=== PATIENT | female | born 1980 | race African-American/Black ===

== ENCOUNTER → 2020-09-09 20:36 | Outpatient (REF) | payer OTHER, SELFPAY | LOC: HO.SL 20:36 | PROVIDERS: PCP Family Medicine; Visit Provider Nurse Practitioner Family | DX: G47.33 Obstructive sleep apnea (adult) (pediatric) (principal) | CPT/HCPCS: 95811 ==

== ENCOUNTER → 2020-09-22 10:55 | Outpatient (BNVA) | payer OTHER, SELFPAY | PROVIDERS: PCP Family Medicine; Referring Provider Family Medicine; Visit Provider Internal Medicine | DX: G47.33 Obstructive sleep apnea (adult) (pediatric) (principal); J44.9 Chronic obstructive pulmonary disease, unspecified; E66.01 Morbid (severe) obesity due to excess calories; Z68.42 Body mass index [BMI] 45.0-49.9, adult; F17.210 Nicotine dependence, cigarettes, uncomplicated; Z79.899 Other long term (current) drug therapy | CPT/HCPCS: 99202; 99203 ==

== ENCOUNTER 2020-10-28 10:38 | Outpatient (REF) | payer OTHER, SELFPAY ==
--- NOTE | 2020-10-28 17:33 | PFT_ITS ---
INDICATION: Asthma. SPIROMETRY: The FEV1 to FVC of 85% with an FEV1 of 2.53 L, which is 87% predicted and FVC of 2.98 L, which is 85% predicted. There was a significant response to bronchodilators noted. There is also evidence of small airway disease. Maximum voluntary ventilation 114% predicted. Total lung capacity 95% predicted with an expiratory reserve volume of 25% predicted likely from an elevated BMI. Diffusion capacity 60% predicted. COMPARISONS: None. INTERPRETATION: No obstructive nor restrictive ventilatory defects identified. There was a significant response to bronchodilators noted and also evidence of small airway disease, which could be due to asthma. Lung volumes are within normal limits except for decrease in the expiratory reserve volume and the patient does have a [id number] diffusion impairment, which could be due to underlying pulmonary vascular disease. Should also consider correcting for hemoglobin and for alveolar volume. Thony Glez MD MR/MODL / [id number]
== END 2020-10-28 10:39 | disposition home or self-care (01) ==
LOC: HO.RESP 10:38
PROVIDERS: PCP Family Medicine; Visit Provider Internal Medicine
DX: J44.9 Chronic obstructive pulmonary disease, unspecified (principal)
CPT/HCPCS: 94060; 94727; 94729

== ENCOUNTER → 2021-05-05 14:54 | Outpatient (BNVA) | payer OTHER, SELFPAY | PROVIDERS: PCP Family Medicine; Visit Provider Internal Medicine | DX: E66.01 Morbid (severe) obesity due to excess calories (principal); G47.33 Obstructive sleep apnea (adult) (pediatric); J45.909 Unspecified asthma, uncomplicated; J44.9 Chronic obstructive pulmonary disease, unspecified; F17.200 Nicotine dependence, unspecified, uncomplicated | CPT/HCPCS: 99212 ==

== ENCOUNTER 2021-07-02 14:46 | Outpatient (REF) | payer OTHER, SELFPAY ==
[2021-07-02 15:32] LABS: MANUAL DIFF FLAG NO
[2021-07-02 15:43] LABS: Basophils Percent Auto 0.4 % (0-2); Eosinophils Absolute Auto 0.3 X10*3/uL (0.0-0.4); Eosinophils Percent Auto 3.3 % (0-4); Hematocrit 37.1 % (37-47); Hemoglobin 11.1 g/dl (12.0-16.0); Imm Gran Abs Auto 0.02 X10*3/uL (0.00-0.03); Imm Gran Pct Auto 0.2 % (0.0-0.4); Lymphocytes Absolute Auto 2.7 X10*3/uL (1.2-4.9); Lymphocytes Percent Auto 27.9 % (20-40); Mean Corpuscular HGB Conc 29.9 g/dl (31.0-35.0); Mean Corpuscular Hemoglobin 21.8 pg (27.0-33.0); Mean Corpuscular Volume 72.7 fL (80-98); Mean Platelet Volume 11.9 fL (9.4-12.3); Monocytes Absolute Auto 0.6 X10*3/uL (0.1-1.2); Monocytes Percent Auto 6.2 % (2-11); Platelet Count 379 X10*3/uL (160-400); Red Cell Distribution Width 14.3 % (11.0-16.0); White Blood Count 9.7 X10*3/uL (4.8-10.8)
[2021-07-02 16:02] LABS: Creatinine Urine 184.09 mg/dL; Microalbum/Creatinine Ratio Ur 15.2 ug/mg cr
[2021-07-02 16:05] LABS: B Type Natriuretic Peptide 21 pg/mL (<100)
[2021-07-02 16:08] LABS: Alanine Aminotransferase 29 U/L (0-31); Albumin Level 4.4 g/dL (3.5-5.0); Alkaline Phosphatase 79 U/L (39-117); Anion Gap 14 (12-20); Aspartate Amino Transferase 20 U/L (5-31); Bilirubin Total 0.3 mg/dL (0.0-1.0); Blood Urea Nitrogen 8 mg/dL (9-16); Calcium 9.3 mg/dL (8.4-10.2); Carbon Dioxide 22 mmol/L (22-29); Chloride 107 mmol/L (96-108); Cholesterol 157 mg/dL; Estimated Glomerular Filt Rate > 60; Glucose Random 115 mg/dL (60-115); HDL Cholesterol 27 mg/dL; Iron 39 mcg/dL (30-160); LDL Cholesterol Calculated 103 mg/dl; Sodium 139 mmol/L (135-145); Total Protein 7.7 g/dL (6.5-8.0); Triglycerides 138 mg/dL
[2021-07-02 16:20] LABS: Percent Iron Saturation 11 % (15-50); Total Iron Binding Capacity 358 mcg/dL (228-428); Unsaturated Iron Binding 319 ug/dL
[2021-07-02 16:26] LABS: Ferritin 28 ng/mL (10-250); Free T4 (Free Thyroxine) 1.04 ng/dL (0.71-1.85); Thyroid Stimulating Hormone 1.06 uIU/mL (0.32-4.0)
== END 2021-07-02 14:47 | disposition home or self-care (01) ==
LOC: HO.LAB 14:46
PROVIDERS: PCP Family Medicine; Visit Provider Family Medicine
DX: D64.9 Anemia, unspecified (principal); R60.0 Localized edema; R79.89 Other specified abnormal findings of blood chemistry
CPT/HCPCS: 36415; 80053; 80061; 82043; 82728; 83540; 83880; 84439; 84443; 85025

== ENCOUNTER 2021-07-10 09:56 | Day surgery (SDC) | payer OTHER, SELFPAY ==
[2021-07-10 10:04] VITALS: BP 118/78; PULSE 85; RESP 18; TEMP 36.4; O2SAT 97; BMI 49.6
--- NOTE | 2021-07-10 10:10 | P.CONAN_ITS ---
[facility] Active Problems Active Problems: All Active Problems (Updated 05/05/21 @ 17:06 by Ellie hernandez MD) Anemia (Acute) Smoking (Acute) COPD (chronic obstructive pulmonary disease) (Acute) Asthma (Acute) EDMUND (obstructive sleep apnea) (Acute) Morbid obesity (Acute) Past Medical History Medical History Asthma Asthma COPD (chronic obstructive pulmonary disease) Depression Iron deficiency anemia Morbid obesity EDMUND (obstructive sleep apnea) Smoking Family History Family History Mother Breast cancer Diabetes Maternal Grandmother Hypertension Surgical History Surgical History (Updated 07/10/21 @ 10:02 by Valentina Fontenot RN) H/O right knee surgery H/O tubal ligation Previous section Social History Social History Household Members: Family Housing: Apartment Are you a primary respiratory care program director to a significant other at home: No (For mother, not spouse) Do you presently have visiting nurse or other home services: No Alcohol intake: never Patient Tobacco Use Status: Current everyday Tobacco user Cigarette Packs Per Day: 0.5 Cigarettes Per Day: 10.0 Years Smoked: 23 Use of substances other than those prescribed or required for medical reasons: Yes Substance Use Type: Marijuana Special yasmeen needs: No Agree to transfusion: No Are you DNR?: No Advance Directives: No Advance Directives Information Provided: Yes Meds Allergies Allergy/AdvReac Type Severity Reaction Status Date / Time No Known Allergies Allergy Verified 07/10/21 10:02 Active Medications: Current Medications Generic Name Dose Route Start Last Admin Trade Name Inés PRN Reason Stop Dose Admin Lactated Ringer's 1,000 mls @ 50 mls/hr 07/10/21 08:00 Lr IVCONT .Q20H [facility] Home Medications Medication Instructions Recorded Confirmed Last Taken Type albuterol sulfate 90 mcg/actuation 1 inh INHALATION QID 09/10/20 09/10/20 Unknown History aerosol inhaler ascorbic acid (vitamin C) 300 mg 300 mg PO DAILY 09/10/20 09/10/20 Unknown History chewable tablet fluticasone 500 mcg-salmeterol 50 1 inh INHALATION BID 09/10/20 09/10/20 Unknown History mcg/dose blistr powdr for inhalation (Advair Diskus) gabapentin 100 mg capsule 100 mg PO BEDTIME 09/10/20 09/10/20 Unknown History ipratropium 0.5 mg-albuterol 3 mg 3 ml INHALATION QID PRN 09/10/20 09/10/20 Unknown History (2.5 mg base)/3 mL nebulization soln montelukast 10 mg tablet 10 mg PO DAILY 09/10/20 09/10/20 Unknown History (Singulair) omeprazole 20 mg capsule,delayed 20 mg PO DAILY 09/10/20 09/10/20 Unknown History release tiotropium bromide 18 mcg capsule 1 cap INHALATION DAILY 09/10/20 09/10/20 Unknown History with inhalation device (Spiriva with HandiHaler) ascorbic acid (vitamin C) 250 mg 250 mg PO TID 05/05/21 Unknown History tablet docusate sodium 100 mg capsule 100 mg PO BID PRN 05/05/21 Unknown History fluticasone propionate 50 1 - 2 spray INTRANASAL DAILY PRN 05/05/21 Unknown History mcg/actuation nasal spray,suspension levothyroxine 50 mcg tablet 50 mcg PO DAILY 05/05/21 Unknown History methadone 10 mg/mL oral syringe 63 mg PO DAILY 05/05/21 07/10/21 09:45 History (FOR ORAL USE ONLY) Exam Exam Date and Time: July 10, 2021 1010 Airway Mallampati Class: III TM Dist: >3cm Neck ROM: Full
--- NOTE | 2021-07-10 10:20 | MHC.SHP ---
Pre-Procedural Eval Section A Date of Service: 07/10/21 The patient is an INPATIENT: No Changes since office visit: No Cold of Flu in the past 2 weeks, No New Medical Problems, No Changes in Medication and No Patient answered all questions The History & Physical has been completed within 30 days and I have reviewed it.: Yes Section B Chief Complaint: reflux disease Allergies: Allergies Allergy/AdvReac Type Severity Reaction Status Date / Time No Known Allergies Allergy Verified 07/10/21 10:02 Plan I have reviewed the history and physical and performed a pertinent physical examination on my patient. No changes have occurred unless specified.
[2021-07-10] MEDS: Lactated Ringers 1,000 ML 100 ML IVCONT (10:23)
--- NOTE | 2021-07-10 10:36 | P.BOP_ITS ---
Brief Operative Note Date of Service: 07/10/21 Pre-op diagnosis: gerd Post-op diagnosis: same Procedure: egd Surgeon: Dillon Maldonado Anesthesia: MAC Was an Sales Representative Consultant used for this Procedure?: No Estimated blood loss (mL): 2 Pathology: other (antral and egj bxs) Condition: stable Disposition: PACU
[2021-07-10 10:45] VITALS: BP 104/58; PULSE 84; RESP 18; TEMP 36.4; O2SAT 99
--- NOTE | 2021-07-10 10:55 | OP_ITS ---
SURGEON: Dillon Maldonado MD INDICATIONS: Gastroesophageal reflux disease. PREOPERATIVE DIAGNOSIS: POSTOPERATIVE DIAGNOSIS: PROCEDURE PERFORMED: Upper endoscopy with biopsy. ESTIMATED BLOOD LOSS: COMPLICATIONS: ANESTHESIA: ASSISTANTS: SPECIMENS: MEDICATIONS: Monitored anesthesia care. DESCRIPTION OF PROCEDURE: History and physical performed. The risks and benefits of the procedure were explained to the patient. Informed consent was obtained. The patient was placed in the left lateral decubitus position. The Olympus video gastroscope was introduced into the esophagus, stomach, and duodenum. Examination was performed and the scope was removed. She tolerated the procedure well and was taken to recovery area in stable condition. FINDINGS: ESOPHAGUS: The esophagus was normal. There was no esophagitis. Biopsies were obtained from the EG junction, which was slightly irregular. STOMACH: The stomach showed no evidence of masses, ulcers, or polyps. There was mild gastritis in the body with patchy erythema involving the body and fundus. Biopsies were obtained from the antrum to evaluate for H pylori. No ulcer was seen. DUODENUM: The bulb and second portion were normal. IMPRESSION: 1. Gastroesophageal reflux disease. 2. Gastritis. RECOMMENDATIONS: 1. Follow up the biopsy results. 2. Resume omeprazole 40 mg daily. MD SERENA Velez/SMOOTH / [id number]
[2021-07-10 11:01] VITALS: BP 100/61; PULSE 81; RESP 18; TEMP 36.4; O2SAT 97
== END 2021-07-10 11:41 | disposition home or self-care (01) ==
PROVIDERS: PCP Family Medicine; Visit Provider Internal Medicine Gastroenterology
PROC: 0DJ08ZZ Inspection of Upper Intestinal Tract, Via Natural or Artificial Opening Endoscopic (ICD-10-PCS; CPT 43235; principal; 2021-07-10 11:30)
DX: K21.9 Gastro-esophageal reflux disease without esophagitis (principal); K29.50 Unspecified chronic gastritis without bleeding; J44.9 Chronic obstructive pulmonary disease, unspecified; E03.9 Hypothyroidism, unspecified; G47.33 Obstructive sleep apnea (adult) (pediatric); E66.01 Morbid (severe) obesity due to excess calories; Z68.42 Body mass index [BMI] 45.0-49.9, adult; D64.9 Anemia, unspecified; E78.5 Hyperlipidemia, unspecified; Z79.51 Long term (current) use of inhaled steroids; Z79.899 Other long term (current) drug therapy; F11.20 Opioid dependence, uncomplicated; F17.210 Nicotine dependence, cigarettes, uncomplicated
CPT/HCPCS: 43239; 88305; 88342

== ENCOUNTER 2021-07-17 11:20 | Outpatient (REF) | payer OTHER, SELFPAY ==
--- NOTE | ~2021-07-17 | MM_ITS ---
EXAMINATION: MM SCREENING DIGITAL BREAST TOMOSYNTHESIS, BILATERAL CLINICAL INFORMATION: Screening. Asymptomatic. The lifetime risk of breast cancer based on the Tyrer-Cuzick Model is 15%. COMPARISON: Mammography: 07/11/2020 (baseline) TECHNIQUE: Digital breast tomosynthesis is performed in both the craniocaudal and mediolateral oblique views along with computer-aided detection (CAD). Synthesized 2D images are generated from the tomosynthesis. FINDINGS: The breasts are almost entirely fatty (ACR BI-RADS breast composition Category a). There are no significant masses, abnormal calcifications, or other abnormalities. The axilla and skin contours are unremarkable. No significant changes. MM/MM tomosynthesis screening BI IMPRESSION: No mammographic evidence of malignancy. ASSESSMENT: BI-RADS 1: Negative RECOMMENDATION: Routine annual mammography screening. This patient's information was entered into a reminder system with a target due date for their next mammogram.
== END 2021-07-17 11:21 | disposition home or self-care (01) ==
LOC: HO.MAMMO 11:20
PROVIDERS: Visit Provider Obstetrics & Gynecology
DX: Z12.31 Encounter for screening mammogram for malignant neoplasm of breast (principal)
CPT/HCPCS: 77063; 77067

== ENCOUNTER → 2021-08-19 13:25 | Outpatient (BNVA) | payer OTHER, SELFPAY | PROVIDERS: PCP Family Medicine; Referring Provider Family Medicine; Visit Provider Surgery | DX: K43.9 Ventral hernia without obstruction or gangrene (principal); E66.01 Morbid (severe) obesity due to excess calories | CPT/HCPCS: 99202 ==

== ENCOUNTER 2021-09-01 09:38 | Day surgery (SDC) | payer OTHER, SELFPAY ==
[2021-08-26 14:15] VITALS: BMI 51.3
--- NOTE | 2021-08-31 09:40 | HO.ANESPROP2 ---
Documented by User: Syeda Day NP 08/31/21 09:42 HPI - Anesthesia Eval Consult details Narrative: 41yo F for Hernia Repair Epigastric, Poss Mesh s/p EGD with MAC 06/2021 h/o IVDA with daily methadone now PMFSH Active Problems Active Problems: All Active Problems (Updated 08/26/21 @ 14:15 by Ermelinda Galeana, RN) Asthma (Acute) Anemia (Acute) Morbid obesity (Acute) Epigastric hernia (Acute) Smoking (Acute) COPD (chronic obstructive pulmonary disease) (Acute) EDMUND (obstructive sleep apnea) (Acute) Morbid obesity (Acute) Past Medical History Medical History Asthma COPD (chronic obstructive pulmonary disease) COVID-19 vaccine series completed Depression Epigastric hernia GERD (gastroesophageal reflux disease) Hypothyroid IBS (irritable bowel syndrome) Iron deficiency anemia Methadone maintenance therapy patient Morbid obesity EDMUND (obstructive sleep apnea) Smoking Family History Family History Mother Breast cancer Diabetes Maternal Grandmother Hypertension Surgical History Surgical History H/O right knee surgery H/O tubal ligation History of esophagogastroduodenoscopy (EGD) Hx of dilation and curettage Previous section Social History Social History Household Members: Family Housing: Apartment Are you a primary plant health care technician to a significant other at home: No Do you presently have visiting nurse or other home services: No Alcohol intake: never Patient Tobacco Use Status: Current everyday Tobacco user Tobacco use type: Cigarette Cigarette Packs Per Day: 0.25 Cigarettes Per Day: 5.0 Years Smoked: 24 Smoked in Last 30 Days: Yes Patient Interested in Nicotine Replacement: Yes Patient Given Instructions on How to Stop Smoking: Yes Date Education Initiated: 08/26/21 Use of substances other than those prescribed or required for medical reasons: Yes Substance Use Type: Marijuana Substance Use Type Other:: hx heroin- On Methadone- RX in [facility] Substance Use Frequency: Daily Have you been hit, kicked, punched, or otherwise hurt by someone within the past year? If so, by whom?: No Special yasmeen needs: No Agree to transfusion: No Are you DNR?: No Advance Directives: No Advance Directives Information Provided: No Advance Directives on File: No Recently lost weight without trying: No How much weight loss: 14-23 pounds Nutrition Risks: No Nutritional Risk Patient : No FDLMP: 08/02/21 Meds Allergies Allergy/AdvReac Type Severity Reaction Status Date / Time No Known Allergies Allergy Verified 09/01/21 09:48 Home Medications Medication Instructions Recorded Confirmed Last Taken Type gabapentin 100 mg capsule 200 mg PO BEDTIME 09/10/20 08/26/21 Unknown History ipratropium 0.5 mg-albuterol 3 mg 3 ml INHALATION QID PRN 09/10/20 08/26/21 Unknown History (2.5 mg base)/3 mL nebulization soln ascorbic acid (vitamin C) 250 mg 250 mg PO TID 05/05/21 08/26/21 Unknown History tablet docusate sodium 100 mg capsule 100 mg PO BID PRN 05/05/21 08/26/21 Unknown History fluticasone propionate 50 1 - 2 spray INTRANASAL DAILY PRN 05/05/21 08/26/21 Unknown History mcg/actuation nasal spray,suspension methadone 10 mg/mL oral syringe 48 mg PO DAILY 05/05/21 08/19/21 09/01/21 07:30 History (FOR ORAL USE ONLY) duloxetine 30 mg capsule,delayed 30 mg PO DAILY 08/19/21 08/26/21 Unknown History release (Cymbalta) albuterol sulfate 90 mcg/actuation 2 puff PO Q4-6H PRN 08/26/21 08/26/21 Unknown History aerosol inhaler (ProAir HFA) cyclobenzaprine 10 mg tablet 1 tab PO BID PRN 08/26/21 08/26/21 Unknown History levothyroxine 100 mcg tablet 1 tab PO DAILY 08/26/21 08/26/21 09/01/21 07:30 History omeprazole 40 mg capsule,delayed 1 cap PO QAM 08/26/21 08/26/21 Unknown History release tramadol 50 mg tablet 1 tab PO Q6H PRN 08/26/21 08/26/21 Unknown History Exam Exam Date and Time: August 31, 2021 0940 Height,Weight and Vital Signs: Height 5 ft 3 in Weight 131.542 kg Pertinent Lab Results Pertinent Lab Results: Laboratory Tests 07/02/21 07/02/21 15:00 15:00 WBC 9.7 Hgb 11.1 L Hct 37.1 Plt Count 379 Sodium 139 Potassium 4.0 Chloride 107 Carbon Dioxide 22 BUN 8 L Creatinine 0.87 Narrative Narrative: PFT 10/2020 INTERPRETATION:? No obstructive nor restrictive ventilatory defects identified.? There was a significant response to bronchodilators noted and also evidence of small airway disease, which could be due to asthma.? Lung volumes are within normal limits except for decrease in the expiratory reserve volume and the patient does have a ilyy-yh-yzxetoih diffusion impairment, which could be due to underlying pulmonary vascular disease.? Should also consider correcting for hemoglobin and for alveolar volume. Assessment and Plan Assessment Anesthesia Assessment: Chart Reviewed Documented by User: Nadia Garcia MD 09/01/21 11:26 [facility] Past Medical History Medical History Asthma COPD (chronic obstructive pulmonary disease) COVID-19 vaccine series completed Depression Epigastric hernia GERD (gastroesophageal reflux disease) Hypothyroid IBS (irritable bowel syndrome) Iron deficiency anemia Methadone maintenance therapy patient Morbid obesity EDMUND (obstructive sleep apnea) Smoking Family History Family History Mother Breast cancer Diabetes Maternal Grandmother Hypertension Family history of problems with anesthesia: No Surgical History Surgical History H/O right knee surgery H/O tubal ligation History of esophagogastroduodenoscopy (EGD) Hx of dilation and curettage Previous section History of Problems with Anesthesia: No Social History Social History Household Members: Family Housing: Apartment Are you a primary plant health care technician to a significant other at home: No Do you presently have visiting nurse or other home services: No Alcohol intake: never Patient Tobacco Use Status: Current everyday Tobacco user Tobacco use type: Cigarette Cigarette Packs Per Day: 0.25 Cigarettes Per Day: 5.0 Years Smoked: 24 Smoked in Last 30 Days: Yes Patient Interested in Nicotine Replacement: Yes Patient Given Instructions on How to Stop Smoking: Yes Date Education Initiated: 08/26/21 Use of substances other than those prescribed or required for medical reasons: Yes Substance Use Type: Marijuana Substance Use Type Other:: hx heroin- On Methadone- RX in [facility] Substance Use Frequency: Daily Have you been hit, kicked, punched, or otherwise hurt by someone within the past year? If so, by whom?: No Special yasmeen needs: No Agree to transfusion: No Are you DNR?: No Advance Directives: No Advance Directives Information Provided: No Advance Directives on File: No Recently lost weight without trying: No How much weight loss: 14-23 pounds Nutrition Risks: No Nutritional Risk Patient : No FDLMP: 08/02/21 Meds Allergies Allergy/AdvReac Type Severity Reaction Status Date / Time No Known Allergies Allergy Verified 09/01/21 09:48 Home Medications Medication Instructions Recorded Confirmed Last Taken Type gabapentin 100 mg capsule 200 mg PO BEDTIME 09/10/20 08/26/21 Unknown History ipratropium 0.5 mg-albuterol 3 mg 3 ml INHALATION QID PRN 09/10/20 08/26/21 Unknown History (2.5 mg base)/3 mL nebulization soln ascorbic acid (vitamin C) 250 mg 250 mg PO TID 05/05/21 08/26/21 Unknown History tablet docusate sodium 100 mg capsule 100 mg PO BID PRN 05/05/21 08/26/21 Unknown History fluticasone propionate 50 1 - 2 spray INTRANASAL DAILY PRN 05/05/21 08/26/21 Unknown History mcg/actuation nasal spray,suspension methadone 10 mg/mL oral syringe 48 mg PO DAILY 05/05/21 08/19/21 09/01/21 07:30 History (FOR ORAL USE ONLY) duloxetine 30 mg capsule,delayed 30 mg PO DAILY 08/19/21 08/26/21 Unknown History release (Cymbalta) albuterol sulfate 90 mcg/actuation 2 puff PO Q4-6H PRN 08/26/21 08/26/21 Unknown History aerosol inhaler (ProAir HFA) cyclobenzaprine 10 mg tablet 1 tab PO BID PRN 08/26/21 08/26/21 Unknown History levothyroxine 100 mcg tablet 1 tab PO DAILY 08/26/21 08/26/21 09/01/21 07:30 History omeprazole 40 mg capsule,delayed 1 cap PO QAM 08/26/21 08/26/21 Unknown History release tramadol 50 mg tablet 1 tab PO Q6H PRN 08/26/21 08/26/21 Unknown History Exam Airway Mallampati Class: II TM Dist: >3cm Neck ROM: Full Denture: Upper Partial: Lower Assessment and Plan Assessment Anesthesia Assessment: Anesthesia Plan Discussed Final Anesthetic Review Family History of Problems with Anesthesia: No History of Problems with Anesthesia: No NPO: Yes ASA Class: III Final Preanesthetic Review: No Changes in Pt Med Stat, Meds/Allgs Chart Reviewed, Consent Obtained/Reviewed and Anes Risks/Benef Reviewed Patient Risk: Intermediate Procedure Risk: Low Assessment/Block/Sedation in SS: Assess/Block/Sedation-SS Anesthetic Plan Anesthetic Plan: GA Disposition: Standard PACU
[2021-09-01] VITALS (9 sets, daily range): BP systolic 102–121; BP diastolic 58–79; PULSE 79–98; RESP 18–20; TEMP 36.1–36.5; O2SAT 90–97
[2021-09-01] MEDS: Lactated Ringers 1,000 ML 100 ML IVCONT (10:21)
--- NOTE | 2021-09-01 11:12 | MHC.SHP ---
Pre-Procedural Eval Section A Date of Service: 09/01/21 Section B Chief Complaint: Epigastric Hernia Allergies: Allergies Allergy/AdvReac Type Severity Reaction Status Date / Time No Known Allergies Allergy Verified 09/01/21 09:48 Plan I have reviewed the history and physical and performed a pertinent physical examination on my patient. No changes have occurred unless specified.
--- NOTE | 2021-09-01 12:25 | P.OP_ITS ---
Operative Note Operative Note Date of Service: 09/01/21 Narrative: Preop diagnosis: Epigastric hernia Postop diagnosis: Epigastric hernia Procedure: Repair of epigastric hernia with Ventralex mesh Surgeon: Ray Cook MD mortgage loan assistant: LARON Harley Patient is a 42 year female with note of a partially reducible mass in the epigastric area. This measured about 4 cm as a mass, in diameter. This was consistent with an epigastric hernia. She understood the technique of repair with mesh. She was aware of the risks, benefits, and alternatives and wanted to proceed. She was brought to the operating room and placed supine on the table under general anesthesia via endotracheal tube. The abdomen is prepped and draped in the usual sterile fashion. A surgical time-out was done. The patient received cefazolin 2 g IV preoperatively I infiltrated the planned line of incision using lidocaine 1%. I made the incision on the skin using blade 15. And this was carried down through the full- thickness of the skin subcutaneous fat with electrocautery. Please note the patient is morbidly obese so we had to go through a thick amount of subcutaneous fat. We continued the gentle dissection with Metzenbaum scissors until I was able to visualize the hernia. Proceeded to gently define the hernia and separate this off of the rest of the subcutaneous fat using Metzenbaum scissors and electrocautery until was able to reach the fascia. I exposed the fascia surrounding the sac. I then proceeded to gently dissect the sac off of the rest of the fascia using electrocautery. Since the sac was markedly adherent to the fascial edge, I had to excise this and this was sent as specimen along with some of what appeared to be part of the fat in the falciform. I applied Antonia clamps to the edges of the fascial defect. I examined the underside and there was no evidence of any adhesions. The margins were clear for placement of a mesh. There was note of some bleeding from the falciform so I tied this with the Dexon 3-0 tie which achieved hemostasis. The fascial defect measured about 3.5 cm across but this reapposed easily without tension. I therefore used a medium-sized Ventralex mesh. This was flattened under the fascial defect and appeared to provide adequate coverage. I secured the mesh with multiple Prolene 2-0 sutures to the fascial edge on both sides on to the Prolene side of the mesh including the straps. I then trimmed the Prolene straps flush on the fascial level. I then closed the fascia with a running Maxon 1 stitch, incorporating the Prolene side the mesh with some of the bites. I observed for hemostasis. Once hemostasis was ensured, I proceeded to then reappose the thick subcutaneous layer with Dexon 3-0 sutures. Skin closure was achieved with Dexon 4-0 subcuticular running stitch. I infiltrated the area with Marcaine 0.5% for postop analgesia. Dressings were then applied. The patient tolerated procedure well. There were no complication noted. Initial and final counts of sponges and instruments were correct. Estimated blood loss was about 5 cc The patient was then extubated without difficulty and transferred to the recovery room with stable vital signs.
--- NOTE | 2021-09-01 12:31 | PM.OP ---
Brief Operative Note Date of Service: 09/01/21 Pre-op diagnosis: Epigastric hernia Post-op diagnosis: same Procedure: Repair of epigastric hernia with mesh Implants: Mesh Surgeon: Ray Cook MD Anesthesia: GETA and GLMA Was an Corporate Real Estate Manager used for this Procedure?: Yes Corporate Real Estate Manager: Kalie Harley Estimated blood loss (mL): 5 Pathology: other (Hernia sac) Condition: stable Disposition: PACU
[2021-09-01] MEDS: oxyCODONE HCl Immed Release 5 MG TABLET PO (13:03)
[2021-09-01] MEDS: Acetaminophen 325 MG TABLET 650 MG PO (13:04)
[2021-09-01] MEDS: Ketorolac Tromethamine 15 MG/ML VIAL IVPUSH (13:05)
[2021-09-01] MEDS: fentaNYL citrate/PF 100 MCG/2 ML VIAL 25 MCG IVPUSH (13:52)
== END 2021-09-01 15:23 | disposition home or self-care (01) ==
PROVIDERS: PCP Family Medicine; Visit Provider Surgery
PROC: (CPT 49570; principal; 2021-09-01 11:30)
DX: K43.9 Ventral hernia without obstruction or gangrene (principal); J44.9 Chronic obstructive pulmonary disease, unspecified; G47.33 Obstructive sleep apnea (adult) (pediatric); Z91.19 Patient's noncompliance with other medical treatment and regimen; D50.9 Iron deficiency anemia, unspecified; E66.01 Morbid (severe) obesity due to excess calories; Z68.43 Body mass index [BMI] 50.0-59.9, adult; F32.9 Major depressive disorder, single episode, unspecified; F11.20 Opioid dependence, uncomplicated; F12.90 Cannabis use, unspecified, uncomplicated; F17.210 Nicotine dependence, cigarettes, uncomplicated; Z79.51 Long term (current) use of inhaled steroids; Z79.899 Other long term (current) drug therapy
CPT/HCPCS: 49570; 88302; C1781; J0690; J1885; J2250; J2405; J3010

== ENCOUNTER → 2021-09-17 15:07 | Outpatient (BNVA) | payer OTHER, SELFPAY | PROVIDERS: PCP Family Medicine; Referring Provider Family Medicine; Visit Provider Surgery | DX: Z48.815 Encounter for surgical aftercare following surgery on the digestive system (principal); Z87.19 Personal history of other diseases of the digestive system | CPT/HCPCS: 99212 ==

== ENCOUNTER → 2021-12-01 15:21 | Outpatient (BNVA) | payer MEDICAID, SELFPAY | PROVIDERS: PCP Family Medicine; Visit Provider Surgery Vascular Surgery | DX: I83.11 Varicose veins of right lower extremity with inflammation (principal) | CPT/HCPCS: 99202 ==

== ENCOUNTER → 2022-07-21 10:36 | Outpatient (BNVA) | payer MEDICAID, SELFPAY | PROVIDERS: PCP Family Medicine; Visit Provider Physician Assistant | DX: E66.01 Morbid (severe) obesity due to excess calories (principal); J44.9 Chronic obstructive pulmonary disease, unspecified; G47.33 Obstructive sleep apnea (adult) (pediatric); D64.9 Anemia, unspecified; F17.210 Nicotine dependence, cigarettes, uncomplicated; Z68.43 Body mass index [BMI] 50.0-59.9, adult | CPT/HCPCS: 99202; 99212 ==

== ENCOUNTER → 2022-08-17 11:12 | Outpatient (BNVA) | payer MEDICAID, SELFPAY | PROVIDERS: PCP Family Medicine; Visit Provider Dietitian, Registered | DX: E66.01 Morbid (severe) obesity due to excess calories (principal); Z68.42 Body mass index [BMI] 45.0-49.9, adult | CPT/HCPCS: 97802 ==

== ENCOUNTER 2022-08-31 08:40 | Outpatient (REF) | payer MEDICAID, SELFPAY ==
--- NOTE | ~2022-08-31 | XR_ITS ---
EXAMINATION: XR CHEST CLINICAL INFORMATION: Preprocedure COMPARISON: Previous chest x-ray December 2018 TECHNIQUE: 2 views of the chest were obtained. FINDINGS: The cardiac silhouette does not appear enlarged. Hilar and mediastinal contours are unremarkable. The lungs are clear. There is no pleural effusion or pneumothorax. There is no acute bone abnormality. XR/XR chest 2V IMPRESSION: No evidence for acute disease in the chest.
--- NOTE | 2022-08-31 09:00 | ECG_ITS ---
Test Reason : preop Blood Pressure : / mmHG Vent. Rate : 083 BPM Atrial Rate : 083 BPM P-R Int : 156 ms QRS Dur : 100 ms QT Int : 370 ms P-R-T Axes : 046 -16 011 degrees QTc Int : 434 ms Normal sinus rhythm Low voltage QRS Borderline ECG When compared with ECG of 03-SEP-2016 13:45, No significant change was found Referred By: Crystal Alfaro Electronically Signed By:RAMÓN COCHRAN
[2022-08-31 09:23] LABS: Basophils Absolute Auto 0.1 X10*3/uL (0.0-0.2); Basophils Percent Auto 0.6 % (0-2); Eosinophils Absolute Auto 0.4 X10*3/uL (0.0-0.4); Eosinophils Percent Auto 3.7 % (0-4); Hematocrit 35.5 % (37.0-47.0); Hemoglobin 10.8 g/dl (12.0-16.0); Imm Gran Abs Auto 0.03 X10*3/uL (0.00-0.03); Imm Gran Pct Auto 0.3 % (0.0-0.4); Lymphocytes Absolute Auto 3.6 X10*3/uL (1.2-4.9); Lymphocytes Percent Auto 34.8 % (20-40); MANUAL DIFF FLAG SCAN; Mean Corpuscular HGB Conc 30.4 g/dl (31.0-35.0); Mean Corpuscular Hemoglobin 21.4 pg (27.0-33.0); Mean Corpuscular Volume 70.4 fL (80.0-98.0); Mean Platelet Volume 12.5 fL (9.4-12.3); Monocytes Absolute Auto 0.7 X10*3/uL (0.1-1.2); Monocytes Percent Auto 6.3 % (2-11); Neutrophils Absolute Auto 5.7 x10*3/uL (2.0-8.3); Neutrophils Percent Auto 54.3 % (45-73); PLT CLUMP 1; Red Blood Count 5.04 X10*6/uL (4.20-5.50); Red Cell Distribution Width 14.4 % (11.0-16.0); SCAN SMEAR FLAG 1
[2022-08-31 09:39] LABS: Estimated Average Glucose 137 mg/dL; Hemoglobin A1c % 6.4 %
[2022-08-31 09:51] LABS: Alanine Aminotransferase 28 U/L (0-31); Albumin Level 4.3 g/dL (3.5-5.0); Alkaline Phosphatase 84 U/L (39-117); Anion Gap 13 (12-20); Aspartate Amino Transferase 16 U/L (5-31); Bilirubin Total < 0.2 mg/dL (0.0-1.0); Blood Urea Nitrogen 9 mg/dL (9-16); C Reactive Protein 1.86 mg/dL (< or = 0.50); Calcium 9.4 mg/dL (8.4-10.2); Carbon Dioxide 26 mmol/L (22-29); Chloride 105 mmol/L (96-108); Cholesterol 188 mg/dL; Estimated Glomerular Filt Rate > 60; Glucose Random 109 mg/dL (60-115); HDL Cholesterol 34 mg/dL; Iron 31 mcg/dL (30-160); LDL Cholesterol Calculated 120 mg/dl; Percent Iron Saturation 7 % (15-50); Potassium 4.4 mmol/L (3.3-5.1); Sodium 140 mmol/L (135-145); Total Iron Binding Capacity 419 mcg/dL (228-428); Total Protein 7.6 g/dL (6.5-8.0); Triglycerides 172 mg/dL; Unsaturated Iron Binding 388 ug/dL
[2022-08-31 10:05] LABS: Platelet Count 272 X10*3/uL (160-400); SLIDE REVIEW VERIFIED; White Blood Count 10.5 X10*3/uL (4.8-10.8)
[2022-08-31 10:12] LABS: Ferritin 11 ng/mL (10-250); Insulin 26 uU/mL (2-29); TSH reflex Free T4 3.52 uIU/mL (0.32-4.0); Vitamin D 25-OH Total 15.6 ng/mL (>30)
[2022-08-31 10:31] LABS: Folate 14.9 ng/mL (> or = 4.0); Vitamin B12 347 pg/mL (200-900)
[2022-09-01 12:37] LABS: Calcium (PTHI) 9.4 mg/dL (8.6-10.2); PTHI 89 pg/mL (16-77)
[2022-09-04 04:48] LABS: Zinc 86 mcg/dL (60-130)
[2022-09-04 20:21] LABS: Vitamin A 43 mcg/dL (38-98)
[2022-09-05 14:41] LABS: Vitamin B1 7 nmol/L (8-30)
== END 2022-08-31 08:41 | disposition home or self-care (01) ==
LOC: HO.XRAY 08:40
PROVIDERS: PCP Family Medicine; Visit Provider Physician Assistant
DX: Z01.818 Encounter for other preprocedural examination (principal); E66.01 Morbid (severe) obesity due to excess calories; J44.9 Chronic obstructive pulmonary disease, unspecified
CPT/HCPCS: 36415; 71046; 80053; 80061; 82306; 82607; 82728; 82746; 83036; 83525; 83540; 83970; 84425; 84443; 84590; 84630; 85025; 86140; 93005

== ENCOUNTER → 2022-09-09 11:36 | Outpatient (BNVA) | payer MEDICAID, SELFPAY | PROVIDERS: PCP Family Medicine; Visit Provider Obstetrics & Gynecology | DX: N93.9 Abnormal uterine and vaginal bleeding, unspecified (principal) | CPT/HCPCS: 99212 ==

== ENCOUNTER → 2022-09-21 11:06 | Outpatient (BNVA) | payer MEDICAID, SELFPAY | PROVIDERS: PCP Family Medicine; Visit Provider Dietitian, Registered | DX: E66.9 Obesity, unspecified (principal); Z68.43 Body mass index [BMI] 50.0-59.9, adult | CPT/HCPCS: 97803 ==

== ENCOUNTER 2023-01-20 08:45 | Outpatient (REF) | payer MEDICAID, SELFPAY ==
--- NOTE | ~2023-01-20 | US_ITS ---
EXAMINATION: US PELVIS CLINICAL INFORMATION: Abnormal uterine bleeding. COMPARISON: Pelvic ultrasound 07/07/2020. TECHNIQUE: Ultrasound of the pelvis is performed using both transabdominal and transvaginal transducers along with Doppler. Transvaginal imaging is performed due to inadequate visualization transabdominally. FINDINGS: UTERUS: The uterus is retroverted and retroflexed measuring 13.4 x 5.6 7.4 cm for a volume of 291 mL; previously the volume was 220 mL. The double wall endometrial thickness is 12 mm with a trace amount of fluid in the endometrial canal consistent with the history of bleeding. The configuration of the uterus may be arcuate, but evaluation is technically difficult. The uterus is smooth in contour and has heterogeneous echogenicity. There is a single punctate calcification seen. No large visible fibroid. Nabothian cysts are present in the cervix. ADNEXA: The right ovary measures 2.0 x 2.0 x 2.4 cm for a volume of 5 mL Left ovary could not be seen. No free intraperitoneal fluid is seen. US/US pelvic and transvaginal IMPRESSION: A cause for the patient's abnormal uterine bleeding has not been found. The uterus is enlarged but, aside from a single punctate calcification fibroids are not seen.
== END 2023-01-20 08:46 | disposition home or self-care (01) ==
LOC: HO.US 08:45
PROVIDERS: Visit Provider Obstetrics & Gynecology
DX: N93.9 Abnormal uterine and vaginal bleeding, unspecified (principal)
CPT/HCPCS: 76830; 76856

== ENCOUNTER 2023-04-07 10:35 | Outpatient (REF) | payer MEDICAID, SELFPAY ==
[2023-04-08 09:34] LABS: CT PCR NOT DETECTED (Not Detect.); NG PCR NOT DETECTED (Not Detect.)
[2023-04-08 11:19] LABS: BV Int Neg Control Negative (Negative); BV Int Pos Control Positive (Positive)
[2023-04-12 09:37] LABS: HPV mRNA E6/E7 rflx Not Detected (Not Detected)
== END 2023-04-07 10:36 | disposition home or self-care (01) ==
LOC: HO.LNP 10:35
PROVIDERS: PCP Family Medicine; Visit Provider Advanced Practice Midwife
DX: Z12.4 Encounter for screening for malignant neoplasm of cervix (principal); Z11.51 Encounter for screening for human papillomavirus (HPV); N92.0 Excessive and frequent menstruation with regular cycle
CPT/HCPCS: 0353U; 87480; 87510; 87624; 87660; 88142

== ENCOUNTER 2023-08-09 14:40 | Outpatient (AMB) | payer MEDICAID, SELFPAY ==
--- NOTE | 2023-08-09 14:47 | A.OFFVIS_ITS ---
Intake Vital Signs 08/09/23 14:48 Height 5 ft 3 in Weight 257 lb 15.053 oz BMI 45.7 BP 122/76 Intake Visit Reasons: possible emb Corrosion Technician Required: No Information Interpreted: non-clinical & clinical Computer Assistant: Computer Assistant Present ([facility]) Accompanied by: Self / Same As Patient Allergies No Known Allergies Allergy (Verified 08/09/23 14:53) Is last menstrual period known: Yes Last menstrual period: 08/06/23 Post menopausal: No Patient : No Do you need a note to return to daycare/school/sports/work: Yes (for surgery on tuesday) HPI HPI Comments History of Present Illness Details The patient is presenting for follow-up , she was originally seen in 09/18 for abnormal uterine bleeding, the following workup was done since then: 09/18 H&H= 10.8/35.5 09/18 TSH was negative. 04/19 Co testing was done was negative, G C/chlamydia negative 01/20 Pelvic ultrasound showed the follow ing: UTERUS: The uterus is retroverted and retroflexed measuring 13.4 x 5.6 7.4 cm for a volume of 291 mL; previousl y the volume was 220 mL. The double wall endometrial thickness is 12 mm with a trace amount of fluid in the endometrial canal consistent with the history of bleeding. The configuration of the uterus may be arcuate, but evaluation is technically difficult. The uterus is smooth in contour and has heterogeneous echogenicity. There is a single punctate calcification seen. No large visible fibroid. Nabothian cysts are present in the cervix. ADNEXA: The right ovary measures 2.0 x 2.0 x 2.4 cm for a volume of 5 mL Left ovary could not be seen. No free intraperitoneal fluid is seen Last mammogram was [facility] Medical History COVID-19 vaccine series completed Hypothyroid Methadone maintenance therapy patient IBS (irritable bowel syndrome) GERD (gastroesophageal reflux disease) Epigastric hernia Smoking COPD (chronic obstructive pulmonary disease) EDMUND (obstructive sleep apnea) Morbid obesity Depression Iron deficiency anemia Asthma Surgical History Hx of hernia repair History of ventral hernia repair Hx of dilation and curettage History of esophagogastroduodenoscopy (EGD) H/O tubal ligation H/O right knee surgery Previous section Family History Mother Breast cancer Diabetes Thyroid condition Maternal Grandmother Hypertension Father No problems noted. Son Asthma Son No problems noted. Daughter No problems noted. Daughter No problems noted. Social History Household Members: Family Housing: Apartment Are you a primary team primary care physician to a significant other at home: No Do you presently have visiting nurse or other home services: No Alcohol intake: never Patient Tobacco Use Status: Current everyday Tobacco user Tobacco use type: Cigarette Cigarette Packs Per Day: 0.25 Cigarettes Per Day: 10 Years Smoked: 24 Substance Use Type: Marijuana Special yasmeen needs: No Agree to transfusion: No Female Reproductive History Menstrual Age of Menarche: 9 Date of last menstrual period: 08/06/23 Total pregnancies: 2 Full term: 2 Review of Systems Card Reports as per HPI and Reports no additional complaints Resp Reports as per HPI and Reports no additional complaints GI Reports as per HPI and Reports no additional complaints Reports as per HPI Physical Exam Vital Signs: Last Vital Signs BP 122/76 08/09/23 14:48 BMI result Body Mass Index 45.7 Const General: cooperative, healthy appearing and comfortable Chest Chest palpation & inspection: normal inspection of the chest and normal palpation of entire chest wall Breast/axilla inspection: normal inspection of the breasts and normal inspection of the axillae Breast/axilla palpation: normal palpation of the breasts, normal palpation of the axillae and no axillary lymphadenopathy Resp Effort & Inspection: normal respiratory effort Auscultation: clear to auscultation bilaterally Percussion: percussion normal Cardio Palpation: normal PMI Rate: regular rate Rhythm: regular rhythm Heart sounds: no murmurs and no rubs Peripheral pulses: Peripheral pulses 2+ throughout GI Inspection: Yes normal to inspection Palpation (GI): Soft to palpation, nontender, no guarding, not rigid and No hepatosplenomegaly present Percussion: Yes normal to percussion Auscultation: normal bowel sounds Rectal Exam - Female: deferred External Female Exam: normal external appearance Speculum Exam - Vagina: normal appearance of the vagina Speculum Exam - Cervix: Other cervical findings present (Cervix not able to be seen) Bimanual exam- vagina & uterus: other (Retroverted uterus) Bimanual Exam- Adnexa, other: normal adnexae Results AMB Test Urine AMB Test Urine Negative Last Edit by Reva Manriquez CMA on 15:12 Results Reviewed Results Reviewed: Laboratory Last Values [facility]st Clinic Negative 08/09/23 15:11 Assessment & Plan Assessment & Plan (1) Abnormal uterine bleeding: Code(s): N93.9 - Abnormal uterine and vaginal bleeding, unspecified Plan: Discussed with the patient the results of the workup done since 09/18 including CBC, TSH, GC and Chlamydia, ultrasound, co testing. Will repeat CBC since last CBC was in 09/18, proceed with endometrial sampling and order screening mammogram. EMB attempted but the cervix wasunable to be reached the patient was uncomfortable, the procedure was aborted. Recommended hysteroscopy D&C possible polypectomy/myomectomy with Mirena IUD insertion under anaesthesia. Discussed with the patient the procedure , all benefits and risks including but not limited to inability to complete the procedure , bleeding, infection, possible need for blood transfusion with all its risk ( HIV,syphilis, Hepatitis, anaphylaxis shock, others..), injury to bladder, rectum, possible need for laparoscopy/laparotomy or hysterectomy. Discussed with the patient the results of the work up done and options of treatment including Lysteda, control pills, Mirena IUD, endometrial ablation and hysterectomy. All pros, cons, risks and benefits if each option was discussed with the patient and the patient decided to go ahead with Mirena IUD so a more detailed discussion about it was conducted including mechanism of action, risks (uterine perforation, infection, injury to bladder, bowel, displacement, and others) benefits (hypo menorrhea, amenorrhea, ...). GC/CT were taken and were negative with schedule Mirena IUD insertion with hysteroscopy D&C possible polypectomy since patient has difficult pelvic exam and IUD insertion the office will be very difficult and uncomfortable for the patient. The patient verbalized understanding and signed the consent. Instructions given the patient to schedule a 2 week postoperative appointment Orders: Orders Complete Blood Count no Diff Today N93.9 - Abnormal uterine and vaginal bleeding, unspecified MM screening mammo BI Today Z12.31 - Encounter for screening mammogram for malignant neoplasm of breast AMB HCG Urine Test Today Z32.02 - Encounter for test, result negative Coding Level of Care Code Est Pt Level 3 (33989) Diagnoses Abnormal uterine bleeding N93.9
[2023-08-09 14:48] VITALS: BP 122/76; BMI 45.7
== END 2023-08-09 15:41 | disposition home or self-care (01) ==
PROVIDERS: PCP Family Medicine; Visit Provider Obstetrics & Gynecology
DX: Z32.02 Encounter for pregnancy test, result negative (principal); N93.9 Abnormal uterine and vaginal bleeding, unspecified
CPT/HCPCS: 99213

== ENCOUNTER 2023-08-09 14:40 | Outpatient (REF) | payer MEDICAID, SELFPAY ==
[2023-08-09 16:32] LABS: Hematocrit 30.4 % (37.0-47.0); Hemoglobin 8.8 g/dl (12.0-16.0); Mean Corpuscular HGB Conc 28.9 g/dl (31.0-35.0); Mean Corpuscular Volume 65.8 fL (80.0-98.0); Platelet Count 413 X10*3/uL (160-400); Red Blood Count 4.62 X10*6/uL (4.20-5.50); Red Cell Distribution Width 17.4 % (11.0-16.0); White Blood Count 12.6 X10*3/uL (4.8-10.8)
[2023-08-09 16:33] LABS: PLT ABN DIST 1
== END 2023-08-09 14:41 | disposition home or self-care (01) ==
LOC: HO.LAB 14:40
PROVIDERS: PCP Family Medicine; Visit Provider Obstetrics & Gynecology
DX: N93.9 Abnormal uterine and vaginal bleeding, unspecified (principal); Z32.02 Encounter for pregnancy test, result negative
CPT/HCPCS: 36415; 81025; 85027; 99212

== ENCOUNTER 2023-08-19 08:50 | Day surgery (SDC) | payer MEDICAID, SELFPAY ==
[2023-08-17 07:49] VITALS: BMI 45.5
--- NOTE | 2023-08-18 08:54 | P.CONAN_ITS ---
Documented by User: Syeda Day NP 08/18/23 08:55 HPI - Anesthesia Eval Consult details Narrative: 43yo F for D&C Hysteroscopy,poss myomectomy,poss polypectomy,and IUD insertion Methadone daily s/p tubal PMFSH Active Problems Active Problems: All Active Problems (Updated 08/09/23 @ 11:34 by [employer] ID) Menorrhagia with regular cycle (Acute) Cervical cancer screening (Acute) Abnormal uterine bleeding (Acute) Pre-op evaluation (Acute) Varicose veins of right lower extremity with inflammation (Acute) Asthma (Acute) Anemia (Acute) Morbid obesity (Acute) Epigastric hernia (Acute) Smoking (Acute) COPD (chronic obstructive pulmonary disease) (Acute) EDMUND (obstructive sleep apnea) (Acute) Morbid obesity (Acute) Past Medical History Medical History COVID-19 vaccine series completed Hypothyroid Methadone maintenance therapy patient IBS (irritable bowel syndrome) GERD (gastroesophageal reflux disease) Epigastric hernia Smoking COPD (chronic obstructive pulmonary disease) EDMUND (obstructive sleep apnea) Morbid obesity Depression Iron deficiency anemia Asthma Family History Family History Mother Breast cancer Diabetes Thyroid condition Maternal Grandmother Hypertension Father No problems noted. Son Asthma Son No problems noted. Daughter No problems noted. Daughter No problems noted. Family history of problems with anesthesia: No Surgical History Surgical History Hx of hernia repair History of ventral hernia repair Hx of dilation and curettage History of esophagogastroduodenoscopy (EGD) H/O tubal ligation H/O right knee surgery Previous section History of Problems with Anesthesia: No Social History Household Members: Family Housing: Apartment Are you a primary team primary care physician to a significant other at home: No Do you presently have visiting nurse or other home services: No Alcohol intake: never Patient Tobacco Use Status: Current everyday Tobacco user Tobacco use type: Cigarette Cigarette Packs Per Day: 0.25 Cigarettes Per Day: 4 Years Smoked: 20 Substance Use Type: Marijuana Special yasmeen needs: No Agree to transfusion: No Meds Allergies Allergy/AdvReac Type Severity Reaction Status Date / Time No Known Allergies Allergy Verified 10/05/23 15:36 Home Medications Medication Instructions Recorded Confirmed Last Taken Type gabapentin 100 mg capsule 200 mg PO BEDTIME 09/10/20 08/19/23 Unknown History ipratropium 0.5 mg-albuterol 3 mg 3 ml inhalation QID PRN 09/10/20 08/19/23 Unknown History (2.5 mg base)/3 mL nebulization Respiratory Distress soln ascorbic acid (vitamin C) 250 mg 250 mg PO TID 05/05/21 08/19/23 Unknown History tablet docusate sodium 100 mg capsule 100 mg PO BID PRN constipation 05/05/21 08/19/23 Unknown History fluticasone propionate 50 1 - 2 spray intranasal DAILY PRN 05/05/21 08/19/23 Unknown History mcg/actuation nasal Congestion spray,suspension methadone 10 mg/mL oral syringe 12 mg PO DAILY 05/05/21 08/19/23 08/18/23 History (FOR ORAL USE ONLY) 12 albuterol sulfate 90 mcg/actuation 2 puff PO Q4-6H PRN Wheezing 08/26/21 08/19/23 Unknown History aerosol inhaler (ProAir HFA) omeprazole 40 mg capsule,delayed 1 cap PO QAM 08/26/21 08/19/23 Unknown History release levonorgestrel 21 mcg/24 hours (8 intrauterine 10/05/23 Unknown History yrs) 52 mg intrauterine device (Mirena) zolpidem 5 mg tablet 5 mg PO BEDTIME PRN insomnia 10/05/23 Unknown History Exam Exam Date and Time: August 18, 2023 0854 Height,Weight and Vital Signs: Height 5 ft 3 in Weight 116.573 kg Assessment and Plan Assessment Anesthesia Assessment: Chart Reviewed Final Anesthetic Review Family History of Problems with Anesthesia: No History of Problems with Anesthesia: No Documented by User: Salvador Hester MD 10/20/23 19:31 HPI - Anesthesia Eval Consult details Narrative: 43yo F for D&C Hysteroscopy,poss myomectomy,poss polypectomy,and IUD insertion Methadone daily s/p tubal Morbid Obesity, EDMUND PMFSH Past Medical History Medical History COVID-19 vaccine series completed Hypothyroid Methadone maintenance therapy patient IBS (irritable bowel syndrome) GERD (gastroesophageal reflux disease) Epigastric hernia Smoking COPD (chronic obstructive pulmonary disease) EDMUND (obstructive sleep apnea) Morbid obesity Depression Iron deficiency anemia Asthma Family History Family History Mother Breast cancer Diabetes Thyroid condition Maternal Grandmother Hypertension Father No problems noted. Son Asthma Son No problems noted. Daughter No problems noted. Daughter No problems noted. Surgical History Surgical History Hx of hernia repair History of ventral hernia repair Hx of dilation and curettage History of esophagogastroduodenoscopy (EGD) H/O tubal ligation H/O right knee surgery Previous section Social History Household Members: Family Housing: Apartment Are you a primary team primary care physician to a significant other at home: No Do you presently have visiting nurse or other home services: No Alcohol intake: never Patient Tobacco Use Status: Current everyday Tobacco user Tobacco use type: Cigarette Cigarette Packs Per Day: 0.25 Cigarettes Per Day: 4 Years Smoked: 20 Substance Use Type: Marijuana Special yasmeen needs: No Agree to transfusion: No Meds Allergies Allergy/AdvReac Type Severity Reaction Status Date / Time No Known Allergies Allergy Verified 10/05/23 15:36 Home Medications Medication Instructions Recorded Confirmed Last Taken Type gabapentin 100 mg capsule 200 mg PO BEDTIME 09/10/20 08/19/23 Unknown History ipratropium 0.5 mg-albuterol 3 mg 3 ml inhalation QID PRN 09/10/20 08/19/23 Unknown History (2.5 mg base)/3 mL nebulization Respiratory Distress soln ascorbic acid (vitamin C) 250 mg 250 mg PO TID 05/05/21 08/19/23 Unknown History tablet docusate sodium 100 mg capsule 100 mg PO BID PRN constipation 05/05/21 08/19/23 Unknown History fluticasone propionate 50 1 - 2 spray intranasal DAILY PRN 05/05/21 08/19/23 Unknown History mcg/actuation nasal Congestion spray,suspension methadone 10 mg/mL oral syringe 12 mg PO DAILY 05/05/21 08/19/23 08/18/23 History (FOR ORAL USE ONLY) 12 albuterol sulfate 90 mcg/actuation 2 puff PO Q4-6H PRN Wheezing 08/26/21 08/19/23 Unknown History aerosol inhaler (ProAir HFA) omeprazole 40 mg capsule,delayed 1 cap PO QAM 08/26/21 08/19/23 Unknown History release levonorgestrel 21 mcg/24 hours (8 intrauterine 10/05/23 Unknown History yrs) 52 mg intrauterine device (Mirena) zolpidem 5 mg tablet 5 mg PO BEDTIME PRN insomnia 10/05/23 Unknown History Exam Airway Mallampati Class: II TM Dist: >3cm Neck ROM: Full Heart: rrr Lungs: cta Assessment and Plan Assessment Anesthesia Assessment: Anesthesia Plan Discussed and Smoking Cess. Discussed Final Anesthetic Review NPO: Yes ASA Class: III Final Preanesthetic Review: No Changes in Pt Med Stat, Meds/Allgs Chart Reviewed, Consent Obtained/Reviewed and Anes Risks/Benef Reviewed Patient Risk: Intermediate Procedure Risk: Low Anesthetic Plan Anesthetic Plan: GA and Agree w/ Assess. and Plan Disposition: Standard PACU
[2023-08-19] VITALS (8 sets, daily range): BP systolic 113–141; BP diastolic 54–88; PULSE 77–100; RESP 15–18; TEMP 36.6–37.2; O2SAT 98–100; BMI 51.4
[2023-08-19 09:15] LABS: UPreg QC Valid YES; Urine Pregnancy NEGATIVE (NEGATIVE)
[2023-08-19] MEDS: Albuterol/Iprat 2.5/0.5MG 3 ML AMPUL.NEB INHALE (09:20)
[2023-08-19] MEDS: Lactated Ringers 1,000 ML 100 ML IVCONT (09:31)
--- NOTE | 2023-08-19 10:06 | MHC.SHP ---
Pre-Procedural Eval Section A Date of Service: 08/19/23 The patient is an INPATIENT: No Changes since office visit: No Cold of Flu in the past 2 weeks, No New Medical Problems, No Changes in Medication and No Patient answered all questions The History & Physical has been completed within 30 days and I have reviewed it.: Yes Section B Chief Complaint: Abnormal uterine and vaginal bleeding, Allergies: Allergies Allergy/AdvReac Type Severity Reaction Status Date / Time No Known Allergies Allergy Verified 08/19/23 08:54 Plan Diagnosis/Plan: Unchanged I have reviewed the history and physical and performed a pertinent physical examination on my patient. No changes have occurred unless specified. Time Spent With Patient Time: Total time managing care of this patient today ____ minutes.
--- NOTE | 2023-08-19 11:27 | PM.OP ---
Brief Operative Note Date of Service: 08/19/23 Pre-op diagnosis: Abnormal uterine bleeding, requesting Mirena IUD insertion Post-op diagnosis: same (Normal endometrial cavity) Procedure: Hysteroscopy D&C with Mirena IUD insertion Surgeon: Bib Lacey MD Anesthesia: GLMA Was an Automotive Parts Person used for this Procedure?: No Estimated blood loss (mL): 0 Pathology: none sent (Endometrial scraping) Condition: stable Disposition: PACU
--- NOTE | 2023-08-19 11:28 | P.OP_ITS ---
Operative Note Operative Note Date of Service: 08/19/23 Narrative: Preop Diagnosis: Abnormal uterine bleeding, requesting Mirena IUD insertion Operation: Diagnostic Hysteroscopy, Dilataion & Curettage with Mirena IUD insertion Post Op Diagnosis: Normal endometrial and endocervical cavity, no evidence of pathology QBL: Minimal Anesthesia: GLMA Surgeon: Bib Lacey MD Amusement Park Entertainer: None Complication: None Pathology: Endometrial Scrapings Procedure: The patient was put in the dorsal lithotomy position, scrubbed, and draped in the usual manner. A sterile speculum was inserted in the patient's vagina. The anterior lip of the cervix was grasped with a single tooth tenaculum. The cervix was dilated up to 5 mm, then the scope was inserted in the patient's uterus. Inspection revealed normal endocervical & endometrial cavity with no evidence of pathology. The scope was taken out of the uterine cavity , then sharp curetting was carried on with no complications. A sound sound was advanced through the external and internal os until it reached the fundus of the uterus, the depth was 9 cm. The sound was then withdrawn. The IUD was loaded in a sterile manner and advanced into position. The string was visualized and cut to 3 cm. Tenaculum site hemostatic. All instruments removed from vagina. At the end of the procedure, all instruments were taken out of the patient uterine and vaginal cavity. The single tooth tenaculum was removed and homeostasis was assured using pressure. The patient tolerated the procedure well and was transferred to the PACU in a stable condition.
[2023-08-19] MEDS: Acetaminophen 1,000 MG/100 ML PIGGYBACK 400 MG IV (11:45)
== END 2023-08-19 12:56 | disposition home or self-care (01) ==
PROVIDERS: PCP Family Medicine; Visit Provider Obstetrics & Gynecology
PROC: 0UDB8ZZ Extraction of Endometrium, Via Natural or Artificial Opening Endoscopic (ICD-10-PCS; CPT 58558; principal; 2023-08-19 10:30)
DX: N93.9 Abnormal uterine and vaginal bleeding, unspecified (principal); Z30.430 Encounter for insertion of intrauterine contraceptive device; N88.8 Other specified noninflammatory disorders of cervix uteri; Z98.51 Tubal ligation status; F11.20 Opioid dependence, uncomplicated; E03.9 Hypothyroidism, unspecified; E50.9 Vitamin A deficiency, unspecified; K43.9 Ventral hernia without obstruction or gangrene; J44.9 Chronic obstructive pulmonary disease, unspecified; F32.A Depression, unspecified; E66.01 Morbid (severe) obesity due to excess calories; Z68.42 Body mass index [BMI] 45.0-49.9, adult; G47.33 Obstructive sleep apnea (adult) (pediatric); Z79.51 Long term (current) use of inhaled steroids; Z79.899 Other long term (current) drug therapy; F17.210 Nicotine dependence, cigarettes, uncomplicated
CPT/HCPCS: 58558; 58300; 81025; 88305; J0131; J1100; J2250; J3010

== ENCOUNTER → 2023-08-19 08:50 | Outpatient (BNV) | payer MEDICAID, SELFPAY | PROVIDERS: PCP Family Medicine; Visit Provider Obstetrics & Gynecology | DX: N93.9 Abnormal uterine and vaginal bleeding, unspecified (principal); Z30.430 Encounter for insertion of intrauterine contraceptive device | CPT/HCPCS: 58300; 58558 ==

== ENCOUNTER 2023-09-06 12:22 | Outpatient (AMB) | payer MEDICAID, SELFPAY ==
--- NOTE | 2023-09-06 12:24 | MHC.OFFVIS ---
Intake Vital Signs 09/06/23 12:26 Height 5 ft 3 in Weight 257 lb BMI 45.5 BP 120/74 Intake Visit Reasons: post op Executive Secretary Required: No Information Interpreted: non-clinical & clinical Accompanied by: Self / Same As Patient Allergies No Known Allergies Allergy (Verified 09/06/23 12:27) HPI HPI Comments History of Present Illness Details The patient is presenting post hysteroscopy D&C /Mirena IUD insertion with no complaints minimal vaginal bleeding no feverishness chills or abdominal pain. The pathology showed the following: Secretory endometrium; no atypia or hyperplasia identified The workup for abnormal uterine bleeding included the followin/23 H&H= 1 8.8/30.4 09/18 TSH was negative. 04/19 Co testing was done was negative, GC/chlamydia negative 01/20 Pelvic ultrasound showed the following: UTERUS: The uterus is retroverted and retroflexed measuring 13.4 x 5.6 7.4 cm for a volume of 291 mL; previously the volume was 220 mL. The double wall endometrial thickness is 12 mm with a trace amount of fluid in the endometrial canal consistent with the history of bleeding. The configuration of the uterus may be arcuate, but evaluation is technically difficult. The uterus is smooth in contour and has heterogeneous echogenicity. There is a single punctate calcification seen. No large visible fibroid. Nabothian cysts are present in the cervix. ADNEXA: The right ovary measures 2.0 x 2.0 x 2.4 cm for a volume of 5 mL Left ovary could not be seen. No free intraperitoneal fluid is seen Last mammogram was BI-RADS 1 in 07/18 New screening Mammogram scheduled in 09/06/2023 [facility] Medical History COVID-19 vaccine series completed Hypothyroid Methadone maintenance therapy patient IBS (irritable bowel syndrome) GERD (gastroesophageal reflux disease) Epigastric hernia Smoking COPD (chronic obstructive pulmonary disease) EDMUND (obstructive sleep apnea) Morbid obesity Depression Iron deficiency anemia Asthma Surgical History Hx of hernia repair History of ventral hernia repair Hx of dilation and curettage History of esophagogastroduodenoscopy (EGD) H/O tubal ligation H/O right knee surgery Previous section Family History Mother Breast cancer Diabetes Thyroid condition Maternal Grandmother Hypertension Father No problems noted. Son Asthma Son No problems noted. Daughter No problems noted. Daughter No problems noted. Social History Household Members: Family Housing: Apartment Are you a primary manager progressive care to a significant other at home: No Do you presently have visiting nurse or other home services: No Alcohol intake: never Patient Tobacco Use Status: Current everyday Tobacco user Tobacco use type: Cigarette Cigarette Packs Per Day: 0.25 Cigarettes Per Day: 4 Years Smoked: 20 Substance Use Type: Marijuana Special yasmeen needs: No Agree to transfusion: No Female Reproductive History Menstrual Age of Menarche: 9 Review of Systems Const All systems reviewed & are unremarkable except as noted in HPI and below Reports as per HPI and Reports no additional complaints GI Reports no additional complaints Reports no additional complaints Assessment & Plan Assessment & Plan (1) Abnormal uterine bleeding: Comment: Anemia Code(s): N93.9 - Abnormal uterine and vaginal bleeding, unspecified Plan: Discussed with the patient the results of pathology and intraoperative findings. Recommended iron sulfate 325 mg p.o. t.i.d. for 8 weeks recommended repeat CBC and determined indication to continue iron sulfate or not. Instructions given the patient to schedule a 4 week follow-up appointment for IUD check and in 9 months annual exam appointment. All questions answered, the patient verbalized understanding Orders: Orders Complete Blood Count no Diff 8 Weeks N93.9 - Abnormal uterine and vaginal bleeding, unspecified Coding Level of Care Code Est Pt Level 3 (98815) Diagnoses Abnormal uterine bleeding N93.9
[2023-09-06 12:26] VITALS: BP 120/74; BMI 45.5
== END 2023-09-06 12:37 | disposition home or self-care (01) ==
PROVIDERS: PCP Family Medicine; Visit Provider Obstetrics & Gynecology
DX: N93.9 Abnormal uterine and vaginal bleeding, unspecified (principal)
CPT/HCPCS: 99213

== ENCOUNTER 2023-09-06 12:55 | Outpatient (REF) | payer MEDICAID, SELFPAY | END 2023-09-06 12:56 | disposition home or self-care (01) | LOC: HO.MAMMO 12:55 | PROVIDERS: PCP Family Medicine; Visit Provider Obstetrics & Gynecology | DX: Z12.31 Encounter for screening mammogram for malignant neoplasm of breast (principal) | CPT/HCPCS: 77063; 77067; 99212 ==

== ENCOUNTER → 2023-09-06 13:45 | Outpatient (BNV) | payer MEDICAID, SELFPAY | PROVIDERS: PCP Family Medicine; Visit Provider Radiology Diagnostic Radiology | DX: Z12.31 Encounter for screening mammogram for malignant neoplasm of breast (principal) | CPT/HCPCS: 77063; 77067 ==

== ENCOUNTER 2023-10-05 15:35 | Outpatient (AMB) | payer MEDICAID, SELFPAY ==
--- NOTE | 2023-10-05 15:36 | MHC.OFFVIS ---
Intake Vital Signs 10/05/23 15:38 Height 5 ft 3 in Weight 257 lb BMI 45.5 BP 104/60 Intake Visit Reasons: 4 weeks IUD Check Planer Setup Operator: Planer Setup Operator Present Allergies No Known Allergies Allergy (Verified 10/05/23 15:36) HPI HPI Comments History of Present Illness Details The patient is presenting for IUD check after 1 st period following IUD insertion. The patient menstrual cycles are light, not painful, the patient is complaining of vaginal discharge associated with vaginal odor PFSH Medical History COVID-19 vaccine series completed Hypothyroid Methadone maintenance therapy patient IBS (irritable bowel syndrome) GERD (gastroesophageal reflux disease) Epigastric hernia Smoking COPD (chronic obstructive pulmonary disease) EDMUND (obstructive sleep apnea) Morbid obesity Depression Iron deficiency anemia Asthma Surgical History Hx of hernia repair History of ventral hernia repair Hx of dilation and curettage History of esophagogastroduodenoscopy (EGD) H/O tubal ligation H/O right knee surgery Previous section Family History Mother Breast cancer Diabetes Thyroid condition Maternal Grandmother Hypertension Father No problems noted. Son Asthma Son No problems noted. Daughter No problems noted. Daughter No problems noted. Social History Household Members: Family Housing: Apartment Are you a primary child care cook to a significant other at home: No Do you presently have visiting nurse or other home services: No Alcohol intake: never Patient Tobacco Use Status: Current everyday Tobacco user Tobacco use type: Cigarette Cigarette Packs Per Day: 0.25 Cigarettes Per Day: 4 Years Smoked: 20 Substance Use Type: Marijuana Special yasmeen needs: No Agree to transfusion: No Female Reproductive History Menstrual Age of Menarche: 9 control method: progestin IUCD (Mirena 08/19/23) Review of Systems Const All systems reviewed & are unremarkable except as noted in HPI and below Physical Exam Vital Signs: Last Vital Signs BP 104/60 10/05/23 15:38 BMI result Body Mass Index 45.5 General: Yes no CVA tenderness External Female Exam: normal external appearance and normal appearance of the urethra Speculum Exam - Vagina: normal appearance of the vagina, normal palpation, no lesions and no masses Speculum Exam - Cervix: normal appearance of the cervix, normal palpation, no lesions, no masses, nontender and Other cervical findings present (IUD thread in place) Bimanual exam- vagina & uterus: normal bimanual exam, normal palpation, uterine size normal, normal palpation, uterine shape normal, No Cervical tenderness present and non-tender Bimanual Exam- Adnexa, other: normal adnexae Back/Spine/Pelvis Back: no CVA tenderness Assessment & Plan Assessment & Plan (1) IUD check up: Code(s): Z30.431 - Encounter for routine checking of intrauterine contraceptive device Plan: UPT done in the office was negative. Discussed with the patient the finding on physical exam, IUD string in place, the patient was reassured. Instructions given to patient to call in case of temperature above 100.4, severe cramping/pelvic pain, abnormal discharge or abnormal uterine bleeding or if she misses her. Otherwise follow-up at her annual exam appointment. All questions answered, the patient verbalized understanding. (2) Bacterial vaginosis: Code(s): N76.0 - Acute vaginitis; B96.89 - Other specified bacterial agents as the cause of diseases classified elsewhere Plan: GC and chlamydia cultures with BV panel taken. Per CDC recommendation, will screen for STI, HepBs Ag, HIV, RPR, Hep C Ab ordered. Will treat with Flagyl 500 mg p.o. b.i.d. x 7 days, Instructions given to the patient to refrain from sexual activity or to use condoms consistently and correctly during the BV treatment regimen, not to douch, it might increase the risk for relapse, and to call if symptoms persist or recur. Orders: Orders Syphilis Screen Today Z20.2 - Contact with and (suspected) exposure to infections with a predominantly sexual mode of transmission Hepatitis C Antibody Today Z20.2 - Contact with and (suspected) exposure to infections with a predominantly sexual mode of transmission Hepatitis B Surface Antigen Today Z20.2 - Contact with and (suspected) exposure to infections with a predominantly sexual mode of transmission HIV Ab/Ag Today Z20.2 - Contact with and (suspected) exposure to infections with a predominantly sexual mode of transmission Medications: New metronidazole 500 mg PO BID 14 tabs 0RF 7 days Coding Level of Care Code Est Pt Level 3 (74433) Diagnoses IUD check up Z30.431 Bacterial vaginosis N76.0; B96.89
[2023-10-05 15:38] VITALS: BP 104/60; BMI 45.5
== END 2023-10-05 15:57 | disposition home or self-care (01) ==
LOC: HO.HWS 15:35
PROVIDERS: PCP Family Medicine; Visit Provider Obstetrics & Gynecology
DX: Z30.431 Encounter for routine checking of intrauterine contraceptive device (principal); N76.0 Acute vaginitis; B96.89 Other specified bacterial agents as the cause of diseases classified elsewhere; Z32.02 Encounter for pregnancy test, result negative
CPT/HCPCS: 99213

== ENCOUNTER 2023-10-05 15:35 | Outpatient (REF) | payer MEDICAID, SELFPAY ==
[2023-10-06 12:54] LABS: BV Int Neg Control Negative (Negative); BV Int Pos Control Positive (Positive)
== END 2023-10-05 15:36 | disposition home or self-care (01) ==
LOC: HO.LNP 15:35
PROVIDERS: PCP Family Medicine; Visit Provider Obstetrics & Gynecology
DX: N76.0 Acute vaginitis (principal); B96.89 Other specified bacterial agents as the cause of diseases classified elsewhere; Z20.2 Contact with and (suspected) exposure to infections with a predominantly sexual mode of transmission; Z30.431 Encounter for routine checking of intrauterine contraceptive device
CPT/HCPCS: 0353U; 81025; 86780; 86803; 87340; 87389; 87480; 87510; 87660; 99212

== ENCOUNTER 2023-10-05 16:00 | Outpatient (REF) | payer MEDICAID, SELFPAY ==
[2023-10-06 05:01] LABS: HIV AB/AG Nonreactive (Nonreactive); HIV Num 1 0.06 S/CO (0.00-0.99); Hepatitis B Surface Antigen Negative (Negative); ~HepC Num1 0.07 S/CO (0.00-0.79); ~Hepatitis C Antibody Nonreactive (Nonreactive)
[2023-10-06 05:11] LABS: Syphilis Screen Nonreactive (Nonreactive)
[2023-10-06 05:56] LABS: CT PCR NOT DETECTED (Not Detect.); NG PCR NOT DETECTED (Not Detect.)
== END 2023-10-05 16:01 | disposition home or self-care (01) ==
LOC: HO.LAB 16:00
PROVIDERS: PCP Family Medicine; Visit Provider Obstetrics & Gynecology
DX: N76.0 Acute vaginitis (principal); B96.89 Other specified bacterial agents as the cause of diseases classified elsewhere; Z20.2 Contact with and (suspected) exposure to infections with a predominantly sexual mode of transmission
CPT/HCPCS: 0353U; 86780; 86803; 87340; 87389

== ENCOUNTER 2024-05-23 14:28 | Outpatient (AMB) | payer MEDICAID, SELFPAY ==
--- NOTE | 2024-05-23 14:35 | A.OFFVIS_ITS ---
Vital Signs 05/23/24 15:01 Height 5 ft 3 in Weight 266 lb BMI 47.1 BP 108/62 Intake Visit Reasons: PAID SEARCH MARKETING ANALYST annual exam Post Tensioning Ironworker Required: No Information Interpreted: non-clinical & clinical Store Team Leader: Store Team Leader Present ([facility]) Accompanied by: Self / Same As Patient Allergies No Known Allergies Allergy (Verified 05/23/24 15:07) Is last menstrual period known: No (mirena) HPI Comments Details: Presenting for annual exam. No complaints. Last Pap/HPV was negative in 04/19 Last Mammogram was BI-RADS 1 in 09/19 No previous screening colonoscopy PFSH Medical History COVID-19 vaccine series completed Hypothyroid Methadone maintenance therapy patient IBS (irritable bowel syndrome) GERD (gastroesophageal reflux disease) Epigastric hernia Smoking COPD (chronic obstructive pulmonary disease) EDMUND (obstructive sleep apnea) Morbid obesity Depression Iron deficiency anemia Asthma Surgical History Hx of hernia repair History of ventral hernia repair Hx of dilation and curettage History of esophagogastroduodenoscopy (EGD) H/O tubal ligation H/O right knee surgery Previous section Family History Mother Breast cancer Diabetes Thyroid condition Maternal Grandmother Hypertension Father No problems noted. Son Asthma Son No problems noted. Daughter No problems noted. Daughter No problems noted. Social History Household Members: Family Housing: Apartment Are you a primary congregational care pastor to a significant other at home: No Do you presently have visiting nurse or other home services: No Alcohol intake: never Patient Tobacco Use Status: Current everyday Tobacco user Tobacco use type: Cigarette Cigarette Packs Per Day: 0.25 Cigarettes Per Day: 4 Years Smoked: 20 Substance Use Type: Marijuana Special yasmeen needs: No Agree to transfusion: No Female Reproductive History Menstrual Age of Menarche: 9 control method: permanent sterilization Total pregnancies: 6 Full term: 4 Number of Living Children: 4 Ab induced: 1 Ab spontaneous: 1 Date of last pap smear: 04/08/23 Date of Mammogram: 09/06/23 Review of Systems Const All systems reviewed & are unremarkable except as noted in HPI and below Card Reports as per HPI Resp Reports as per HPI GI Reports as per HPI and Reports no additional complaints Reports as per HPI Physical Exam Const General: cooperative, healthy appearing and comfortable Chest Chest palpation & inspection: normal inspection of the chest and normal palpation of entire chest wall Breast/axilla inspection: normal inspection of the breasts and normal inspection of the axillae Breast/axilla palpation: normal palpation of the breasts, normal palpation of the axillae and no axillary lymphadenopathy Resp Effort & Inspection: normal respiratory effort Auscultation: clear to auscultation bilaterally Percussion: percussion normal Cardio Palpation: normal PMI Rate: regular rate Rhythm: regular rhythm Heart sounds: no murmurs and no rubs Peripheral pulses: Peripheral pulses 2+ throughout GI Inspection: Yes normal to inspection Palpation (GI): Soft to palpation, nontender, no guarding, not rigid and No hepatosplenomegaly present Percussion: Yes normal to percussion Auscultation: normal bowel sounds Rectal Exam - Female: deferred General: Yes bladder normal to palpation External Female Exam: No lesion Speculum Exam - Vagina: normal appearance of the vagina, normal palpation, normal vaginal discharge and not erythematous Speculum Exam - Cervix: normal appearance of the cervix and normal palpation Bimanual exam- vagina & uterus: normal bimanual exam, normal palpation, uterine size normal, bladder normal to palpation, consistency normal and normal palpation Bimanual Exam- Adnexa, other: normal adnexae, no masses and no tenderness Assessment & Plan Assessment & Plan (1) Well woman exam: Code(s): Z01.419 - Encounter for gynecological examination (general) (routine) without abnormal findings Category: Medical Plan: Cotesting not indicated this year. Instructions given the patient to schedule next screening Mammogram in 09/20. Counseled the patient about the recommended dietary allowance of 1000 mg of Calcium & 600 IU of vitamin D. Referral to GI for screening colonoscopy placed The patient was instructed to perform monthly self-breast exams and to schedule an annual exam in a year; All questions answered and the patient verbalized understanding. Instructed the patient to schedule annual exam in a year Orders: Referrals Gastroenterology Referral Z12.11 - Encounter for screening for malignant neoplasm of colon Coding Level of Care Code Est Pt Prev Care 40-64y(98669) Diagnoses Well woman exam Z01.419
[2024-05-23 15:01] VITALS: BP 108/62; BMI 47.1
== END 2024-05-23 16:04 | disposition home or self-care (01) ==
PROVIDERS: PCP Family Medicine; Referring Provider Family Medicine; Visit Provider Obstetrics & Gynecology
DX: Z01.419 Encounter for gynecological examination (general) (routine) without abnormal findings (principal)
CPT/HCPCS: 99396

== ENCOUNTER → 2024-05-23 14:28 | Outpatient (BNVA) | payer MEDICAID, SELFPAY | PROVIDERS: PCP Family Medicine; Visit Provider Obstetrics & Gynecology | DX: Z01.419 Encounter for gynecological examination (general) (routine) without abnormal findings (principal) | CPT/HCPCS: 99396 ==

== ENCOUNTER → 2024-07-25 14:14 | Outpatient (RCR) | payer OTHER, SELFPAY ==
[2020-09-10 11:05] VITALS: BP 130/66; PULSE 84; RESP 20; TEMP 36.6; O2SAT 96; BMI 49.7
[2020-09-10 11:56] LABS: MANUAL DIFF FLAG NO
[2020-09-10 12:06] LABS: Hemoglobin 9.5 g/dl (12.0-16.0); Mean Corpuscular Hemoglobin 21.5 pg (27.0-33.0); SCAN SMEAR FLAG 1
--- NOTE | 2020-09-10 12:07 | MHC.HEMONC ---
Patient here for follow up today. No new issues or concerns. Labs drawn, reviewed by .
[2020-09-10 12:08] LABS: Basophils Absolute Auto 0.1 X10*3/uL (0.0-0.2); Basophils Percent Auto 0.5 % (0-2); Eosinophils Absolute Auto 0.3 X10*3/uL (0.0-0.4); Eosinophils Percent Auto 3.2 % (0-4); Hematocrit 32.4 % (37-47); Imm Gran Abs Auto 0.05 X10*3/uL (0.00-0.03); Imm Gran Pct Auto 0.5 % (0.0-0.4); Lymphocytes Absolute Auto 2.9 X10*3/uL (1.2-4.9); Lymphocytes Percent Auto 30.3 % (20-40); Mean Corpuscular HGB Conc 29.3 g/dl (31.0-35.0); Mean Corpuscular Volume 73.5 fL (80-98); Monocytes Absolute Auto 0.8 X10*3/uL (0.1-1.2); Monocytes Percent Auto 8.1 % (2-11); Neutrophils Absolute Auto 5.5 X10*3/uL (2.0-8.3); Neutrophils Percent Auto 57.4 % (45-73); Platelet Count 304 X10*3/uL (160-400); Red Blood Count 4.41 X10*6/uL (4.20-5.50); Red Cell Distribution Width 21.1 % (11.0-16.0)
[2020-09-10 12:12] LABS: PLT ABN DIST 1
[2020-09-10 12:14] LABS: White Blood Count 9.6 X10*3/uL (4.8-10.8)
[2020-09-10 12:33] LABS: Iron 39 mcg/dL (30-160); Percent Iron Saturation 14 % (15-50); Total Iron Binding Capacity 283 mcg/dL (228-428); Unsaturated Iron Binding 244 ug/dL
--- NOTE | 2020-12-10 11:54 | P.PNHO_ITS ---
[facility] Telehealth - Telehealth Location of Provider rendering services: Office Location of Patient: home Patient Identification confirmed using: Name, : Yes Telehealth Method: Telephone Patient verbally consented to treatment: yes Patient verbally consented to billing insurance company: Yes Patient informed of any privacy concerns related to visit: Yes Medical Summary - Medical Summary Date of Service: 12/10/20 Chief complaint: Scheduled follow-up Medical Summary: Diagnosis: Microcytic anemia, alpha thalassemia and iron deficiency Baseline hemoglobin of 13.4 g/dL, MCV 73, hemoglobin electrophoresis in November 2007 revealed possible alpha-thalassemia. Interval History Interval history: This is scheduled follow-up for patient, she preferred tele visit because of COVID-19 pandemic. 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 She needs refills on iron and folic acid supplements. She reports fatigue but denies any dizziness, exertional chest pain, shortness of breath or palpitations. No change in her bowel habits. Review of Systems - Constitutional Reports no additional constitutional complaints - Cardiovascular Reports no additional cardiovascular complaints - Respiratory Reports no additional respiratory complaints Home Medications and Allergies Home Medications Medication Instructions Recorded Confirmed Type albuterol sulfate 1 inh INHALATION QID 09/10/20 09/10/20 History ascorbic acid (vitamin C) [Vitamin 300 mg PO DAILY 09/10/20 09/10/20 History C] ferrous sulfate 325 mg PO TID 09/10/20 09/10/20 History fluticasone propion-salmeterol 1 inh INHALATION BID 09/10/20 09/10/20 History [Advair Diskus] gabapentin 100 mg PO BEDTIME 09/10/20 09/10/20 History ipratropium-albuterol [DuoNeb] 3 ml INHALATION QID PRN 09/10/20 09/10/20 History methadone 65 mg PO DAILY 09/10/20 09/10/20 History montelukast [Singulair] 10 mg PO DAILY 09/10/20 09/10/20 History nicotine 1 patch TRANSDERMAL DAILY 09/10/20 09/10/20 History omeprazole 20 mg PO DAILY 09/10/20 09/10/20 History tiotropium bromide [Spiriva with 1 cap INHALATION DAILY 09/10/20 09/10/20 History HandiHaler] Allergies Allergy/AdvReac Type Severity Reaction Status Date / Time No Known Allergies Allergy Verified 09/22/20 11:10 Exam Vital signs: Vital Signs Temp 97.8 F 09/10/20 11:05 Pulse 84 09/10/20 11:05 Resp 20 09/10/20 11:05 BP 130/66 09/10/20 11:05 Pulse Ox 96 09/10/20 11:05 Weight 127.459 kg Body Mass Index 49.7 Data - Labs CBC & Chem 7: 09/10/20 11:40 Labs: 09/10/20 11:40 Complete Blood Count Auto Diff Routine IRON PROFILE Routine Laboratory Last Values WBC 9.6 X10*3/uL (4.8-10.8) 09/10/20 11:40 RBC 4.41 X10*6/uL (4.20-5.50) 09/10/20 11:40 Hgb 9.5 g/dl (12.0-16.0) L 09/10/20 11:40 Hct 32.4 % (37-47) L 09/10/20 11:40 MCV 73.5 fL (80-98) L 09/10/20 11:40 MCH 21.5 pg (27.0-33.0) L 09/10/20 11:40 MCHC 29.3 g/dl (31.0-35.0) L 09/10/20 11:40 RDW 21.1 % (11.0-16.0) H 09/10/20 11:40 Plt Count 304 X10*3/uL (160-400) 09/10/20 11:40 MPV Not Reportable 09/10/20 11:40 Immature Gran % (Auto) 0.5 % (0.0-0.4) H 09/10/20 11:40 Neut % (Auto) 57.4 % (45-73) 09/10/20 11:40 Lymph % (Auto) 30.3 % (20-40) 09/10/20 11:40 [place] % (Auto) 8.1 % (2-11) 09/10/20 11:40 Eos % (Auto) 3.2 % (0-4) 09/10/20 11:40 Baso % (Auto) 0.5 % (0-2) 09/10/20 11:40 Lymph # (Auto) 2.9 X10*3/uL (1.2-4.9) 09/10/20 11:40 [place] # (Auto) 0.8 X10*3/uL (0.1-1.2) 09/10/20 11:40 Eos # (Auto) 0.3 X10*3/uL (0.0-0.4) 09/10/20 11:40 Baso # (Auto) 0.1 X10*3/uL (0.0-0.2) 09/10/20 11:40 Abs Immat Gran (auto) 0.05 X10*3/uL (0.00-0.03) H 09/10/20 11:40 Absolute Neuts (auto) 5.5 X10*3/uL (2.0-8.3) 09/10/20 11:40 Absolute Nucleated RBC 0.000 X10*3/uL (0.0-0.012) 09/10/20 11:40 Nucleated RBC % (auto) 0.0 /100WBC (0.0-0.2) 09/10/20 11:40 Iron 39 mcg/dL (30-160) 09/10/20 11:40 TIBC 283 mcg/dL (228-428) 09/10/20 11:40 % Saturation 14 % (15-50) L 09/10/20 11:40 Unsat Iron Binding 244 ug/dL 09/10/20 11:40 Progress Note: A/P (1) Anemia Status: Acute Assessment and plan: 1. This is a 40-year-old woman with chronic microcytosis, alpha thalassemia trait and iron deficiency anemia. 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 She has been diagnosed with alpha thalassemia trait in 2007. Her hemoglobin has improved with parenteral and oral iron supplementation. She is on folic acid daily. Repeat CBC and iron studies at this time. She continues to have heavy menstrual cycles and is planning to get a better an IUD. Follow-up in 6 months. - Time Spent With Patient Total time spent is greater than 50% in coordination of care (as documented) at patient's floor/unit and/or counseling patient: 15 - 24 minutes
--- NOTE | 2020-12-10 12:10 | MHC.HEMONCMA ---
Patient had a telehealth today, she complains of her legs swelling from her ankles to midthigh, that is tender and painful to touch and feels tight and also warm. She states she needs a refill on her iron and vitamin c. Her medications and allergies were reviewed and the phone call was transferred to the doctor.
== END | disposition home or self-care (01) ==
LOC: HO.ONC 09-10 10:54
PROVIDERS: PCP Family Medicine; Visit Provider Internal Medicine
DX: D50.0 Iron deficiency anemia secondary to blood loss (chronic) (principal); N92.1 Excessive and frequent menstruation with irregular cycle; D56.3 Thalassemia minor; Z79.899 Other long term (current) drug therapy
CPT/HCPCS: 36415; 83540; 85025; 99213

== ENCOUNTER 2025-03-15 11:47 | Outpatient (REF) | payer MEDICAID, SELFPAY ==
--- OUTSIDE RECORDS SUMMARY | 2025-03-15 12:46 | XMS_ITS | Clinical Summary ---
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 of the above 03/15/2025 Food Insecurity Answer Date Recorded Within the past 12 months, y ou worried that your food would run out before you got money to buy more: Never True 03/15/2025 Within the past 12 months,th e food you bought just didn't last and you didn't have enough money to get more: Never True Transportation Answer Date Recorded In the past 12 months, has l ack of transportation kept you from medical appts, meetings, work or from getting things needed for daily living? No 03/15/2025 Utilities Answer Date Recorded In the past 12 months, has t he electric, gas, oil or water company threatened to shut off services in your home? No 03/15/2025 Depression Answer Date Recorded Patient Health Questionnaire-2 Score 4 03/15/2025 Internet Access Answer Date Recorded Internet Access Q1 No 03/15/2025 Internet Access Q2 Not on file 03/15/2025 Comments Unknown Sex and Gender Information Value Date Recorded Sex Assigned at Female 09/27/2022 10:17 AM EDT Legal Sex Female 10:17 AM EDT Gender Identity Female 09/27/2022 10:17 AM EDT Sexual Orientation Straight 09/27/2022 10 :17 AM EDT Last Filed Vital Signs Vital Sign Reading Time Taken Comments Blood Pressure 137/79 03/15/2025 10:33 AM EDT Pulse 98 03/15/2025 10:33 AM EDT Temperature 37.2 ??C (98.9 ??F) 03/15/2025 10:33 AM E DT Respiratory Rate 20 03/15/2025 10:33 AM EDT Oxygen Saturation 98% 03/15/2025 10:33 AM EDT Inhaled Oxygen Concentration - - Weight 122 kg (269 lb) 03/15/2025 10:33 AM EDT Height 160 cm (5' 3 ) 03/15/2025 10:33 AM EDT Body Mass Index 47.65 03/15/2025 10:33 AM EDT Plan of Treatment Health Maintenance Due Date Last Done Comments CT Colonography 1979 Colonoscopy 1979 Colorectal Cancer Screening 1980 FIT DNA/Cologuard 1979 FIT 1979 FOBT 1979 Sigmoidoscopy 1979 Tobacco Screening 1991 Pneumococcal Vaccine: Pediatrics (0 to 5 Years) and At-Risk Patients (6 to 49) Years) (2 of 2 - PCV) 09/04/2016 09/04/2015, 05/27/2012 Diabetes: Hemoglobin A1C 08/31/2023 022, 08/31/2022, 08/14/2021, Additional history exists COVID-19 Vaccine ( season) 2024 10/28/2022, 11/26/2021, 02/24/2021, Additional history exists Influenza Vaccine (#1) 2024 , 09/02/2022, 08/14/2021, Additional history exists Mammogram 09/06/2025 09/06/2023, 07/14/2020 Depression Monitoring 09/14/2025 03/15/2025, 025 Alcohol/Substance Use Screening 03/15/2026 03/15/2025 Depression Screening 03/15/2026 03/15/2025, 03/15/20 25 Family Planning (PISQ) 03/15/2026 03/15/2025 SDOH Screening 03/15/2026 03/15/2025 Pap Smear 04/07/2026 04/07/2023, 07/01/2020 Lipid Panel 08/14/2026 08/14/2021, 08/0 03/2021, 04/24/2021, Additional history exists Cervical Cancer Screening 04/07/2028 HPV/Cotest 04/07/2028 04/07/2023, 07/01/2020 Zoster Vaccines (1 of 2) 2029 DTaP/Tdap/Td Vaccines (3 - Td or Tdap) 02/19/2030 02/20/2020, 09/04/2015 RSV Patients and Patients Aged 60 years or older (1 - 1-dose 75+ series) 2054 Meningococcal Vaccine Aged Out 08/14/2021 No alice cassidy eligible based on patient's age to complete this topic Hepatitis B Vaccines Completed 06/01/2023, 01/11/2023, 12/01/2022, Additional history exists HIV Screening Completed 10/05/2023 Hepatitis C Screening Completed 10/05/2023 HIB Vaccines Aged Out No longer eligi ble based on patient's age to complete this topic HPV Vaccines Aged Out No longer eligi ble based on patient's age to complete this topic Hepatitis A Vaccines Aged Out No long er eligible based on patient's age to complete this topic IPV Vaccines Aged Out No longer eligi ble based on patient's age to complete this topic RSV under 20 months Aged Out No longe r eligible based on patient's age to complete this topic Rotavirus Vaccines Aged Out No longer eligible based on patient's age to complete this topic Goals Goal Patient Goal Type Associated Problems Recent Progress Patient-Stated? Author Smoking cessation General No Pearl Fry PharmD Procedures Procedure Name Priority Date/Time Associated Diagnosis Comments HEPATITIS C ANTIBODY Routine 10/05/2023 4:19 PM EST HIV 1/2 ANTIGEN/ANTIBODY, FOURTH GENERATION W/RFL Routine 10/05/2023 4:19 PM EST BI MAMMOGRAM SCREENING TOMOSYNTHESIS BILATERAL Routine 09/06/2023 1:30 PM EDT HPV MRNA E6/E7 REFLEX TO HPV 16, 18/45 Routine 04/07/2023 12:16 PM EDT PAP SMEAR Routine 04/07/2023 12:16 PM EDT HEMOGLOBIN A1C Routine 08/31/2022 8:56 AM EDT LIPID PANEL, STANDARD Routine 08/14/2021 10:48 AM EDT from Last 3 Months or Most Recently Relevant to Health Maintenance Results * Hepatitis C Ab (10/05/2023 4:19 PM EST) Hepatitis C Antibody Nonreactive Nonreactive [facility] Comment:Antibodies to HCV no t detected; does not exclude early acuteHCV infection. 10/05/2023 4:19 PM EST 10/05/2023 4:19 PM EST us Generic External Data Provider LAB BLOOD ORDERAB LES Final Result [facility] [address] [place] [phone] * HIV-1/2 Antigen and Antibodies, Fourth Generation, with Reflexes (10/05/2023 4:19 PM EST) HIV AB/AG Nonreactive Nonreactive [facility] Comment:HIV-1 p24 Ag and/or HIV-1/HIV-2 Ab not detected.A test result that is nonreactive does not exclude thepossibility of exposure to or infection with HIV-1 and/orHIV-2. Nonreactive results in this assay for individualswith prior exposure to HIV-1 and/or HIV-2 may be due toantigen and antibody levels that are below the limit ofdetection of this assay.The Frank Alinity HIV Ag/Ab Combo assay result andsupplemental assay results should be interpreted inconjunction with the patient's clinical presentation,history and other laboratory results. If the results areinconsistent with clinical evidence, additional testing issuggested to confirm the result. 10/05/2023 4:19 PM EST 10/05/2023 4:19 PM EST us Generic External Data Provider LAB BLOOD ORDERAB LES Final Result [facility] [address] [place] [address] [phone] * BI Mammogram Screening Tomosynthesis Bilateral (09/06/2023 1:30 PM EDT) Anatomical Region Laterality Modality Breast Bilateral Mammography 09/06/2023 1:30 PM EDT Narrative 09/18/2023 5:21 PM EDT ? [facility] ? [address] ?[place] [address] ? Mammography Report ? Signed ? Patient: Joquin,Anabel M ?MR#: [id number] ?? 6 ? : 1980 ?Acct:[id number] ? Age/Sex: 43 / F ?ADM Date: 10/10/23 ? Loc: HO.MAMMO ? Attending Dr: Bib Lacey MD ? Ordering Physician: Bib Lacey MD ?Results: 1Negativ ?? e ? Date of Service: //23 ?Follow Up: 1 Year From Orig ?? inal Mammogram ? Procedure(s): MM tomosynthesis screening BI ?? Accession Number(s): [id number] ? cc: Margarita Adams MD; Bib Lacey MD ? EXAMINATION: ?? MM SCREENING DIGITAL BREAST TOMOSYNTHESIS, BILATERAL ? CLINICAL INFORMATION: ? Screening. Asymptomatic. ? COMPARISON: ?? Mammography: This study is compared with prior exams dating back to ?? 2019. ? TECHNIQUE: ?? Digital breast tomosynthesis is performed in both the craniocaudal and ?? mediolateral oblique views along with computer-aided detection (CAD). ?? Synthesized 2D images are generated from the tomosynthesis. ? FINDINGS: ?? The breasts are almost entirely fatty (ACR BI-RADS breast composition ?? Category a). ? There are no significant masses, abnormal calcifications, or other ?? abnormalities. ? MM/MM tomosynthesis screening BI ?? IMPRESSION: ?? No mammographic evidence of malignancy. ? ASSESSMENT: ? BI-RADS BI-RADS 1 - Negative ? RECOMMENDATION: ?? Routine annual mammography screening. ? 1 year F/U ? This examination should not preclude the clinical evaluation of a ?? suspicious palpable abnormality. ? This patient's information was entered into a reminder system with a ?? target due date for their next mammogram. ? Dictated By: ?Tegan Eli MD ? Signed By: ?<Electronically signed by Tegan Eli MD in OV> ? 09/18/23 1717 ? DD/ 1330 ? TD/TT: ? Flat Folding Machine Operator: ? Procedure Note Alhaji Terry - 09/18/2023 [facility] [address] [place] [address] [place] [address] Mammography Report Signed Patient: Anabel Silva MMR#: [id number] 6 : 1980Acct:[id number] Age/Sex: 43 / FADM Date: 09/06/23 Loc: HO.MAMMO Attending Dr: Bib Lacey MD Ordering Physician: Bib Lacey MDResults: 1Negativ e Date of Service: 09/06/23Follow Up: 1 Year From Orig inal Mammogram Procedure(s): MM tomosynthesis screening BI Accession Number(s): [id number] cc: Margarita Adams MD; Bib Lacey MD EXAMINATION: MM SCREENING DIGITAL BREAST TOMOSYNTHESIS, BILATERAL CLINICAL INFORMATION: Screening. Asymptomatic. COMPARISON: Mammography: This study is compared with prior exams dating back to 2019. TECHNIQUE: Digital breast tomosynthesis is performed in both the craniocaudal and mediolateral oblique views along with computer-aided detection (CAD). Synthesized 2D images are generated from the tomosynthesis. FINDINGS: The breasts are almost entirely fatty (ACR BI-RADS breast composition Category a). There are no significant masses, abnormal calcifications, or other abnormalities. MM/MM tomosynthesis screening BI IMPRESSION: No mammographic evidence of malignancy. ASSESSMENT: BI-RADS BI-RADS 1 - Negative RECOMMENDATION: Routine annual mammography screening. 1 year F/U This examination should not preclude the clinical evaluation of a suspicious palpable abnormality. This patient's information was entered into a reminder system with a target due date for their next mammogram. Dictated By: Tegan Eli MD Signed By: <Electronically signed by Tegan Eli MD in OV> 09/18/23 1717 DD/ 1330 TD/TT: Flat Folding Machine Operator: us [facility] External Provider IMG BI PROCEDURES Final Result * HPV mRNA E6/E7 w/Reflex to HPV Genotypes 16, 18/45 (04/07/2023 12:16 PM EDT) HPV nRNA E6/E7 Not Detected Not Detected [facility] Comment:Methodology: Transcr iption-Mediated AmplificationThis assay detects E6/E7 viral messenger RNA (mRNA) from 14high-risk HPV types (16,18,31,33,35,39,45,51,52,56,58,59,66,68).Cervical sources are required for HPV testing.If a vaginal source from a patient who has had atotal hysterectomy with removal of cervix wassubmitted, please contact the testing laboratoryfor alternative testing options.For additional information, please refer tohttp://education.Custom Coup/faq/SPT996m6(This link if provided for information/educational purposes only.)THIS TEST WAS PERFORMED AT:[facility] [place] [phone] LAKHANI MD HPV mRNA E6/E7 [facility] HPV 16 RNA TNP [facility] HPV 18/45 RNA [facility] 04/07/2023 12:1 6 PM EDT 04/08/2023 9:15 AM EDT [facility] External Provider LAB CYT OLOGY ORDERABLES Final Result Performing Organization Address City/State/[facility] Co de Phone Number [facility] [address] [place] [phone] * Pap Smear (04/07/2023 12:16 PM EDT) 04/07/2023 12:1 6 PM EDT 04/08/2023 9:15 AM EDT Narrative [facility] - 04/13/2023 3:15 PM EDT ----- ------- Name: Anabel Silva ?Age/Sex: 42/F ? : 1980 Unit#: [id number] ?? Attend Dr: Layla Whitlock CNM ?Re04/07/23 ?Status: DEP REF ? Location: HO.LNP ?Disch: ? ----- ------- SPEC : [id number] ? RECD: 04/08/23 ? STATUS: ??SOUT ? REQ NUM: [id number] ? LUIS: 04/07/23-1216 ? SUBM DR: Layla Whitlock CNM ? ENTERED: ??04/08/23 ?SP TYPE: Pap Smr ?OTHR DR: Margarita Adams MD ? ORDERED: ??Pap Smear ? Interpretation ?? Satisfactory for evaluation. ?? Coccobacilli consistent with shift in vaginal anh. ?? Negative for intraepithelial lesion or malignancy. ?HPV mRNA E6/E7: ?NOT DETECTED ? This assay detects E6/E7 viral messenger RNA (mRNA) from 14 high-risk HPV types (16, 18, ?? 31, 33, 35, 39, 45, 51, 52, 56, 58, 59, 66, 68) ?? HPV testing performed by [facility], [place], [place]. ??See reference laboratory ?? pion of the EMR for entire report. ?Clinical Information LMP: Unknown Previous PAP test: Unknown, WNL ? Material Received ?? ThinPrep-Cervical Copies To: ?? Margarita Adams MD ?? [address] ?? [place] [address] ? Layla Whitlock CNM ?? [address] ?? [place] [address] ?? [phone] ----- ------- Signed (signature on file) MATILDA Adhikari (ASCP) 04/13/23 1515 ? ----- ------- ? END OF REPORT ? [facility] External Provider LAB CYT OLOGY ORDERABLES Final Result [facility] [address] [place] [address] [phone] * (ABNORMAL) PTHI (08/31/2022 8:56 AM EDT) Pathologist [facility] Calcium (PTHI) 9.4 8.6 - 10.2 mg/dL [facility] Comment: THIS TEST WAS PERFORMED AT: [facility] [address] [place] [address],[address] [place], [place] ??[phone] GIN LAKHANI MD PTHI 89(A) 16 - 77 pg/mL [facility] Comment: Interpretive Guide ?Intact PTH ? Calcium ? ------- Normal Parathyroid ?Normal ? Normal Hypoparathyroidism ?Low or Low Normal ?Low Hyperparathyroidism ?Primary ?Normal or High ? High ?Secondary ?High ? Normal or Low ?Tertiary ? High ? High Non-Parathyroid ?Hypercalcemia ?Low or Low Normal ?High 08/31/2022 8:56 AM EDT us Historical Provider LAB BLOOD ORDERABLES Alyce l Result [facility] * (ABNORMAL) LIPID PANEL, STANDARD (08/14/2021 10:48 AM EDT) Pathologist [facility] Chol/HDLC Ratio 4.3 <5.0 (calc) [facility] Cholesterol, Total 176 <200 mg/dL [facility] HDL Cholesterol 41(L) > OR = 50 mg/dL [facility] LDL Cholesterol 101(H) mg/dL (calc) [facility] Comment: Reference range: <100 ?? Desirable range <100 mg/dL for primary prevention; ?? <70 mg/dL for patients with CHD or diabetic patients ?? with > or = 2 CHD risk factors. ?? LDL-C is now calculated using the Priti ?? calculation, which is a validated novel method providing ?? better accuracy than the Friedewald equation in the ?? estimation of LDL-C. ?? Varghese KOENIG et al. ARIA. 2013;310(19): 3088-2484 ?? (http://education.CallVU/faq/FZX847) Non-HDL Cholesterol 135(H) <130 mg/dL (calc) [facility] Comment: For patients with diabetes plus 1 major ASCVD risk ?? factor, treating to a non-HDL-C goal of <100 mg/dL ?? (LDL-C of <70 mg/dL) is considered a therapeutic ?? option. Triglycerides 220(H) <150 mg/dL [facility] Comment: ?? If a non-fasting specimen was collected, consider repeat triglyceride testing on a fasting specimen if clinically indicated. ?? Augustin et al. J. of Clin. Lipidol. 2015;9:129-169. ?? 08/14/2021 10:4 8 AM EDT Margarita Adams MD LAB BLOOD ORDERABLES Final Result [facility] [address] from Last 3 Months or Most Recently Relevant to Health Maintenance Insurance [facility] Care Teams Diesel Locomotive Crane Operator Relationship Specialty Start Date End Date De Baca, MD Margarita [address] [place] [address] PCP - General Family Medicine 11/28/18 Pearl Galicia, PharmD [address] [place] [address] Pharmacist Internal Medicine 03/03/23
--- OUTSIDE RECORDS SUMMARY | 2025-03-15 12:46 | XMS_ITS | Encounter Summary ---
Author Organization [employer] Address [address] [place] [address] Care Team Providers Care Tower Foreman Name Role Phone Margarita Adams MD Primary Care Provider +- [phone] Pearl Galicia PharmD Unavailable [phone]- [phone] Encounter Details Date Type Department Care Team (Latest Contact Info) Description 03/15/2025 Travel Social History Tobacco Use Types Packs/Day Years Used Date Smoking Tobacco: Never Assessed Depression Answer Date Recorded Patient Health Questionnaire-9 Score 13 03/15/2025 Patient Health Questionnaire-9 Score 13 03/15/2025 Last PHQ-9: Questionnaire Data Not on file 0 03/15/2025 Housing Stability Answer Date Recorded What is your housing situation today? I have kishore shay 03/15/[address] you [...] Orientation Straight 09/27/2022 10 :17 AM EDT documented as of this encounter Plan of Treatment Not on file documented as of this encounter Goals Goal Patient Goal Type Associated Problems Recent Progress Patient-Stated? Author Smoking cessation General No Pearl Fry PharmD documented as of this encounter Visit Diagnoses Not on filedocumented in this encounter Additional Health Concerns Assessment Noted Time PHQ-9 Depression Total Score: 13 025 11:48 AM EDT documented as of this encounter Care Teams Tower Foreman Relationship Specialty Start Date End Date Margarita Adams MD [address] [place] [address] PCP - General Family Medicine 11/28/18 Pearl Galicia, PharmD [address] [place] [address] Pharmacist Internal Medicine 03/03/23 documented as of this encounter
--- OUTSIDE RECORDS SUMMARY | 2025-03-15 12:47 | XMS_ITS | Encounter Summary ---
Author Organization [employer] Address [address] [facility] 7[address] [place] [address] Care Team Providers Care Fishing Lure Assembler Name Role Phone Margarita Adams MD Primary Care Provider +- [phone] Pearl Galicia PharmD Unavailable [phone]- [phone] Reason for Visit * Reason Comments Med Refill Encounter Details Date Type Department Care Team (Late st Contact Info) Description 11/02/2023 Refill [facility] [address] [place] [address] Catalino Bruce FNP Mood disorder (CMS/HCC) Social History Tobacco Use Types Packs/Day Years Used Date Smoking Tobacco: Never Assessed Depression Answer Date Recorded Patient Health Questionnaire-9 Score 3 08/22/2023 Depression Answer Date Recorded Patient Health Questionnaire-2 Score 0 08/22/2023 Comments Unknown Sex and Gender Information Value [...] Patient-Stated? Author Smoking cessation General No Pearl Fry, PharmD documented as of this encounter Visit Diagnoses Diagnosis Mood disorder (CMS/HCC) Unspecified episodic mood disorder documented in this encounter Additional Health Concerns Assessment Noted Time PHQ-9 Depression Total Score: 3 08/22/20 23 1:58 PM EDT documented as of this encounter Care Teams Fishing Lure Assembler Relationship Specialty Start Date End Date Margarita Adams MD [address] [place] [address] PCP - General Family Medicine 11/28/18 Pearl Galicia PharmD [address] [place] [address] Pharmacist Internal Medicine 03/03/23 documented as of this encounter
--- OUTSIDE RECORDS SUMMARY | 2025-03-15 12:47 | XMS_ITS | Encounter Summary ---
Author Organization [employer] Address [address] [facility] 7t [place] [address] Care Team Providers Care Furniture Sales Consultant Name Role Phone Margarita Adams MD Primary Care Provider +- [phone] Pearl Galicia PharmD Unavailable [phone]- [phone] Reason for Visit * Reason Onset Date Comments chartprep 03/14/2025 Encounter Details Date Type Department Care Team (Late st Contact Info) Description 03/14/[address] [facility] [address] [place], [place] [phone] Margarita Adams MD [address] [place] [address] chartprep Social History Tobacco Use Types Packs/Day Years [...] AM EDT documented as of this encounter Miscellaneous Notes * Telephone Encounter - Abbey Lee [place] - 03/14/2025 9:16 AM EDT ..Chart Prep Labs: not done Images: done Vaccines due: Covid Due and Flu Due Referrals: Not Applicable Screenings: Not Applicable Overdue care gaps: A1C, Glucose, Sbirt, SDOH, PQ9, GAD7, Disability , and Oral Health I left a Vm to the pt.She needs to do blood work before the appt. documented in this encounter Plan of Treatment Not on file documented as of this encounter Goals Goal Patient Goal Type Associated Problems Recent Progress Patient-Stated? Author Smoking cessation General No Pearl Fry, PharmD documented as of this encounter Visit Diagnoses Not on filedocumented in this encounter Additional Health Concerns Assessment Noted Time PHQ-9 Depression Total Score: 6 05/01/20 24 11:00 AM EDT documented as of this encounter Care Teams Furniture Sales Consultant Relationship Specialty Start Date End Date Margarita Adams MD [address] [place] [address] PCP - General Family Medicine 11/28/18 Pearl Galicia PharmD [address] [place] [address] Pharmacist Internal Medicine 03/03/23 documented as of this encounter
--- OUTSIDE RECORDS SUMMARY | 2025-03-15 12:47 | XMS_ITS | Encounter Summary ---
Author Organization [employer] Address [address] [place] [address] Care Team Providers Care Gis Consultant Name Role Phone Margarita Adams MD Primary Care Provider +1- [phone] Pearl Galicia PharmD Unavailable [phone]- [phone] Reason for Visit * Reason Onset Date Comments Appointment Request 03/15/2025 Encounter Details Date Type Department Care Team (Late st Contact Info) Description 03/15/2025 Telephone [facility] [address] [place], [place] [phone] Margarita Adams MD [address] [place], [place] [phone] Appointment Request Social History Tobacco Use Types Packs/Day Years Used Date Smoking Tobacco: Never Assessed Depression Answer Date Recorded Patient Health Questionnaire-9 Score 13 03/15/2025 Patient Health Questionnaire-9 Score 13 03/15/2025 Last PHQ-9: Questionnaire Data Not on file 0 03/15/2025 Housing Stability Answer Date Recorded What is your housing situation today? I have kishore jaspal 03/15/[address] you li [...] encounter Miscellaneous Notes * Telephone Encounter - Shivani Cramer - 03/15/2025 12:07 PM EDT Called Patient no answer left vm, advised to call back and schedule 15 min f/u with PCP for medication f/u (end of March- April) ok to schedule if Patient calls back. documented in this encounter Plan of Treatment [...] documented as of this encounter Care Teams Gis Consultant Relationship Specialty Start Date End Date Margarita Adams MD [address] [place], [place] [phone] PCP - General Family Medicine 11/28/18 Pearl Galicia PharmD [address] [place], [place] [phone] Pharmacist Internal Medicine 03/03/23 documented as of this encounter
--- OUTSIDE RECORDS SUMMARY | 2025-03-15 12:47 | XMS_ITS | Encounter Summary ---
Author Organization [employer] Address [address] [facility] 7t [place] [address] Care Team Providers Care Food And Nutrition Services Supervisor Name Role Phone Margarita Adams MD Primary Care Provider +- [phone] Pearl Galicia PharmD Unavailable +1- [phone] Reason for Visit * Reason Onset Date Comments Med Refill 11/19/2024 Encounter Details Date Type Department Care Team (Late st Contact Info) Description 11/19/2024 Telephone [facility] MEDICINE [address] [place], [place] [phone] Margarita Adams MD [address] [place], [place] [phone] Med Refill Social History Tobacco Use Types Packs/Day Years Used Date Smoking Tobacco: Never Assessed Depression Answer Date Recorded Patient Health Questionnaire-9 Score 6 05/01/2024 Patient Health Questionnaire-9 Score 6 05/01/2024 Last PHQ-9: Questionnaire Data Not on file 0 05/01/2024 Depression Answer Date Recorded Patient Health Questionnaire-2 Score 0 05/01/2024 Comments Unknown Sex and Gender Information Value Date Recorded Sex Assigned at Female 09/27/2022 10:17 AM EDT Legal Sex Female 10:17 AM EDT Gender Identity Female 09/27/2022 10:17 AM EDT Sexual Orientation Straight 09/27/2022 10 :17 AM EDT documented as of this encounter Miscellaneous Notes * Telephone Encounter - Anna Balta - 11/19/2024 10:05 AM EST TC from pt requesting medication refill. Medications needing refill : ARIPiprazole (Abilify) 5 MG tablet zolpidem (Ambien) 10 MG tablet To be sent to: [facility]/pharmacy #[id number] - [place], [place] - [address] [facility] documented in this encounter Plan of Treatment [...] documented as of this encounter Care Teams Food And Nutrition Services Supervisor Relationship Specialty Start Date End Date Margarita Adams MD [address] [place] [address] PCP - General Family Medicine 11/28/18 Pearl Galicia, PharmD [address] [place] [address] Pharmacist Internal Medicine 03/03/23 documented as of this encounter
--- OUTSIDE RECORDS SUMMARY | 2025-03-15 12:47 | XMS_ITS | Patient Health Record ---
Author Organization [facility] Address [address] [place] [address] Care Team Providers Care Microbiology Coordinator Name Role Phone Margarita Adams MD Primary Care Provider Oneyda vailable Dillon Maldonado Jr Unavailable Allergies No Known Allergies Reason For Referral Referring Provider First Name Margarita Referring Provider Last Name [place] Referring Provider Speciality Family Med icine Referred Organization [facility] Referred Provider Dillon Maldonado Jr Referred Address [address] [facility],[address],[place], [place],[address],[place] Referred Provider Specialty Gastroentero logy General Notes Pau Huber 2024 12:41:57 PM greater thanpt currently has [employer] [facility] [employer] safety net. I spoke with the patient and asked her to contact [facility] and choose a plan prior to her appt with Dr. Maldonado on 02-21-2025. She will notify us of this., Pau Huber 02/13/2025 02:42:02 PM greater thanINFORMED PT AGAIN THAT SHE NEEDS TO CHOOSE A PLAN OR WE CAN NOT SEE HER . [facility] AND NEEDS TO ENROLL IN A PLAN, Pau Huber 02/19/2025 08:35:17 AM Pt states she will have [facility] on 02-26-25 and rescheduled her appt to the end of April Referral Priority Routine Medications Medication SIG (Take, Route, Frequency, Duration) Notes Start Date End Date Status Omeprazole 40 MG 1 capsule 30 minutes before morning meal Orally Once a day for 30 day(s) 07/02/2021 Active Vitamin C 250 MG TAKE 1 TABLET THREE TIMES DAILY WITH FERROUS SULFATE (IRON) Oral for 30 Active ProAir HFA 108 (90 Base) MCG/ACT INHALE 2 PUFFS BY MOUTH EVERY 4 TO 6 HOURS NEEDED Inhalation for 17 Active Methadone HCl Active Levothyroxine Sodium 100 MCG 1 tablet in the morning on an empty stomach Orally Once a day Active Singulair 10 MG 1 tablet Orally Once a day for 30 day(s) Active Advair Diskus 500-50 MCG/DOSE 1 puff Inhalation Twice a day Active Gabapentin 100 MG Oral for 30 Active Spiriva HandiHaler 18 MCG Inhalation for 30 Active FeroSul 325 (65 Fe) MG TAKE 1 TABLET BY MOUTH EVERY DAY Oral for 90 Active Immunizations Vaccine Route Administration Date Status Comme nts Influenza Unknown 07/29/2020 Administered Social History Tobacco Use: Social History Observation Description Date Details (start date - stop date) Current Smoker NA - NA Tobacco Use/Smoking Question Answer Notes Patient is a current smoker How often do you smoke cigarettes? every day How many cigarettes a day do you smoke? 11-20 Alcohol Screen Question Answer Notes Did you have a drink containing alcohol in the p ast year? No Points 0 Interpretation Negative Problems Problem Type SNOMED Code ICD Code Onset Dates Problem Status W/U Status Risk Notes Problem [id number] Gastroesophageal reflux disease without esophagitis (K21.9) Active confirmed Problem Gastritis (4265746) Gastritis (K29.70) Active c onfirmed Problem Gastroesophageal reflux disease (261307380) GERD (gastroesophageal reflux disease) (K21.9) Active confirmed Plan Of Treatment Future Test Test Name Order Date UPPER GI ENDOSCOPY 07/02/2021 Next Appt Details Provider Name:Dillon calderon , 05/27/2025 09:20:00 AM, [address] [place] [address], [address], [place], [address], Insurance Providers Payer Name Payer Address Payer Phone Subscriber Number Group Number Insured Name Patient Relationship to Insured Coverage Start Date Coverage End Date [facility] [address] [address] [place], [place] [phone] PLEASE UPDATE JD HESTER Self - patient is the insured MEDICAID OF [facility] [address] [place] [address] [phone] [id number] JOQUIN, JD Self - patient is the insured Medical (General) History Medical History History ICD Code Hypothyroid asthma anemia Menorrhagia Depression Hyperlipidemia Elevated blood sugar Opiate dependence EDMUND/CPAP Surgical History Surgery Date(Month/Year) right knee/ 4 pins /plate section 1992,1993,1995,2004 D&C 07/2020
--- OUTSIDE RECORDS SUMMARY | 2025-03-15 12:47 | XMS_ITS | Encounter Summary ---
Author Organization [employer] Address [address] [facility] 7t [place] [address] Care Team Providers Care Plate Setter Name Role Phone Margarita Adams MD Primary Care Provider +- [phone] Pearl Galicia PharmD Unavailable [phone]- [phone] Encounter Details Date Type Department Care Team (Late st Contact Info) Description 03/15/2025 Telephone [facility] MEDICINE [address] [place], [place] [phone] Margarita Adams MD [address] [place], [place] [phone] Social History Tobacco Use Types Packs/Day Years [...] encounter Miscellaneous Notes * Telephone Encounter - Margartia Adams MD - 03/15/2025 11:21 AM EDT Please start PA for zepbound, phentermine contraindications are in the note. documented in this encounter Plan of Treatment [...] documented as of this encounter Care Teams Plate Setter Relationship Specialty Start Date End Date Margarita Adams MD [address] [place] [address] PCP - General Family Medicine 11/28/18 Pearl Galicia PharmD [address] [place] [address] Pharmacist Internal Medicine 03/03/23 documented as of this encounter
--- OUTSIDE RECORDS SUMMARY | 2025-03-15 12:47 | XMS_ITS | Encounter Summary ---
Author Organization [employer] Address [address] [facility] 7t [place] [address] Care Team Providers Care Customer Sales Representative Name Role Phone Margarita Adams MD Primary Care Provider + [phone] Pearl Galicia PharmD Unavailable [phone]- [phone] Reason for Visit * Reason Comments Med Refill Encounter Details Date Type Department Care Team (Late st Contact Info) Description 02/20/2024 Refill [facility] [address] [place] [address] Catalino Bruce FNP Mood disorder (CMS/HCC) Social History Tobacco Use Types Packs/Day Years Used Date Smoking Tobacco: Never Assessed Depression Answer Date Recorded Patient Health Questionnaire-9 Score 2 12/05/2023 Patient Health Questionnaire-9 Score 2 12/05/2023 Last PHQ-9: Questionnaire Data Not on file 0 12/05/2023 Depression Answer Date Recorded Patient Health Questionnaire-2 Score 0 12/05/2023 Comments Unknown Sex and Gender Information Value [...] Progress Patient-Stated? Author Smoking cessation General No BaronsPearl Nolen, PharmD documented as of this encounter Visit Diagnoses Diagnosis Mood disorder (CMS/HCC) Unspecified episodic mood disorder documented in this encounter Additional Health Concerns Assessment Noted Time PHQ-9 Depression Total Score: 2 12/05/19 24 1:22 PM EST documented as of this encounter Care Teams Customer Sales Representative Relationship Specialty Start Date End Date Margarita Adams MD [address] [place] [address] PCP - General Family Medicine 11/28/18 Pearl Galicia, Ok [address] [place] [address] Pharmacist Internal Medicine 03/03/23 documented as of this encounter
--- OUTSIDE RECORDS SUMMARY | 2025-03-15 12:47 | XMS_ITS | Encounter Summary ---
Author Organization [employer] Address [address] [facility] 7t [place] [address] Care Team Providers Care Functional Director Name Role Phone Margarita Adams MD Primary Care Provider + [phone] Pearl Galicia PharmD Unavailable [phone]- [phone] Reason for Visit * Reason Comments Med Refill Encounter Details Date Type Department Care Team (Late st Contact Info) Description 03/18/2023 Refill [facility] MEDICINE [address] [place] [address] Catalino Bruce FNP Mood disorder (CMS/HCC) Social History Tobacco Use Types Packs/Day Years Used Date Smoking Tobacco: Never Assessed PHQ-2 Answer Date Recorded Patient Health Questionnaire-2 Score 0 01/03/2023 Comments Unknown Sex and Gender Information Value Date Recorded Sex Assigned at Female 09/27/2022 10:17 AM EDT Legal Sex Female 10:17 AM EDT Gender Identity Female 09/27/2022 10:17 AM EDT Sexual Orientation Straight 09/27/2022 10 :17 AM EDT COVID-19 Exposure Response Date Recorded In the last 10 days, have yo u been in contact with someone who was confirmed or suspected to have Coronavirus/COVID-19? Unable to assess 03/03/2023 11:43 AM EDT documented as of this encounter Plan of Treatment Not on file documented as of this encounter Goals Goal Patient Goal Type Associated Problems Recent Progress Patient-Stated? Author Smoking cessation General No Piers-Kristina Ortizsa, PharmD documented as of this encounter Visit Diagnoses Diagnosis Mood disorder (CMS/HCC) Unspecified episodic mood disorder documented in this encounter Additional Health Concerns Assessment Noted Time PHQ-9 Depression Total Score: 3 01/03/20 23 10:37 AM EST documented as of this encounter Care Teams Functional Director Relationship Specialty Start Date End Date Margarita Adams MD [address] [place] [address] PCP - General Family Medicine 11/28/18 Pearl Galicia, ShirleyD [address] [place] [address] Pharmacist Internal Medicine 03/03/23 documented as of this encounter
--- OUTSIDE RECORDS SUMMARY | 2025-03-15 12:47 | XMS_ITS | Encounter Summary ---
Author Organization [employer] Address [address] [facility] 7 [place] [address] Care Team Providers Care Mma Fighter Name Role Phone Margarita Adams MD Primary Care Provider +- [phone] Pearl Galicia PharmD Unavailable [phone]- [phone] Reason for Referral * Consultation (Routine) - Authorized Specialty Diagnoses / Procedures Referred By Daryn molina Referred To Contact Behavioral Health Diagnoses Mood disorder (CMS/HCC) Margarita Adams MD [address] [place] [address] Phone: tel: fax: Referral ID Status Reason Start Date Expiration Date Visits Requested Visits Authorized [id number] Authorized Specialty Services Required 03/15/2025 03/15/2026 1 1 * Imaging (Routine) - Closed Specialty Diagnoses / Procedures Referred By Daryn molina Referred To Contact Radiology Diagnoses Screening mammogram for breast cancer Procedures BI Mammogram Screening Tomosynthesis Bilateral Margarita Adams MD [address] [place] [address] Phone: tel: fax: [address] Phone: tel: fax: Referral ID Status Reason Start Date Expiration Date Visits Re quested Visits Authorized [id number] Closed 03/15/2025 03/15/2026 1 1 Reason for Visit * Reason Comments Annual Exam Encounter Details Date Type Department Care Team (Late st Contact Info) Description 03/15/2025 11:00 AM EDT Office Visit [facility] MEDICINE [address] [place] [address] Mragarita Adams MD [address] [place] [address] Right sided sciatica (Primary Dx); Obstructive sleep [...] Colon cancer screening; Other specified health status Social History Tobacco Use Types Packs/Day Years [...] the past 12 months, has t he [email or web address], oil or water [employer] threatened to shut off services in your [...] AM EDT documented as of this encounter Last Filed Vital Signs Vital Sign Reading [...] Mass Index 47.65 03/15/2025 10:33 AM EDT documented in this encounter Miscellaneous Notes * Assessment & Plan Note - Yuriy Sibley - 03/15/2025 11:36 AM EDTAssociated Problem(s): Dyslipidemia -continue lifestyle modification -recent labs 03/01/25 showed improved cholesterol, elevated triglycerides, working on getting labs inchart 03/15/25 * Assessment & Plan Note - Yuriy Sibley - 03/15/2025 11:34 AM EDTAssociated Problem(s): Other specified health status -next comprehensive annual evaluation due after 03/15/26 -eye care facilitated by -dentures -dhiraj care proxy given and filed 03/15/25 * Assessment & Plan Note - Yuriy Sibley - 03/15/2025 11:32 AM EDTAssociated Problem(s): Right sided sciatica -recommended stretches 03/15/25 * Assessment & Plan Note - Yuriy Sibley - 03/15/2025 11:32 AM EDTAssociated Problem(s): Screening mammogram for breast cancer -ordered mammogram 03/15/25 * Assessment & Plan Note - Yuriy Sibley - 03/15/2025 11:28 AM EDTAssociated Problem(s): Iron deficiency anemia Hgb 10.9 06/2021. Labs in 2007 suggested possible alpha thalassemia trait. Compliant with iron. Followed by hematology. She is supposed to have a Mirena IUD placed but she hasn't had her menses since her D and C. Her menses started up again heavy. She will follow up with [facility] for Mirena. Repeat on 09/18 Hgb 10.8 has f/u with [facility] for menses control. Lab Results Component Value Date HGB 8.8 (L) 08/09/2023 HGB 10.9 (L) 08/14/2021 HGB 11.0 (L) 04/24/2021 HEMATOCRIT 35.7 08/14/2021 HEMATOCRIT 36.0 04/24/2021 -ordered repeat iron labs 03/15/25 * Assessment & Plan Note - Yruiy Sibley - 03/15/2025 11:27 AM EDTAssociated Problem(s): Prediabetes Labs from 04/24/2021 showed a FG 118, A1c 6.3% Repeat A1c 6.4% on 06/2021. She is walking now. Contemplating weight loss surgery. Risks and benefits discussed. Lab Results Component Value Date HGBA1C 6.3 (H) 08/14/2021 HGBA1C 6.3 (H) 04/24/2021 -ordered repeat A1C 03/15/25 * Assessment & Plan Note - Yuriy Sibley - 03/15/2025 11:22 AM EDTAssociated Problem(s): Class 3 severe obesity due to excess calories with serious comorbidity and body mass index (BMI) of 45.0 to 49.9 in adult Baseline weight: 269 lbs -given BMI >30kg/m2 [...] q 4 weeks with max 15mg/wk. 03/15/25 * Assessment & Plan Note - Yuriy Sibley - 03/15/2025 11:16 AM EDTAssociated Problem(s): Exercise counseling Exercise Recommendations: At least 150 minutes of moderate-intensity physical activity per week, or an equivalent combinationof moderate- and vigorous-intensity activity. * Assessment & Plan Note - Yuriy Sibley - 03/15/2025 11:16 AM EDTAssociated Problem(s): Dietary counseling Dietary Recommendations: Fruits, vegetables, whole grains, protein foods, and fat-free or low-fat dairy products are healthychoices. Eat different types of protein foods in your diet. This can include seafood, lean meats, poultry, beans, peas, lentils, nuts, seeds, soy products, and eggs. Limit foods and beverages higher in added sugars, saturated fat, and sodium. * Assessment & Plan Note - Yuriy Sibley - 03/15/2025 11:16 AM EDTAssociated Problem(s): Colon cancer screening -pt agrees to colon cancer screening, referral placed 07/12/2024 -has appt. 05/27/25 * Assessment & Plan Note - Yuriy Sibley - 03/15/2025 11:14 AM EDTAssociated Problem(s): Continuous opioid dependence (CMS/HCC) 03/15/25 has been off methadone for 1 year * Assessment & Plan Note - Yuriy Sibley - 03/15/2025 11:14 AM EDTAssociated Problem(s): Mood disorder (CMS/HCC) Symptoms have suggested BP 2, rather than unipolar depression. Doing OK, but with increased anxietyand sleep maintenance insomnia. -On Gabapentin 300 mg TID. Increase to Zolpidem 10 mg at bedtime as needed, avoid taking every night to maintain efficacy. -Restart Abilify 5 mg to take 1.5 tablets (7.5 mg) daily. -Referred to behavior health 03/15/25 * Assessment & Plan Note - Yuriy Sibley - 03/15/2025 11:12 AM EDTAssociated Problem(s): Hypothyroidism Diagnosed 01/2021 based on TSH of 6.47 and low FT4 0.3 TSH had been elevated since 05/2020 with normal FT4. Symptoms include obesity, EDMUND, weight gain, dysthymia -continue levothyroxine 100mcg daily, started 02/05/2021 Has been off Levothyroxine with controlled TSH 03/15/25 * Assessment & Plan Note - Yuriy Sibley - 03/15/2025 11:11 AM EDTAssociated Problem(s): Tobacco dependence syndrome -Cigg/day: 4 cigarettes/day -Age started: 17 -Total years smoking: -Pack year history: Encouraged smoking cessation resources such as pharmacomtherapy, [facility] smoking cessation group, and [facility] pharmacy smoking cessation clinic Discussed USPSTF recommends annual lung cancer screening with low dose CT in people who meet the following criteria: -ages 50 to 80 years. -have a 20 pack-year smoking history. -currently smoke cigarettes or quit within the past 15 years. -LDCT: * Assessment & Plan Note - Yuriy Sibley - 03/15/2025 11:11 AM EDTAssociated Problem(s): Vitamin D deficiency 08/31/22 Vitamin D was 15. PTH elevated at 89 (normal 60-77) -recent labs 03/01/25 significant vitamin D deficiency, will get labs in chart. -start ergocalciferol (Vitamin D2) 1.25 MG (66873 UT) 03/15/25 * Assessment & Plan Note - Yuriy Sibley - 03/15/2025 11:09 AM EDTAssociated Problem(s): Moderate persistent asthma Asthma improved but not well controlled. - start Mometasone Furoate (Asmanex HFA) 200 MCG/ACT aerosol 03/15/25 - continue albuterol 108 (90 Base) MCG/ACT inhaler PRN * Assessment & Plan Note - Yuriy Sibley - 03/15/2025 11:05 AM EDTAssociated Problem(s): Obstructive sleep apnea syndrome Diagnosed 08/2020 by pulmonology On CPAP since 10/03/2020 -recent labs 03/01/25 showed mild CO2 retention, recommended using CPAP every night, as pt reported only using it occasionally. In the process of getting labs in chart 03/15/25 documented in this encounter Plan of Treatment Scheduled Orders Name Type Priority Associated Diagnoses Orde r Schedule BI Mammogram Screening Tomosynthesis Bilateral Imaging Routine Screening mammogram for breast cancer Expected: 03/15/2025, Expires: 05/15/2026 CBC auto differential Lab Routine Iron deficiency anemia, unspecified iron deficiency anemia type Expected: 03/15/2025 (Approximate), Expires: 03/15/2026 Ferritin Lab Routine Iron deficiency anemia, unspecified iron deficiency anemia type Expected: 03/15/2025, Expires: 03/15/2026 TSH with Reflex to Free T4 Lab Routine Prediabetes Iron deficiency anemia, unspecified iron deficiency anemia type Expected: 03/15/2025 (Approximate), Expires: 03/15/2026 Iron And Total Iron Binding Capacity Lab Routine Iron deficiency anemia, unspecified iron deficiency anemia type Expected: 03/15/2025, Expires: 03/15/2026 Vitamin B12 (Cobalamin) and Folate Panel, Serum Lab Routine Iron deficiency anemia, unspecified iron deficiency anemia type Expected: 03/15/2025, Expires: 03/15/2026 Hemoglobin A1c Lab Routine Obstructive sleep apnea syndrome Expected: 03/15/2025 (Approximate), Expires: 03/15/2026 Scheduled Referrals Name Type Priority Associated Diagnoses Order Schedule Referral to Behavioral Health Outpatient Referral Routine Mood disorder ([facility]) Expected: 03/15/2025 (Approximate), Expires: 03/15/2026 documented as of this encounter Goals Goal Patient Goal Type Associated Problems Recent Progress Patient-Stated? Author Smoking cessation General No Pearl Fry, PharmD documented as of this encounter Visit Diagnoses Diagnosis Right sided sciatica- Primary Sciatica Obstructive sleep apnea syndrome Obstructive sleep apnea (adult) (pediatric) Moderate persistent asthma, unspecified whether complicated Vitamin D deficiency Prediabetes Other abnormal glucose Hypothyroidism, unspecified type Iron deficiency anemia, unspecified iron deficiency anemia type Dyslipidemia Other and unspecified hyperlipidemia Tobacco dependence syndrome Tobacco use disorder Mood disorder (CMS/HCC) Unspecified episodic mood disorder Continuous opioid dependence (CMS/HCC) Opioid type dependence, continuous abuse Screening mammogram for breast cancer Class 3 severe obesity due to excess calories with serious comorbidity and body mass index (BMI) of 45.0 to 49.9 in adult Dietary counseling Dietary surveillance and counseling Exercise counseling Colon cancer screening Special screening for malignant neoplasms, colon Other specified health status documented in this encounter Additional Health Concerns Assessment Noted Time PHQ-9 Depression Total Score: 13 03/15/ 025 11:48 AM EDT documented as of this encounter Care Teams Mma Fighter Relationship Specialty Start Date End Date Margarita Adams MD [address] [place] [address] PCP - General Family Medicine 11/28/18 Pearl Galicia, ShirleyD [address] [place] [address] Pharmacist Internal Medicine 03/03/23 documented as of this encounter
--- OUTSIDE RECORDS SUMMARY | 2025-03-15 12:47 | XMS_ITS | Encounter Summary ---
Author Organization [employer] Address [address] [facility] 7t [place] [address] Care Team Providers Care Clinical Sociologist Name Role Phone Margarita Adams MD Primary Care Provider +- [phone] Pearl Galicia PharmD Unavailable [phone] Encounter Details Date Type Department Care Team (Late st Contact Info) Description 12/14/2022 Abstract [facility] MEDICINE [address] [place] [address] Margarita Adams MD [address] [place], [place] [phone] Social History Tobacco Use Types Packs/Day Years Used Date Smoking Tobacco: Never Assessed Comments Unknown Sex and Gender Information Value [...] was confirmed or suspected to have Coronavirus/COVID-19? No / Unsure 11/30/2022 9:09 AM EST documented as of this encounter Plan of Treatment Not on file documented as of this encounter Procedures Procedure Name Priority Date/Time Associated Diagnosis Comments HPV HIGH RISK PCR Routine 07/01/2020 12:00 AM EDT PAP SMEAR Routine 07/01/2020 12:00 AM EDT documented in this encounter Results * HPV High Risk PCR (07/01/2020 12:00 AM EDT) Swab Cervical swab / Unknown Historical Provider LAB MICROBIOLOGY - GENERA L ORDERABLES Final Result IMAGING * Pap Smear (07/01/2020 12:00 AM EDT) Swab Historical Provider LAB CYTOLOGY ORDERABLES F inal Result IMAGING documented in this encounter Visit Diagnoses Not on filedocumented in this encounter Care Teams Clinical Sociologist Relationship Specialty Start Date End Date Margarita Adams MD [address] [place] [address] PCP - General Family Medicine 11/28/18 Pearl Galicia, ShirleyD [address] [place] [address] Pharmacist Internal Medicine 03/03/23 documented as of this encounter
--- OUTSIDE RECORDS SUMMARY | 2025-03-15 12:47 | XMS_ITS ---
Author Organization [facility] Address [address] [place] [address] [place] [address] Care Team Providers Care Hog Sticker Name Role Phone Angie PRINGLE, Margarita Primary Care Provider Oneyda vailamasoud Maldonado Jr, Dillon Carrillo REASON FOR VISIT Patient presents today for a screening colon Encounters Encounter Location Date Provider Diagnosis [facility] [address] [place] [address] 11/01/2024 Dillon Maldonado Jr Plan Of Treatment Next Appt Details Provider Name:Dillon calderon Jr, 05/27/2025 09:20:00 AM, [address] [place] [address], Suite [facility], [place], [address], Progress Notes * JD HESTER MDOB:1980 (44 yo F)Acc No.[id number]:11/01/2024 Progress Notes Patient:?JD HESTER Provider:?Dillon Maldonado MD :1980???Age:44 Y???Sex:Female D ate:11/01/2024 Address:[address] [place], [place] [phone] Pcp:Margarita Adams MD Subjective: * Chief Complaints: * ???1. Patient presents today for a screening colon. * Medical History:? Objective: * Vitals:? Assessment: Plan: * Treatment: * * The named appointment provid er may or may not be the originator of this progress note, and it is not deemed complete until electronically signed by the appointment provider. Sign off status: Pending * Provider:?Dillon Maldonado MD Date:?1 01/02/2024 Generated for Suzanne mcnair/Jagdish/Ligia on:?03/15/2025 10:27 AM EDT
--- OUTSIDE RECORDS SUMMARY | 2025-03-15 12:47 | XMS_ITS | Encounter Summary ---
Author Organization [employer] Address [address] [facility] 7t [place] [address] Care Team Providers Care Cnc Mill Programmer Name Role Phone Margarita Adams MD Primary Care Provider + [phone] Pearl Galicia PharmD Unavailable Encounter Details Date Type Department Care Team (Late st Contact Info) Description 10/28/2022 Abstract [facility] MED & PEDS [address] [place] [address] Margarita Adams MD [address] [place] [address] [phone] Social History Tobacco Use Types Packs/Day Years [...] suspected to have Coronavirus/COVID-19? No / Unsure 10/28/2022 10:04 AM EST documented as of this encounter Plan of Treatment Not on file documented as of this encounter Visit Diagnoses Not on filedocumented in this encounter Care Teams Cnc Mill Programmer Relationship Specialty Start Date End Date Margarita Adams MD [address] [place] [address] PCP - General Family Medicine 11/28/18 Pearl Galicia, ShirleyD [address] [place] [address] [place] [address] Pharmacist Internal Medicine 03/03/23 documented as of this encounter
--- OUTSIDE RECORDS SUMMARY | 2025-03-15 12:47 | XMS_ITS | Encounter Summary ---
Author Organization [employer] Address [address] [facility] 7t [place] [address] Care Team Providers Care Concaving Machine Operator Name Role Phone Margarita Adams MD Primary Care Provider +- [phone] Pearl Galicia PharmD Unavailable +1- [phone] Reason for Visit * Reason Onset Date Comments Med Refill 12/31/2024 Encounter Details Date Type Department Care Team (Late st Contact Info) Description 12/31/2024 Refill [facility] [address] [place], [place] [phone] Talia Gonzalez MD [address] [place] [address] Mood disorder (CMS/HCC) Social History Tobacco Use [...] documented as of this encounter Care Teams Concaving Machine Operator Relationship Specialty Start Date End Date Margarita Adams MD [address] [place] [address] PCP - General Family Medicine 11/28/18 Pearl Galicia, ShirleyD [address] [place] [address] Pharmacist Internal Medicine 03/03/23 documented as of this encounter
--- OUTSIDE RECORDS SUMMARY | 2025-03-15 12:47 | XMS_ITS | Encounter Summary ---
Author Organization [employer] Address [address] [facility] 7t [place] [address] Care Team Providers Care Special Order Jeweler Name Role Phone Margarita Adams MD Primary Care Provider + [phone] Pearl Galicia PharmD Unavailable +1- [phone] Reason for Visit * Reason Comments Med Refill Encounter Details Date Type Department Care Team (Late st Contact Info) Description 01/02/2024 Refill [facility] [address] [place] [address] Catalino Bruce FNP Mood disorder (CMS/HCC) Social [...] documented as of this encounter Care Teams Special Order Jeweler Relationship Specialty Start Date End Date Margarita Adams MD [address] [place] [address] PCP - General Family Medicine 11/28/18 Pearl Galicia, ShirleyD [address] [place] [address] Pharmacist Internal Medicine 03/03/23 documented as of this encounter
--- OUTSIDE RECORDS SUMMARY | 2025-03-15 12:47 | XMS_ITS | Clinical Summary ---
Author Organization [facility] Address [address] [place] [address] Care Team Providers Care Storeroom Attendant Name Role Phone Margarita Adams MD Primary Care Provider +1- [phone] Surgical History Surgery Date Site/Laterality Comments SECTION PROCEDURE: [place] DELIVERY ONLY KNEE SURGERY PROCEDURE: HISTORICAL KNEE SURGERY; COMMENT: 3 screws and a plate in right knee Medical History Medical History Date Comments Asthma DX:Asthma Hematoma DX:Hematoma; COM MENT: retus sheath hematoma Family History Medical History Relation Name Comments Breast cancer Mother Depression Other Hypertension Other Relation Name Status Comments Mother Other Social History Tobacco Use Types Packs/Day Years Used Date Smoking Tobacco: Every Day Smokeless Tobacco: Never Alcohol Use Standard Drinks/Week Comments No 0 (1 standard drink = 0.6 oz pur e alcohol) Comments Unknown Sex and Gender Information Value Date Recorded Sex Assigned at Not on file Legal Sex Female 8:49 PM EST Gender Identity Not on file Sexual Orientation Not on file Obstetrics History Plan of Treatment Health Maintenance Due Date Last Done Comments Breast Cancer Screening 1979 DTaP,Tdap,and Td Vaccines (1 - Tdap) 1998 Hepatitis B Vaccines (1 of 3 - 19+ 3-dose series) 1998 Cervical Cancer Screening: P ap Smear 2000 COVID-19 Vaccine ( - 2023-2 5 season) 2024 Influenza Vaccine (Season Ended) 2025 HIB Vaccines Aged Out No longer eligi [...] on patient's age to complete this topic MMR Vaccines Aged Out No longer eligi ble based on patient's age to complete this topic Meningococcal ACWY Vaccine Aged Out N o longer eligible based on patient's age to complete this topic Meningococcal B Vaccine Aged Out No l onger eligible based on patient's age to complete this topic Pneumococcal Vaccine: Pediat rics (0 to 5 Years) and At-Risk Patients (6 to 64 Years) Aged Out No longer eligible b ased on patient's age to complete this topic RSV Immunization Patients Un noemi 20 months Aged Out No longer eligible b ased on patient's age to complete this topic Varicella Vaccines Aged Out No longer eligible based on patient's age to complete this topic Care Teams Storeroom Attendant Relationship Specialty Start Date End Date Margarita Adams MD [address] [place] [phone] PCP - General Internal Medicine 08/26/20
[2025-03-15 13:17] LABS: MANUAL DIFF FLAG NO
[2025-03-15 13:28] LABS: Basophils Absolute Auto 0.1 X10*3/uL (0.0-0.2); Basophils Percent Auto 0.8 % (0-2); Eosinophils Absolute Auto 0.3 X10*3/uL (0.0-0.4); Eosinophils Percent Auto 2.4 % (0-4); Hematocrit 40.7 % (37.0-47.0); Hemoglobin 12.4 g/dl (12.0-16.0); Imm Gran Abs Auto 0.05 X10*3/uL (0.00-0.03); Imm Gran Pct Auto 0.5 % (0.0-0.4); Lymphocytes Absolute Auto 3.4 X10*3/uL (1.2-4.9); Lymphocytes Percent Auto 31.7 % (20-40); Mean Corpuscular HGB Conc 30.5 g/dl (31.0-35.0); Mean Corpuscular Hemoglobin 22.3 pg (27.0-33.0); Mean Corpuscular Volume 73.1 fL (80.0-98.0); Mean Platelet Volume 11.4 fL (9.4-12.3); Monocytes Absolute Auto 0.5 X10*3/uL (0.1-1.2); Monocytes Percent Auto 4.9 % (2-11); Neutrophils Absolute Auto 6.3 x10*3/uL (2.0-8.3); Neutrophils Percent Auto 59.7 % (45-73); Platelet Count 358 X10*3/uL (160-400); Red Blood Count 5.57 X10*6/uL (4.20-5.50); Red Cell Distribution Width 14.8 % (11.0-16.0); White Blood Count 10.6 X10*3/uL (4.8-10.8)
[2025-03-15 13:42] LABS: Estimated Average Glucose 146 mg/dL; Hemoglobin A1C 161.0239 umol/L; Hemoglobin A1c % 6.7 % (<6.0); Total Hemoglobin (HGBA1C) 3243.0463 umol/L
[2025-03-15 14:19] LABS: Folate 4.4 ng/mL (> or = 4.0); Vitamin B12 350 pg/mL (200-900)
[2025-03-15 14:25] LABS: Alanine Aminotransferase 36 U/L (0-31); Albumin Level 4.4 g/dL (3.5-5.0); Anion Gap 10 (12-20); Aspartate Amino Transferase 24 U/L (5-31); Bilirubin Direct 0.1 mg/dL (0.0-0.5); Bilirubin Total 0.3 mg/dL (0.0-1.0); Blood Urea Nitrogen 7 mg/dL (9-16); Calcium 9.5 mg/dL (8.4-10.2); Carbon Dioxide 26 mmol/L (22-29); Chloride 108 mmol/L (96-108); Cholesterol 208 mg/dL (<200); Estimated Glomerular Filt Rate > 60; Glucose Random 112 mg/dL (60-115); HDL Cholesterol 34 mg/dL (>40); Iron 42 mcg/dL (30-160); LDL Cholesterol Calculated 150 mg/dL (<100); Percent Iron Saturation 13 % (15-50); Potassium 4.2 mmol/L (3.3-5.1); Sodium 140 mmol/L (135-145); Total Iron Binding Capacity 334 mcg/dL (228-428); Total Protein 7.8 g/dL (6.5-8.0); Triglycerides 122 mg/dL (<150); Unsaturated Iron Binding 292 ug/dL
[2025-03-15 14:42] LABS: Ferritin 36 ng/mL (10-250); TSH reflex Free T4 1.61 uIU/mL (0.32-4.0); Vitamin D 25-OH Total 14.1 ng/mL (>30)
[2025-03-15 19:09] LABS: Alkaline Phosphatase 65 U/L (39-117)
== END 2025-03-15 11:48 | disposition home or self-care (01) ==
LOC: HO.HHCL 11:47
PROVIDERS: Visit Provider Family Medicine
DX: D50.9 Iron deficiency anemia, unspecified (principal); E78.5 Hyperlipidemia, unspecified; E03.9 Hypothyroidism, unspecified; G47.33 Obstructive sleep apnea (adult) (pediatric); E55.9 Vitamin D deficiency, unspecified
CPT/HCPCS: 36415; 80048; 80061; 80076; 82306; 82607; 82728; 82746; 83036; 83540; 84443; 85025

== ENCOUNTER 2025-05-07 15:23 | Outpatient (REF) | payer OTHER, SELFPAY ==
--- OUTSIDE RECORDS SUMMARY | 2025-05-07 18:32 | XMS_ITS | Patient Health Record ---
Author Organization [facility] Address [address] [place] [address] Care Team Providers Care Hot Stick Worker Name Role Phone Margarita Adams MD Primary Care Provider Oneyda vailable Dillon Maldonado Jr Unavailable Allergies No Known Allergies Reason For Referral Referring Provider First Name Margarita Referring Provider Last Name Angie Referring Provider Speciality Family Med icine Referred Organization [facility] Referred Provider Dillon Maldonado Jr Referred Address [address] [facility] [address],[place], [place],[address],[place] Referred Provider Specialty Gastroentero logy General Notes Pau Huber 2024 12:41:57 PM greater thanpt currently has [employer] safety net. I spoke with the patient and asked her to contact [facility] and choose a plan prior to her appt with Dr. Maldonado on 02-21-2025. She will notify us of this., Pau Huber 02/13/2025 02:42:02 PM greater thanINFORMED PT AGAIN THAT SHE NEEDS TO CHOOSE A PLAN OR WE CAN NOT SEE HER . [facility] NEED[facility] TO ENROLL IN A PLAN, Pau Huber 02/19/2025 08:35:17 AM Pt states she will have [facility] on 02-26-25 and rescheduled her appt to [...] Problem Status W/U Status Risk Notes Problem [id number] Gastroesophageal reflux disease without esophagitis (K21.9) Active confirmed Problem Gastritis (4394951) Gastritis (K29.70) Active confirmed Problem GERD (gastroesophageal reflux disease) (K21.9) Active confirmed Plan Of Treatment Future Test Test Name Order Date UPPER GI ENDOSCOPY 07/02/2021 Next Appt Details Provider Name:Dillon calderon , 05/27/2025 09:20:00 AM, [address] [place] [address], [address], [place], [address], Insurance Providers Payer Name Payer Address Payer Phone Subscriber Number Group Number Insured Name Patient Relationship to Insured Coverage Start Date Coverage End Date [facility] [employer] [facility] [address] [address] [place], [place] [id number] PLEASE UPDATE JD HESTER Self - patient is the insured MEDICA[employer] [facility] [address] [place] [address] [phone] [id number] JD HESTER Self - patient is the insured Medical (General) History Medical History History ICD Code Hypothyroid asthma anemia Menorrhagia Depression Hyperlipidemia Elevated blood sugar Opiate dependence EDMUND/CPAP Surgical History Surgery Date(Month/Year) right knee/ 4 pins /plate section 1992,1993,1995,2004 D&C 07/2020
== END 2025-05-07 15:24 | disposition home or self-care (01) ==
LOC: HO.MAMMO 15:23
PROVIDERS: PCP Family Medicine; Visit Provider Family Medicine
DX: Z12.31 Encounter for screening mammogram for malignant neoplasm of breast (principal)
CPT/HCPCS: 77063; 77067

== ENCOUNTER → 2025-05-07 16:30 | Outpatient (BNV) | payer OTHER, SELFPAY | PROVIDERS: PCP Family Medicine; Visit Provider Internal Medicine | DX: Z12.31 Encounter for screening mammogram for malignant neoplasm of breast (principal) | CPT/HCPCS: 77063; 77067 ==

== ENCOUNTER 2025-06-18 08:52 | Outpatient (REF) | payer OTHER, SELFPAY ==
[2025-06-18 09:04] LABS: MANUAL DIFF FLAG NO
--- OUTSIDE RECORDS SUMMARY | 2025-06-18 09:15 | XMS_ITS | Encounter Summary ---
Author Organization [employer] Address [address] [place] [address] [address] [address] Care Team Providers Care Metal Hanger Name Role Phone Margarita Adams MD Primary Care Provider + [phone] Pearl Galicia PharmD Unavailable +1- [phone] Reason for Visit * Reason Comments Med Refill Encounter Details Date Type Department Care Team (Late Contact Info) Description 11/02/2023 Refill [facility] [address] [place] [address] Catalino Bruce FNP Mood disorder (CMS/HCC) Social [...] Upcoming Encounters Date Type Department Care Team ([facility] Contact Info) Description 06/19/2025 4:00 PM EDT Telemedicine [facility] [address] [place], [place] [phone] Margarita Adams MD [address] [place], [place] [phone] documented as of this encounter Goals Goal [...] documented as of this encounter Care Teams Metal Hanger Relationship Specialty Start Date End Date Margarita Adams MD [address] [place] [address] PCP - General Family Medicine 11/28/18 Pearl Galicia, Ok [address] [place] [address] Pharmacist Internal Medicine 03/03/23 documented as of this encounter
--- OUTSIDE RECORDS SUMMARY | 2025-06-18 09:15 | XMS_ITS | Clinical Summary ---
Author Organization [facility] ity Address [address] [place] [address] Care Team Providers Care Tilting Saw Operator Name Role Margarita Richter MD Primary Care Provider +1- [phone] Surgical History Surgery Date Site/Laterality Comments SECTION PROCEDURE: [place] DELIVERY ONLY KNEE SURGERY PROCEDURE: HISTORICAL KNEE [...] Vaccine ( - 2023-2 5 season) 2024 Depression Screening 11/28/2024 Influenza Vaccine (#1) 2025 HIB Vaccines Aged Out No longer [...] 5 Years) and At-Risk Patients (6 to 49 Years) Aged Out No longer eligible b ased on patient's age to complete this topic RSV Immunization Patients Un noemi 20 months Aged Out No longer eligible b ased on patient's age to complete this topic Varicella Vaccines Aged Out No longer eligible based on patient's age to complete this topic Care Teams Tilting Saw Operator Relationship Specialty Start Date End Date Margarita Adams MD [address] [place] [phone] PCP - General Internal Medicine 08/26/20
--- OUTSIDE RECORDS SUMMARY | 2025-06-18 09:15 | XMS_ITS | Patient Health Record ---
Author Organization [facility] Address [address] [place] [address] Care Team Providers Care Intranet Developer Name Role Phone Margarita Adams MD Primary Care Provider Oneyda vailable Dillon Maldonado Jr Unavailable [phone] Allergies No Known Allergies Reason For Referral Referring Provider First Name Margarita Referring Provider Last Name Angie Referring Provider Speciality Family Med icine Referred Organization [facility] Referred Provider Dillon Maldonado Jr Referred Address [address] [facility] [address] [facility],[place], [place],[address],[place] Referred Provider Specialty Gastroentero logy General Notes Pau Huber 2024 12:41:57 PM greater thanpt currently has [employer] and health safety net. I spoke with the patient and asked her to contact [facility] and choose a plan prior to her appt with Dr. Maldonado on 02-21-2025. She will notify us of this., Pau Huber 02/13/2025 02:42:02 PM greater thanINFORMED PT AGAIN THAT SHE NEEDS TO CHOOSE A PLAN OR WE CAN NOT SEE HER . [facility] AND NEEDS TO ENROLL IN A PLAN, Pau Huber 02/19/2025 08:35:17 AM Pt states she will have [employer] on 02-26-25 and rescheduled her appt to the end of April Referral Priority Routine Reason ventral hernia Referral Organization [facility] Referring Provider First Name Dillon Referring Provider Last Name Joel Weber Referring Provider Speciality Gastroente rology Referred Provider Ray Cook Referred Provider Specialty Surgery Referral Priority Routine Referral Appointment Date 07/03/2025 Medications Medication SIG (Take, Route, Frequency, Duration) Notes Start Date End Date Status Gabapentin 100 MG Oral for 30 Active metFORMIN HCl 500 MG TAKE 1 TABLET (500 MG) BY MOUTH ONCE PER DAY. Oral for 90 Days Active ARIPiprazole 5 MG TAKE 1.5 TABLETS (7. 5 MG) BY MOUTH ONCE PER DAY. Oral for 90 Days Active Atorvastatin Calcium 20 MG TAKE 1 TABLET (20 MG) BY MOUTH ONCE PER DAY. Oral for 90 Days Active Omeprazole 40 MG 1 capsule 30 minutes before morning meal Orally Once a day for 30 day(s) 07/02/2021 Active Vitamin D3 50 MCG (1999) TAKE 1 CAPSU LE (50 MCG) BY MOUTH ONCE PER DAY. Oral for 90 Days Active Vitamin D 50 MCG (1999) 1 tablet Oral ly Once a day Active Zolpidem Tartrate 10 MG TAKE 1 TABLET BY MOUTH AT BEDTIME NEEDED FOR SLEEP Oral for 30 Days Active Immunizations Vaccine Route Administration Date Status Comme nts Influenza Unknown 07/29/2020 Administered Influenza Unknown 09/18/2024 Administered Social History Tobacco Use: Social History [...] Problem Status W/U Status Risk Notes Problem Screening for malignant neoplasm of colon (137802663) Encounter for screening for malignant neoplasm of colon (Z12.11) Active confirmed Problem 276800631 Gastroesophageal reflux disease without esophagitis (K21.9) Active confirmed Problem Gastritis (2834820) Gastritis (K29.70) Active c onfirmed Problem Abdominal cramps (R10.9) Active confirmed Problem Gastroesophageal reflux disease (712942802) GERD (gastroesophageal reflux disease) (K21.9) Active confirmed Vital Signs Temperature 98.6 degrees Fahrenheit 05/27/2025 Blood pressure diastolic 01 mm Hg 05/27/2025 Height 63 in 05/27/2025 Blood pressure systolic 001 mm Hg 05/27/2025 Weight 273 lbs 05/27/2025 BMI 48.35 kg/m2 05/27/2025 Encounters Encounter Location Date Provider Diagnosis [facility] [address] [place] [address] 05/27/2025 Dillonyoandy Maldonado Jr Gastroesophageal reflux disease without esophagitis K21.9 ; Encounter for screening for malignant neoplasm of colon Z12.11 and Abdominal cramps R10.9 Assessments Encounter Date Diagnosis (ICD Code) Assessment Notes Treatment Notes Treatment Clinical Notes Section Notes 05/27/2025 Encounter for screening for malignant neoplasm of colon (ICD-10 - Z12.11) We discussed her symptoms today. Her reflux symptoms are under good control and she will continue omeprazole 20 mg daily, with occasional dosing twice daily as needed. If she needs to continue this on a regular basis we can increase the dose to 40 mg. We discussed diet, lifestyle modifications, and weight management regarding the treatment of reflux. She is due for colorectal cancer screening. This will be arranged. She understands risks and benefits of the procedure and agrees to proceed. She is advised to stop metformin the day before the procedure. Her abdominal wall symptoms will be further evaluated by Dr. Cook and referral was made today. We discussed recurrent hernias versus diastases of the rectus muscle today. 05/27/2025 Gastroesophageal reflux disease without esophagitis (ICD-10 - K21.9) We discussed her symptoms today. Her reflux symptoms are under good control and she will continue omeprazole 20 mg daily, with occasional dosing twice daily as needed. If she needs to continue this on a regular basis we can increase the dose to 40 mg. We discussed diet, lifestyle modifications, and weight management regarding the treatment of reflux. She is due for colorectal cancer screening. This will be arranged. She understands risks and benefits of the procedure and agrees to proceed. She is advised to stop metformin the day before the procedure. Her abdominal wall symptoms will be further evaluated by Dr. Cook and referral was made today. We discussed recurrent hernias versus diastases of the rectus muscle today. 05/27/2025 Abdominal cramps (ICD-10 - R10.9) We discussed her symptoms today. Her reflux symptoms are under good control and she will continue omeprazole 20 mg daily, with occasional dosing twice daily as needed. If she needs to continue this on a regular basis we can increase the dose to 40 mg. We discussed diet, lifestyle modifications, and weight management regarding the treatment of reflux. She is due for colorectal cancer screening. This will be arranged. She understands risks and benefits of the procedure and agrees to proceed. She is advised to stop metformin the day before the procedure. Her abdominal wall symptoms will be further evaluated by Dr. Cook and referral was made today. We discussed recurrent hernias versus diastases of the rectus muscle today. Plan Of Treatment Future Test Test Name Order Date UPPER GI ENDOSCOPY 07/02/2021 COLONOSCOPY 05/27/2025 Next Appt Details Provider Name:Dillon calderon Jr, 06/18/2025 11:00:00 AM, [address] [place] [address] , [place], [place], [phone], Insurance Providers Payer Name Payer Address Payer Phone Subscriber Number Group Number Insured Name Patient Relationship to Insured Coverage Start Date Coverage End Date [facility] [address] [address] [place], [place] [id number] JD HESTER Self - patient is the insured MEDICAID OF [facility] [address] [place] [address] [id number] JD HESTER Self - patient is the insured Medical (General) History Medical History History ICD Code Hypothyroid asthma anemia Menorrhagia Depression Hyperlipidemia Diabetes mellitus type 2 Opiate dependence EDMUND/CPAP Surgical History Surgery Date(Month/Year) D&C 07/2020 section 1992,1993,1995,2004 right knee/ 4 pins /plate
[2025-06-18 09:31] LABS: Hematocrit 40.0 % (37.0-47.0); Hemoglobin 12.3 g/dl (12.0-16.0); Imm Gran Abs Auto 0.04 X10*3/uL (0.00-0.03); Imm Gran Pct Auto 0.3 % (0.0-0.4); Lymphocytes Absolute Auto 3.3 X10*3/uL (1.2-4.9); Mean Corpuscular HGB Conc 30.8 g/dl (31.0-35.0); Mean Corpuscular Hemoglobin 22.4 pg (27.0-33.0); Mean Corpuscular Volume 72.7 fL (80.0-98.0); NRBC Abs Auto 0.000 X10*3/uL (0.0-0.012); NRBC Pct Auto 0.0 /100WBC (0.0-0.2); Platelet Count 421 X10*3/uL (160-400); Red Blood Count 5.50 X10*6/uL (4.20-5.50); White Blood Count 13.9 X10*3/uL (4.8-10.8)
[2025-06-18 09:38] LABS: Hemoglobin A1C 171.2606 umol/L; Total Hemoglobin (HGBA1C) 3265.7122 umol/L
[2025-06-18 10:04] LABS: Alanine Aminotransferase 33 U/L (0-31); Albumin Level 4.7 g/dL (3.5-5.0); Alkaline Phosphatase 82 U/L (39-117); Aspartate Amino Transferase 27 U/L (5-31); Cholesterol 128 mg/dL (<200); HDL Cholesterol 31 mg/dL (>40); Total Protein 7.8 g/dL (6.5-8.0); Triglycerides 139 mg/dL (<150)
== END 2025-06-18 08:53 | disposition home or self-care (01) ==
LOC: HO.LAB 08:52
PROVIDERS: PCP Family Medicine; Visit Provider Family Medicine
DX: E11.9 Type 2 diabetes mellitus without complications (principal); E78.5 Hyperlipidemia, unspecified; D50.9 Iron deficiency anemia, unspecified; N93.9 Abnormal uterine and vaginal bleeding, unspecified; E55.9 Vitamin D deficiency, unspecified
CPT/HCPCS: 36415; 80061; 80076; 82306; 83036; 84443; 85025

== ENCOUNTER 2025-06-18 09:05 | Day surgery (SDC) | payer OTHER, SELFPAY ==
--- OUTSIDE RECORDS SUMMARY | 2025-05-27 11:01 | XMS_ITS | Encounter Summary ---
Author Organization [employer] Address [address] [place] [address] [place], [place] [address] Care Team Providers Care Fast Food Manager Name Role Phone Margarita Adams MD Primary Care Provider + [phone] Pearl Galicia PharmD Unavailable +1- [phone] Reason for Visit * Reason Comments Med Refill Encounter Details Date Type Department Care Team (Late Contact Info) Description 11/02/2023 Refill [facility] MED & PEDS [address] [place] [address] Catalino Bruce FNP Mood disorder (CMS/HCC) Social [...] as of this encounter Plan of Treatment Upcoming Encounters Date Type Department Care Team ([facility] Contact Info) Description 06/19/2025 4:00 PM EDT Telemedicine [facility] [address] [place], [place] [phone] Margarita Adams MD [address] [place], [place] [phone] documented as of this encounter Goals Goal [...] documented as of this encounter Care Teams Fast Food Manager Relationship Specialty Start Date End Date Margarita Adams MD [address] [place] [address] PCP - General Family Medicine 11/28/18 Pearl Galicia, [place] [address] [place] [address] Pharmacist Internal Medicine 03/03/23 documented as of this encounter
[2025-06-14 14:00] VITALS: BMI 48.4
--- NOTE | 2025-06-17 13:39 | HO.ANESPROP2 ---
HPI - Anesthesia Eval Consult details Narrative: 45 yr old female for colonoscopy BMI 48 ?on methadone DM: A1C 6.7%, on metformin EDMUND PMFSH Active Problems Active Problems: All Active Problems Well woman exam (Acute) Bacterial vaginosis (Acute) IUD check up (Acute) Menorrhagia with regular cycle (Acute) Cervical cancer screening (Acute) Abnormal uterine bleeding (Acute) Pre-op evaluation (Acute) Varicose veins of right lower extremity with inflammation (Acute) Morbid obesity (Acute) Anemia (Acute) Asthma (Acute) Epigastric hernia (Acute) Smoking (Acute) COPD (chronic obstructive pulmonary disease) (Acute) EDMUND (obstructive sleep apnea) (Acute) Morbid obesity (Acute) Past Medical History Medical History (Updated 06/14/25 @ 14:02 by Maryann Reaves RN) Hypothyroid Methadone maintenance therapy patient IBS (irritable bowel syndrome) GERD (gastroesophageal reflux disease) Epigastric hernia Smoking COPD (chronic obstructive pulmonary disease) EDMUND (obstructive sleep apnea) Morbid obesity Depression Iron deficiency anemia Asthma Family History Family History Mother Breast cancer Diabetes Thyroid condition Maternal Grandmother Hypertension Father No problems noted. Son Asthma Son No problems noted. Daughter No problems noted. Daughter No problems noted. Family history of problems with anesthesia: No Surgical History Surgical History Hx of hernia repair History of ventral hernia repair Hx of dilation and curettage History of esophagogastroduodenoscopy (EGD) H/O tubal ligation H/O right knee surgery Previous section History of Problems with Anesthesia: No Social History Social History Household Members: Family Housing: Apartment Are you a primary care navigator to a significant other at home: No Do you presently have visiting nurse or other home services: No Alcohol intake: never Patient Tobacco Use Status: Current everyday Tobacco user Tobacco use type: Cigarette Cigarette Packs Per Day: 0.25 Cigarettes Per Day: 4 Years Smoked: 20 Substance Use Type: Marijuana Special yasmeen needs: No Agree to transfusion: No Meds Allergies Allergy/AdvReac Type Severity Reaction Status Date / Time No Known Allergies Allergy Verified 05/23/24 15:07 Home Medications ?Medication ?Instructions ?Recorded ?Confirmed ?Last Taken ?Type docusate sodium 100 mg capsule 100 mg PO BID PRN constipation 05/05/21 08/19/23 Unknown History omeprazole 40 mg capsule,delayed 1 cap PO QAM 08/26/21 06/14/25 Unknown History release levonorgestrel 21 mcg/24 hr (up to intrauterine 10/05/23 Unknown History 8 years) 52 mg intrauterine device (Mirena) zolpidem 5 mg tablet 5 mg PO BEDTIME PRN insomnia 10/05/23 06/14/25 Unknown History aripiprazole 5 mg tablet 7.5 mg PO DAILY 06/14/25 06/14/25 Unknown History atorvastatin 20 mg tablet 20 mg PO DAILY 06/14/25 06/14/25 Unknown History metformin 500 mg tablet 500 mg PO DAILY 06/14/25 06/14/25 Unknown History Exam Height,Weight and Vital Signs: Height 5 ft 3 in Weight 123.831 kg Assessment and Plan Final Anesthetic Review Family History of Problems with Anesthesia: No History of Problems with Anesthesia: No
[2025-06-18 10:07] VITALS: BP 111/71; PULSE 80; RESP 16; TEMP 36.2; O2SAT 97; BMI 47.2
[2025-06-18 10:10] LABS: UPreg QC Valid YES
[2025-06-18] MEDS: Lactated Ringers 1,000 ML 100 ML IVCONT (10:27)
[2025-06-18 10:32] LABS: Glucose, Whole Blood 130 mg/dL (60-115)
--- NOTE | 2025-06-18 11:17 | MHC.SHP ---
Pre-Procedural Eval Section A - 24 Hr Update-Section A only Date of Service: 06/18/25 The patient is an INPATIENT: No Changes since office visit: No Cold of Flu in the past 2 weeks, No New Medical Problems, No Changes in Medication and No Patient answered all questions The patient has been examined within 24 hours of the surgical procedure. The History & Physical has been completed within 30 days and I have reviewed it.: Yes Section B - Complete if H&P > 30 days Chief Complaint: screening Allergies: Allergies Allergy/AdvReac Type Severity Reaction Status Date / Time No Known Allergies Allergy Verified 06/18/25 10:05 Plan I have reviewed the history and physical and performed a pertinent physical examination on my patient. No changes have occurred unless specified. Time Spent With Patient Time: Total time managing care of this patient today ____ minutes.
[2025-06-18 12:02] VITALS: BP 113/61; PULSE 75; RESP 16; TEMP 36.1; O2SAT 98
--- NOTE | 2025-06-18 12:12 | OP_ITS ---
DATE OF SERVICE: 06/18/2025 SURGEON: Dillon Maldonado MD INDICATIONS: Colon cancer screening. PREOPERATIVE DIAGNOSIS: POSTOPERATIVE DIAGNOSIS: PROCEDURE PERFORMED: ESTIMATED BLOOD LOSS: COMPLICATIONS: ANESTHESIA: Monitored anesthesia care. ASSISTANTS: SPECIMENS: PROCEDURE: Colonoscopy to the terminal ileum with biopsy. DESCRIPTION OF PROCEDURE: A history and physical performed. The risks and benefits of the procedure were explained to the patient. Informed consent was obtained. The patient was placed in the left lateral decubitus position. A digital rectal exam was performed and was found to be normal. The Olympus pediatric video colonoscope was introduced into the rectum and advanced to the cecum. The cecum was identified by transillumination, palpation, and identification of ileocecal valve. Examination was performed. The scope was removed. She tolerated the procedure well and was returned to recovery in stable condition. FINDINGS: The terminal ileum was examined and appeared normal. Visualized colonic mucosa was normal. The quality of prep was good. Retroflexed examination was normal. Single polyp measuring less than 5 mm was identified in the rectum and removed with biopsy forceps. IMPRESSION: Colon polyp. RECOMMENDATION: Follow up the biopsy results. MD SERENA Velez/SMOOTH / [id number]
[2025-06-18 12:15] VITALS: BP 120/87; PULSE 77; RESP 16; TEMP 36.1; O2SAT 98
--- NOTE | 2025-06-18 12:47 | HO.ANESPROP2 ---
[facility] Active Problems Active Problems: All Active Problems (Updated 06/14/25 @ 14:02 by Maryann Reaves RN) Well woman exam (Acute) Bacterial vaginosis (Acute) IUD check up (Acute) Menorrhagia with regular cycle (Acute) Cervical cancer screening (Acute) Abnormal uterine bleeding (Acute) Pre-op evaluation (Acute) Varicose veins of right lower extremity with inflammation (Acute) Morbid obesity (Acute) Anemia (Acute) Asthma (Acute) Epigastric hernia (Acute) Smoking (Acute) COPD (chronic obstructive pulmonary disease) (Acute) EDMUND (obstructive sleep apnea) (Acute) Morbid obesity (Acute) Past Medical History Medical History Hypothyroid Methadone maintenance therapy patient IBS (irritable bowel syndrome) GERD (gastroesophageal reflux disease) Epigastric hernia Smoking COPD (chronic obstructive pulmonary disease) EDMUND (obstructive sleep apnea) Morbid obesity Depression Iron deficiency anemia Asthma Functional capacity: independent ambulation Patient : No Family History Family History Mother Breast cancer Diabetes Thyroid condition Maternal Grandmother Hypertension Father No problems noted. Son Asthma Son No problems noted. Daughter No problems noted. Daughter No problems noted. Family history of problems with anesthesia: No Surgical History Surgical History Hx of hernia repair History of ventral hernia repair Hx of dilation and curettage History of esophagogastroduodenoscopy (EGD) H/O tubal ligation H/O right knee surgery Previous section History of Problems with Anesthesia: No Social History Social History Household Members: Family Housing: Apartment Are you a primary assurance services manager health care to a significant other at home: No Do you presently have visiting nurse or other home services: No Alcohol intake: never Patient Tobacco Use Status: Current everyday Tobacco user Tobacco use type: Cigarette Cigarette Packs Per Day: 0.25 Cigarettes Per Day: 5 Years Smoked: 20 Use of substances other than those prescribed or required for medical reasons: Yes Substance Use Type: Marijuana Substance Use Frequency: Daily Have you been hit, kicked, punched, or otherwise hurt by someone within the past year? If so, by whom?: No Special yasmeen needs: No Agree to transfusion: No Are you DNR?: No Advance Directives: No Advance Directives Information Provided: Yes Patient : Yes Poor oral hygiene: Yes Meds Allergies Allergy/AdvReac Type Severity Reaction Status Date / Time No Known Allergies Allergy Verified 06/18/25 10:05 Home Medications ?Medication ?Instructions ?Recorded ?Confirmed ?Last Taken ?Type docusate sodium 100 mg capsule 100 mg PO BID PRN constipation 05/05/21 08/19/23 Unknown History omeprazole 40 mg capsule,delayed 1 cap PO QAM 08/26/21 06/14/25 Unknown History release levonorgestrel (Mirena) intrauterine 10/05/23 Unknown History zolpidem 5 mg tablet 5 mg PO BEDTIME PRN insomnia 10/05/23 06/14/25 Unknown History aripiprazole 5 mg tablet 7.5 mg PO DAILY 06/14/25 06/14/25 Unknown History atorvastatin 20 mg tablet 20 mg PO DAILY 06/14/25 06/14/25 Unknown History metformin 500 mg tablet 500 mg PO DAILY 06/14/25 06/14/25 Unknown History Exam Height,Weight and Vital Signs: Height 5 ft 3 in Weight 121 kg Last Vital Signs Temp 97 F 06/18/25 12:15 Pulse 77 06/18/25 12:15 Resp 16 06/18/25 12:15 BP 120/87 06/18/25 12:15 Pulse Ox 98 06/18/25 12:15 O2 Del Method Room Air 06/18/25 12:15 Pertinent Lab Results Pertinent Lab Results: Laboratory Tests 06/18/25 06/18/25 09:55 10:28 POC Glucose 130 H Urine Test NEGATIVE Airway Mallampati Class: IV TM Dist: >3cm Neck ROM: Full Heart: RRR Lungs: CTA Assessment and Plan Assessment Anesthesia Assessment: Anesthesia Plan Discussed Final Anesthetic Review Family History of Problems with Anesthesia: No History of Problems with Anesthesia: No NPO: Yes ASA Class: III Final Preanesthetic Review: Meds/Allgs Chart Reviewed, Consent Obtained/Reviewed and Anes Risks/Benef Reviewed Patient Risk: Intermediate Procedure Risk: Low Anesthetic Plan Anesthetic Plan: MAC: Disposition: Standard PACU
--- NOTE | 2025-06-18 12:48 | HO.POSTANES ---
Post Anesthesia Evaluation Post Anesthesia Evaluation Date of Service: 06/18/25 Vital Signs: Vital Signs Temp Pulse Resp BP Pulse Ox O2 Del Method 06/18/25 12:15 97 F 77 16 120/87 98 Room Air 06/18/25 12:02 97 F 75 16 113/61 98 Room Air 06/18/25 10:07 97.2 F 80 16 111/71 97 Room Air Anesthesia: Monitored Mental Status: Awake Pain Control: Satisfactory Nausea/Vomiting: None Hydration: Adequate Anesthesia-Related Issues: No Anes. Related Issues
== END 2025-06-18 12:40 | disposition home or self-care (01) ==
PROVIDERS: Anesthesiology; PCP Family Medicine; Visit Provider Internal Medicine Gastroenterology
PROC: 0DJD8ZZ Inspection of Lower Intestinal Tract, Via Natural or Artificial Opening Endoscopic (ICD-10-PCS; CPT 45378; principal; 2025-06-18 11:00)
DX: Z12.11 Encounter for screening for malignant neoplasm of colon (principal); K62.1 Rectal polyp; R10.9 Unspecified abdominal pain; K21.9 Gastro-esophageal reflux disease without esophagitis; E03.9 Hypothyroidism, unspecified; J45.909 Unspecified asthma, uncomplicated; E78.5 Hyperlipidemia, unspecified; E11.9 Type 2 diabetes mellitus without complications; Z79.84 Long term (current) use of oral hypoglycemic drugs; G47.33 Obstructive sleep apnea (adult) (pediatric); Z99.89 Dependence on other enabling machines and devices; Z79.899 Other long term (current) drug therapy; F11.20 Opioid dependence, uncomplicated; Z98.890 Other specified postprocedural states; F17.210 Nicotine dependence, cigarettes, uncomplicated
CPT/HCPCS: 45380; 81025; 82947; 88305; J2003; J2704

== ENCOUNTER 2025-08-07 08:49 | Outpatient (AMB) | payer BC, SELFPAY ==
--- OUTSIDE RECORDS SUMMARY | 2024-11-01 11:35 | XMS_ITS ---
Author Organization [facility] Address [address] [place] [phone] Care Team Providers Care Machinery Engineer Name Role Phone Margarita Adams MD Primary Care Provider Oneyda vailable Dillon Maldonado Jr REASON FOR VISIT Patient presents today for a screening colon Encounters Encounter Location Date Provider Diagnosis [facility] [address] [address] 11/01/2024 Dillon Maldonado Jr Plan Of Treatment No Information Progress Notes * JD HESTER MDOB:1980 (45 yo F)Acc No.[id number]:11/01/2024 Progress Notes Patient: JD SLATER Provider: Kaleb Maldonado MD :1980 A ge:44 Y S ex:Female Date:11/01/2024 Address:[address] [place] [address] [place], [place] [id number] Pcp:Margarita Adams MD Subjective: * Chief Complaints: [...] Date: 01/02/2024 Generated for Ehi xu/Jagdish/eTransmitting on: 0 08/07/2025 10:18 AM EDT
--- OUTSIDE RECORDS SUMMARY | 2025-06-18 07:00 | XMS_ITS ---
Author Organization [facility] Address [address] [place] [address] Care Team Providers Care Nipple Machine Operator Name Role Phone Margarita Adams MD Primary Care Provider Oneyda vailable Dillon Maldonado Jr REASON FOR VISIT screening Encounters Encounter Location Date Provider Diagnosis [facility] [address] [place] [phone] 06/18/2025 Dillon Maldonado Jr Plan Of Treatment No Information Progress Notes * JD HESTER MDOB:1980 (45 yo F)Acc No.[id number]:06/18/2025 COLON WITH MAC Patient: JD SLATER Provider: Kaleb Maldonado MD :1980 A ge:45 Y S ex:Female Date:06/18/2025 Address:[address] [place], [place] [phone] Pcp:Margarita Adams MD Subjective: * Chief Complaints: [...] 0 06/18/2025 Generated for Printi ng/Faxing/eTransmitting on: 0 08/07/2025 10:18 AM EDT
--- NOTE | 2025-08-07 08:58 | MHC.OFFVIS ---
Vital Signs 08/07/25 09:05 Height 5 ft 3 in Weight 269 lb BMI 47.6 BP 111/60 Blood Pressure Location Rt radial Position Sitting Pulse 83 Intake Visit Reasons: recurrent ventral hernia Intake Note: Patient scheduled today's appointment thinks ventral hernia is recurring. Patient c/o: feels bulge along previous hernia surgery scar. When pressing down bulge, feels liquid underneath. Tobacco Scrap Sifter Required: No Accompanied by: Self / Same As Patient Allergies No Known Allergies Allergy (Verified 08/07/25 09:06) Medication List - Last Reconciled 08/07/25 by Ray Cook MD aripiprazole 7.5 mg PO DAILY atorvastatin 20 mg PO DAILY cholecalciferol (vitamin D3) 50 mcg PO DAILY docusate sodium 100 mg PO BID PRN levonorgestrel (Mirena) intrauterine metformin 500 mg PO DAILY omeprazole 1 cap PO QAM zolpidem 5 mg PO BEDTIME PRN HPI HPI recurrent ventral hernia: Details: 45 year female here for a recurrent ventral hernia. She actually had a repair of an epigastric hernia with mesh in 2020. She had been doing well since that time. However, for the past couple of months or so, she has been noticing this mass again same area. This seemed to be more protuberant with physical exertion. She otherwise denies significant GI complaints She is morbidly obese and says that she had gained some weight the past few years. She is also a smoker and has a diagnosis of COPD. [facility] Medical History (Updated 08/07/25 @ 09:25 by Ray Cook MD) Recurrent abdominal hernia Hypothyroid Methadone maintenance therapy patient IBS (irritable bowel syndrome) GERD (gastroesophageal reflux disease) Epigastric hernia Smoking COPD (chronic obstructive pulmonary disease) EDMUND (obstructive sleep apnea) Morbid obesity Depression Iron deficiency anemia Asthma Surgical History Hx of hernia repair History of ventral hernia repair Hx of dilation and curettage History of esophagogastroduodenoscopy (EGD) H/O tubal ligation H/O right knee surgery Previous section Family History Mother Breast cancer Diabetes Thyroid condition Maternal Grandmother Hypertension Father No problems noted. Son Asthma Son No problems noted. Daughter No problems noted. Daughter No problems noted. Social History Household Members: Family Housing: Apartment Are you a primary care services manager to a significant other at home: No Do you presently have visiting nurse or other home services: No Alcohol intake: never Patient Tobacco Use Status: Current everyday Tobacco user Tobacco use type: Cigarette Cigarette Packs Per Day: 0.25 Cigarettes Per Day: 5 Years Smoked: 20 Substance Use Type: Marijuana Special yasmeen needs: No Agree to transfusion: No Female Reproductive History Menstrual Age of Menarche: 9 Review of Systems Const Denies chills and Denies fever(s) Card Denies chest pain, Reports dyspnea and Reports dyspnea on exertion Resp Denies cough, Reports dyspnea and Reports dyspnea on exertion GI Denies hematochezia and Denies change in bowel habits Denies hematuria Musc Denies back pain and Denies limited range of motion Neuro Denies focal weakness and Denies convulsions Psych Denies depression and Denies mood swings Physical Exam Vital Signs: Last Vital Signs Pulse 83 08/07/25 09:05 BP 111/60 08/07/25 09:05 BMI result Body Mass Index 47.6 Const Other: Appears morbidly obese General: comfortable and no acute distress Orientation/consciousness: patient oriented x3 Neck Neck: Yes no lymphadenopathy Resp Auscultation: clear to auscultation bilaterally Cardio Rhythm: regular rhythm GI Other: Has a large pannus Vague hernia with Valsalva on the epigastric area, unable to define edges Palpation (GI): Soft to palpation, nontender and no guarding Neuro General: patient oriented x3 Assessment & Plan Assessment & Plan (1) Recurrent abdominal hernia: Code(s): K46.9 - Unspecified abdominal hernia without obstruction or gangrene Category: Medical Plan: She has this vague recurrent epigastric hernia as described above. She is morbidly obese. She also has COPD diabetes I told her that I will order for a CAT scan to define the hernia and to guide us in approach with surgical repair. She understands her elevated risks for recurrence especially in view of her multiple medical issues I will see her again in the office after her CAT scan to review of the findings. She is comfortable with the plan. Coding Level of Care Code New Pt Level 3 (82073) Diagnoses Recurrent abdominal hernia K46.9
[2025-08-07 09:05] VITALS: BP 111/60; PULSE 83; BMI 47.6
--- OUTSIDE RECORDS SUMMARY | 2025-08-07 10:18 | XMS_ITS | Patient Health Record ---
Author Organization [facility] Address [address] [place] [address] Care Team Providers Care Automotive Glass Mechanic Name Role Phone Margarita Adams MD Primary Care Provider Oneyda vailable Dillon Maldonado Jr Unavailable Allergies No Known Allergies Results Component Value Reference Range Notes Ur Preg Test Reviewed date:06/18/2025 02:26:21 PM Interpretation: Performing Lab:[facility], [address] [place] [id number] Notes/Report: Urine NEGATIVE NEGATIVE This test was developed to detect early . False negative results may occur after the 5th - 7th week of when using this test method. If clinically indicated, consider a serum hCG. Glucose, Whole Blood Reviewed date:06/18/2025 02:26:13 PM Interpretation: Performing Lab:[facility], [address] [place] [id number] Notes/Report: Glucose, Whole Blood 130 60-115 mg/dL METER # : [id number] Pathology Reviewed date:06/20/2025 09:09:05 AM Interpretation: Performing Lab:[facility], [address] [place] [phone] Notes/Report: Reason For Referral Referring Provider First Name Margarita Referring Provider Last Name [place] Referring Provider Speciality Family Med icine Referred Organization [facility] Referred Provider Dillon Maldonado Jr Referred Address [address],[place], [place],[address], Referred Provider Specialty Gastroentero logy General Notes Pau Huber 2024 12:41:57 PM greater thanpt [facility] has [facility] safety [facility]. I spoke with the patient and asked [facility] and choose a plan prior to her appt with Dr. Maldonado on 02-21-2025. She will notify us of this., Pau Huber 02/13/2025 02:42:02 PM greater thanINFORMED PT AGAIN THAT SHE NEEDS TO CHOOSE A PLAN OR WE CAN NOT SEE HER . SHE HAS [employer] AND NEEDS TO ENROLL IN A PLAN, Pau Huber 02/19/2025 08:35:17 AM Pt states she will have [employer] on 02-26-25 and rescheduled her appt to the end of April Referral Priority Routine Reason ventral hernia Referral Organization [facility] Referring Provider First Name Dillon Referring [...] day(s) 07/02/2021 Active Vitamin D3 50 MCG (2000 UT) TAKE 1 CAPSU LE (50 MCG) BY MOUTH ONCE PER DAY. Oral for 90 Days Active Vitamin D 50 MCG (2000 UT) 1 tablet Oral ly Once a day [...] Problem Screening for malignant neoplasm of colon (674715493) Encounter for screening for malignant neoplasm of colon (Z12.11) Active confirmed Problem 242465291 Gastroesophageal reflux disease without esophagitis (K21.9) Active confirmed Problem Gastritis (7151815) Gastritis (K29.70) Active c onfirmed Problem Abdominal pain (81977839) Abdominal cramps (R10.9) Active confirmed Problem Gastroesophageal reflux disease (722635432) GERD (gastroesophageal reflux disease) (K21.9) Active confirmed Vital Signs Temperature 98.6 degrees Fahrenheit 05/27/2025 Blood pressure diastolic 01 mm Hg 05/27/2025 Height 63 in 05/27/2025 Blood pressure systolic 001 mm Hg 05/27/2025 Weight 273 lbs 05/27/2025 BMI 48.35 kg/m2 05/27/2025 Encounters Encounter Location Date Provider Diagnosis [facility] [address] [place] [id number] 06/18/2025 Dillon Maldonado Jr [facility] [address] [place] [phone] 05/27/2025 Dillon Maldonado Jr Gastroesophageal reflux disease without esophagitis K21.9 ; Encounter for screening for malignant neoplasm of colon Z12.11 and Abdominal cramps R10.9 [facility] [address] [place] [phone] 06/20/2025 Dillon Maldonado Jr Assessments Encounter Date Diagnosis (ICD Code) Assessment [...] Date UPPER GI ENDOSCOPY 07/02/2021 COLONOSCOPY 05/27/2025 Insurance Providers Payer Name Payer Address Payer Phone Subscriber Number Group Number Insured Name Patient Relationship to Insured Coverage Start Date Coverage End Date [employer]ICA[employer] [facility] [address] [place] [address] [phone] [id number] JD HESTER Self - patient is the insured [employer] [facility] [address] [address] [place], [place] [id number] [phone] [id number] JD HESTER Self - patient is the insured Medical (General) History Medical History History ICD Code Hypothyroid asthma anemia Menorrhagia Depression Hyperlipidemia Diabetes mellitus type 2 Opiate dependence EDMUND/CPAP Surgical History Surgery Date(Month/Year) D&C 07/2020 section 1992,1993,1995,2004 right knee/ 4 pins /plate
--- OUTSIDE RECORDS SUMMARY | 2025-08-07 10:18 | XMS_ITS | Encounter Summary ---
Author Organization [employer] Address [address] [facility] [address], [place] [address] Care Team Providers Care Measurement Technician Name Role Phone Margarita Adams MD Primary Care Provider + [phone] Pearl Galicia PharmD Unavailable [phone]- [phone] Dillon Maldonado MD Unavailable +[phone] Reason for Visit * Reason Comments Med Refill Encounter Details Date Type Department Care Team (Late Contact Info) Description 11/02/2023 Refill [facility] [address] [place], [place] [phone] Catalino Bruce FNP Mood disorder (CMS/[facility]) Social History Tobacco Use Types Packs/Day Years [...] Upcoming Encounters Date Type Department Care Team ([facility] Contact Info) Description 09/26/2025 11:30 AM EDT Telemedicine [facility] [address] [place], [place] [phone] Margarita Adams MD [address] [place], [place] [phone] documented as of this encounter Goals Goal [...] documented as of this encounter Care Teams Measurement Technician Relationship Specialty Start Date End Date Margarita Adams MD [address] [place] [address] PCP - General Family Medicine 11/28/18 Pearl Galicia, PharmD [address] [place] [address] Pharmacist Internal Medicine 03/03/23 Dillon Maldonado MD [address] [place] [address] Gastroenterology 07/10/25 documented as of this encounter
--- OUTSIDE RECORDS SUMMARY | 2025-08-07 10:18 | XMS_ITS | Encounter Summary ---
Author Organization [employer] Address 75 [facility] 7t [place] [address] Care Team Providers Care Delivery Tech Name Role Phone Margarita Adams MD Primary Care Provider + [phone] Pearl Galicia PharmD Unavailable [phone]- [phone] Dillon Maldonado MD Unavailable [phone] Encounter Details Date Type Department Care Team ([facility] Contact Info) Description 10/28/2022 Abstract [facility] [address] [place] [address] Margarita Adams MD [address] [place] [address] [phone] Social History Tobacco Use Types Packs/Day Years [...] Upcoming Encounters Date Type Department Care Team ([facility] Contact Info) Description 09/26/2025 11:30 AM EDT Telemedicine [facility] [address] [place], [place] [phone] Margarita Adams MD [address] [place] [address] documented as of this encounter Visit Diagnoses Not on filedocumented in this encounter Care Teams Delivery Tech Relationship Specialty Start Date End Date Margarita Adams MD [address] [place] [address] PCP - General Family Medicine 11/28/18 Pearl Galicia, ShirleyD [address] [place] [address] Pharmacist Internal Medicine 03/03/23 Dillon Maldonado MD [address] [place] [address] Gastroenterology 07/10/25 documented as of this encounter
--- OUTSIDE RECORDS SUMMARY | 2025-08-07 10:19 | XMS_ITS | Encounter Summary ---
Author Organization [employer] [facility] Address [address] [place] [address] [place], [place] [address] Care Team Providers Care Cadastral Engineer Name Role Phone Margarita Adams MD Primary Care Provider + [phone] Pearl Galicia PharmD Unavailable [phone]- [phone] Dillon Maldonado MD Unavailable [phone] Reason for Visit * Reason Comments Med Refill Encounter Details Date Type Department Care Team (Late st Contact Info) Description 01/02/2024 Refill [facility] [address] [place] [address] [phone] Catalino Bruce FNP Mood disorder (CMS/HCC) Social [...] Upcoming Encounters Date Type Department Care Team (Late st Contact Info) Description 09/26/2025 11:30 AM EDT Telemedicine [facility] [address] [place] [address] [phone] Margarita Adams MD [address] [place] [phone] documented as of this encounter Goals Goal Patient Goal Type Associated Problems Recent Progress Patient-Stated? Author Smoking cessation General No Pearl rFy, ShirleyD documented as of this encounter Visit Diagnoses Diagnosis Mood disorder (CMS/HCC) Unspecified episodic mood disorder documented in this encounter Additional Health Concerns Assessment Noted Time PHQ-9 Depression Total Score: 2 12/05/19 24 1:22 PM EST documented as of this encounter Care Teams Cadastral Engineer Relationship Specialty Start Date End Date Margarita Adams MD [address] [place] [address] PCP - General Family Medicine 11/28/18 Pearl Galicia, PharmD [address] [place] [address] Pharmacist Internal Medicine 03/03/23 Dillon Maldonado MD [address] [place] [address] Gastroenterology 07/10/25 documented as of this encounter
--- OUTSIDE RECORDS SUMMARY | 2025-08-07 10:19 | XMS_ITS | Encounter Summary ---
Author Organization [employer] [facility] Address 75 [facility] 7 [place] [address] Care Team Providers Care Footwear Sales Representative Name Role Phone Margarita Adams MD Primary Care Provider + [phone] Pearl Galicia PharmD Unavailable [phone]- [phone] Dillon Maldonado MD Unavailable [phone] Reason for Visit * Reason Comments Med Refill Encounter Details Date Type Department Care Team (Late Contact Info) Description 03/18/2023 Refill [facility] [address] [place], [place] [phone] Catalino Bruce FNP Mood disorder (CMS/HCC) Social [...] Upcoming Encounters Date Type Department Care Team ([facility] Contact Info) Description 09/26/2025 11:30 AM EDT Telemedicine [facility] [address] [place] [address] Margarita Adams MD [address] [place] [phone] documented as of this encounter Goals Goal Patient Goal Type Associated Problems Recent Progress Patient-Stated? Author Smoking cessation General No Pearl Fry, ShirleyD documented as of this encounter Visit Diagnoses Diagnosis Mood disorder (CMS/HCC) Unspecified episodic mood disorder documented in this encounter Additional Health Concerns Assessment Noted Time PHQ-9 Depression Total Score: 3 01/03/20 23 10:37 AM EST documented as of this encounter Care Teams Footwear Sales Representative Relationship Specialty Start Date End Date Margarita Adams MD [address] [place] [address] PCP - General Family Medicine 11/28/18 Pearl Galicia, PharmD [address] [place] [address] Pharmacist Internal Medicine 03/03/23 Dillon Maldonado MD [address] [place] [address] Gastroenterology 07/10/25 documented as of this encounter
--- OUTSIDE RECORDS SUMMARY | 2025-08-07 10:19 | XMS_ITS | Encounter Summary ---
Author Organization [employer] Address 75 [facility] 7 [place] [address] Care Team Providers Care Hogshead Cooper Name Role Phone Margarita Adams MD Primary Care Provider +- [phone] Pearl Galicia PharmD Unavailable [phone]- [phone] Dillon Maldonado MD Unavailable [phone] Reason for Visit * Reason Onset Date Comments Med Refill 06/12/2025 Encounter Details Date Type Department Care Team (Late st Contact Info) Description 06/12/2025 Refill [facility] [address] [place], [place] [phone] Margarita Adams MD [address] [place], [place] [phone] Mood disorder (CMS/HCC) Social History Tobacco Use Types Packs/Day Years Used Date Smoking Tobacco: Every Day Cigarettes Smokeless Tobacco: Current Depression Answer Date Recorded Patient Health Questionnaire-9 Score 15 04/17/2025 Patient Health Questionnaire-9 Score 15 04/17/2025 Last PHQ-9: Questionnaire Data Not on file 0 04/17/2025 Housing Stability Answer Date Recorded What is [...] Answer Date Recorded Patient Health Questionnaire-2 Score 5 04/17/2025 Internet Access Answer Date Recorded Internet Access [...] Info) Description 09/26/2025 11:30 AM EDT Telemedicine [facility] [address] [place] [address] Margarita Adams MD [address] [place] [address] [phone] documented as of this encounter Goals Goal Patient Goal Type Associated Problems Recent Progress Patient-Stated? Author Smoking cessation General No Pearl Fry PharmD documented as of this encounter Visit Diagnoses Diagnosis Mood disorder (CMS/HCC) Unspecified episodic mood disorder documented in this encounter Additional Health Concerns Assessment Noted Time PHQ-9 Depression Total Score: 15 025 3:00 PM EDT documented as of this encounter Care Teams Hogshead Cooper Relationship Specialty Start Date End Date Margarita Adams MD [address] [place] [address] [phone] PCP - General Family Medicine 11/28/18 Pearl Galicia PharmD [address] [place] [address] Pharmacist Internal Medicine 03/03/23 Dillon Maldonado MD [address] [place] [address] Gastroenterology 07/10/25 documented as of this encounter
--- OUTSIDE RECORDS SUMMARY | 2025-08-07 10:19 | XMS_ITS | Encounter Summary ---
Author Organization [employer] Address 75 [facility] [place] [address] Care Team Providers Care Primary School Principal Name Role Phone Margarita Adams MD Primary Care Provider +- [phone] Pearl Galicia PharmD Unavailable [phone]- [phone] Dillon Maldonado MD Unavailable [phone] Reason for Visit * Reason Onset Date Comments Med Refill 12/31/2024 Encounter Details Date Type Department Care Team (Late st Contact Info) Description 12/31/2024 Refill [facility] [address] [place], [place] [phone] Talia Gonzalez MD [address] [place], [place] [phone] Mood disorder (CMS/HCC) Social History Tobacco Use [...] Info) Description 09/26/2025 11:30 AM EDT Telemedicine [facility] [address] [place] [address] Margarita Adams MD [address] [place] [address] documented as of this encounter Goals Goal [...] documented as of this encounter Care Teams Primary School Principal Relationship Specialty Start Date End Date Margarita Adams MD [address] [place] [address] PCP - General Family Medicine 11/28/18 Pearl Galicia, PharmD [address] [place] [address] Pharmacist Internal Medicine 03/03/23 Dillon Maldonado MD [address] [place] [address] Gastroenterology 07/10/25 documented as of this encounter
--- OUTSIDE RECORDS SUMMARY | 2025-08-07 10:19 | XMS_ITS | Encounter Summary ---
Author Organization [employer] Address [address] [facility] 7 [place] [address] Care Team Providers Care Music Internship Name Role Phone Angie, Margarita PRINGLE Primary Care Provider + [phone] Pearl Galicia PharmD Unavailable [phone]- [phone] Dillon Maldonado MD Unavailable +[phone] Reason for Visit * Reason Comments Med Refill Encounter Details Date Type Department Care Team (Late st Contact Info) Description 02/20/2024 Refill [facility] [address] [place], [place] [phone] Catalino Bruce FNP Mood disorder (CMS/HCC) Social [...] Encounters Date Type Department Care Team (Late Contact Info) Description 09/26/2025 11:30 AM EDT Telemedicine [facility] [address] [place] [address] Margarita Adams MD [address] [place] [address] documented as of this encounter Goals Goal [...] documented as of this encounter Care Teams Music Internship Relationship Specialty Start Date End Date Margarita Adams MD [address] [place] [address] PCP - General Family Medicine 11/28/18 Pearl Galicia, PharmD [address] [place] [address] Pharmacist Internal Medicine 03/03/23 Dillon Maldonado MD [address] [place] [address] Gastroenterology 07/10/25 documented as of this encounter
--- OUTSIDE RECORDS SUMMARY | 2025-08-07 10:19 | XMS_ITS | Clinical Summary ---
Author Organization [facility] Address [address] [place] [address] Care Team Providers Care Idea Worker Name Role Phone Margarita Adams MD Primary Care Provider +- [phone] Pearl Galicia PharmD Unavailable [phone] Dillon Maldonado MD Unavailable [phone] Allergies No known active allergies Medications * This document contains information received from the source organization and may not represent a complete record from that organization. albuterol 108 (90 Base) MCG/ACT inhalerIndicati ons:Moderate [...] time. 28 patch 2 03/15/20 25 Active atorvastatin (Lipitor) 20 MG tabletIndicatio ns:Dyslipidemia Take 1 tablet (20 mg) by mouth Once per day. 30 tablet 11 03/19/20 25 026 Active Blood Glucose Monitoring Suppl (FreeStyle Lite) w/Device kitIndications: Type 2 diabetes mellitus without complication, without long-term current use of insulin ([facility]) 1 each Once per day. Use to check blood sugar daily 1 kit 03/19/20 25 Active glucose blood (FREESTYLE LITE) test stripIndication s:Type 2 diabetes mellitus without complication, without long-term current use of insulin ([facility]/HCC) Use to check blood sugar daily. Dx diabetes 30 each 03/19/20 25 Active Lancets miscIndications :Type 2 diabetes mellitus without complication, without long-term current use of insulin ([facility]/HCC) Use to check blood sugar daily 30 each 03/19/20 25 Active Alcohol Swabs (Alcohol Prep) padsIndications :Type 2 diabetes mellitus without complication, without long-term current use of insulin ([facility]) Use to clean skin prior to checking blood sugar daily 30 each 03/19/20 25 Active cholecalciferol (Vitamin D-3) 50 MCG (1999 UT) capsuleIndicati ons:Vitamin D deficiency Take 1 capsule (50 mcg) by mouth Once per day. 90 capsule 3 05/01/20 25 026 Active semaglutide (Ozempic, 1 MG/DOSE,) 4 MG/3ML solution pen-injectorInd ications:Type 2 diabetes mellitus without complication, without long-term current use of insulin ([facility]) Inject 1 mg under the skin 1 (one) time per week. 1 each 06/19/20 25 Active gabapentin (Neurontin) 300 MG capsuleIndicati ons:Mood disorder (CMS/HCC) TAKE 1 CAPSULE BY MOUTH THREE TIMES A DAY 90 capsule 07/11/20 25 Active zolpidem (Ambien) 10 MG tabletIndicatio ns:Mood disorder (CMS/HCC) TAKE 1 TABLET BY MOUTH AT BEDTIME NEEDED FOR SLEEP 30 tablet 07/17/20 25 Active zolpidem (Ambien) 10 MG tabletIndicatio ns:Mood disorder (CMS/HCC) TAKE 1 TABLET BY MOUTH AT BEDTIME NEEDED FOR SLEEP 30 tablet 06/14/20 25 025 Discontinued(Re order (will not trigger notification to Pharmacy)) gabapentin (Neurontin) 300 MG capsuleIndicati ons:Mood disorder (CMS/HCC) TAKE 1 CAPSULE BY MOUTH THREE TIMES A DAY 90 capsule 06/14/20 025 Discontinued Active Problems Problem Noted Date Diagnosed Date Generalized anxiety disorder 04/17/2025 Assessment & Plan (04/18/2025 10:27 AM EDT): During IBH Consult Anabel presenting with excessive worry/anxiety, difficulty controlling worry, anxiety/worry associated to restlessness and/or feeling keyed-up/On edge , easily fatigued , difficulty concentrating and/or mind going blank , irritability, and muscle tension , Fear , and sense of dread ; for a period of 18+ mo, for most or all symptoms in the context of chronic mental health conditions. Pt reported her anxiety has being increasing and stated not being able to control sxs on her own. She worries a lot and reports hx of panic attacks in the past. Pt was connected with Catalino Bruce, then PCP continued medication management. Coping strategies used when experiencing sxs: positive self-talk, breathing exercises and affirmations. Pt will be referred for psychiatry services. Declined OP referral for therapy. clinician will follow-up during next medical appt on 05/01. Type 2 diabetes mellitus wit hout complication, without long-term current use of insulin 03/19/2025 Overview (06/19/2025): Diagnosed 03/19/25 with A1c 6.7 Lab Results Component Value Date HGBA1C 6.9 (H) 06/18/2025 HGBA1C 6.7 (A) 05/01/2025 HGBA1C 6.7 (H) 03/15/2025 Lab Results Component Value Date CREATININE 0.80 03/15/2025 EGFR >60 03/15/2025 LDLCHOLCAL 70 06/18/2025 -Steven/Arb: none -Statin therapy: atorvastatin 20mg started 03/19/25 -Diabetic eye exam: due -Diabetic foot exam: due -Continue lifestyle modifications -Start Ozempic written 04/25/25, denied because did not try oral med first -metformin 500mg daily started 05/01/25, having diarrhea and nausea. -ordered Ozempic again 06/19/25. Assessment & Plan (06/19/2025 4:40 PM EDT): Diagnosed 03/19/25 with A1c 6.7 Lab Results Component Value Date HGBA1C 6.9 (H) 06/18/2025 HGBA1C 6.7 (A) 05/01/2025 HGBA1C 6.7 (H) 03/15/2025 Lab Results Component Value Date CREATININE 0.80 03/15/2025 EGFR >60 03/15/2025 LDLCHOLCAL 70 06/18/2025 -Steven/Arb: none -Statin therapy: atorvastatin 20mg started 03/19/25 -Diabetic eye exam: due -Diabetic foot exam: due -Continue lifestyle modifications -Start Ozempic written 04/25/25, denied because did not try oral med first -metformin 500mg daily started 05/01/25, having diarrhea and nausea. -ordered Ozempic again 06/19/25. Orders: semaglutide (Ozempic, 1 MG/DOSE,) 4 MG/3ML solution pen-injector; Inject 1 mg under the skin 1 (one) time per week. Assessment & Plan (05/01/2025 10:07 AM EDT): Diagnosed 03/19/25 with A1c 6.7 Lab Results Component Value Date HGBA1C 6.7 (H) 03/15/2025 HGBA1C 6.3 (H) 08/14/2021 HGBA1C 6.3 (H) 04/24/2021 Lab Results Component Value Date CREATININE 0.80 03/15/2025 EGFR >60 03/15/2025 LDLCHOLCAL 150 (H) 03/15/2025 -Steven/Arb: none -Statin therapy: atorvastatin 20mg started 03/19/25 -Diabetic eye exam: due -Diabetic foot exam: due -Continue lifestyle modifications -Start Ozempic written 04/25/25, denied because did not try oral med first -metformin 500mg daily started 05/01/25 Assessment & Plan (04/25/2025 10:43 AM EDT): Diagnosed 03/19/25 with A1c 6.7 Lab Results Component Value Date HGBA1C 6.7 (H) 03/15/2025 HGBA1C 6.3 (H) 08/14/2021 HGBA1C 6.3 (H) 04/24/2021 Lab Results Component Value Date CREATININE 0.80 03/15/2025 EGFR >60 03/15/2025 LDLCHOLCAL 150 (H) 03/15/2025 -Steven/Arb: none -Statin therapy: atorvastatin 20mg started 03/19/25 -Diabetic eye exam: due -Diabetic foot exam: due -Continue lifestyle modifications -Start Ozempic written 04/25/25 Screening mammogram for breast cancer 03/15/2025 Overview (06/19/2025): -ordered mammogram 03/15/25 -05/07/25 BI-RADS 1 - Negative Assessment & Plan (03/15/2025 11:32 AM EDT): -ordered mammogram 03/15/25 Class 3 severe obesity due t o excess calories with serious comorbidity and body mass index (BMI) of 45.0 to 49.9 in adult 03/15/2025 Overview (06/19/2025): Baseline weight: 269 lbs -given BMI >30kg/m2 [...] do not freeze. -Start Zepbound (tirzepatide) 2.5mg 03/15/25 but denied -tried ozempic due to diabetes, denied because was not on oral first -tried metformin, had side affects of nausea and upset stomach. -will trial ozempic again 06/19/25 Assessment & Plan (06/19/2025 4:40 PM EDT): Baseline weight: 269 lbs -given BMI [...] do not freeze. -Start Zepbound (tirzepatide) 2.5mg 03/15/25 but denied -tried ozempic due to diabetes, denied because was not on oral first -tried metformin, had side affects of nausea and upset stomach. -will trial ozempic again 06/19/25 Assessment & Plan (05/01/2025 10:09 AM EDT): Baseline weight: 269 lbs -given [...] do not freeze. -Start Zepbound (tirzepatide) 2.5mg 03/15/25 but denied -tried ozempic due to diabetes, denied because was not on oral first Assessment & Plan (03/15/2025 11:22 AM EDT): [...] q 4 weeks with max 15mg/wk. 03/15/25 Right sided sciatica 03/15/2025 Overview (03/15/2025): -recommended stretches 03/15/25 Assessment & Plan (03/15/2025 11:32 AM EDT): -recommended stretches 03/15/25 Cardiac risk counseling 10/18/2024 Overview (05/01/2025): Calculated 05/01/25 The ASCVD Risk score (Tiffanie CM, et al., 2019) failed to calculate for the following reasons: Unable to determine if patient is Non- Lab Results Component Value Date LDLCHOLCAL 150 (H) 03/15/2025 -Atherosclerotic Cardiovascular Disease (ASCVD) Risk Calculator is [...] risk- >=20 percent -Tobacco cessation: discussed -Statin therapy:atorvastatin 20mg started 03/19/25 due to new dx type 2 diabetes -Importance of moderate physical activity and nutrition interventions discussed. Colon cancer screening 07/12/2024 Overview (05/30/2025): -pt agrees to colon cancer screening, referral placed 07/12/2024 -seen by Dr. Maldonado 05/27/25 for intake, colonoscpy booked Assessment & Plan (05/01/2025 10:09 AM EDT): -pt agrees to colon cancer screening, referral placed 07/12/2024 -has appt. 05/27/25 Assessment & Plan (03/15/2025 11:16 AM EDT): -pt agrees to colon cancer screening, referral placed 07/12/2024 -has appt. 05/27/25 Iron deficiency anemia 09/05/2023 Overview (03/19/2025): Hgb 10.9 06/2021. Labs in 2007 suggested possible alpha thalassemia trait. Compliant with iron. Followed by hematology. She is supposed to have a Mirena IUD placed but she hasn't had her menses since her D and C. Her menses started up again heavy. She will follow up with [employer] [facility] for Mirena. Repeat on 09/18 Hgb 10.8 has f/u with [employer] [facility] for menses control. Lab Results Component Value Date FERRITIN 36 03/15/2025 HGB 12.4 03/15/2025 HGB 8.8 (L) 08/09/2023 HGB 10.9 (L) [...] again heavy. She will follow up with [employer] [facility] for Mirena. Repeat on 09/18 Hgb 10.8 has f/u with [employer] [facility] for menses control. Lab Results Component Value [...] 07/2020 but continued to bleed. Has IUD. Vitamin D deficiency 09/05/2023 Overview (05/01/2025): 08/31/22 Vitamin D was 15. PTH elevated at 89 (normal 60-77) Lab Results Component Value Date [id number] 14.1 (L) 03/15/2025 -recent labs 03/01/25 significant vitamin D deficiency, will get labs in chart. -start ergocalciferol (Vitamin D2) 1.25 MG (12484 UT) 03/15/25 -changed to 2000 units daily 05/01/25 Assessment & Plan (05/01/2025 9:59 AM EDT): 08/31/22 Vitamin D was 15. PTH elevated at 89 (normal 60-77) Lab Results Component Value Date [id number] 14.1 (L) 03/15/2025 -recent labs 03/01/25 significant vitamin D deficiency, will get labs in chart. -start ergocalciferol (Vitamin D2) 1.25 MG (42969 UT) 03/15/25 -changed to 2000 units daily 05/01/25 Assessment & Plan (03/15/2025 11:11 AM EDT): 08/31/22 Vitamin D was 15. PTH elevated at 89 (normal 60-77) -recent labs 03/01/25 significant vitamin D deficiency, will get labs in chart. -start ergocalciferol (Vitamin D2) 1.25 MG (65880 UT) 03/15/25 Mood disorder 01/03/2023 Overview (03/15/2025): Symptoms have suggested BP 2, rather than unipolar depression. Doing OK, but with increased anxiety and sleep maintenance insomnia. -On Gabapentin 300 mg TID. Increase to Zolpidem 10 mg at bedtime as needed, avoid taking every night to maintain efficacy. -Restart Abilify 5 mg to take 1.5 tablets (7.5 mg) daily. -Referred to behavior health 03/15/25 Assessment & Plan (03/15/2025 11:25 AM EDT): Symptoms have suggested BP 2, rather than unipolar depression. Doing OK, but with increased anxiety and sleep maintenance insomnia. -On Gabapentin 300 mg TID. Increase to Zolpidem 10 mg at bedtime as needed, avoid taking every night to maintain efficacy. -Restart Abilify 5 mg to take 1.5 tablets (7.5 mg) daily. -Referred to [facility] 03/15/25 Assessment & Plan (05/01/2024 12:30 PM [...] medication management. Any issues or concerns contact [facility]. All her questions were answered and I [...] depression. Still with anxiety. Given info about [facility] Mindfulness Mondays, and she is interested in [...] this, and she will go to the [facility] in [place] to access services. Continue current medications: Abilify [...] agrees with the plan. Dyslipidemia 12/24/2022 Overview (03/19/2025): Lab Results Component Value Date CHOL 208 (H) 03/15/2025 TRIG 122 03/15/2025 HDL 34 (L) 03/15/2025 LDLCHOLCAL 150 (H) 03/15/2025 -continue lifestyle modification -recent labs 03/01/25 showed improved cholesterol, elevated triglycerides, working on getting labs in chart 03/15/25 -atorvastatin 20mg started 03/19/25 due to new dx type 2 diabetes Assessment & Plan (03/15/2025 11:36 AM EDT): -continue lifestyle modification -recent labs 03/01/25 showed improved cholesterol, elevated triglycerides, working on getting labs in chart 03/15/25 Fibromyalgia 12/24/2022 Hypothyroidism 12/24/2022 Overview (03/19/2025): Diagnosed 01/2021 based on TSH of 6.47 and low FT4 0.3 Lab Results Component Value Date TSH 1.61 03/15/2025 TSH had been elevated since 05/2020 with normal FT4. Symptoms include obesity, EDMUND, weight gain, dysthymia Has been off Levothyroxine with controlled TSH 03/15/25 Assessment & Plan (05/01/2025 10:13 AM EDT): Diagnosed 01/2021 based on TSH of 6.47 and low FT4 0.3 Lab Results Component Value Date TSH 1.61 03/15/2025 TSH had been elevated since 05/2020 with normal FT4. 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 Tobacco dependence syndrome 09/05/2012 Overview (03/15/2025): -Cigg/day: 4 cigarettes/day -Age started: 17 -Total years smoking: -Pack year history: Encouraged smoking cessation resources such as pharmacomtherapy, [facility] smoking cessation group, and [facility] pharmacy smoking cessation clinic [facility] recommends annual lung cancer screening with low [...] as pharmacomtherapy, [facility] smoking cessation group, and [facility] pharmacy smoking cessation clinic Discussed [facility]F recommends annual lung cancer screening with low dose CT in people who meet the following criteria: -ages 50 to 80 years. -have a 20 pack-year smoking history. -currently smoke cigarettes or quit within the past 15 years. -LDCT: Resolved Problems Problem Noted Date Diagnosed Date Resolved Date Dietary counseling 03/15/2025 Assessment & Plan (03/15/2025 [...] saturated fat, and sodium. Exercise counseling 03/15/2025 05/01/20 Assessment & Plan (03/15/2025 11:16 AM EDT): Exercise Recommendations: At least 150 minutes of moderate-intensity physical activity per week, or an equivalent combination of moderate- and vigorous-intensity activity. Physical exam 11/09/2023 11/01/2024 Overview (11/09/2023): -Normal growth and development. -Anticipatory guidance discussed. -Preventative care / harm reduction discussed. Prediabetes 09/05/2023 03/19/2025 Overview (03/15/2025): Labs from 04/24/2021 showed a [...] 6.3 (H) 04/24/2021 -ordered repeat A1C 03/15/25 Gastritis 12/24/2022 05/01/2025 Overview (11/09/2023): -Saw GI doctor on 07/02/2021. Continue PPI via GI Uses continuous positive air way pressure (CPAP) ventilation at home 05/25/2022 09/05/2023 Anxiety 03/28/2014 01/03/2023 Snoring 03/28/2014 09/05/2023 Insomnia 09/06/2012 05/01/2025 Encounters Date Type Department Care Team Description 07/15/2025 Refill [facility] [place] [address] Margarita Adams MD Mood disorder ([facility]/HCC) 07/11/2025 Refill [facility] [place] [address] Kelvin Trinidad MD Mood disorder (CMS/HCC) 07/08/2025 Telephone [facility] [place] [address] Margarita Adams MD 07/08/2025 Travel 06/19/2025 4:00 PM EDT Telemedicine [facility] [place] [address] Margarita Adams MD Type 2 diabetes mellitus without complication, without long-term current use of insulin ([facility]) (Primary Dx); Class 3 severe obesity due to excess calories with serious comorbidity and body mass index (BMI) of 45.0 to 49.9 in adult; Dietary counseling; Exercise counseling 06/19/2025 Travel 06/19/2025 Telephone [facility] [place] [address] Margarita Adams MD Prior Authorization 06/19/2025 Results Follow-Up [facility] [place] [address] Margarita Adams MD Hepatic Function Panel, Lipid Panel, Standard, Hemoglobin A1c, Additional followed-up results: 3 06/18/2025 Telephone [facility] [place] [address] Margarita Adams MD CHART PREP 06/18/2025 Orders Only GENERIC EXTERNAL DATA DEPARTMENT Provider, Generic External Data 06/12/2025 Refill [facility] [place] [address] Margarita Adams MD Mood disorder ([facility]/HCC) 06/12/2025 Refill [facility] [place] [address] Margarita Adams MD Mood disorder (CMS/HCC) 05/09/2025 Refill [facility] [place] [address] Talia Gonzalez MD Mood disorder ([facility]) from Last 3 Months Immunizations Immunization Administration Dates Next Due Hep B, adult 06/01/2023, 3,12/01/2022,06/2015,11/17/2006,10/18/2006 06/01/2023 Influenza injectable quadriv alent IIV4 with preservative 09/04/2015 Influenza injectable quadriv alent preservative free 09/05/2023,09/02/2022,08/14/2021,07/29 Influenza, IIV3, injectable 07/29/2020, 4 Influenza, Split (incl. kadie fied surface antigen) 09/06/2012 MMR 11/26/2021,10/16/2021 Meningococcal MCV4P [id number]-135 08/14/2021 Moderna Covid-19 Vaccine 12+ 11/26/2021,02/25/20,01/27/2021 Pfizer Covid-19 Vaccine 12+ Bivalent 10/28/2022 Pneumococcal Conjugate PCV 20 05/01/2025 Pneumococcal Polysaccharide PPSV23 09/04/2015, Tdap 02/20/2020,09/04/2015 Family History Medical History Relation Name Comments Breast cancer Mother Diabetes Mother Relation Name Status Comments Mother Social History Tobacco Use Types Packs/Day Years Used Date Smoking Tobacco: Every Day Cigarettes Smokeless Tobacco: Current Tobacco Cessation:Ready to Q uit: Not Asked; Counseling Given: Not Answered Depression Answer Date Recorded Patient Health Questionnaire-9 [...] Q2 Not on file 03/15/2025 Comments Unknown Intention Date Recorded No desire to become (finding) 0 03/15/2025 Sex and Gender Information Value Date Recorded Sex Assigned at Female 09/27/2022 10:17 AM EDT Legal Sex Female 10:17 AM EDT Gender Identity Female 09/27/2022 10:17 AM EDT Sexual Orientation Straight 09/27/2022 10 :17 AM EDT Last Filed Vital Signs Vital Sign Reading Time Taken Comments Blood Pressure 110/74 05/01/2025 9:48 AM EDT Pulse 74 05/01/2025 9:48 AM EDT Temperature 37.2 C (98.9 F) 05/01/2025 9:48 AM EDT Respiratory Rate 20 05/01/2025 9:48 AM EDT Oxygen Saturation 97% 05/01/2025 9:48 AM EDT Inhaled Oxygen Concentration - - Weight 123 kg (271 lb 9.6 oz) 05/01/2025 9:48 AM EDT Height 160 cm (5' 3 ) 05/01/2025 9:48 AM EDT Body Mass Index 48.11 05/01/2025 9:48 AM EDT Plan of Treatment Upcoming Encounters Date Type Department Care Team (Late st Contact Info) Description 09/26/2025 11:30 AM EDT Telemedicine [facility] MEDICINE [address] [place] [address] Margarita Adams MD [address] [place] [address] Health Maintenance Due Date Last Done Comments CT Colonography 1980 FIT DNA/Cologuard 1980 FIT 1980 FOBT 1980 Sigmoidoscopy 1979 Diabetes: Foot Exam 1989 Eye Exam 1989 Diabetes: Urine Protein Screening 07/02/2022 07/02/2021, 01/27/2021, 06/12/2020 COVID-19 Vaccine ( season) 2025 10/28/2022, 11/26/2021, 02/24/2021, Additional history exists Influenza Vaccine (#1) 2025 , 09/02/2022, 08/14/2021, Additional history exists Depression Monitoring 10/18/2025 04/17/2025, 025 Diabetes: Hemoglobin A1C 12/19/2025 025, 05/01/2025, 03/15/2025, Additional history exists Alcohol/Substance Use Screening 03/15/2026 03/15/2025 Disability Screening 03/15/2026 03/15/2025 Family Planning (PISQ) 03/15/2026 03/15/2025 SDOH Screening 03/15/2026 03/15/2025 Pap Smear 04/07/2026 04/07/2023, 07/01/2020 Tobacco Screening 05/01/2026 05/01/2025 Lipid Panel 06/18/2026 06/18/2025, 02/26, 08/14/2021, Additional history exists Mammogram 05/07/2027 05/07/2025, 08/28, 07/14/2020 Cervical Cancer Screening 04/07/2028 HPV/Cotest 04/07/2028 04/07/2023, 07/01/2020 Zoster Vaccines (1 of 2) 2029 DTaP/Tdap/Td Vaccines (3 - Td or Tdap) 02/19/2030 02/20/2020, 09/04/2015 Colonoscopy 06/18/2035 06/18/2025 Colorectal Cancer Screening 06/18/2035 RSV Patients and Patients Aged 60 years or older (1 - 1-dose 75+ series) 2054 Meningococcal Vaccine Aged Out 08/14/2021 No alice cassidy eligible based on patient's age to complete this topic Hepatitis B Vaccines Completed 06/01/2023, 01/11/2023, 12/01/2022, Additional history exists HIV Screening Completed 10/05/2023 Hepatitis C Screening Completed 10/05/2023 Pneumococcal Vaccine: Pediatrics (0 to 5 Years) and At-Risk Patients (6 to 49) Years Completed 05/01/2025, 09/04/2015, 05/27/2012 HIB Vaccines Aged Out No longer eligi [...] Procedure Name Priority Date/Time Associated Diagnosis Comments HEMATOXYLIN AND EOSIN STAIN Routine 06/18/2025 11:55 AM EDT GLUCOSE, WHOLE BLOOD Routine 06/18/2025 10:28 AM EDT HCG, QL, URINE Routine 06/18/2025 9:55 AM EDT VITAMIN D,25-OH,TOTAL,IA Routine 06/18/2025 9:03 AM EDT Vitamin D deficiency HEMOGLOBIN A1C Routine 06/18/2025 9:03 AM EDT Type 2 diabetes mellitus without complication, without long-term current use of insulin ([facility]) LIPID PANEL, STANDARD Routine 06/18/2025 9:03 AM EDT Dyslipidemia HEPATIC FUNCTION PANEL Routine 9:03 AM EDT Dyslipidemia TSH W/REFLEX TO FT4 Routine 06/18/2025 9 :03 AM EDT Prediabetes Iron deficiency anemia, unspecified iron deficiency anemia type CBC WITH AUTO DIFFERENTIAL Routine 06/18/2025 9:03 AM EDT Abnormal uterine bleeding HM COLONOSCOPY Routine 06/18/2025 BI MAMMOGRAM SCREENING TOMOSYNTHESIS BILATERAL Routine 05/07/2025 3:30 PM EDT Screening mammogram for breast cancer HEPATITIS C ANTIBODY Routine 10/05/2023 4:19 PM EST HIV 1/2 ANTIGEN/ANTIBODY, FOURTH GENERATION W/RFL Routine 10/05/2023 4:19 PM EST HPV MRNA E6/E7 REFLEX TO HPV 16, 18/45 Routine 04/07/2023 12:16 PM EDT PAP SMEAR Routine 04/07/2023 12:16 PM EDT ZZZ HISTORICAL MICROALBUMIN, RANDOM Routine 07/02/2021 3:00 PM EDT from Last 3 Months or Most Recently Relevant to Health Maintenance Results * Hematoxylin and Eosin Stain (06/18/2025 11:55 AM EDT) 06/18/2025 11:5 5 AM EDT 06/18/2025 12:49 PM EDT [facility] - 06/19/2025 11:54 AM EDT ----- ------- Name: Anabel Silva Age/Sex: 45/F : 1980 Unit#: [id number] Attend Dr: Dillon Maldonado MD Re06/18/[address] [facility] Location: [facility] Disch: ----- ------- SPEC : [id number] RECD: 06/18/25-124 STATUS: JOSÉ HAIDER NUM: [id number] LUIS: 06/18/25-1155 [facility] DR: Dillon Maldonado MD ENTERED: 06/18/25-1302 SP TYPE: Surgical OTHR DR: Margarita Adams MD ORDERED: HE Stain/3, Gross Micro L4 Diagnosis Colon, rectal polyp: Hyperplastic polyp. Clinical History Pre-Op Dx: Screening Post-Op Dx: Colon polyp Microscopic Description Microscopic sections reviewed. Material Received Rectal polyp Gross Description Received in formalin labeled rectal polyp is a 0.25 cm saunders-pink papular tissue fragment, submitted in toto in a cassette labeled A. CEDS IHC S/NG Disclaimer NOTE: Unless otherwise stated, all tissue is formalin-fixed and paraffin-embedded. Some or all of the immunohistochemical tests reported herein may have been developed and their performance characteristics determined by [facility]. They have not been cleared or approved by the U.S. Food and Drug Administration (FDA). However, the FDA has determined that such clearance or approval is not necessary. This laboratory is certified under the Clinical Laboratory Improvement Amendments of 1988 (CLIA) as qualified to perform high complexity clinical laboratory testing. Copies To: Margarita Adams MD [address] [id number] CONTINUED ON NEXT PAGE ----- ------- Name: Anabel Silva Age/Sex: 45/F : 1980 Unit#: [id number] Attend Dr: Dillon Maldonado MD Re06/18/[address] [facility] Location: [facility] Disch: ----- ------- SPEC : [id number] RECD: 06/18/25-1249 STATUS: JOSÉ HAIDER NUM: [id number] LUIS: 06/18/25-5 [facility] DR: Dillon Maldonado MD ENTERED: 06/18/25-1303 SP TYPE: Surgical OTHR DR: Margarita Adams MD ORDERED: LIAM Stain/3, Gross Micro L4 Copies To: (Continued) Dillon Maldonado MD [address] [place] [phone] ----- ------- Signed (signature on file) Lilliana Way 06/19/25 1154 ----- ------- END OF REPORT Generic External Data Provider LAB BLOOD ORDERAB LES Final Result Performing Organization Address [facility] Co de Phone Number [facility] [address] [place] [phone] * (ABNORMAL) Glucose, Whole Blood (06/18/2025 10:28 AM EDT) Pathologist [facility] Glucose, Whole Blood 130(H) 60 - 115 mg/dL [facility] Comment:METER #: [id number] 06/18/2025 10:2 8 AM EDT 06/18/2025 10:32 AM EDT Generic External Data Provider LAB BLOOD ORDERAB LES Final Result Performing Organization Address [facility] de Phone Number [facility] [address] [place] [address] [phone] * HCG, Qualitative, Urine (06/18/2025 9:55 AM EDT) [facility] Urine NEGATIVE NEGATIVE [facility] Comment:This test was develo ped to detect early . Falsenegative results may occur after the 5th - 7th week ofpregnancy when using this test method. If clinicallyindicated, consider a serum hCG. 06/18/2025 9:55 AM EDT 06/18/2025 10:02 AM EDT Generic External Data Provider LAB URINE ORDERAB LES Final Result Performing Organization Address [facility] Co de Phone Number [facility] [address] [place] [phone] * (ABNORMAL) Vitamin D, 25-Hydroxy, Total, Immunoassay (06/18/2025 9:03 AM EDT) [facility] Vitamin D 25-OH Total 23.9(L) >30 ng/mL [facility] Comment: Health Based Reference Values*< 20 ng/mL Fnnevovjf64-33 ng/mL Insufficient> 30 ng/mL Sufficient*Stephy HERRERA. N Engl J Med. 2007;357:266-280There is no well-established upper level of normal vitamin Dlevels. Some laboratories use 50 ng/mL as an upper limit ofnormal. However, toxicity is patient-dependent and may occurat any level. Careful correlation with the patient'spresentation is necessary and, if there is concern forvitamin D toxicity, treatment should be consideredirrespective of the serum level.Care must be taken in interpreting Vitamin D results fromdifferent laboratories and methodologies. Published datademonstrated that results from patients undergoinghemodialysis may show a negative bias when tested withvarious automated 25-OH vitamin D assays when compared toLC-MS/MS.When testing samples from patients whose predominant form ofVitamin D is Vitamin D2, such as patients receiving VitaminD2 supplementation, results that are subtherapeutic shouldbe confirmed with another method such as LC-MS/MS. Blood Venous blood specimen / Unknown 06/18/2025 9:03 AM EDT 06/18/2025 9:03 AM EDT Margarita Adams MD LAB BLOOD ORDERABLES Final Result Performing Organization Address [facility]/ZIP Co de Phone Number [facility] [address] [place] [address] [phone] * TSH with Reflex to Free T4 (06/18/2025 9:03 AM EDT) TSH reflex Free T4 2.11 0.32 - 4.0 uIU/mL [facility] Blood Venous blood specimen / Unknown 06/18/2025 9:03 AM EDT 06/18/2025 9:03 AM EDT Margarita Adams MD LAB BLOOD ORDERABLES Final Result [facility] [address] [place] [phone] * (ABNORMAL) CBC auto differential (06/18/2025 9:03 AM EDT) White Blood Count 13.9(H) 4.8 - 10.8 X10*3/uL [facility] Red Blood Count 5.50 4.20 - 5.50 X10*6/uL [facility] Hemoglobin 12.3 12.0 - 16.0 g/dl [facility] Hematocrit 40.0 37.0 - 47.0 % [facility] Mean Corpuscular Volume 72.7(L) 80.0 - 98.0 fL [facility] Mean Corpuscular Hemoglobin 22.4(L) 27.0 - 33.0 pg [facility] Mean Corpuscular HGB Conc 30.8(L) 31.0 - 35.0 g/dl [facility] Red Cell Distribution Width 13.6 11.0 - 16.0 % [facility] Platelet Count 421(H) 160 - 400 X10*3/uL [facility] Mean Platelet Volume 11.5 9.4 - 12.3 fL [facility] Neutrophils Percent Auto 68.0 45 - 73 % [facility] Imm Gran Pct Auto 0.3 0.0 - 0.4 % [facility] Lymphocytes Percent Auto 24.1 20 - 40 % [facility] Monocytes Percent Auto 4.8 2 - 11 % [facility] Eosinophils Percent Auto 2.2 0 - 4 % [facility] Basophils Percent Auto 0.6 0 - 2 % [facility] NRBC Pct Auto 0.0 0.0 - 0.2 /100WBC [facility] Neutrophils Absolute Auto 9.4(H) 2.0 - 8.3 x10*3/uL [facility] Imm Gran Abs Auto 0.04(H) 0.00 - 0.03 X10*3/uL [facility] Lymphocytes Absolute Auto 3.3 1.2 - 4.9 X10*3/uL [facility] Monocytes Absolute Auto 0.7 0.1 - 1.2 X10*3/uL [facility] Eosinophils Absolute Auto 0.3 0.0 - 0.4 X10*3/uL [facility] Basophils Absolute Auto 0.1 0.0 - 0.2 X10*3/uL [facility] NRBC Abs Auto 0.000 0.0 - 0.012 X10*3/uL [facility] Blood Venous blood specimen / Unknown 06/18/2025 9:03 AM EDT 06/18/2025 9:03 AM EDT Margarita Adams MD LAB BLOOD ORDERABLES Final Result Performing Organization Address [facility]/ZIP Co de Phone Number [facility] [address] [place] [address] [phone] * (ABNORMAL) Hemoglobin A1c (06/18/2025 9:03 AM EDT) Hemoglobin A1c 6.9(H) <6.0 % [facility] Comment:Hemoglobin A1C Refer ence Range Adults: 4.8 - 6.0 % Non diabetic: < 6.0 % Goal: < 7.0 %Additional Action Suggested: > 8.0 %Note: Hemoglobin A1c results are invalid for patients with abnormal amounts of HbF. Blood transfusions may impact the HbA1c concentration in the patient sample. Estimated Average Glucose 151 mg/dL [facility] Comment:eAG = Estimated ave rage glucose which is %A1C expressed asaverage glucose, using the formula of the C3Q-EfeacyvVgzqmtb Glucose study (ADAG), Diabetes Care, Vol.31,#8,Jun. 2007 Blood Venous blood specimen / Unknown 06/18/2025 9:03 AM EDT 06/18/2025 9:03 AM EDT Margarita Adams MD LAB BLOOD ORDERABLES Final Result Performing Organization Address [facility]/ZIP Co de Phone Number [facility] [address] [place] [phone] * (ABNORMAL) Hepatic Function Panel (06/18/2025 9:03 AM EDT) Bilirubin, Total 0.6 0.0 - 1.0 mg/dL [facility] Bilirubin, Direct 0.2 0.0 - 0.5 mg/dL [facility] Aspartate Amino Transferase 27 5 - 31 U/L [facility] Alanine Aminotransferase 33(H) 0 - 31 U/L [facility] Total Protein 7.8 6.5 - 8.0 g/dL [facility] Albumin Level 4.7 3.5 - 5.0 g/dL [facility] Alkaline Phosphatase 82 39 - 117 U/L [facility] Blood Venous blood specimen / Unknown 06/18/2025 9:03 AM EDT 06/18/2025 9:03 AM EDT us Margarita Adams MD LAB BLOOD ORDERABLES Final Result Performing Organization Address City/State/[facility] Co de Phone Number [facility] [address] [place] [address] [phone] * (ABNORMAL) Lipid Panel, Standard (06/18/2025 9:03 AM EDT) Pathologist [facility] Triglycerides 139 <150 mg/dL [facility] Comment:Desirable Triglyceri de: less than 150 mg/dLBorderline High Triglyceride 150-199 mg/dLHigh Triglyceride: 200-499 mg/dLVery High Triglyceride: greater than or equal to 5OO mg/dL Cholesterol 128 <200 mg/dL [facility] Comment:Desirable Cholestero l: less than 200 mg/dLBorderline High Cholesterol: 200-239 mg/dLHigh Cholesterol: greater than 239 mg/dL LDL Cholesterol Calculated 70 <100 mg/dL [facility] Comment:Desirable LDL: less than 100 mg/dLNear Optimal/Above Optimal LDL: 110- 129 mg/dLBorderline High LDL: 130-159 mg/dLHigh LDL: 160-189 mg/dLVery High LDL: greater than or equal to 190 mg/dL HDL Cholesterol 31(L) >40 mg/dL [facility] Comment:Desirable HDL: great er than 40 mg/dL Note: This HDL assay may give artificially low results in patients with liver disease. Blood Venous blood specimen / Unknown 06/18/2025 9:03 AM EDT 06/18/2025 9:03 AM EDT Margarita Adams MD LAB BLOOD ORDERABLES Final Result [facility] [address] [place] [phone] [phone] * (ABNORMAL) Colonoscopy (06/18/2025) Colonoscopy Abnormal( A) Normal Comment:hyperplastic polyp w ith Dr. Maldonado [facility] Provider HEALTH MAINTENANCE Final Result * BI Mammogram Screening Tomosynthesis Bilateral (05/07/2025 3:30 PM EDT) Anatomical Region Laterality Modality Breast Bilateral Mammography 05/07/2025 3:30 PM EDT Narrative 05/14/2025 5:57 PM EDT [address] [place] [address] Mammography Report Signed Patient: Anabel Silva MR#: [id number] 6 : 1980 Acct:[id number] Age/Sex: 45 / F ADM Date: 05/07/25 Loc: HO.MAMMO Attending Dr: Margarita Adams MD Ordering Physician: Margarita Adams MD Results: 1N egative Date of Service: 05/07/25 Follow Up: 1 Year From [facility] Mammogram Procedure(s): MM tomosynthesis screening BI Accession Number(s): [id number] cc: Margarita Adams MD EXAMINATION: MM SCREENING DIGITAL BREAST TOMOSYNTHESIS, BILATERAL CLINICAL INFORMATION: Screening. Asymptomatic. COMPARISON: Mammography: Comparison is made with available priors TECHNIQUE: Digital breast mammography with tomosynthesis is performed in both the craniocaudal and mediolateral oblique views along with computer-aided detection (CAD). FINDINGS: There are scattered areas of fibroglandular density (ACR BI-RADS breast composition Category b). There are no significant masses, abnormal calcifications, [...] target due date for their next mammogram. Electronically signed by: Johnna Osuna DO 05/14/2025 05:54 PM EDT Dictated By: Johnna Osuna DO Signed By: <Electronically signed by Johnna Osuna DO in OV> 05/14/25 1753 DD/ 1530 TD/TT: 05/07/25 1548 Crepe Box Tender: Procedure Note Donotuseinterpreter, Image - 05/14/2025 [employer] [address] [place] [address] Mammography Report Signed Patient: Anabel Silva MMR#: [id number] 6 : 1980Acct:[id number] Age/Sex: 45 / FADM Date: 05/07/25 Loc: HO.MAMMO Attending Dr: Margarita Adams MD Ordering Physician: Margarita Adams MDResults: 1N egative Date of Service: 05/07/25Follow Up: 1 Year From Orig inal Mammogram Procedure(s): MM tomosynthesis screening BI Accession Number(s): [id number] cc: Margarita Adams MD EXAMINATION: MM SCREENING DIGITAL BREAST TOMOSYNTHESIS, BILATERAL CLINICAL INFORMATION: Screening. Asymptomatic. COMPARISON: Mammography: Comparison is made with available priors TECHNIQUE: Digital breast mammography with tomosynthesis is performed in both the craniocaudal and mediolateral oblique views along with computer-aided detection (CAD). FINDINGS: There are scattered areas of fibroglandular density (ACR BI-RADS breast composition Category b). There are no significant masses, abnormal calcifications, [...] target due date for their next mammogram. Electronically signed by: Johnna Osuna DO 05/14/2025 05:54 PM EDT Dictated By: Johnna Osuna DO Signed By: <Electronically signed by Johnna Osuna DO in OV> 05/14/25 1754 DD/ 1530 TD/TT: 05/07/25 1548 Crepe Box Tender: us Margarita Adams MD IMG BI PROCEDURES Final Re sult * Hepatitis C Ab (10/05/2023 4:19 PM EST) Hepatitis C Antibody Nonreactive Nonreactive [facility] Comment:Antibodies to HCV no t detected; does not exclude early acuteHCV infection. 10/05/2023 4:19 PM EST 10/05/2023 4:19 PM EST Generic External Data Provider LAB BLOOD ORDERAB LES Final Result [facility] [address] [place] [address] [phone] * HIV-1/2 Antigen and Antibodies, Fourth Generation, with Reflexes (10/05/2023 4:19 PM EST) HIV AB/AG Nonreactive Nonreactive [facility] Comment:HIV-1 p24 Ag and/or HIV-1/HIV-2 Ab not detected.A test result that is nonreactive does not exclude thepossibility of exposure to or infection with HIV-1 and/orHIV-2. Nonreactive results in this assay for individualswith prior exposure to HIV-1 and/or HIV-2 may be due toantigen and antibody levels that are below the limit ofdetection of this assay.The [employer] HIV Ag/Ab Combo assay result andsupplemental assay results should be interpreted inconjunction with the patient's clinical presentation,history and other laboratory results. If the results areinconsistent with clinical evidence, additional testing issuggested to confirm the result. 10/05/2023 4:19 PM EST 10/05/2023 4:19 PM EST Generic External Data Provider LAB BLOOD ORDERAB LES Final Result Performing Organization Address [facility] Co de Phone Number [facility] [address] [place] [address] [phone] * HPV mRNA E6/E7 w/Reflex to HPV Genotypes 16, 18/45 (04/07/2023 12:16 PM EDT) HPV nRNA E6/E7 Not Detected Not Detected [facility] Comment:Methodology: Transcr iption-Mediated AmplificationThis assay detects E6/E7 viral messenger RNA (mRNA) from 14high-risk HPV types (16,18,31,33,35,39,45,51,52,56,58,59,66,68).Cervical sources are required for HPV testing.If a vaginal source from a patient who has had atotal hysterectomy with removal of cervix wassubmitted, please contact the testing laboratoryfor alternative testing options.For additional information, please refer tohttp://education.Cylance/faq/OTQ339d4(This link if provided for information/educational purposes only.)THIS TEST WAS PERFORMED AT:[employer] [place] [phone] LAKHANI MD HPV mRNA E6/E7 [facility] HPV 16 RNA [facility] HPV 18/45 RNA [facility] 04/07/2023 12:1 6 PM EDT 04/08/2023 9:15 AM EDT [facility] External Provider LAB CYT OLOGY ORDERABLES Final Result Performing Organization Address [facility]/ZIP Co de Phone Number [facility] [address] [place] [address] [phone] * Pap Smear (04/07/2023 12:16 PM EDT) 04/07/2023 12:1 6 PM EDT 04/08/2023 9:15 AM EDT [facility] - 04/13/2023 3:15 PM EDT ----- ------- Name: ShiraAnabel Mir Age/Sex: 42/F : 1980 Unit#: [id number] Attend Dr: Layla Whitlock CNM Re04/07/23 Status: DEP REF Location: HO.LNP Disch: ----- ------- SPEC : [id number] RECD: 04/08/23 STATUS: JOSÉ HAIDER NUM: [id number] LUIS: 04/07/23-1215 [facility] DR: Layla Whitlock ENTERED: 04/08/23 SP TYPE: Pap Smr OTHR DR: Margarita Adams MD ORDERED: Pap Smear Interpretation Satisfactory for evaluation. Coccobacilli consistent with shift in vaginal anh. Negative for intraepithelial lesion or malignancy. HPV mRNA E6/E7: NOT DETECTED This assay detects E6/E7 viral messenger RNA (mRNA) from 14 high-risk HPV types (16, 18, 31, 33, 35, 39, 45, 51, 52, 56, 58, 59, 66, 68) HPV testing performed by [employer], [place], [place]. See reference laboratory pion of the EMR for entire report. Clinical Information LMP: Unknown Previous PAP test: Unknown, WNL Material Received ThinPrep-Cervical Copies To: Margarita Adams MD [address] [place] [address] [place] [address] ----- ------- Signed (signature on file) MATILDA Adhikari (ASCP) 04/13/23 1515 ----- ------- END OF REPORT [facility] External Provider LAB CYT OLOGY ORDERABLES Final Result [facility] [address] [place] [phone] * MICROALBUMIN, RANDOM (07/02/2021 3:00 PM EDT) Creatinine Urine 184.09 mg/dL [facility] Microalbum/Creati nine Ratio Ur 15.2 ug/mg cr [facility] Comment: Albumin/Creatinine Ratio Reference Ranges: Normal: < 30 ug/mg creatinine Microalbuminuria: 30 - 300 ug/mg creatinine Clinical Albuminuria: > 300 ug/mg creatinine Microalbumin Urine 28.0 mg/L [facility] 07/02/2021 3:00 PM EDT Margarita Adams MD HISTORICAL/NON ORDERABLE L ABS Final Result [facility] [address] from Last 3 Months or Most Recently Relevant to Health Maintenance Insurance [facility] [address] [place] [address] Advance Directives Documents on File Type Date Recorded Patient Assistant Customer Service Manager Expl anation Advance Directives and Living Will 03/20/2025 Health Care Proxy 03/15/25 Care Teams Idea Worker Relationship Specialty Start Date End Date [place], [place] Margarita [address] [place] [phone] PCP - General Family Medicine 11/28/18 Pearl Galicia, ShirleyD [address] [place] [phone] Pharmacist Internal Medicine 03/03/23 Dillon Maldonado MD [address] [place] [phone] Gastroenterology 07/10/25
--- OUTSIDE RECORDS SUMMARY | 2025-08-07 10:19 | XMS_ITS | Clinical Summary ---
Author Organization [facility] Address [address] [place] [address] Care Team Providers Care Hands Assembler Name Role Margarita Richter MD Primary Care Provider [phone] Surgical History Surgery Date Site/Laterality Comments SECTION PROCEDURE: [facility] DELIVERY ONLY KNEE SURGERY PROCEDURE: HISTORICAL KNEE [...] Cervical Cancer Screening: P ap Smear 2000 Depression Screening 11/28/2024 COVID-19 Vaccine ( - 2023-2 5 season) 2025 Influenza Vaccine (#1) 2025 HIB Vaccines Aged [...] age to complete this topic Care Teams Hands Assembler Relationship Specialty Start Date End Date Margarita Adams MD [address] [place] [address] [phone] PCP - General Internal Medicine 08/26/20
--- OUTSIDE RECORDS SUMMARY | 2025-08-07 10:19 | XMS_ITS | Encounter Summary ---
Author Organization [employer] [facility] Address [address] [facility] 7 [place] [address] Care Team Providers Care Concrete Bucket Unloader Name Role Phone Margarita Adams MD Primary Care Provider + [phone] Pearl Galicia PharmD Unavailable Dillon Maldonado MD Unavailable [phone] Encounter Details Date Type Department Care Team ([facility] Contact Info) Description 12/14/2022 Abstract [facility] [address] [place] [phone] Margarita Adams MD [address] [place] [address] [phone] Social History Tobacco Use Types Packs/Day Years [...] Info) Description 09/26/2025 11:30 AM EDT Telemedicine [facility] [address] [place] [address] [phone] Margarita Adams MD [address] [place] [phone] documented as of this encounter Procedures Procedure Name Priority Date/Time Associated Diagnosis Comments HPV HIGH RISK PCR Routine 07/01/2020 12:00 AM EDT PAP SMEAR Routine 07/01/2020 12:00 AM EDT documented in this encounter Results * HPV High Risk PCR (07/01/2020 12:00 AM EDT) Swab Cervical swab / Unknown [facility] Provider LAB MICROBIOLOGY - GENERA L ORDERABLES Final Result Performing Organization Address City/[facility]/ZIP Co de Phone Number IMAGING * Pap Smear (07/01/2020 12:00 AM EDT) Swab [facility] Provider LAB CYTOLOGY ORDERABLES F inal Result Performing Organization Address City/[facility]/ZIP Co de Phone Number IMAGING documented in this encounter Visit Diagnoses Not on filedocumented in this encounter Care Teams Concrete Bucket Unloader Relationship Specialty Start Date End Date Margarita Adams MD [address] [place] [address] PCP - General Family Medicine 11/28/18 Pearl Galicia PharmD [address] [place] [phone] Pharmacist Internal Medicine 03/03/23 Dillon Maldonado MD [address] [place] [phone] Gastroenterology 07/10/25 documented as of this encounter
== END 2025-08-07 09:23 | disposition home or self-care (01) ==
LOC: HO.HGS 08:50
PROVIDERS: PCP Family Medicine; Visit Provider Surgery
DX: K46.9 Unspecified abdominal hernia without obstruction or gangrene (principal)
CPT/HCPCS: 99203

== ENCOUNTER 2025-10-05 07:54 | Outpatient (REF) | payer BC, SELFPAY ==
--- OUTSIDE RECORDS SUMMARY | 2024-11-01 10:35 | XMS_ITS ---
Author Organization [facility] Address [address] [place] [phone] Care Team Providers Care Manager Life Sciences Name Role Phone Margarita Adams MD Primary Care Provider Oneyda vailable Dillon Maldonado Jr [phone] REASON FOR VISIT Patient presents today for a screening colon Encounters Encounter Location Date Provider Diagnosis [facility] [address] [address] 11/01/2024 Dillon Maldonado Jr Plan Of Treatment No Information Progress Notes * JD HESTER MDOB:1980 (45 yo F)Acc No.[id number]:11/01/2024 Progress Notes Patient: JD SLATER Provider: Kaleb Maldonado MD :1980 A ge:44 Y S ex:Female Date:11/01/2024 Address:[address] [place], [place] [id number] Pcp:Margarita Adams MD Subjective: * Chief Complaints: * 1 . Patient presents today for a screening colon. * Medical History: Objective: * Vitals: Assessment: Plan: * Treatment: * * The named appointment provid er may or may not be the originator of this progress note, and it is not deemed complete until electronically signed by the appointment provider. Sign off status: Pending * Provider: Kaleb Maldonado MD Date: 01/02/2024 Generated for Suzanne mcnair/Jagdish/eTransmitting on: 12/05/2024 07:58 AM EST
--- OUTSIDE RECORDS SUMMARY | 2025-06-18 06:00 | XMS_ITS ---
Author Organization [facility] Address [address] [place] [address] Care Team Providers Care Maintenance Electrician Name Role Phone Margarita Adams MD Primary Care Provider Oneyda vailable Dillon Maldonado Jr REASON FOR VISIT screening Encounters Encounter Location Date Provider Diagnosis [facility] [address] [place] [phone] 06/18/2025 Dillon Maldonado Jr Plan Of Treatment No Information Progress Notes * JD HESTER MDOB:1980 (45 yo F)Acc No.[id number]:06/18/2025 COLON WITH MAC Patient: JD SLATER Provider: Kaleb Maldonado MD :1980 A ge:45 Y S ex:Female Date:06/18/2025 Address:[address] [place], [place] [phone] Pcp:Margarita Adams MD Subjective: * Chief Complaints: * 1 . Screening. * Medical History: Objective: * Vitals: Assessment: Plan: * Treatment: * * The named appointment provid er may or may not be the originator of this progress note, and it is not deemed complete until electronically signed by the appointment provider. Sign off status: Pending * Provider: Kaleb Maldonado MD Date: 0 06/18/2025 Generated for Ehi ng/Fadinag/eTransmitting on: 1 12/05/2024 07:58 AM EST
--- NOTE | ~2025-10-05 | CT_ITS ---
EXAMINATION: CT ABDOMEN AND PELVIS WITHOUT CONTRAST CLINICAL INFORMATION: Abdominal hernia without obstruction COMPARISON: None available. TECHNIQUE: Multidetector volumetric imaging was performed from the superior aspect of the liver through the pubic symphysis. Sagittal and coronal reformatted images were obtained on the technologist's workstation. This CT examination was performed using dose optimization techniques as appropriate, variously including the following: *Automated exposure control *Adjustment of mA and/or kV according to patient size (this includes techniques or standardized protocols for targeted exams where dose is matched to indication/reason for exam; i.e. extremities or head) *Use of iterative reconstruction technique FINDINGS: LUNG BASES: The visualized lung bases are unremarkable. LIVER, GALLBLADDER, AND BILIARY TREE: Right lobe measures 17.5 cm. Hepatic steatosis.. No focal hepatic lesion or biliary ductal dilatation is present. The gallbladder is unremarkable with no evidence of radiopaque gallstones, gallbladder wall thickening, or obvious pericholecystic inflammatory changes. PANCREAS: Unremarkable. SPLEEN: Unremarkable. ADRENAL GLANDS: Unremarkable. KIDNEYS AND URETERS: No suspicious renal lesions. No ureteral or renal calculi. No hydronephrosis. BLADDER: Partially distended. No calculi. GASTROINTESTINAL TRACT: Stomach is mildly distended, limiting evaluation. Nonobstructive bowel gas pattern. Large colon nondistended. No pericolonic inflammatory changes identified. Appendix is unremarkable. PERITONEUM: No ascites. No pneumoperitoneum. No fluid collections. No mesenteric edema/inflammatory changes identified. ABDOMINAL WALL: Supraumbilical midline ventral abdominal wall hernia. The neck of the hernia measures approximately 2.7 cm transverse, 3.5 cm craniocaudal.There is a small loop of the transverse colon herniating into the anterior abdominal wall fat. Mild haziness/stranding in the anterior abdominal wall fat. There is haziness, edema/stranding in the posterior subcutaneous tissues. LYMPH NODES: No pathologically enlarged lymph nodes are identified. VASCULAR: Aorta is of normal caliber. PELVIC VISCERA: IUD present in the uterus. No suspicious adnexal findings identified by CT. OSSEOUS STRUCTURES: Multilevel mild thoracolumbar spondylosis. CT/CT abdomen pelvis wo IV con IMPRESSION: * Supraumbilical midline anterior abdominal wall hernia with a neck of approximately 2.7 x 3.5 cm. Small loop of the transverse colon is herniating into the anterior abdominal wall fat. Mild stranding/inflammatory changes. * No evidence of bowel obstruction. * Hepatomegaly. Hepatic steatosis. * Additional findings as above. Fleischner guidelines were followed. Electronically signed by: Sergo Mercado MD 10/07/2025 01:19 PM JUSTEN
--- OUTSIDE RECORDS SUMMARY | 2025-10-05 07:57 | XMS_ITS | Encounter Summary ---
Author Organization [employer] Address [address] [facility] [address] [place] [address] Care Team Providers Care Scanning Tech Name Role Phone Margarita Adams MD Primary Care Provider +- [phone] Pearl Galicia PharmD Unavailable [phone] Dillon Maldonado MD Unavailable [phone] Reason for Visit * Reason Comments Med Refill Encounter Details Date Type Department Care Team (Late st Contact Info) Description 11/02/2023 Refill [facility] [address] [place] [address] Catalino Bruce FNP Mood disorder (CMS/HCC) Social [...] Progress Patient-Stated? Author Smoking cessation General No Piers-Gamblatanya e, Pearl, PharmD documented as of this encounter Visit Diagnoses Diagnosis Mood disorder (CMS/HCC) Unspecified episodic mood disorder documented in this encounter Additional Health Concerns Assessment Noted Time PHQ-9 Depression Total Score: 3 08/22/20 23 1:58 PM EDT documented as of this encounter Care Teams Scanning Tech Relationship Specialty Start Date End Date Margarita Adams MD [address] [place] [address] PCP - General Family Medicine 11/28/18 Pearl Galicia, ShirleyD [address] [place] [phone] Pharmacist Internal Medicine 03/03/23 Dillon Maldonado MD [address] [place] [phone] Gastroenterology 07/10/25 documented as of this encounter
--- OUTSIDE RECORDS SUMMARY | 2025-10-05 07:58 | XMS_ITS | Encounter Summary ---
Author Organization [employer] Address [address] [facility] 7 [place] [address] Care Team Providers Care Full Charge Bookkeeper Name Role Phone Margarita Adams MD Primary Care Provider +- [phone] Pearl Galicia PharmD Unavailable [phone] Dillon Maldonado MD Unavailable [phone] Reason for Visit * Reason Onset Date Comments Med Refill 06/12/2025 Encounter Details Date Type Department Care Team (Late st Contact Info) Description 06/12/2025 Refill [facility] [address] [place], [place] [phone] Margarita Adams MD [address] [place], [place] [phone] Mood disorder (CMS/HCC) Social History Tobacco Use [...] documented as of this encounter Care Teams Full Charge Bookkeeper Relationship Specialty Start Date End Date Margarita Adams MD [address] [place] [address] PCP - General Family Medicine 11/28/18 Pearl Galicia, PharmD [address] [place] [address] Pharmacist Internal Medicine 03/03/23 Dillon Maldonado MD [address] [place] [address] Gastroenterology 07/10/25 documented as of this encounter
--- OUTSIDE RECORDS SUMMARY | 2025-10-05 07:58 | XMS_ITS | Encounter Summary ---
Author Organization [employer] Address [address] [place] [address] [place], [place] [address] Care Team Providers Care Case Maker Name Role Phone Margarita Adams MD Primary Care Provider +- [phone] Pearl Galicia PharmD Unavailable [phone] Dillon Maldonado MD Unavailable [phone] Reason for Visit * Reason Comments Med Refill Encounter Details Date Type Department Care Team (Late st Contact Info) Description 01/02/2024 Refill [facility] MEDICINE [address] [place] [address] Catalino Bruce FNP Mood disorder (CMS/HCC) Social [...] documented as of this encounter Care Teams Case Maker Relationship Specialty Start Date End Date Margarita Adams MD [address] [place] [phone] PCP - General Family Medicine 11/28/18 Pearl Galicia, ShirleyD [address] [place] [phone] Pharmacist Internal Medicine 03/03/23 Dillon Maldonado MD [address] [place] [address] Gastroenterology 07/10/25 documented as of this encounter
--- OUTSIDE RECORDS SUMMARY | 2025-10-05 07:58 | XMS_ITS | Clinical Summary ---
Author Organization [facility] ity Address [address] [place] [address] Care Team Providers Care Truck Driver Heavy Name Role Phone Margarita Adams MD Primary Care Provider [phone]- [phone] Surgical History Surgery Date Site/Laterality Comments SECTION PROCEDURE: MS DELIVERY ONLY KNEE SURGERY PROCEDURE: HISTORICAL KNEE [...] 5 season) 2025 Influenza Vaccine (#1) 2025 RSV Immunization Adult Patie nts (1 - 1-dose 75+ series) 2054 HIB Vaccines Aged Out No longer eligi [...] age to complete this topic Care Teams Truck Driver Heavy Relationship Specialty Start Date End Date Margarita Adams MD [address] [place] [phone] PCP - General Internal Medicine 08/26/20
--- OUTSIDE RECORDS SUMMARY | 2025-10-05 07:58 | XMS_ITS | Encounter Summary ---
Author Organization [employer] Address [address] [facility] 7 [place] [address] Care Team Providers Care Food Beverage Server Name Role Phone Margarita Adams MD Primary Care Provider +- [phone] Pearl Galicia PharmD Unavailable [phone] Dillon Maldonado MD Unavailable [phone] Reason for Visit * Reason Comments Med Refill Encounter Details Date Type Department Care Team (Late st Contact Info) Description 02/20/2024 Refill [facility] [address] [place] [address] Catalino Bruce FNP Mood disorder ([facility]) Social History Tobacco Use Types Packs/Day Years [...] as of this encounter Care Teams Food Beverage Server Relationship Specialty Start Date End Date Margarita Adams MD [address] [place] [phone] PCP - General Family Medicine 11/28/18 Pearl Galicia, ShirleyD [address] [place] [phone] Pharmacist Internal Medicine 03/03/23 Dillon Maldonado MD [address] [place] [address] Gastroenterology 07/10/25 documented as of this encounter
--- OUTSIDE RECORDS SUMMARY | 2025-10-05 07:58 | XMS_ITS | Clinical Summary ---
Author Organization [employer] Address [address] [facility] 7t [place] [address] Care Team Providers Care Home Care Physical Therapist Name Role Phone Margarita Adams MD Primary Care Provider +- [phone] Pearl Galicia PharmD Unavailable [phone]- [phone] Dillon Maldonado MD Unavailable +-[phone] Allergies No known active allergies Medications * [...] complication, without long-term current use of insulin ([facility]) 1 each Once per day. Use to check blood sugar daily 1 kit 03/19/20 25 Active glucose blood (FREESTYLE LITE) test stripIndication s:Type 2 diabetes mellitus without complication, without long-term current use of insulin (HCC) Use to check blood sugar daily. Dx diabetes 30 each 03/19/20 25 Active Lancets miscIndications :Type 2 diabetes mellitus without complication, without long-term current use of insulin (HCC) Use to check blood sugar daily 30 each 03/19/20 25 Active Alcohol Swabs (Alcohol Prep) padsIndications :Type 2 diabetes mellitus without complication, without long-term current use of insulin ([facility]) Use to clean skin prior to checking blood sugar daily 30 each 03/19/20 25 Active cholecalciferol (Vitamin D-3) 50 MCG (2000 UT) capsuleIndicati ons:Vitamin D deficiency Take 1 capsule (50 mcg) by mouth Once per day. 90 capsule 3 05/01/20 25 026 Active semaglutide (Ozempic, 1 MG/DOSE,) 4 MG/3ML solution pen-injectorInd ications:Type 2 diabetes mellitus without complication, without long-term current use of insulin ([facility]) Inject 1 mg under the skin 1 (one) time per week. 1 each 06/19/20 25 Active gabapentin (Neurontin) 300 MG capsuleIndicati ons:Mood disorder (CMS/HCC) Take 1 capsule (300 mg) by mouth every 6 (six) hours during the day. 90 capsule 09/17/20 25 Active zolpidem (Ambien) 10 MG tabletIndicatio ns:Mood disorder (CMS/HCC) TAKE 1 TABLET BY MOUTH AT BEDTIME NEEDED FOR SLEEP 30 tablet 09/17/20 25 Active gabapentin (Neurontin) 300 MG capsuleIndicati ons:Mood disorder (CMS/HCC) TAKE 1 CAPSULE BY MOUTH THREE TIMES A DAY 90 capsule 08/14/20 25 025 Discontinued(Re order (will not trigger notification to Pharmacy)) zolpidem (Ambien) 10 MG tabletIndicatio ns:Mood disorder (CMS/HCC) TAKE 1 TABLET BY MOUTH AT BEDTIME NEEDED FOR SLEEP 30 tablet 08/19/20 25 025 Discontinued(Re order (will not trigger notification to Pharmacy)) Active [...] long-term current use of insulin 03/19/2025 Overview (09/26/2025): Diagnosed 03/19/25 with A1c 6.7 Lab Results [...] daily started 05/01/25, having diarrhea and nausea. Assessment & Plan (09/26/2025 11:47 AM EDT): Diagnosed 03/19/25 with A1c 6.7 [...] daily started 05/01/25, having diarrhea and nausea. Orders: Albumin, Random Urine W/Creatinine; Future Basic Metabolic Panel; Future Hemoglobin A1c; Future Assessment & Plan (06/19/2025 4:40 PM EDT): [...] 45.0 to 49.9 in adult 03/15/2025 Overview (09/26/2025): Baseline weight: 269 lbs -given BMI >30kg/m2 [...] upset stomach. -will trial ozempic again 06/19/25 Advised to contact weight management. Assessment & Plan (09/26/2025 11:47 AM EDT): Baseline weight: 269 lbs -given [...] upset stomach. -will trial ozempic again 06/19/25 Advised to contact weight management. Assessment & Plan (06/19/2025 4:40 PM EDT): [...] again heavy. She will follow up with [facility] for Mirena. Repeat on 09/18 Hgb 10.8 has f/u with [facility] for menses control. Lab Results Component Value [...] again heavy. She will follow up with [facility] for Mirena. Repeat on 09/18 Hgb 10.8 has f/u with [facility] for menses control. Lab Results Component Value [...] (normal 60-77) Lab Results Component Value Date HRGQ33IZTER 14.1 (L) 03/15/2025 -recent labs 03/01/25 significant vitamin D deficiency, will get labs in chart. -start ergocalciferol (Vitamin D2) 1.25 MG (07353 UT) 03/15/25 -changed to 2000 units daily 05/01/25 Assessment & Plan (05/01/2025 9:59 AM EDT): 08/31/22 Vitamin D was 15. PTH elevated at 89 (normal 60-77) Lab Results Component Value Date VGPQ33COCDE 14.1 (L) 03/15/2025 -recent labs 03/01/25 significant vitamin D deficiency, will get labs in chart. -start ergocalciferol (Vitamin D2) 1.25 MG (24468 UT) 03/15/25 -changed to 2000 units daily 05/01/25 Assessment & Plan (03/15/2025 11:11 AM EDT): 08/31/22 Vitamin D was 15. PTH elevated at 89 (normal 60-77) -recent labs 03/01/25 significant vitamin D deficiency, will get labs in chart. -start ergocalciferol (Vitamin D2) 1.25 MG (95952 UT) 03/15/25 Mood disorder 01/03/2023 Overview (03/15/2025): [...] 1.5 tablets (7.5 mg) daily. -Referred to [employer] [facility] 03/15/25 Assessment & Plan (05/01/2024 12:30 PM [...] medication management. Any issues or concerns contact [facility]. All her questions were [...] depression. Still with anxiety. Given info about [facility] Mindfulness Mondays, and she [...] this, and she will go to the [facility] in [place] to access services. Continue current medications: Abilify [...] agrees with the plan. Dyslipidemia 12/24/2022 Overview (09/26/2025): Lab Results Component Value Date CHOL 128 06/18/2025 CHOL 208 (H) 03/15/2025 TRIG 139 06/18/2025 TRIG 122 03/15/2025 HDL 31 (L) 06/18/2025 HDL 34 (L) 03/15/2025 LDLCHOLCAL 70 06/18/2025 LDLCHOLCAL 150 (H) 03/15/2025 -continue lifestyle modification -recent labs 03/01/25 showed improved cholesterol, elevated triglycerides, working on getting labs in chart 03/15/25 -atorvastatin 20mg started 03/19/25 due to new dx type 2 diabetes Assessment & Plan (09/26/2025 11:47 AM EDT): Lab Results Component Value Date CHOL 128 06/18/2025 CHOL 208 (H) 03/15/2025 TRIG 139 06/18/2025 TRIG 122 03/15/2025 HDL 31 (L) 06/18/2025 HDL 34 (L) 03/15/2025 LDLCHOLCAL 70 06/18/2025 LDLCHOLCAL 150 (H) 03/15/2025 -continue lifestyle modification [...] TSH 03/15/25 Moderate persistent asthma 12/24/2022 Overview (09/26/2025): Asthma improved but not well controlled. 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 -have a 20 pack-year smoking history. -currently smoke cigarettes or quit within the past 15 years. -LDCT: Assessment & Plan (09/26/2025 11:47 AM EDT): Assessment & Plan (03/15/2025 11:11 AM EDT): -Cigg/day: 4 cigarettes/day -Age started: 17 -Total years smoking: -Pack year history: Encouraged smoking cessation resources such as pharmacomtherapy, [facility] smoking cessation group, and [facility] pharmacy smoking cessation clinic [...] Encounters Date Type Department Care Team Description 09/26/2025 11:30 AM EDT Telemedicine [facility] MEDICINE [address] [place] [phone] Margarita Adams MD Dyslipidemia (Primary Dx); Tobacco dependence syndrome; Class 3 severe obesity due to excess calories with serious comorbidity and body mass index (BMI) of 45.0 to 49.9 in adult ([facility]); Type 2 diabetes mellitus without complication, without long-term current use of insulin ([facility]); Moderate persistent asthma, unspecified whether complicated 09/26/2025 Travel 09/25/2025 Telephone [facility] MEDICINE [address] [place] [address] [phone] Margarita Adams MD chart prep 09/16/2025 Refill [facility] MEDICINE [address] [place] [address] Margarita Adams MD Mood disorder ([facility]) 08/18/2025 Refill [facility] MEDICINE [address] [place] [phone] Margarita Adams MD Mood disorder ([facility]) 08/13/2025 Refill [facility] MEDICINE [address] [place] [phone] Margarita Adams MD Mood disorder ([facility]) 07/15/2025 Refill [facility] MEDICINE [address] [place] [phone] Margarita Adams MD Mood disorder ([facility]) 07/11/2025 Refill [facility] MEDICINE [address] [place] [phone] Kelvin Trinidad MD Mood disorder ([facility]) 07/08/2025 Telephone [facility] MEDICINE [address] [place] [phone] Margarita Adams MD 07/08/2025 Travel from Last 3 Months Immunizations Immunization Administration [...] 05/01/2025 9:48 AM EDT Plan of Treatment Health Maintenance [...] Pap Smear 04/07/2026 04/07/2023, 07/01/2020 Lipid Panel 06/18/2026 06/18/2025, 02/26, 08/14/2021, Additional history exists Tobacco Screening 09/26/2026 09/26/2025 Mammogram 05/07/2027 05/07/2025, 08/28, 07/14/2020 Cervical Cancer [...] Procedure Name Priority Date/Time Associated Diagnosis Comments HEMOGLOBIN A1C Routine 06/18/2025 9:03 AM EDT Type 2 diabetes mellitus without complication, without long-term current use of insulin ([facility]) LIPID PANEL, STANDARD Routine 06/18/2025 9:03 AM EDT Dyslipidemia HM COLONOSCOPY Routine 06/18/2025 BI MAMMOGRAM SCREENING [...] Recently Relevant to Health Maintenance Results * (ABNORMAL) Hemoglobin A1c (06/18/2025 9:03 AM EDT) Hemoglobin A1c 6.9(H) <6.0 % [facility] Comment:Hemoglobin A1C Refer ence Range Adults: 4.8 - 6.0 % Non diabetic: < 6.0 % Goal: < 7.0 %Additional Action Suggested: > 8.0 %Note: Hemoglobin A1c results are invalid for patients with abnormal amounts of HbF. Blood transfusions may impact the HbA1c concentration in the patient sample. Estimated Average Glucose 151 mg/dL [facility] Comment:eAG = Estimated ave rage glucose which is %A1C expressed asaverage glucose, using the formula of the I9P-JdghzteFrjiphh Glucose study (ADAG), Diabetes Care, Vol.31,#8,Jun. 2007 Blood Venous blood specimen / Unknown 06/18/2025 9:03 AM EDT 06/18/2025 9:03 AM EDT us Margarita Adams MD LAB BLOOD ORDERABLES Final Result [facility] [address] [place] [phone] * (ABNORMAL) Lipid Panel, Standard (06/18/2025 9:03 AM EDT) Triglycerides 139 <150 mg/dL [facility] Comment:Desirable Triglyceri de: less than 150 mg/dLBorderline High Triglyceride 150-199 mg/dLHigh Triglyceride: 200-499 mg/dLVery High Triglyceride: greater than or equal to 5OO mg/dL Cholesterol 128 <200 mg/dL [facility] Comment:Desirable Cholestero l: less than 200 mg/dLBorderline High Cholesterol: 200-239 mg/dLHigh Cholesterol: greater than 239 mg/dL LDL Cholesterol Calculated 70 <100 mg/dL [facility] Comment:Desirable LDL: less than 100 mg/dLNear Optimal/Above Optimal LDL: 110- 129 mg/dLBorderline High LDL: 130-159 mg/dLHigh LDL: 160-189 mg/dLVery High LDL: greater than or equal to 190 mg/dL HDL Cholesterol 31(L) >40 mg/dL [facility] Comment:Desirable HDL: great er than 40 mg/dL Note: This HDL assay may give artificially low results in patients with liver disease. Blood Venous blood specimen / Unknown 06/18/2025 9:03 AM EDT 06/18/2025 9:03 AM EDT Margarita Adams MD LAB BLOOD ORDERABLES Final Result [facility] [address] [place] [phone] * (ABNORMAL) Hm Colonoscopy (06/18/2025) Colonoscopy Abnormal( A) Normal Comment:hyperplastic polyp w ith Dr. Maldonado Historical Provider HEALTH MAINTENANCE Final Result * BI Mammogram Screening Tomosynthesis Bilateral (05/07/2025 3:30 PM EDT) Anatomical Region Laterality Modality Breast Bilateral Mammography 05/07/2025 3:30 PM EDT Narrative 05/14/2025 5:57 PM EDT [facility] [address] [place] [address] Mammography Report Signed Patient: Anabel Silva MR#: [id number] 6 : 1980 Acct:[id number] Age/Sex: 45 / F ADM Date: 05/07/25 Loc: HO.MAMMO Attending Dr: Margarita Adams MD Ordering Physician: Margarita Adams MD Results: 1N egative Date of Service: 05/07/25 Follow Up: 1 Year From Orig inal Mammogram Procedure(s): MM tomosynthesis screening BI Accession Number(s): [id number] cc: Margarita Adams MD EXAMINATION: MM SCREENING [...] 05/14/25 1754 DD/ 1530 TD/TT: 05/07/25 1548 [facility] Cook: Procedure Note Donotuseinterpreter, Image - 05/14/2025 [facility] [address] [place], [place] [address] Mammography Report Signed Patient: Anabel Silva MMR#: [id number] 6 : 1980Acct:[id number] Age/Sex: 45 / FADM Date: 05/07/25 Loc: HO.MAMMO Attending Dr: Margarita Adams MD Ordering Physician: Margarita Adams MDResults: 1N egative Date of Service: 05/07/25Follow Up: 1 Year From Orig ina Mammogram Procedure(s): MM tomosynthesis screening BI Accession Number(s): [id number] cc: Margarita Adams MD EXAMINATION: MM SCREENING [...] 05/14/25 1754 DD/ 1530 TD/TT: 05/07/25 1548 [facility] Cook: Margarita Adams MD IMG BI PROCEDURES Final Re sult * Hepatitis C Ab (10/05/2023 4:19 PM EST) Hepatitis C Antibody Nonreactive Nonreactive [facility] Comment:Antibodies to HCV no t detected; does not exclude early acuteHCV infection. 10/05/2023 4:19 PM EST 10/05/2023 4:19 PM EST Generic External Data Provider LAB BLOOD ORDERAB LES Final Result Performing Organization Address City/[facility]/ZIP Co de Phone Number [facility] [address] [place] [phone] [phone] * HIV-1/2 Antigen and Antibodies, Fourth Generation, with Reflexes (10/05/2023 4:19 PM EST) HIV AB/AG Nonreactive Nonreactive [facility] Comment:HIV-1 p24 Ag and/or HIV-1/HIV-2 Ab not detected.A test result that is nonreactive does not exclude thepossibility of exposure to or infection with HIV-1 and/orHIV-2. Nonreactive results in this assay for individualswith prior exposure to HIV-1 and/or HIV-2 may be due toantigen and antibody levels that are below the limit ofdetection of this assay.The Rocket ReliefniDelectable HIV Ag/Ab Combo assay result andsupplemental assay results should be interpreted inconjunction with the patient's clinical presentation,history and other laboratory results. If the results areinconsistent with clinical evidence, additional testing issuggested to confirm the result. 10/05/2023 4:19 PM EST 10/05/2023 4:19 PM EST Generic External Data Provider LAB BLOOD ORDERAB LES Final Result Performing Organization Address [facility]/ZIP Co de Phone Number [facility] [address] [place] [phone] [phone] * HPV mRNA E6/E7 w/Reflex to HPV Genotypes 16, 18/45 (04/07/2023 12:16 PM EDT) HPV nRNA E6/E7 Not Detected Not Detected [facility] Comment:Methodology: Transcr iption-Mediated AmplificationThis assay detects E6/E7 viral messenger RNA (mRNA) from 14high-risk HPV types (16,18,31,33,35,39,45,51,52,56,58,59,66,68).Cervical sources are required for HPV testing.If a vaginal source from a patient who has had atotal hysterectomy with removal of cervix wassubmitted, please contact the testing laboratoryfor alternative testing options.For additional information, please refer tohttp://education.[email or web address] [email or web address]/[email or web address](This link if provided for information/educational purposes only.)THIS TEST WAS PERFORMED AT:[facility] [place] [phone] LAKHANI MD HPV mRNA E6/E7 TNP [facility] HPV 16 RNA TNP [facility] HPV 18/45 RNA TNP [facility] 04/07/2023 12:1 6 PM EDT 04/08/2023 9:15 AM EDT [facility] External Provider LAB CYT OLOGY ORDERABLES Final Result Performing Organization Address City/State/[facility] Co de Phone Number [facility] [address] [place] [phone] * Pap Smear (04/07/2023 12:16 PM EDT) 04/07/2023 12:1 6 PM EDT 04/08/2023 9:15 AM EDT Narrative [facility] - 04/13/2023 3:15 PM EDT ----- ------- Name: ShiraAnabel Mir Age/Sex: 42/F : 1980 Unit#: [id number] Attend Dr: Layla Whitlock CNM Re04/07/23 Status: DEP REF Location: [facility] Disch: ----- ------- SPEC : [id number] RECD: 04/08/23 STATUS: JOSÉ HAIDER NUM: [id number] LUIS: 04/07/23 [facility] ENTERED: 04/08/23 SP TYPE: Pap Smr OTHR [...] 59, 66, 68) HPV testing performed by [employer], [place], [place]. See reference laboratory pion of the EMR for entire report. Clinical Information LMP: Unknown Previous PAP test: Unknown, WNL Material Received ThinPrep-Cervical Copies To: Margarita Adams MD [address] [place] [address] [address] ----- ------- Signed (signature on file) MATILDA Adhikari (ASC) 04/13/23 1515 ----- ------- END OF REPORT [facility] External Provider LAB CYT OLOGY ORDERABLES Final Result [facility] [address] [place] [address] [phone] * MICROALBUMIN, RANDOM (07/02/2021 3:00 PM EDT) Creatinine Urine 184.09 mg/dL [facility] Microalbum/Creati nine Ratio Ur 15.2 ug/mg cr [facility] Comment: Albumin/Creatinine Ratio Reference Ranges: Normal: < 30 ug/mg creatinine Microalbuminuria: 30 - 300 ug/mg creatinine Clinical Albuminuria: > 300 ug/mg creatinine Microalbumin Urine 28.0 mg/L [facility] 07/02/2021 3:00 PM EDT Margarita Adams MD HISTORICAL/NON ORDERABLE L ABS Final Result Performing Organization Address City/[facility] Co de Phone Number [facility] [address] from Last 3 Months or Most Recently Relevant to Health Maintenance Insurance BCBS OUT OF STATE Advance Directives Documents on File Type Date Recorded Patient Gardening Supervisor Expl anation Advance Directives and Living Will 03/20/2025 Health Care Proxy 03/15/25 Care Teams Home Care Physical Therapist Relationship Specialty Start Date End Date Angie, MD Margarita [address] [place] [phone] PCP - General Family Medicine 11/28/18 Pearl Galicia, ShirleyD [address] [place] [address] [phone] Pharmacist Internal Medicine 03/03/23 Dillon Maldonado MD [address] [place] [phone] Gastroenterology 07/10/25
--- OUTSIDE RECORDS SUMMARY | 2025-10-05 07:58 | XMS_ITS | Encounter Summary ---
Author Organization [employer] Address [address] [facility] [address] [place] [address] Care Team Providers Care Area Field Manager Name Role Phone Margarita Adams MD Primary Care Provider +- [phone] Pearl Galicia PharmD Unavailable [phone] Dillon Maldonado MD Unavailable [phone] Reason for Visit * Reason Comments Med Refill Encounter Details Date Type Department Care Team (Late st Contact Info) Description 03/18/2023 Refill [facility] MEDICINE [address] [place] [address] Catalino Bruce FNP Mood disorder (CMS/HCC) Social [...] documented as of this encounter Care Teams Area Field Manager Relationship Specialty Start Date End Date Margarita Adams MD [address] [place] [phone] PCP - General Family Medicine 11/28/18 Pearl Galicia PharmD [address] [place] [phone] Pharmacist Internal Medicine 03/03/23 Dillon Maldonado MD [address] [place] [phone] Gastroenterology 07/10/25 documented as of this encounter
--- OUTSIDE RECORDS SUMMARY | 2025-10-05 07:58 | XMS_ITS | Patient Health Record ---
Author Organization [facility] Address [address] [place] [address] Care Team Providers Care Assurance Associate Name Role Phone Margarita Adams MD Primary Care Provider Oneyda vailable Dillon Maldonado Jr Unavailable [phone] Allergies No Known Allergies Results Component Value Reference Range Notes Ur Preg Test Reviewed date:06/18/2025 02:26:21 PM Interpretation: Performing Lab:[facility], [address] [place] [id number] Notes/Report: Urine NEGATIVE NEGATIVE This test was developed to detect early . False negative results may occur after the 5th - 7th week of when using this test method. If clinically indicated, consider a serum hCG. Glucose, Whole Blood Reviewed date:06/18/2025 02:26:13 PM Interpretation: Performing Lab:[facility], [address] [place] [id number] Notes/Report: Glucose, Whole Blood 130 60-115 mg/dL METER # : [id number] Pathology Reviewed date:06/20/2025 09:09:05 AM Interpretation: Performing Lab:[facility], [address] [place] [phone] Notes/Report: Reason For Referral Referring Provider First Name Margarita Referring Provider Last Name Angie Referring Provider Speciality Family Med icine Referred Organization [facility] Referred Provider Dillon Maldonado Jr Referred Address [address] [facility],[place], [place],[address], Referred Provider Specialty Gastroentero logy General Notes Pau Huber 2024 12:41:57 PM greater thanpt currently has [employer] and health safety net. I spoke with the patient and [facility] and [facility] a [facility] prior to her appt with Dr. Maldonado on 02-21-2025. She will notify us of this., Pau Huber 02/13/2025 02:42:02 PM greater thanINFORMED PT AGAIN THAT SHE NEEDS TO CHOOSE A PLAN OR WE CAN NOT SEE HER . SHE HAS [employer] AND NEEDS TO ENROLL IN A PLAN, Pau Huber 02/19/2025 08:35:17 AM Pt states she will have [employer] on 02-26-25 and rescheduled her appt to the end of April Referral Priority Routine Reason ventral hernia Referral Organization [facility] Referring Provider First Name Dillon Referring Provider Last Name Joel Weber Referring Provider Speciality Gastroente rology Referred Provider Ray Cook Referred Provider Specialty Surgery Referral Priority Routine Referral Appointment Date 07/03/2025 Medications Medication SIG (Take, Route, Frequency, Duration) Notes Start Date End Date Status Vitamin D3 50 MCG (1999 UT) TAKE 1 CAPSU LE (50 MCG) BY MOUTH ONCE PER DAY. Oral; Duration: 90 Days Active metFORMIN HCl 500 MG TAKE 1 TABLET (500 MG) BY MOUTH ONCE PER DAY. Oral; Duration: 90 Days Active Atorvastatin Calcium 20 MG TAKE 1 TABLET (20 MG) BY MOUTH ONCE PER DAY. Oral; Duration: 90 Days Active ARIPiprazole 5 MG TAKE 1.5 TABLETS (7. 5 MG) BY MOUTH ONCE PER DAY. Oral; Duration: 90 Days Active Omeprazole 40 MG 1 capsule 30 minutes before morning meal Orally Once a day; Duration: 30 day(s) 07/02/2021 Active Zolpidem Tartrate 10 MG TAKE 1 TABLET BY MOUTH AT BEDTIME NEEDED FOR SLEEP Oral; Duration: 30 Days Active Vitamin D 50 MCG (1999 UT) 1 tablet Oral ly Once a day Active Gabapentin 100 MG Oral; Duration: 30 Active Immunizations Vaccine Route Administration Date Status [...] Problem Screening for malignant neoplasm of colon (761097153) Encounter for screening for malignant neoplasm of colon (Z12.11) Active confirmed Problem Gastroesophageal reflux disease without esophagitis (102771122) Gastroesophageal reflux disease without esophagitis (K21.9) Active confirmed Problem Gastritis (0306785) Gastritis (K29.70) Active c onfirmed Problem Abdominal pain (48866376) Abdominal cramps (R10.9) Active confirmed Problem Gastroesophageal reflux disease (980159151) GERD (gastroesophageal reflux disease) (K21.9) Active confirmed Vital Signs Temperature 98.6 degrees Fahrenheit 05/27/2025 Blood pressure diastolic 01 mm Hg 05/27/2025 Height 63 in 05/27/2025 Blood pressure systolic 001 mm Hg 05/27/2025 Weight 273 lbs 05/27/2025 BMI 48.35 kg/m2 05/27/2025 Encounters Encounter Location Date Provider Diagnosis [facility] [address] [place] [id number] 06/18/2025 Dillon Maldonado Jr [facility] [address] [place] [phone] 05/27/2025 Dillon Maldonado Jr Gastroesophageal reflux disease without esophagitis K21.9 ; Encounter for screening for malignant neoplasm of colon Z12.11 and Abdominal cramps R10.9 [facility] [address] [place] [phone] 05/27/2025 Dillon Maldonado Jr [facility] [address] [place] [phone] 06/20/2025 Dillon Maldonado Jr Assessments Encounter Date [...] Start Date Coverage End Date [place] [address] [place] [address] [id number] JOQUIN, DJ Self - patient is the insured [facility] [address] [address] [place], [place] [id number] JD HESTER Self - patient is the insured Medical (General) History Medical History History ICD Code Hypothyroid asthma anemia Menorrhagia Depression Hyperlipidemia Diabetes mellitus type 2 Opiate dependence EDMUND/CPAP Surgical History Surgery Date(Month/Year) D&C 07/2020 section 1992,1993,1995,2004 right knee/ 4 pins /plate
--- OUTSIDE RECORDS SUMMARY | 2025-10-05 07:58 | XMS_ITS | Encounter Summary ---
Author Organization [employer] Address [address] [facility] 7t [place] [address] Care Team Providers Care Agriculture Professor Name Role Phone Margarita Adams MD Primary Care Provider +- [phone] Pearl Galicia PharmD Unavailable Dillon Maldonado MD Unavailable [phone] Encounter Details Date Type Department Care Team (Late st Contact Info) Description 12/14/2022 Abstract [facility] MED[facility] [address] [place], [place] [phone] Margarita Adams MD [address] [place], [place] [phone] Social History Tobacco Use Types Packs/Day Years [...] L ORDERABLES Final Result Performing Organization Address City/[facility]/ZIP Co de Phone Number IMAGING * Pap Smear (07/01/2020 12:00 AM EDT) Swab Historical Provider LAB CYTOLOGY ORDERABLES F inal Result Performing Organization Address City/[facility]/ZIP Co de Phone Number IMAGING documented in this encounter Visit Diagnoses Not on filedocumented in this encounter Care Teams Agriculture Professor Relationship Specialty Start Date End Date Margarita Adams MD [address] [place] [id number] PCP - General Family Medicine 11/28/18 Pearl Galicia, PharmD [address] [place] [phone] Pharmacist Internal Medicine 03/03/23 Dillon Maldonado MD [address] [place] [phone] Gastroenterology 07/10/25 documented as of this encounter
--- OUTSIDE RECORDS SUMMARY | 2025-10-05 07:58 | XMS_ITS | Encounter Summary ---
Author Organization [employer] Address [address] [place] [address], [place] [address] Care Team Providers Care Disc Pad Plate Filler Name Role Phone Margarita Adams MD Primary Care Provider +- [phone] Pearl Galicia PharmD Unavailable [phone] Dillon Maldonado MD Unavailable [phone] Reason for Visit * Reason Onset Date Comments Med Refill 12/31/2024 Encounter Details Date Type Department Care Team (Late st Contact Info) Description 12/31/2024 Refill [facility] MEDICINE [address] [place], [place] [phone] Talia Gonzalez MD [address] [place], [place] [phone] Mood disorder (CMS/HCC) Social History Tobacco Use [...] documented as of this encounter Care Teams Disc Pad Plate Filler Relationship Specialty Start Date End Date Margarita Adams MD [address] [place] [phone] PCP - General Family Medicine 11/28/18 Pearl Galicia, ShirleyD [address] [place] [phone] Pharmacist Internal Medicine 03/03/23 Dillon Maldonado MD [address] [place] [phone] Gastroenterology 07/10/25 documented as of this encounter
--- OUTSIDE RECORDS SUMMARY | 2025-10-05 07:58 | XMS_ITS | Encounter Summary ---
Author Organization [employer] Address [address] [facility] [address] [place] [address] Care Team Providers Care Thread Roller Name Role Phone Margarita Adams MD Primary Care Provider +- [phone] Pearl Galicia PharmD Unavailable [phone] Dillon Maldonado MD Unavailable [phone] Encounter Details Date Type Department Care Team (Late st Contact Info) Description 10/28/2022 Abstract [facility] [address] [place] [address] Margarita Adams MD [address] [place] [address] Social History Tobacco Use Types Packs/Day Years [...] on filedocumented in this encounter Care Teams Thread Roller Relationship Specialty Start Date End Date Margarita Adams MD [address] [place] [id number] PCP - General Family Medicine 11/28/18 Pearl Galicia, ShirleyD [address] [place] [phone] Pharmacist Internal Medicine 03/03/23 Dillon Maldonado MD [address] [place] [phone] Gastroenterology 07/10/25 documented as of this encounter
== END 2025-10-05 07:55 | disposition home or self-care (01) ==
LOC: HO.CT 07:54
PROVIDERS: PCP Family Medicine; Visit Provider Surgery
DX: K46.9 Unspecified abdominal hernia without obstruction or gangrene (principal)
CPT/HCPCS: 74176

== ENCOUNTER → 2025-10-05 07:56 | Outpatient (BNV) | payer BC, SELFPAY | PROVIDERS: PCP Family Medicine; Visit Provider Radiology Diagnostic Ultrasound | DX: K76.0 Fatty (change of) liver, not elsewhere classified (principal); K46.9 Unspecified abdominal hernia without obstruction or gangrene; R16.0 Hepatomegaly, not elsewhere classified | CPT/HCPCS: 74176 ==

== ENCOUNTER 2025-10-14 14:06 | Outpatient (AMB) | payer BC, SELFPAY ==
[2025-10-14 14:16] VITALS: BP 122/74; BMI 47.6
--- NOTE | 2025-10-14 14:16 | MHC.OFFVIS ---
Vital Signs 10/14/25 14:16 Height 5 ft 3 in Weight 269 lb BMI 47.6 BP 122/74 Intake Visit Reasons: PUMPMAN annual exam Intake Note: c/o of vaginal odor and uti symptoms International Controller Required: No Information Interpreted: non-clinical & clinical Instructor Of Spanish: Instructor Of Spanish Present ([employer]) Accompanied by: Self / Same As Patient Allergies No Known Allergies Allergy (Verified 10/14/25 14:21) Is last menstrual period known: No (mirena) HPI Comments Details: Presenting for annual exam. Complaining of vaginal odor and urinary frequency Last Pap/HPV was negative in 04/19 Last Mammogram was BI-RADS 1 in 05/22 Last colonoscopy was in 06/21, the recommendation was to repeat in 10 years according to the patient [facility] Medical History Recurrent abdominal hernia Hypothyroid Methadone maintenance therapy patient IBS (irritable bowel syndrome) GERD (gastroesophageal reflux disease) Epigastric hernia Smoking COPD (chronic obstructive pulmonary disease) EDMUND (obstructive sleep apnea) Morbid obesity Depression Iron deficiency anemia Asthma Surgical History Hx of hernia repair History of ventral hernia repair Hx of dilation and curettage History of esophagogastroduodenoscopy (EGD) H/O tubal ligation H/O right knee surgery Previous section Family History Mother Breast cancer Diabetes Thyroid condition Maternal Grandmother Hypertension Father No problems noted. Son Asthma Son No problems noted. Daughter No problems noted. Daughter No problems noted. Social History Household Members: Family Housing: Apartment Are you a primary resident care spec to a significant other at home: No Do you presently have visiting nurse or other home services: No Alcohol intake: never Patient Tobacco Use Status: Current everyday Tobacco user Tobacco use type: Cigarette Cigarette Packs Per Day: 0.25 Cigarettes Per Day: 5 Years Smoked: 20 Substance Use Type: Marijuana Special yasmeen needs: No Agree to transfusion: No Female Reproductive History Menstrual Age of Menarche: 9 control method: progestin IUCD and permanent sterilization Date of last pap smear: 04/08/23 Date of Mammogram: 05/07/25 Review of Systems Const All systems reviewed & are unremarkable except as noted in HPI and below Card Reports as per HPI Resp Reports as per HPI GI Reports as per HPI and Reports no additional complaints Reports as per HPI Physical Exam Vital Signs: Last Vital Signs BP 122/74 10/14/25 14:16 BMI result Body Mass Index 47.6 Const General: cooperative, healthy appearing and comfortable Chest Chest palpation & inspection: normal inspection of the chest and normal palpation of entire chest wall Breast/axilla inspection: normal inspection of the breasts and normal inspection of the axillae Breast/axilla palpation: normal palpation of the breasts, normal palpation of the axillae and no axillary lymphadenopathy Resp Effort & Inspection: normal respiratory effort Auscultation: clear to auscultation bilaterally Percussion: percussion normal Cardio Palpation: normal PMI Rate: regular rate Rhythm: regular rhythm Heart sounds: no murmurs and no rubs Peripheral pulses: Peripheral pulses 2+ throughout GI Inspection: Yes normal to inspection Palpation (GI): Soft to palpation, nontender, no guarding, not rigid and No hepatosplenomegaly present Percussion: Yes normal to percussion Auscultation: normal bowel sounds Rectal Exam - Female: deferred General: Yes bladder normal to palpation External Female Exam: No lesion Speculum Exam - Vagina: normal appearance of the vagina, normal palpation, normal vaginal discharge and not erythematous Speculum Exam - Cervix: normal appearance of the cervix and normal palpation Bimanual exam- vagina & uterus: normal bimanual exam, normal palpation, uterine size normal, bladder normal to palpation, consistency normal and normal palpation Bimanual Exam- Adnexa, other: normal adnexae, no masses and no tenderness Assessment & Plan Assessment & Plan (1) Well woman exam: Code(s): Z01.419 - Encounter for gynecological examination (general) (routine) without abnormal findings Category: Medical Plan: Cotesting not indicated this year. Instructions given the patient to schedule next screening Mammogram in 05/22. Counseled the patient about the recommended dietary allowance of 1000 mg of Calcium & 600 IU of vitamin D. The patient was instructed to perform monthly self-breast exams and to schedule an annual exam in a year; All questions answered and the patient verbalized understanding. Instructed the patient to schedule annual exam in a year (2) Bacterial vaginosis: Code(s): N76.0 - Acute vaginitis; B96.89 - Other specified bacterial agents as the cause of diseases classified elsewhere Category: Medical Plan: GC and chlamydia cultures with BV panel taken. Per CDC recommendation, will screen for STI, HepBs Ag, HIV, RPR, Hep C Ab ordered. Will treat with Flagyl 500 mg p.o. b.i.d. x 7 days, Instructions given to the patient to refrain from sexual activity or to use condoms consistently and correctly during the BV treatment regimen, not to douch, it might increase the risk for relapse, and to call if symptoms persist or recur. (3) Microscopic hematuria: Code(s): R31.29 - Other microscopic hematuria Category: Medical Plan: Urine dip showed microscopic hematuria, urine culture sent. Will repeat urine dip in 2 weeks. Discussed with the patient the possible causes of microscopic hematuria including but not limited to: interstitial cystitis, polyps, stones, masses, urethral inflammatory processes and others. If Urine Culture is negative and repeat urine dip in 2 weeks shows persistent microscopic hematuria, will proceed with CT abdomen/pelvis and urology referral. Instructions given the patient to schedule a 2 week urine dip follow-up appointment. All questions answered and the patient verbalized understanding. Orders: Orders Urine Culture Today N39.0 - Urinary tract infection, site not specified Hepatitis B Surface Antigen Today B96.89 - Other specified bacterial agents as the cause of diseases classified elsewhere, N76.0 - Acute vaginitis Hepatitis C Antibody Today B96.89 - Other specified bacterial agents as the cause of diseases classified elsewhere, N76.0 - Acute vaginitis HIV Ab/Ag Today B96.89 - Other specified bacterial agents as the cause of diseases classified elsewhere, N76.0 - Acute vaginitis Syphilis Screen Today B96.89 - Other specified bacterial agents as the cause of diseases classified elsewhere, N76.0 - Acute vaginitis Medications: New metronidazole 500 mg PO BID 14 tabs 0RF 7 days Coding Level of Care Code Est Pt Level 3 (48633) Est Pt Prev Care 40-64y(34996) Diagnoses Well woman exam Z01.419 Bacterial vaginosis N76.0; B96.89 Microscopic hematuria R31.29
== END 2025-10-14 15:40 | disposition home or self-care (01) ==
LOC: HO.HWS 14:07
PROVIDERS: PCP Family Medicine; Visit Provider Obstetrics & Gynecology
DX: Z01.419 Encounter for gynecological examination (general) (routine) without abnormal findings (principal); N76.0 Acute vaginitis; B96.89 Other specified bacterial agents as the cause of diseases classified elsewhere; R31.29 Other microscopic hematuria
CPT/HCPCS: 99213; 99396; 99459

== ENCOUNTER 2025-10-14 14:06 | Outpatient (REF) | payer BC, SELFPAY ==
[2025-10-14 16:42] LABS: Bacterial Vaginosis PCR POSITIVE (Negative); Candida Group PCR NOT DETECTED (Not Detect); Candida glab krusei PCR NOT DETECTED (Not Detect); Trichomonas vaginalis PCR NOT DETECTED (Not Detect)
[2025-10-14 17:13] LABS: CT PCR NOT DETECTED (Not Detect.); NG PCR NOT DETECTED (Not Detect.)
[2025-10-15 07:55] LABS: HBsAGNum1 0.70 S/CO (0.00-0.99); HIV Num 1 0.17 S/CO (0.00-0.99); Hepatitis B Surface Antigen Negative (Negative); ~HepC Num1 0.10 S/CO (0.00-0.79); ~Hepatitis C Antibody Nonreactive (Nonreactive)
[2025-10-15 08:31] LABS: Syphilis Screen Nonreactive (Nonreactive)
== END 2025-10-14 14:07 | disposition home or self-care (01) ==
LOC: HO.LNP 14:06
PROVIDERS: PCP Family Medicine; Visit Provider Obstetrics & Gynecology
DX: Z01.419 Encounter for gynecological examination (general) (routine) without abnormal findings (principal); N76.0 Acute vaginitis; N39.0 Urinary tract infection, site not specified; B96.89 Other specified bacterial agents as the cause of diseases classified elsewhere; Z98.51 Tubal ligation status; Z11.59 Encounter for screening for other viral diseases; Z11.4 Encounter for screening for human immunodeficiency virus [HIV]
CPT/HCPCS: 81002; 81515; 86780; 86803; 87086; 87088; 87186; 87340; 87389; 87491; 87591

== ENCOUNTER 2025-10-14 14:53 | Outpatient (REF) | payer BC, SELFPAY | END 2025-10-14 14:54 | disposition home or self-care (01) | LOC: HO.LAB 14:53 | PROVIDERS: PCP Family Medicine; Visit Provider Obstetrics & Gynecology | DX: Z13.89 Encounter for screening for other disorder (principal) ==

== ENCOUNTER 2025-10-30 09:52 | Outpatient (AMB) | payer BC, SELFPAY ==
--- NOTE | 2025-10-30 09:54 | A.OFFVIS_ITS ---
Vital Signs 10/30/25 09:54 Height 5 ft 3 in Intake Visit Reasons: CT Abdomen Pelvis Results Intake Note: Patient presents for Ct-Scan results. Pt c/o; no changes. DI: 10/05/2025: Abd/pelvis CT Senior Design Engineer Required: No Accompanied by: Self / Same As Patient Allergies No Known Allergies Allergy (Verified 10/30/25 09:58) HPI HPI CT Abdomen Pelvis Results: Details: 45 year female here for a ventral hernia. She actually had a repair of an epigastric hernia with mesh in 2020. She had been doing well since that time. However, for the past several months, she has been noticing this mass again same area. This seemed to be more protuberant with physical exertion. She otherwise denies significant GI complaints She is morbidly obese and says that she had gained some weight the past few years. She is also a smoker and has a diagnosis of COPD. I had sent her for a CAT scan because of the hernia and she is here to discuss this. She has no new complaints since I last saw her in the office. [facility] Medical History Recurrent abdominal hernia Hypothyroid Methadone maintenance therapy patient IBS (irritable bowel syndrome) GERD (gastroesophageal reflux disease) Epigastric hernia Smoking COPD (chronic obstructive pulmonary disease) EDMUND (obstructive sleep apnea) Morbid obesity Depression Iron deficiency anemia Asthma Surgical History Hx of hernia repair History of ventral hernia repair Hx of dilation and curettage History of esophagogastroduodenoscopy (EGD) H/O tubal ligation H/O right knee surgery Previous section Family History Mother Breast cancer Diabetes Thyroid condition Maternal Grandmother Hypertension Father No problems noted. Son Asthma Son No problems noted. Daughter No problems noted. Daughter No problems noted. Social History Household Members: Family Housing: Apartment Are you a primary day care center director to a significant other at home: No Do you presently have visiting nurse or other home services: No Alcohol intake: never Patient Tobacco Use Status: Current everyday Tobacco user Tobacco use type: Cigarette Cigarette Packs Per Day: 0.25 Cigarettes Per Day: 5 Years Smoked: 20 Substance Use Type: Marijuana Special yasmeen needs: No Agree to transfusion: No Female Reproductive History Menstrual Age of Menarche: 9 Review of Systems Const Denies chills and Denies fever(s) Card Denies chest pain, Denies dyspnea and Denies dyspnea on exertion Resp Denies cough, Denies dyspnea and Denies dyspnea on exertion GI Denies hematochezia and Denies change in bowel habits Denies hematuria Musc Denies back pain and Denies limited range of motion Neuro Denies focal weakness and Denies convulsions Psych Denies depression and Denies mood swings Physical Exam Const General: comfortable and no acute distress Nutritional Appearance: obese Orientation/consciousness: patient oriented x3 Neck Neck: Yes no lymphadenopathy Resp Auscultation: clear to auscultation bilaterally Cardio Rhythm: regular rhythm GI Other: Obese abdomen with note of a hernia noted with Valsalva on the epigastric area just above the umbilicus. This seems to be at a lower level than the previous hernia repair. Palpation (GI): Soft to palpation, nontender and no guarding Neuro General: patient oriented x3 Assessment & Plan Assessment & Plan (1) Epigastric hernia: Code(s): K43.9 - Ventral hernia without obstruction or gangrene Category: Medical Plan: Review of her CAT scan shows this fascial defect, about 3 cm in diameter, in the epigastric area. This seems to be lower than the previous hernia repair done in 2020 . This hernia contains non obstructive bowel loops I explained to her the technique of repair of this epigastric hernia with mesh. I reviewed the risks including but not limited to bleeding, infections, bowel injury, recurrence, postop pain, as well as the benefits and alternatives. I explained to her what to expect postoperatively. She does have morbid obesity and diabetes so she understands that her perioperative risks are higher than average She wants to proceed has given consent. Coding Level of Care Code Est Pt Level 4 (35041) Diagnoses Epigastric hernia K43.9
--- OUTSIDE RECORDS SUMMARY | 2025-10-30 11:08 | XMS_ITS | Encounter Summary ---
Author Organization [employer] Address [address] [place] [address] [address] [place] [address] Care Team Providers Care Ship Carpenter Name Role Phone Margarita Adams MD Primary Care Provider + [phone] Pearl Galicia PharmD Unavailable [phone] Dillon Maldonado MD Unavailable [phone] Bib Lacey MD Unavailable Reason for Visit * Reason Comments Med Refill Encounter Details Date Type Department Care Team (Late st Contact Info) Description 02/20/2024 Refill [facility] MED & PEDS [address] [place] [address] Catalino Bruce FNP Mood disorder (CMS/FORMERLY [facility]) Social History Tobacco Use Types Packs/Day Years [...] documented as of this encounter Care Teams Ship Carpenter Relationship Specialty Start Date End Date Margarita Adams MD [address] [place] [address] PCP - General Family Medicine 11/28/18 Pearl Galicia, PharmD [address] [place] [address] Pharmacist Internal Medicine 03/03/23 Dillon Maldonado MD [address] [place] [address] Gastroenterology 07/10/25 Bib Lacey MD [address] [address] Obstetrics and Gynecology 10/15/25 documented as of this encounter
--- OUTSIDE RECORDS SUMMARY | 2025-10-30 11:08 | XMS_ITS | Encounter Summary ---
Author Organization [employer] Address [address] [facility] 7 [place] [address] Care Team Providers Care Biscuit Factory Worker Name Role Phone Margarita Adams MD Primary Care Provider + [phone] Pearl Galicia PharmD Unavailable Dillon Maldonado MD Unavailable +[phone] Bib Lacey MD Unavailable Reason for Visit * Reason Onset Date Comments Med Refill 06/12/2025 Encounter Details Date Type Department Care Team (Late st Contact Info) Description 06/12/[address] [facility] MEDICINE [address] [place], [place] [phone] Margarita Adams MD 230 [place], [place] [phone] Mood disorder (CMS/HCC) Social History Tobacco Use [...] documented as of this encounter Care Teams Biscuit Factory Worker Relationship Specialty Start Date End Date Margarita Adams MD 230 [place] [address] PCP - General Family Medicine 11/28/18 Pearl Galicia, PharmD 230 [place] [address] Pharmacist Internal Medicine 03/03/23 Dillon Maldonado MD 10 [place] [address] Gastroenterology 07/10/25 Bib Lacey MD [address] [address] Obstetrics and Gynecology 10/15/25 documented as of this encounter
--- OUTSIDE RECORDS SUMMARY | 2025-10-30 11:08 | XMS_ITS | Encounter Summary ---
Author Organization [employer] Address [address] [facility] 7 [place] [address] Care Team Providers Care Welder Pipe Making Name Role Phone Margarita Adams MD Primary Care Provider + [phone] Pearl Galicia PharmD Unavailable [phone] Dillon Maldonado MD Unavailable [phone] Bib Lacey MD Unavailable Reason for Visit * Reason Comments Med Refill Encounter Details Date Type Department Care Team (Late st Contact Info) Description 11/02/2023 Refill [facility] MED & PEDS [address] [place] [address] Catalino Bruce FNP Mood disorder (CMS/HCC) Social [...] documented as of this encounter Care Teams Welder Pipe Making Relationship Specialty Start Date End Date Margarita Adams MD [address] [place] [address] PCP - General Family Medicine 11/28/18 Pearl Galicia, ShirleyD [address] [place] [address] Pharmacist Internal Medicine 03/03/23 Dillon Maldonado MD [address] [place] [address] Gastroenterology 07/10/25 Bib Lacey MD [address] [place] [address] Obstetrics and Gynecology 10/15/25 documented as of this encounter
--- OUTSIDE RECORDS SUMMARY | 2025-10-30 11:08 | XMS_ITS | Encounter Summary ---
Author Organization [employer] Address [address] [facility] 7t [place] [address] Care Team Providers Care Sports Broadcaster Name Role Phone Margarita Adams MD Primary Care Provider + [phone] Pearl Galicia PharmD Unavailable [phone] Dillon Maldonado MD Unavailable [phone] Bib Lacey MD Unavailable Encounter Details Date Type Department Care Team (Late st Contact Info) Description 12/14/2022 Abstract [facility] MEDICINE 230 [place] [address] Margarita Adams MD 230 [place], [place] [phone] Social History Tobacco Use Types Packs/Day Years [...] on filedocumented in this encounter Care Teams Sports Broadcaster Relationship Specialty Start Date End Date Margarita Adams MD 230 [place] [address] PCP - General Family Medicine 11/28/18 Pearl Galicia, ShirleyD [address] [place] [address] Pharmacist Internal Medicine 03/03/23 Dillon Maldonado MD [address] [place] [address] Gastroenterology 07/10/25 Bib Lacey MD [address] [place] [address] Obstetrics and Gynecology 10/15/25 documented as of this encounter
--- OUTSIDE RECORDS SUMMARY | 2025-10-30 11:08 | XMS_ITS | Encounter Summary ---
Author Organization [employer] Address [address] [facility] 7 [place] [address] Care Team Providers Care Collarette Separator Name Role Phone Margarita Adams MD Primary Care Provider +- [phone] Pearl Galicia PharmD Unavailable [phone] Dillon Maldonado MD Unavailable [phone] Bib Lacey MD Unavailable Reason for Visit * Reason Comments Med Refill Encounter Details Date Type Department Care Team (Late st Contact Info) Description 03/18/2023 Refill [facility] MEDICINE [address] [place] [address] Catalino Bruce FNP Mood disorder (CMS/HCC) Social [...] documented as of this encounter Care Teams Collarette Separator Relationship Specialty Start Date End Date Margarita Adams MD 230 [place] [address] PCP - General Family Medicine 11/28/18 Pearl Galicia, PharmD [address] [place] [address] Pharmacist Internal Medicine 03/03/23 Dillon Maldonado MD [address] [place] [address] Gastroenterology 07/10/25 Bib Lacey MD [address] [address] Obstetrics and Gynecology 10/15/25 documented as of this encounter
--- OUTSIDE RECORDS SUMMARY | 2025-10-30 11:08 | XMS_ITS | Encounter Summary ---
Author Organization [employer] Address [address] [place] [address] [address] [address] Care Team Providers Care Hotel Assistant General Manager Name Role Phone Margarita Adams MD Primary Care Provider + [phone] Pearl Galicia PharmD Unavailable Dillon Maldonado MD Unavailable [phone] Bib Lacey MD Unavailable Reason for Visit * Reason Onset Date Comments Med Refill 12/31/2024 Encounter Details Date Type Department Care Team (Late st Contact Info) Description 12/31/[address] [facility] MEDICINE [address] [place], [place] [phone] Talia Gonzalez MD [address] [place], [place] [phone] Mood disorder (CMS/HCC) Social History Tobacco Use [...] documented as of this encounter Care Teams Hotel Assistant General Manager Relationship Specialty Start Date End Date Margarita Adams MD [address] [place] [address] PCP - General Family Medicine 11/28/18 Pearl Galicia, ShirleyD [address] [place] [address] Pharmacist Internal Medicine 03/03/23 Dillon Maldonado MD [address] [place] [address] Gastroenterology 07/10/25 Bib Lacey MD [address] [place] [address] Obstetrics and Gynecology 10/15/25 documented as of this encounter
--- OUTSIDE RECORDS SUMMARY | 2025-10-30 11:08 | XMS_ITS | Encounter Summary ---
Author Organization [employer] Address 75 [facility] 7 [place] [address] Care Team Providers Care Resident Physician Name Role Phone Margarita Adams MD Primary Care Provider + [phone] Pearl Galicia PharmD Unavailable Dillon Maldonado MD Unavailable [phone] Bib Lacey MD Unavailable Reason for Visit * Reason Onset Date Comments Med Refill 10/26/2025 Encounter Details Date Type Department Care Team (Late st Contact Info) Description 10/26/2025 Refill [facility] [address] [place], [place] [phone] Margarita Adams MD 230 [place], [place] [phone] Type 2 diabetes mellitus without complication, without long-term current use of insulin (HCC); Mood disorder (CMS/HCC) Social History Tobacco Use [...] Patient-Stated? Author Smoking cessation General No Pearl Galicia PharmD Help patients manage their type 2 diabetes Care Plan Help patients manage their type 2 diabetes Abbey Meyers [place] Patient has chronic kidney disease Care Plan Patient has chronic kidney disease Abbey Meyers [place] Patient has chronic kidney disease Care Plan Patient has chronic kidney disease No Margarita Adams MD Patient has chronic kidney disease Care Plan Patient has chronic kidney disease No Stephie Lee documented as of this encounter Visit Diagnoses Diagnosis Type 2 diabetes mellitus without complication, without long-term current use of insulin (HCC) Mood disorder (CMS/HCC) Unspecified episodic mood disorder documented in this encounter Additional Health Concerns Active Problems Noted Date Diagnosed Date Help patients manage their type 2 diabetes 10/14 Patient has chronic kidney disease 10/14/2025 Patient has chronic kidney disease 10/15/2025 Patient has chronic kidney disease 10/15/2025 Assessment Noted Time PHQ-9 Depression Total Score: 15 025 3:00 PM EDT documented as of this encounter Care Teams Resident Physician Relationship Specialty Start Date End Date Margarita Adams MD [address] [place] [address] PCP - General Family Medicine 11/28/18 Pearl Galicia PharmD [address] [place] [address] Pharmacist Internal Medicine 03/03/23 Dillon Maldonado MD [address] [place] [address] Gastroenterology 07/10/25 Bib Lacey MD [address] [place] [address] Obstetrics and Gynecology 10/15/25 documented as of this encounter
--- OUTSIDE RECORDS SUMMARY | 2025-10-30 11:08 | XMS_ITS | Clinical Summary ---
Author Organization [employer] Address [address] [place] [address] Care Team Providers Care Cardiac Monitor Technician Name Role Phone Margarita Adams MD Primary Care Provider [phone]- [phone] Pearl Galicia PharmD Unavailable Dillon Maldonado MD Unavailable [phone] Bib Lacey MD Unavailable Allergies No known active allergies Medications [...] by mouth Once per day. 30 tablet 03/19/20 25 026 Active Blood Glucose Monitoring Suppl (FreeStyle Lite) w/Device kitIndications: Type 2 diabetes mellitus without complication, without long-term current use of insulin ([facility]) 1 each Once per day. Use to check blood sugar daily 1 kit 03/19/20 25 Active glucose blood (FREESTYLE LITE) test stripIndication s:Type 2 diabetes mellitus without complication, without long-term current use of insulin (HCC) Use to check blood sugar daily. Dx diabetes 30 each 03/19/20 25 Active Lancets miscIndications :Type 2 diabetes mellitus without complication, without long-term current use of insulin ([facility]) Use to check blood sugar daily 30 each 03/19/20 25 Active Alcohol Swabs (Alcohol Prep) padsIndications :Type 2 diabetes mellitus without complication, without long-term current use of insulin ([facility]) Use to clean skin prior to checking blood sugar daily 30 each 03/19/20 25 Active cholecalciferol (Vitamin D-3) 50 MCG (2000 UT) capsuleIndicati ons:Vitamin D deficiency Take 1 capsule (50 mcg) by mouth Once per day. 90 capsule 3 05/01/20 25 026 Active clotrimazole (Lotrimin) 1 % cream Apply topically 2 times daily for 28 days. 30 g 1 10/14/20 25 025 Active semaglutide (Ozempic, 1 MG/DOSE,) 4 MG/3ML solution pen-injectorInd ications:Type 2 diabetes mellitus without complication, without long-term current use of insulin ([facility]) INJECT 1 MG UNDER THE SKIN ONCE A WEEK 1 each 10/28/20 25 Active gabapentin (Neurontin) 300 MG capsuleIndicati ons:Mood disorder (CMS/HCC) TAKE 1 CAPSULE BY MOUTH EVERY 6 HOURS DURING THE DAY 90 capsule 10/28/20 25 Active zolpidem (Ambien) 10 MG tabletIndicatio ns:Mood disorder (CMS/HCC) TAKE 1 TABLET BY MOUTH AT BEDTIME NEEDED FOR SLEEP 30 tablet 10/28/20 25 Active semaglutide (Ozempic, 1 MG/DOSE,) 4 MG/3ML solution pen-injectorInd ications:Type 2 diabetes mellitus without complication, without long-term current use of insulin (HCC) Inject 1 mg under the skin 1 (one) time per week. 1 each 06/19/20 025 Discontinued(Re order (will not trigger notification to Pharmacy)) gabapentin (Neurontin) 300 MG capsuleIndicati ons:Mood disorder (CMS/HCC) Take 1 capsule (300 mg) by mouth every 6 (six) hours during the day. 90 capsule 09/17/20 025 Discontinued(Re order (will not trigger notification to Pharmacy)) zolpidem (Ambien) 10 MG tabletIndicatio ns:Mood disorder (CMS/HCC) TAKE 1 TABLET BY MOUTH AT BEDTIME NEEDED FOR SLEEP 30 tablet 09/17/20 025 Discontinued(Re order (will not trigger notification to Pharmacy)) Active Problems Problem Noted Date Diagnosed Date Tinea pedis of left foot 10/14/2025 Assessment & Plan (10/14/2025 1:54 PM EST): - On interdigital area, with ulceration. - Continue cleaning affected area with warm water and baking soda BID. - Apply topical clotrimazole + desitin cream to the lesion twice daily. Maintain area clean and dry. - Referred to regulator assembler for toenail care and further management. Avoid pedicures until evaluated by regulator assembler. Generalized anxiety disorder 04/17/2025 Assessment & Plan [...] again heavy. She will follow up with [facility] for Mirena. Repeat on 09/18 Hgb 10.8 has f/u with [facility] for menses control. Lab Results Component Value [...] again heavy. She will follow up with [facility] for Mirena. Repeat on 09/18 Hgb 10.8 has f/u with [facility] for menses control. Lab Results Component Value [...] (normal 60-77) Lab Results Component Value Date [id number] 14.1 (L) 03/15/2025 -recent labs 03/01/25 significant vitamin D deficiency, will get labs in chart. -start ergocalciferol (Vitamin D2) 1.25 MG (61248 UT) 03/15/25 -changed to 2000 units daily 05/01/25 Assessment & Plan (05/01/2025 9:59 AM EDT): 08/31/22 Vitamin D was 15. PTH elevated at 89 (normal 60-77) Lab Results Component Value Date [id number] 14.1 (L) 03/15/2025 -recent labs 03/01/25 significant vitamin D deficiency, will get labs in chart. -start ergocalciferol (Vitamin D2) 1.25 MG (87033 UT) 03/15/25 -changed to 2000 units daily 05/01/25 Assessment & Plan (03/15/2025 11:11 AM EDT): 08/31/22 Vitamin D was 15. PTH elevated at 89 (normal 60-77) -recent labs 03/01/25 significant vitamin D deficiency, will get labs in chart. -start ergocalciferol (Vitamin D2) 1.25 MG (89633 UT) 03/15/25 Mood disorder 01/03/2023 Overview (03/15/2025): Symptoms have suggested BP 2, rather than unipolar depression. Doing OK, but with increased anxiety and sleep maintenance insomnia. -On Gabapentin 300 mg TID. Increase to Zolpidem 10 mg at bedtime as needed, avoid taking every night to maintain efficacy. -Restart Abilify 5 mg to take 1.5 tablets (7.5 mg) daily. -Referred to [facility] 03/15/25 Assessment & Plan (03/15/2025 11:25 AM EDT): Symptoms have suggested BP 2, rather than unipolar depression. Doing OK, but with increased anxiety and sleep maintenance insomnia. -On Gabapentin 300 mg TID. Increase to Zolpidem 10 mg at bedtime as needed, avoid taking every night to maintain efficacy. -Restart Abilify 5 mg to take 1.5 tablets (7.5 mg) daily. -Referred to [facility] 03/15/25 Assessment & Plan (05/01/2024 12:30 [...] medication management. Any issues or concerns contact [facility]. All her questions were answered and [...] depression. Still with anxiety. Given info about [facility] Mindfulness Mondays, and she is interested [...] this, and she will go to the [facility] in [place] to access services. Continue current medications: Abilify [...] as pharmacomtherapy, [facility] smoking cessation [facility], and [facility] pharmacy smoking cessation clinic Discussed USPSTF [...] as pharmacomtherapy, [facility] smoking cessation group, and [facility] pharmacy smoking cessation clinic Discussed USPSTF recommends annual lung cancer screening with low dose CT in people who meet the following criteria: -ages 50 to 80 years. -have a 20 pack-year smoking history. -currently smoke cigarettes or quit within the past 15 years. -LDCT: Resolved Problems Problem Noted Date Diagnosed Date Resolved Date Dietary counseling 03/15/2025 5 Assessment & Plan (03/15/2025 11:16 AM EDT): [...] Encounters Date Type Department Care Team Description 10/26/2025 Refill [facility] [address] [place] [phone] Margarita Adams MD Type 2 diabetes mellitus without complication, without long-term current use of insulin ([facility]); Mood disorder ([facility]) 10/15/2025 Results [facility] [address] [address] Margarita Adams MD Bacterial Vaginosis, Chlamydia/N. Gonorrhoeae RNA, TMA, Urogenitial, Hepatitis C Ab, Additional followed-up results: 4 10/14/2025 1:20 PM EST Office Visit [facility] [address] [address] Kemi Cerrato MD Tinea pedis of left foot (Primary Dx) 10/14/2025 Orders Only GENERIC EXTERNAL DATA DEPARTMENT Provider, Generic External Data 10/14/2025 Travel 10/05/2025 Orders Only [facility] External Provider, [facility] 09/26/2025 11:30 AM EDT Telemedicine [address] [address] Margarita Adams MD Dyslipidemia (Primary Dx); Tobacco dependence syndrome; Class 3 severe obesity due to excess calories with serious comorbidity and body mass index (BMI) of 45.0 to 49.9 in adult (HCC); Type 2 diabetes mellitus without complication, without long-term current use of insulin (HCC); Moderate persistent asthma, unspecified whether complicated 09/26/2025 Travel 09/25/2025 Telephone [facility] [address] [place] [phone] Margarita Adams MD chart prep 09/16/2025 Refill [facility] [address] [place] [phone] Margarita Adams MD Mood disorder ([facility]) 08/18/2025 Refill [facility] [address] [place] [phone] Margarita Adams MD Mood disorder ([facility]) 08/13/2025 Refill [facility] [address] [place] [address] Margarita Adams MD Mood disorder ([facility]) from Last 3 Months Immunizations Immunization Administration [...] Sign Reading Time Taken Comments Blood Pressure 139/83 10/14/2025 1:09 PM EST Pulse 75 10/14/2025 1:09 PM EST Temperature 35.6 C (96.1 F) 10/14/2025 1:09 PM EST Respiratory Rate 20 10/14/2025 1:09 PM EST Oxygen Saturation 97% 05/01/2025 9:48 AM EDT Inhaled Oxygen Concentration - - Weight 120 kg (264 lb 6.4 oz) 10/14/2025 1:09 PM EST Height 160 cm (5' 3 ) 10/14/2025 1:09 PM EST Body Mass Index 46.84 10/14/2025 1:09 PM EST Plan of Treatment Health Maintenance Due Date Last Done Comments CT Colonography 1979 FIT DNA/Cologuard 1979 FIT 1979 FOBT 1979 Sigmoidoscopy 1979 Eye Exam 1989 Diabetes: Urine Protein Screening 07/02/2022 07/02/2021, 01/27/2021, 06/12/2020 COVID-19 Vaccine ( season) 2025 10/28/2022, 11/26/2021, 02/24/2021, Additional history exists Depression Monitoring 10/18/2025 04/17/2025, 025 Diabetes: Hemoglobin A1C 12/19/2025 025, 05/01/2025, 03/15/2025, Additional history exists Alcohol/Substance Use Screening 03/15/2026 03/15/2025 Disability Screening 03/15/2026 03/15/2025 Family Planning (PISQ) 03/15/2026 03/15/2025 SDOH Screening 03/15/2026 03/15/2025 Pap Smear 04/07/2026 04/07/2023, 07/01/2020 Lipid Panel 06/18/2026 06/18/2025, 02/26, 08/14/2021, Additional history exists Diabetes: Foot Exam 10/14/2026 10/14/2025, 10/14/2025, 10/14/2025, Additional history exists Tobacco Screening 10/14/2026 10/14/2025 Mammogram 05/07/2027 05/07/2025, 08/28, 07/14/2020 Cervical Cancer [...] Completed 06/01/2023, 01/11/2023, 12/01/2022, Additional history exists Pneumococcal Vaccine: Pediatrics (0 to 5 Years) and At-Risk Patients (6 to 49) Years Completed 05/01/2025, 09/04/2015, 05/27/2012 Influenza Vaccine Completed 09/26/2025, , 09/02/2022, Additional history exists HIV Screening Completed 10/14/2025, 10/05/2023 Hepatitis C Screening Completed 10/14/2025, 023 HIB Vaccines Aged Out No longer eligi [...] Patient-Stated? Author Smoking cessation General No Pearl Galicia, PharmD Help patients manage their type 2 diabetes Care Plan Help patients manage their type 2 diabetes Abbey Meyers MA Patient has chronic kidney disease Care Plan Patient has chronic kidney disease Abbey Meyers MA Patient has chronic kidney disease Care Plan Patient has chronic kidney disease No Margarita Adams MD Patient has chronic kidney disease Care Plan Patient has chronic kidney disease Stephie Malhotra Procedures Procedure Name Priority Date/Time Associated Diagnosis Comments SYPHILIS SCREEN Routine 10/14/2025 3:11 PM EST HEPATITIS B SURFACE ANTIGEN, EIA Routine 10/14/2025 3:11 PM EST HIV 1/2 ANTIGEN/ANTIBODY, FOURTH GENERATION W/RFL Routine 10/14/2025 3:11 PM EST HEPATITIS C ANTIBODY Routine 10/14/2025 3:11 PM EST CULTURE, URINE, ROUTINE Routine 10/14/2025 3:07 PM EST CULTURE, URINE, ROUTINE Routine 10/14/2025 2:06 PM EST CHLAMYDIA/N. GONORRHOEAE RNA, TMA, UROGENITAL Routine 10/14/2025 2:06 PM EST BACTERIAL VAGINOSIS PANEL Routine 10/14/2025 2:[address] ABDOMEN PELVIS WO CONTRAST Routine 10/05/2025 8:17 AM EST HEMOGLOBIN A1C Routine 06/18/2025 9:03 AM EDT Type 2 diabetes mellitus without complication, without long-term current use of insulin ([facility]) LIPID PANEL, STANDARD Routine 06/18/2025 9:03 AM EDT Dyslipidemia HM COLONOSCOPY Routine 06/18/2025 BI MAMMOGRAM SCREENING TOMOSYNTHESIS BILATERAL Routine 05/07/2025 3:30 PM EDT Screening mammogram for breast cancer HPV MRNA E6/E7 REFLEX TO HPV 16, 18/45 Routine 04/07/2023 12:16 PM EDT PAP SMEAR Routine 04/07/2023 12:16 PM EDT ZZZ HISTORICAL MICROALBUMIN, RANDOM Routine 07/02/2021 3:00 PM EDT from Last 3 Months or Most Recently Relevant to Health Maintenance Results * Syphilis Screen (10/14/2025 3:11 PM EST) Syphilis Screen Nonreactive Nonreactive [facility] 10/14/2025 3:11 PM EST 10/14/2025 3:11 PM EST us Generic External Data Provider LAB BLOOD ORDERAB LES Final Result [facility] [address] [place] [address] [phone] * Hepatitis C Ab (10/14/2025 3:11 PM EST) Hepatitis C Antibody Nonreactive Nonreactive [facility] Comment:Antibodies to HCV no t detected; does not exclude early acuteHCV infection. 10/14/2025 3:11 PM EST 10/14/2025 3:11 PM EST Generic External Data Provider LAB BLOOD ORDERAB LES Final Result Performing Organization Address [facility]/ZIP Co de Phone Number [facility] [address] [place] [phone] * Hepatitis B surface antigen, EIA (10/14/2025 3:11 PM EST) Pathologist [facility] Hepatitis B Surface Ag Negative Negative [facility] 10/14/2025 3:11 PM EST 10/14/2025 3:11 PM EST Generic External Data Provider LAB BLOOD ORDERAB LES Final Result Performing Organization Address [facility] de Phone Number [facility] [address] [place] [phone] * HIV-1/2 Antigen and Antibodies, Fourth Generation, with Reflexes (10/14/2025 3:11 PM EST) Pathologist [facility] HIV AB/AG Nonreactive Nonreactive [facility] Comment:HIV-1 p24 Ag and/or HIV-1/HIV-2 Ab not detected.A test result that is nonreactive does not exclude thepossibility of exposure to or infection with HIV-1 and/orHIV-2. Nonreactive results in this assay for individualswith prior exposure to HIV-1 and/or HIV-2 may be due toantigen and antibody levels that are below the limit ofdetection of this assay.The [employer] HIV Ag/Ab Combo assay result andsupplemental assay results should be interpreted inconjunction with the patient's clinical presentation,history and other laboratory results. If the results areinconsistent with clinical evidence, additional testing issuggested to confirm the result. 10/14/2025 3:11 PM EST 10/14/2025 3:11 PM EST Generic External Data Provider LAB BLOOD ORDERAB LES Final Result Performing Organization Address [facility] Co de Phone Number [facility] [address] [place] [phone] * (ABNORMAL) Bacterial Vaginosis (10/14/2025 2:06 PM EST) TRICHOMONAS VAGINALIS DETECTION BY PCR NOT DETECTED Not Detect [facility] BACTERIAL VAGINOSIS DETECTION BY PCR POSITIVE(A) Negative [facility] Comment:The BV organism targ ets of the Xpert Xpress MVP test can becommensal in women; Xpert Xpress MVP positive results forbacterial vaginosis should be considered in conjunction withother clinical and patient information to determine thedisease status. Organisms that are not detected by the XpertXpress MVP test have also been reported to be associatedwith BV and aerobic vaginitis.The Xpert Xpress MVP test performance has not been evaluatedin patients under the age of 14. MARISOL GROUP DETECTION BY PCR NOT DETECTED Not Detect [facility] Marisol glab krusei PCR NOT DETECTED Not Detect [facility] 10/14/2025 2:06 PM EST 10/14/2025 3:12 PM EST e(ye)BRAIN External Data Provider LAB MICROBIOLOGY - GENERAL ORDERABLES Final Result Performing Organization Address [facility] Co de Phone Number [facility] [address] [place] [phone] * Chlamydia/N. Gonorrhoeae RNA, TMA, Urogenitial (10/14/2025 2:06 PM EST) CT PCR NOT DETECTED Not Detect. [facility] Comment:A not detected test result does not exclude the possibilityof infection because test results can be affected byimproper specimen collection, concurrent antibiotic therapy,or the number of organisms in the specimen which may bebelow the sensitivity of the test. As with many diagnostictests, results from the Xpert CT/NG assay should beinterpreted in conjunction with other laboratory andclinical data available to the clinician.Xpert CT/NG performance has not been evaluated in patientsless than 14 years of age. The assay should not be used forthe evaluationof suspected sexual abuse or for other medico-legalindications. Additional testing is recommended in anycircumstance when false positive or false negative resultscould lead to adverse medical, social or psychologicalconsequences. NG PCR NOT DETECTED Not Detect. [facility] Comment:A not detected test result does not exclude the possibilityof infection because test results can be affected byimproper specimen collection, concurrent antibiotic therapy,or the number of organisms in the specimen which may bebelow the sensitivity of the test. As with many diagnostictests, results from the Xpert CT/NG assay should beinterpreted in conjunction with other laboratory andclinical data available to the clinician.Xpert CT/NG performance has not been evaluated in patientsless than 14 years of age. The assay should not be used forthe evaluationof suspected sexual abuse or for other medico-legalindications. Additional testing is recommended in anycircumstance when false positive or false negative resultscould lead to adverse medical, social or psychologicalconsequences. 10/14/2025 2:06 PM EST 10/14/2025 3:12 PM EST us Generic External Data Provider LAB MICROBIOLOGY - GENERAL ORDERABLES Final Result Performing Organization Address City/State/[facility] Co de Phone Number [facility] [address] [place] [phone] * Culture, Urine, Routine (10/14/2025 2:06 PM EST) Urine Urine specimen obtained by clean catch procedure / Unknown 10/14/2025 2:06 PM EST 10/14/2025 3:12 PM EST Comment:UACC Narrative [facility] - 10/16/2025 7:40 AM EST Escherichia coli Quant > 100,000 cfu/mL Escherichia coli: Ampicillin 4(S) Escherichia coli: Cefazolin (Urine) <=1(S) Escherichia coli: Cefepime <=0.12(S) Escherichia coli: Ceftriaxone <=0.25(S) Escherichia coli: Ciprofloxacin <=0.06(S) Escherichia coli: Gentamicin <=1(S) Escherichia coli: Nitrofurantoin 32(S) Escherichia coli: Trimethoprim/Sulfamethoxazole <=20(S) Specimen Source: Urine clean catch us Generic External Data Provider LAB MICROBIOLOGY - GENERAL ORDERABLES Final Result Performing Organization Address City/State/[facility] Co de Phone Number [facility] [address] [place] [phone] * CT Abdomen Pelvis w/o Contrast (10/05/2025 8:17 AM EST) Anatomical Region Laterality Modality Body, Pelvis, Abdomen Computed T omography 10/05/2025 8:17 AM EST Narrative 10/07/2025 1:22 PM EST [address] [address] [address] Scan Report Signed Patient: Anabel Silva MR#: [id number] 6 : 1980 Acct:[id number] Age/Sex: 45 / F ADM Date: 10/05/25 Loc: HO.CT Attending Dr: Ray Cook MD Ordering Physician: Ray Cook MD Date of Service: 10/05/25 Procedure(s): CT abdomen pelvis wo IV con Accession Number(s): [id number] cc: Margarita Adams MD; Ray Cook MD Report Number: [id number]: Total DLP = 710.00 mGy-cm Reason for Exam: K46.9 - Unspecified abdominal hernia without obstruction or gangrene EXAMINATION: CT ABDOMEN AND PELVIS WITHOUT CONTRAST CLINICAL INFORMATION: Abdominal hernia without obstruction COMPARISON: None available. TECHNIQUE: Multidetector volumetric imaging was performed from the superior aspect of the liver through the pubic symphysis. Sagittal and coronal reformatted images were obtained on the technologist's workstation. This CT examination was performed using dose optimization techniques as appropriate, variously including the following: *Automated exposure control *Adjustment of mA and/or kV according to patient size (this includes techniques or standardized protocols for targeted exams where dose is matched to indication/reason for exam; i.e. extremities or head) *Use of iterative reconstruction technique FINDINGS: LUNG BASES: The visualized lung bases are unremarkable. LIVER, GALLBLADDER, AND BILIARY TREE: Right lobe measures 17.5 cm. Hepatic steatosis.. No focal hepatic lesion or biliary ductal dilatation is present. The gallbladder is unremarkable with no evidence of radiopaque gallstones, gallbladder wall thickening, or obvious pericholecystic inflammatory changes. PANCREAS: Unremarkable. SPLEEN: Unremarkable. ADRENAL GLANDS: Unremarkable. KIDNEYS AND URETERS: No suspicious renal lesions. No ureteral or renal calculi. No hydronephrosis. BLADDER: Partially distended. No calculi. GASTROINTESTINAL TRACT: Stomach is mildly distended, limiting evaluation. Nonobstructive bowel gas pattern. Large colon nondistended. No pericolonic inflammatory changes identified. Appendix is unremarkable. PERITONEUM: No ascites. No pneumoperitoneum. No fluid collections. No mesenteric edema/inflammatory changes identified. ABDOMINAL WALL: Supraumbilical midline ventral abdominal wall hernia. The neck of the hernia measures approximately 2.7 cm transverse, 3.5 cm craniocaudal.There is a small loop of the transverse colon herniating into the anterior abdominal wall fat. Mild haziness/stranding in the anterior abdominal wall fat. There is haziness, edema/stranding in the posterior subcutaneous tissues. LYMPH NODES: No pathologically enlarged lymph nodes are identified. VASCULAR: Aorta is of normal caliber. PELVIC VISCERA: IUD present in the uterus. No suspicious adnexal findings identified by CT. OSSEOUS STRUCTURES: Multilevel mild thoracolumbar spondylosis. CT/CT abdomen pelvis wo IV con IMPRESSION: * Supraumbilical midline anterior abdominal wall hernia with a neck of approximately 2.7 x 3.5 cm. Small loop of the transverse colon is herniating into the anterior abdominal wall fat. Mild stranding/inflammatory changes. * No evidence of bowel obstruction. * Hepatomegaly. Hepatic steatosis. * Additional findings as above. Fleischner guidelines were followed. Electronically signed by: Sergo Mercado MD 10/07/2025 01:19 PM [facility] Dictated By: Sergo Mercado MD Signed By: <Electronically signed by Sergo Mercado MD in OV> 10/07/25 1319 DD/ TD/TT: 10/05/2528 [employer]: FREDY Procedure Note Donotuseinterpreter, Image - 10/07/[address] [address] [address] Scan Report Signed Patient: Anabel Silva MMR#: [id number] 6 : 1980Acct:[id number] Age/Sex: 45 / FADM Date: 10/05/25 Loc: HO.CT Attending Dr: Ray Cook MD Ordering Physician: Ray Cook MD Date of Service: 10/05/25 Procedure(s): CT abdomen pelvis wo IV con Accession Number(s): [id number] cc: Margarita Adams MD; Ray Cook MD Report Number: [id number]: Total DLP = 710.00 mGy-cm Reason for Exam: K46.9 - Unspecified abdominal hernia without obstructionor gangrene EXAMINATION: CT ABDOMEN AND PELVIS WITHOUT CONTRAST CLINICAL INFORMATION: Abdominal hernia without obstruction COMPARISON: None available. TECHNIQUE: Multidetector volumetric imaging was performed from the superior aspect of the liver through the pubic symphysis. Sagittal and coronal reformatted images were obtained on the technologist's workstation. This CT examination was performed using dose optimization techniques as appropriate, variously including the following: *Automated exposure control *Adjustment of mA and/or kV according to patient size (this includes techniques or standardized protocols for targeted exams where dose is matched to indication/reason for exam; i.e. extremities or head) *Use of iterative reconstruction technique FINDINGS: LUNG BASES: The visualized lung bases are unremarkable. LIVER, GALLBLADDER, AND BILIARY TREE: Right lobe measures 17.5 cm. Hepatic steatosis.. No focal hepatic lesion or biliary ductal dilatation is present. The gallbladder is unremarkable with no evidence of radiopaque gallstones, gallbladder wall thickening, or obvious pericholecystic inflammatory changes. PANCREAS: Unremarkable. SPLEEN: Unremarkable. ADRENAL GLANDS: Unremarkable. KIDNEYS AND URETERS: No suspicious renal lesions. No ureteral or renal calculi. No hydronephrosis. BLADDER: Partially distended. No calculi. GASTROINTESTINAL TRACT: Stomach is mildly distended, limiting evaluation. Nonobstructive bowel gas pattern. Large colon nondistended. No pericolonic inflammatory changes identified. Appendix is unremarkable. PERITONEUM: No ascites. No pneumoperitoneum. No fluid collections. No mesenteric edema/inflammatory changes identified. ABDOMINAL WALL: Supraumbilical midline ventral abdominal wall hernia. The neck of the hernia measures approximately 2.7 cm transverse, 3.5 cm craniocaudal.There is a small loop of the transverse colon herniating into the anterior abdominal wall fat. Mild haziness/stranding in the anterior abdominal wall fat. There is haziness, edema/stranding in the posterior subcutaneous tissues. LYMPH NODES: No pathologically enlarged lymph nodes are identified. VASCULAR: Aorta is of normal caliber. PELVIC VISCERA: IUD present in the uterus. No suspicious adnexal findings identified by CT. OSSEOUS STRUCTURES: Multilevel mild thoracolumbar spondylosis. CT/CT abdomen pelvis wo IV con IMPRESSION: * Supraumbilical midline anterior abdominal wall hernia with a neck of approximately 2.7 x 3.5 cm. Small loop of the transverse colon is herniating into the anterior abdominal wall fat. Mild stranding/inflammatory changes. * No evidence of bowel obstruction. * Hepatomegaly. Hepatic steatosis. * Additional findings as above. Fleischner guidelines were followed. Electronically signed by: Sergo Mercado MD 10/07/2025 01:19 PM [facility] Dictated By: Sergo Mercado MD Signed By: <Electronically signed by Sergo Mercado MD in OV> 10/07/25 1319 DD/ 0817 TD/TT: 10/05/25 0828 [employer]: FREDY [facility] External Provider IMG CT PROCEDURES Edited Result - Final * (ABNORMAL) Hemoglobin A1c (06/18/2025 9:03 AM EDT) Hemoglobin A1c 6.9(H) <6.0 % [facility] Comment:Hemoglobin A1C Refer ence Range Adults: 4.8 - 6.0 % Non diabetic: < 6.0 % Goal: < 7.0 %Additional Action Suggested: > 8.0 %Note: Hemoglobin A1c results are invalid for patients with abnormal amounts of HbF. Blood transfusions may impact the HbA1c concentration in the patient sample. Estimated Average Glucose 151 mg/dL [facility] Comment:eAG = Estimated ave rage glucose which is %A1C expressed asaverage glucose, using the formula of the K4S-MvzbkyaWghwkhc Glucose study (ADAG), Diabetes Care, Vol.31,#8,Jun. 2007 Blood Venous blood specimen / Unknown 06/18/2025 9:03 AM EDT 06/18/2025 9:03 AM EDT Margarita Adams MD LAB BLOOD ORDERABLES Final Result Performing Organization Address City/[facility] Co de Phone Number [facility] [address] [place] [address] [phone] * (ABNORMAL) Lipid Panel, Standard (06/18/2025 9:03 AM EDT) Triglycerides 139 <150 mg/dL [facility] Comment:Desirable Triglyceri de: less than 150 mg/dLBorderline High Triglyceride 150-199 mg/dLHigh Triglyceride: 200-499 mg/dLVery High Triglyceride: greater than or equal to 5OO mg/dL Cholesterol 128 <200 mg/dL [facility] Comment:Desirable Cholestero l: less than 200 mg/dLBorderline High Cholesterol: 200-239 mg/dLHigh Cholesterol: greater than 239 mg/dL LDL Cholesterol Calculated 70 <100 mg/dL [facility] Comment:Desirable LDL: less than 100 mg/dLNear Optimal/Above Optimal LDL: 110- 129 mg/dLBorderline High LDL: 130-159 mg/dLHigh LDL: 160-189 mg/dLVery High LDL: greater than or equal to 190 mg/dL HDL Cholesterol 31(L) >40 mg/dL [facility] Comment:Desirable HDL: great er than 40 mg/dL Note: This HDL assay may give artificially low results in patients with liver disease. Blood Venous blood specimen / Unknown 06/18/2025 9:03 AM EDT 06/18/2025 9:03 AM EDT Margarita Adams MD LAB BLOOD ORDERABLES Final Result [facility] [address] [place] [address] [phone] * (ABNORMAL) Colonoscopy (06/18/2025) Colonoscopy Abnormal( A) Normal Comment:hyperplastic polyp w ith Dr. Maldonado us Historical Provider HEALTH MAINTENANCE Final Result * BI Mammogram Screening Tomosynthesis Bilateral (05/07/2025 3:30 PM EDT) Anatomical Region Laterality Modality Breast Bilateral Mammography 05/07/2025 3:30 PM EDT Narrative 05/14/2025 5:57 PM EDT [address] [place] [address] Mammography Report Signed Patient: Anabel Silva MR#: [id number] 6 : 1980 Acct:[id number] Age/Sex: 45 / F ADM Date: 05/07/25 Loc: HO.MAMMO Attending Dr: Margarita Adams MD Ordering Physician: Margarita Adams MD Results: 1N egative Date of Service: 05/07/25 Follow Up: 1 Year From [facility] ina Mammogram Procedure(s): MM tomosynthesis screening BI Accession Number(s): [id number] cc: Margarita Adams MD EXAMINATION: MM SCREENING [...] Johnna Osuna DO 05/14/2025 05:54 PM EDT RP Dictated By: Johnna Osuna DO Signed By: <Electronically signed by Johnna Osuna DO in OV> 05/14/25 1754 DD/ 1530 TD/TT: 05/07/25 1548 [employer]: Procedure Note Donotuseinterpreter, Image - 05/14/2025 [facility] [address] [place] [address] Mammography Report Signed Patient: Anabel Silva MMR#: [id number] 6 : 1980Acct:[id number] Age/Sex: 45 / FADM Date: 05/07/25 Loc: HO.MAMMO Attending Dr: Margarita Adams MD Ordering Physician: Margarita Adams MDResults: 1N egative Date of Service: 05/07/25Follow Up: 1 Year From Orig inal Mammogram Procedure(s): MM tomosynthesis screening BI Accession Number(s): [id number] cc: Margarita Adams MD EXAMINATION: MM SCREENING [...] Johnna Osuna DO 05/14/2025 05:54 PM EDT RP Dictated By: Johnna Osuna DO Signed By: <Electronically signed by Johnna Osuna DO in OV> 05/14/25 1754 DD/ 1530 TD/TT: 05/07/25 1548 [employer]: Margarita Adams MD IMG BI PROCEDURES Final Re sult * HPV mRNA E6/E7 w/Reflex to HPV Genotypes 16, 18/45 (04/07/2023 12:16 PM EDT) HPV nRNA E6/E7 Not Detected Not Detected [facility] Comment:Methodology: Transcr iption-Mediated AmplificationThis assay detects E6/E7 viral messenger RNA (mRNA) from 14high-risk HPV types (16,18,31,33,35,39,45,51,52,56,58,59,66,68).Cervical sources are required for HPV testing.If a vaginal source from a patient who has had atotal hysterectomy with removal of cervix wassubmitted, please contact the testing laboratoryfor alternative testing options.For additional information, please refer [email or web address].Performance Indicator/faq/KND737z0(This link if provided for information/educational purposes only.)THIS TEST WAS PERFORMED AT:[employer] [place] [phone] LAKHANI MD HPV mRNA E6/E7 [facility] HPV 16 RNA [facility] HPV 18/45 RNA [facility] 04/07/2023 12:1 6 PM EDT 04/08/2023 9:15 AM EDT [facility] External Provider LAB CYT OLOGY ORDERABLES Final Result [facility] [address] [place] [phone] * Pap Smear (04/07/2023 12:16 PM EDT) 04/07/2023 12:1 6 PM EDT 04/08/2023 9:15 AM EDT [facility] - 04/13/2023 3:15 PM EDT ----- ------- Name: Anabel Silva Age/Sex: 42/F : 1980 Unit#: [id number] Attend Dr: Layla Whitlock CNM Re04/07/23 Status: DEP REF Location: [facility] Disch: ----- ------- SPEC : [id number] RECD: 04/08/23 STATUS: JOSÉ HERNANDEZYared NUM: [id number] LUIS: 04/07/23-6 [facility] DR: Layla Whitlock CNM ENTERED: 04/08/23 SP TYPE: Pap Smr OTHR [...] 59, 66, 68) HPV testing performed by [facility], [place], [place]. See reference laboratory pion of the EMR for entire report. Clinical Information LMP: Unknown Previous PAP test: Unknown, WNL Material Received ThinPrep-Cervical Copies To: Margarita Adams MD [address] [place] [address] Layla Whitlock [address] [place] [address] ----- ------- Signed (signature on file) MATILDA Adhikari ([facility]) 04/13/23 1515 ----- ------- END OF REPORT [facility] External Provider LAB CYT OLOGY ORDERABLES Final Result [facility] [address] [place] [address] [phone] * MICROALBUMIN, RANDOM (07/02/2021 3:00 PM EDT) Creatinine Urine 184.09 mg/dL [facility] Microalbum/Creati nine Ratio Ur 15.2 ug/mg cr [facility] Comment: Albumin/Creatinine Ratio Reference Ranges: Normal: < 30 ug/mg creatinine Microalbuminuria: 30 - 300 ug/mg creatinine Clinical Albuminuria: > 300 ug/mg creatinine Microalbumin Urine 28.0 mg/L [facility] 07/02/2021 3:00 PM EDT us Margarita Adams MD HISTORICAL/NON ORDERABLE L ABS Final Result [facility] [address] from Last 3 Months or Most Recently Relevant to Health Maintenance Additional Health Concerns Active Problems Noted Date Diagnosed Date Help patients manage their type 2 diabetes 10/14 Patient has chronic kidney disease 10/14/2025 Patient has chronic kidney disease 10/15/2025 Patient has chronic kidney disease 10/15/2025 Insurance OUT OF STATE Advance Directives Documents on File Type Date Recorded Patient Wood Technologist Expl anation Advance Directives and Living Will 03/20/2025 Health Care Proxy 03/15/25 Care Teams Cardiac Monitor Technician Relationship Specialty Start Date End Date Margarita Adams MD [address] [place] [phone] PCP - General Family Medicine 11/28/18 Pearl Galicia PharmD [address] [place] [address] Pharmacist Internal Medicine 03/03/23 Dillon Maldonado MD [address] [place] [phone] Gastroenterology 07/10/25 Bib Lacey MD [address] [place] [address] Obstetrics and Gynecology 10/15/25
--- OUTSIDE RECORDS SUMMARY | 2025-10-30 11:08 | XMS_ITS | Encounter Summary ---
Author Organization [employer] Address [address] [place] [address] [address] Care Team Providers Care Choir Accompanist Name Role Phone SorrentoMargarita MD Primary Care Provider +- [phone] Pearl Galicia PharmD Unavailable [phone] Dillon Maldonado MD Unavailable [phone] Bib Lacey MD Unavailable Reason for Visit * Reason Comments Med Refill Encounter Details Date Type Department Care Team (Late st Contact Info) Description 01/02/2024 Refill [facility] [address] [place] [address] Catalino Bruce FNP Mood disorder (CMS/HCC) Social [...] documented as of this encounter Care Teams Choir Accompanist Relationship Specialty Start Date End Date Margarita Adams MD [address] [place] [address] PCP - General Family Medicine 11/28/18 Pearl Galicia PharmD [address] [place] [address] Pharmacist Internal Medicine 03/03/23 Dillon Maldonado MD [address] [place] [address] Gastroenterology 07/10/25 Bib Lacey MD [address] [address] Obstetrics and Gynecology 10/15/25 documented as of this encounter
--- OUTSIDE RECORDS SUMMARY | 2025-10-30 11:08 | XMS_ITS | Encounter Summary ---
Author Organization [employer] Address [address] [facility] 7 [place] [address] Care Team Providers Care Lay Out Former Name Role Phone Margarita Adams MD Primary Care Provider + [phone] Pearl Galicia PharmD Unavailable Dillon Maldonado MD Unavailable [phone] Bib Lacey MD Unavailable Encounter Details Date Type Department Care Team (Late st Contact Info) Description 10/28/2022 Abstract [facility] [address] [place], [place] [phone] Margarita Adams MD [address] [place], [place] [phone] Social History Tobacco Use Types Packs/Day Years [...] on filedocumented in this encounter Care Teams Lay Out Former Relationship Specialty Start Date End Date Margarita Adams MD [address] [place] [address] PCP - General Family Medicine 11/28/18 Pearl Galicia, ShirleyD [address] [place] [address] Pharmacist Internal Medicine 03/03/23 Dillon Maldonado MD [address] [place] [address] Gastroenterology 07/10/25 Bib Lacey MD [address] [place] [address] Obstetrics and Gynecology 10/15/25 documented as of this encounter
== END 2025-10-30 10:24 | disposition home or self-care (01) ==
LOC: HO.HGS 09:53
PROVIDERS: PCP Family Medicine; Visit Provider Surgery
DX: K43.9 Ventral hernia without obstruction or gangrene (principal)
CPT/HCPCS: 99214

== ENCOUNTER 2025-11-06 14:40 | Outpatient (REF) | payer BC, SELFPAY | END 2025-11-06 14:41 | disposition home or self-care (01) | LOC: HO.LNP 14:40 | PROVIDERS: PCP Family Medicine; Visit Provider Student in an Organized Health Care Education/Training Program | DX: E11.59 Type 2 diabetes mellitus with other circulatory complications (principal); B35.3 Tinea pedis; B35.1 Tinea unguium; L85.3 Xerosis cutis; M20.41 Other hammer toe(s) (acquired), right foot; M20.42 Other hammer toe(s) (acquired), left foot; I83.11 Varicose veins of right lower extremity with inflammation; L60.3 Nail dystrophy; I87.8 Other specified disorders of veins | CPT/HCPCS: 11056; 11721; 87101; 87220; 88304 ==

== ENCOUNTER 2025-11-06 14:40 | Outpatient (AMB) | payer BC, SELFPAY ==
--- OUTSIDE RECORDS SUMMARY | 2024-11-01 10:35 | XMS_ITS ---
Author Organization [facility] Address [address] [place] [phone] Care Team Providers Care Equipment Operator/Laborer Name Role Phone Margarita Adams MD Primary Care Provider Oneyda vailable Dillon Maldonado Jr REASON FOR VISIT Patient presents today for a screening colon Encounters Encounter Location Date Provider Diagnosis [facility] [address] [address] 11/01/2024 Dillon Maldonado Jr Plan Of Treatment No Information Progress Notes * JD HESTER MDOB:1980 (45 yo F)Acc No.[id number]:11/01/2024 Progress Notes Patient: JD SLATER Provider: Kaleb Maldonado MD :1980 A ge:44 Y S ex:Female Date:11/01/2024 Address:[address] [place], [place] [id number] Pcp:Margarita Adams MD Subjective: * Chief Complaints: * P atient presents today for a screening colon * The named appointment provid er may or may not be the originator of this progress note, and it is not deemed complete until electronically signed by the appointment provider. Sign off status: Pending * Provider: Kaleb Maldonado MD Date: 01/02/2024 Generated for Ehi xu/Jagdish/eTransmitting on: 01/07/2025 11:01 PM EST
--- OUTSIDE RECORDS SUMMARY | 2025-06-18 06:00 | XMS_ITS ---
Author Organization [facility] Address [address] [place] [address] Care Team Providers Care Commercial Escrow Assistant Name Role Phone Margarita Adams MD Primary Care Provider Oneyda vailable Dillon Maldonado Jr [phone] REASON FOR VISIT screening Encounters Encounter Location Date Provider Diagnosis [facility] [address] [place] [phone] 06/18/2025 Dillon Maldonado Jr Plan Of Treatment No Information Progress Notes * JD HESTER MDOB:1980 (45 yo F)Acc No.[id number]:06/18/2025 COLON WITH MAC Patient: JD SLATER Provider: Kaleb Maldonado MD :1980 A ge:45 Y S ex:Female Date:06/18/2025 Address:[address] [place] [address] Pcp:Margarita Adams MD Subjective: * Chief Complaints: * S creening Billing Information: * Procedure Codes: * The named appointment provid er may or may not be the originator of this progress note, and it is not deemed complete until electronically signed by the appointment provider. Sign off status: Pending * Provider: Kaleb Maldonado MD Date: 0 06/18/2025 Generated for Ehi ng/Fadinag/eTransmitting on: 1 01/07/2025 11:01 PM EST
[2025-11-06 14:43] VITALS: BMI 45.6
--- NOTE | 2025-11-06 14:43 | MHC.OFFVIS ---
Vital Signs 11/06/25 14:43 Height 5 ft 3 in Weight 257 lb 6 oz BMI 45.6 Intake Visit Reasons: Tinea pedis of Lt foot Intake Note: Anabel is a 45 year old female who presents to the office today as a new patient visit for Tinea pedis of Lt foot referred by [facility]. Pt states she has not had no previous treatment, and it has been going on for about 3 weeks. Allergies No Known Allergies Allergy (Verified 11/06/25 14:49) HPI HPI Tinea pedis of Lt foot: Details: 45-year-old female history of GERD, hyperlipidemia, recently diagnosed with diabetes mellitus type 2, presents for annual diabetic foot evaluation and left foot fungus. She noted a blister between her left foot toes approximately 3 weeks ago, which then slowly became dryness. She was diagnosed with athlete's foot and recommended to present here. She denies itchiness her feet. She denies any history of ulcerations. She denies numbness tingling or burning. The patient endorses history of bilateral leg swelling, right worse than left. [facility] Medical History Recurrent abdominal hernia Hypothyroid Methadone maintenance therapy patient IBS (irritable bowel syndrome) GERD (gastroesophageal reflux disease) Epigastric hernia Smoking COPD (chronic obstructive pulmonary disease) EDMUND (obstructive sleep apnea) Morbid obesity Depression Iron deficiency anemia Asthma Surgical History Hx of hernia repair History of ventral hernia repair Hx of dilation and curettage History of esophagogastroduodenoscopy (EGD) H/O tubal ligation H/O right knee surgery Previous section Family History Mother Breast cancer Diabetes Thyroid condition Maternal Grandmother Hypertension Father No problems noted. Son Asthma Son No problems noted. Daughter No problems noted. Daughter No problems noted. Social History Household Members: Family Housing: Apartment Are you a primary career based intervention coordinator to a significant other at home: No Do you presently have visiting nurse or other home services: No Alcohol intake: never Patient Tobacco Use Status: Current everyday Tobacco user Tobacco use type: Cigarette Cigarette Packs Per Day: 0.25 Cigarettes Per Day: 5 Years Smoked: 20 Substance Use Type: Marijuana Special yasmeen needs: No Agree to transfusion: No Female Reproductive History Menstrual Age of Menarche: 9 Review of Systems Const All systems reviewed & are unremarkable except as noted in HPI and below Physical Exam Vital Signs: BMI result Body Mass Index 45.6 Extrem Other: *Bilateral Lower Extremity Focused Diabetic Foot Exam Vascular: DP/PT 2/4, CFT<3s to digits, TG warm to cool, pedal are absent, moderate bilateral pretibial edema, no pedal edema, varicosities of the medial/anterior ankle bilaterally Derm: Skin: hyperkeratotic lesions bilateral 5th digits PIPJ & 4th digits PIPJ Interdigital spaces: left 2nd/3rd maceration Nails: Thickened elongated dystrophic discolored toenails times 10 with x debris. Right hallux 30% nail loosening. Neuro: [place]-marisela monofilament (10g) test 10/10 intact to right foot, 10/10 intact to left foot. Msk: Deformities: flexible flexion deformity bilateral 4th/5th digits at PIPJ Muscle strength: 5/5 in all muscle groups. Gait: Normal, no antalgic or steppage gait observed. Footwear Assessment: Shoes inspected; appropriate fit, no excessive wear, or foreign objects noted. Office Procedures AMB Debridement /Avulsion Details: Procedure: Nail debridement Location: bilateral feet Anesthesia: N/A Description: The affected toenails were cleansed with an antiseptic solution. Using sterile nail nippers and a rotary tomás, dystrophic and mycotic nail material was carefully debrided and reduced in thickness. Care was taken to avoid trauma to the surrounding skin and nail bed. All debris was removed as tolerated. The area was inspected for signs of infection or ulceration. Patient tolerated the procedure well without complications. Tolerance: Patient tolerated procedure well, no immediate complications. Class B findings as per physical exam findings above. The patient has a diagnosis of diabetes mellitus and presents with elongated, thickened toenails. Due to underlying diabetic neuropathy and micro-vascular disease findings, the patient is at increased risk for complications such as ulceration, infection, and difficulty with self-care. Debridement of elongated toenails is medically necessary to prevent development of pressure-related lesions, reduce risk of secondary infection, and maintain foot health in high-risk comorbidities. Procedure: Callus debridement Location: 5th digits bilaterally (2 lesions) Anesthesia: N/A Description: The affected area was cleansed with an antiseptic solution. Using a sterile #15 blade, the hyperkeratotic tissue was radially debrided from the foot. All callused tissue was removed down to normal skin without causing bleeding or discomfort. The area was inspected for underlying ulceration or infection. Patient tolerated the procedure well. No complications noted. Tolerance: Patient tolerated procedure well, no immediate complications. [id number] of Nail 6+ [id number] of Callus (2-4) Procedure code (CPT) selection complete Assessment & Plan Assessment & Plan (1) Type 2 diabetes mellitus: Code(s): E11.9 - Type 2 diabetes mellitus without complications Category: Medical Qualifiers: Diabetes mellitus complication status: with circulatory complication Diabetes mellitus complication detail: with other circulatory complications Diabetes mellitus [facility] insulin use: without [facility] use Qualified Code(s): E11.59 - Type 2 diabetes mellitus with other circulatory complications Plan: Risk Stratification: No current ulceration, infection, or pre-ulcerative lesion. No loss of protective sensation or peripheral arterial disease. No plans for further testing/referrals for non-invasive vascular studies. Patient is at low risk for diabetic foot complications at this time. Recommendations: Continue routine foot care and daily self-inspection. Recommend moisturizing daily. Recommend supportive proper fitting shoe-wear. The patient may require diabetic shoes in the future. Reinforced diabetic foot education and risks from peripheral neuropathy. (2) Tinea pedis: Code(s): B35.3 - Tinea pedis Category: Medical Qualifiers: Laterality: bilateral Qualified Code(s): B35.3 - Tinea pedis Plan: Rx Lamisil powder (3) Tinea unguium: Code(s): B35.1 - Tinea unguium Category: Medical Plan: Nail biopsy performed of bilateral hallux nail. Discussed treatment options including topical treatment versus oral antifungal medications. Explained that oral antifungals such as terbinafine (Lamisil) may cause gastrointestinal upset, headache, rash, taste disturbances, and hepatotoxicity. Baseline and monthly liver function monitoring is recommended during therapy. Patients should be advised to report symptoms such as jaundice, dark urine, or persistent nausea. Patient was counseled on the importance of anti-fungal foot hygiene, including daily washing and thorough drying of feet, regular changing of socks, and use of breathable footwear. Recommended antifungal sprays shoes. Education provided on keeping toenails trimmed and clean to reduce risk of fungal infections. Preventive strategies discussed to minimize recurrence of fungal infections. All nails were debrided using a sterile nail Nipper. The patient tolerated the procedures well with no complications. (4) Venous stasis: Code(s): I87.8 - Other specified disorders of veins Category: Medical Plan: Rx B/L venous dopplers Referred for vascular surgery (5) Xerosis cutis: Code(s): L85.3 - Xerosis cutis Category: Medical Plan: Rx Amlactin (6) Acquired hammertoes of both feet: Code(s): M20.41 - Other hammer toe(s) (acquired), right foot; M20.42 - Other hammer toe(s) (acquired), left foot Category: Medical Plan: debrided bilateral digit calluses. no further treatment at this time. Orders: Orders Fungus Cult Hair/Skin/Nail Today B35.1 - Tinea unguium US venous duplex LE BI Today I83.11 - Varicose veins of right lower extremity with inflammation Surgical Today B35.1 - Tinea unguium Referrals Vascular Surgery Referral I83.11 - Varicose veins of right lower extremity with inflammation, I87.8 - Other specified disorders of veins Medications: New ciclopirox 8% Apply to fungal toenails daily. Remove build-up at the end of the week. 1 appl topical BEDTIME 6.6 mL 3RF Fungal nails 4 months B35.1 - Tinea unguium ammonium lactate 12% (AmLactin) apply to bottom of both feet 1 appl topical DAILY 225 grams 3RF dry feet L85.3 - Xerosis cutis tolnaftate 1% (Lamisil AF) Apply between toes bilateral feet 1 spray topical BEDTIME 133 grams 3RF Athlete's foot B35.3 - Tinea pedis Coding Level of Care Code New Pt Level 4 (02617) Diagnoses Type 2 diabetes mellitus with other circulatory complication, without long-term current use of insulin E11.59 Diabetes mellitus complication status: with circulatory complication Diabetes mellitus complication detail: with other circulatory complications Diabetes mellitus roasterman insulin use: without roasterman use Tinea pedis of both feet B35.3 Laterality: bilateral Tinea unguium B35.1 Venous stasis I87.8 Xerosis cutis L85.3 Acquired hammertoes of both feet M20.41; M20.42 Time Spent (min) 35
--- OUTSIDE RECORDS SUMMARY | 2025-11-06 23:00 | XMS_ITS | Encounter Summary ---
Author Organization [employer] Address [address] [facility] 7 [place] [address] Care Team Providers Care Auto Transmission Specialist Name Role Phone Margarita Adams MD Primary Care Provider + [phone] Pearl Galicia PharmD Unavailable [phone] Dillon Maldonado MD Unavailable [phone] Bib Lacey MD Unavailable Reason for Visit * Reason Comments Med Refill Encounter Details Date Type Department Care Team (Late st Contact Info) Description 11/02/2023 Refill [facility] [address] [place] [address] Catalino Bruce FNP Mood disorder (CMS/HCC) Social [...] documented as of this encounter Care Teams Auto Transmission Specialist Relationship Specialty Start Date End Date Margarita Adams MD [address] [place] [address] PCP - General Family Medicine 11/28/18 Pearl Galicia, ShirleyD [address] [place] [address] Pharmacist Internal Medicine 03/03/23 Dillon Maldonado MD [address] [place] [address] Gastroenterology 07/10/25 Bib Lacey MD [address] [place] [address] Obstetrics and Gynecology 10/15/25 documented as of this encounter
--- OUTSIDE RECORDS SUMMARY | 2025-11-06 23:01 | XMS_ITS | Encounter Summary ---
Author Organization [email or web address] Address [address] [place] [address] Care Team Providers Care Summer Analyst Name Role Phone Margarita Adams MD Primary Care Provider + [phone] Pearl Galicia PharmD Unavailable Dillon Maldonado MD Unavailable +[phone] Bib Lacey MD Unavailable Encounter Details Date Type Department Care Team (Late st Contact Info) Description 10/28/2022 Abstract [facility] MED & PEDS [address] [place], [place] [phone] Margarita Adams MD [address] [place], [place] [phone] Social History Tobacco Use Types Packs/Day Years [...] on filedocumented in this encounter Care Teams Summer Analyst Relationship Specialty Start Date End Date Margarita Adams MD [address] [place] [address] PCP - General Family Medicine 11/28/18 Pearl Galicia, ShirleyD [address] [place] [address] Pharmacist Internal Medicine 03/03/23 Dillon Maldonado MD [address] [place] [address] Gastroenterology 07/10/25 Bib Lacey MD [address] [place] [address] Obstetrics and Gynecology 10/15/25 documented as of this encounter
--- OUTSIDE RECORDS SUMMARY | 2025-11-06 23:01 | XMS_ITS | Patient Health Record ---
Author Organization [facility] Address [address] [place] [address] Care Team Providers Care C.O.D. Biller Name Role Phone Margarita Adams MD Primary Care Provider Oneyda vailable Dillon Maldonado Jr Unavailable Allergies No Known Allergies Results Component Value Reference Range Flag Notes Ur Preg Test Reviewed date:06/18/2025 02:26:21 PM Interpretation: Performing Lab:[facility], [address] [place] [phone] Notes/Report: Urine NEGATIVE NEGATIVE This test was developed to detect early . False negative results may occur after the 5th - 7th week of when using this test method. If clinically indicated, consider a serum hCG. Glucose, Whole Blood Reviewed date:06/18/2025 02:26:13 PM Interpretation: Performing Lab:[facility], [address] [place] [phone] Notes/Report: Glucose, Whole Blood 130 60-115 mg/dL [facility] #: [id number] Pathology Reviewed date:06/20/2025 09:09:05 AM Interpretation: Performing Lab:[facility], [address] [place] [phone] Notes/Report: Reason For Referral Referring Provider First Name Margarita Referring Provider Last Name Angie Referring Provider Speciality Family Med icine Referred Organization [facility] Referred Provider Dillon Maldonado Jr Referred Address [address] [facility],[place], [place],[address], Referred Provider Specialty Gastroentero logy General Notes [place], [place] 2024 12:41:57 PM greater thanpt currently has [employer] and health safety net. I spoke with the patient and asked her to contact [employer] and choose a plan prior to her appt with Dr. Maldonado on 02-21-2025. She will notify us of this., Deborah Hubern 02/13/2025 02:42:02 PM greater thanINFORMED PT AGAIN THAT SHE NEEDS TO CHOOSE A PLAN OR WE CAN NOT SEE HER . SHE HAS [employer] AND NEEDS TO ENROLL IN A PLAN, Deborah Hubern 02/19/2025 08:35:17 AM Pt states she will have [employer] on 02-26-25 and rescheduled her appt to the end of April Referral Priority Routine Reason ventral hernia Referral Organization [facility] Referring Provider First Name Dillon Referring Provider Last Name Joel Weber Referring Provider Speciality Gastroente rology Referred Provider Ray Cook Referred Provider Specialty Surgery Referral Priority Routine Referral Appointment Date 07/03/2025 Medications Medication SIG (Take, Route, Frequency, Duration) Notes Start Date End Date Status Vitamin D3 50 MCG (1999 UT) Capsule TAKE 1 CAPSULE (50 MCG) BY MOUTH ONCE PER DAY. Oral; Duration: 90 Days Active metFORMIN HCl 500 MG Tablet TAKE 1 TABLE T (500 MG) BY MOUTH ONCE PER DAY. Oral; Duration: 90 Days Active Atorvastatin Calcium 20 MG Tablet TAKE 1 TABLET (20 MG) BY MOUTH ONCE PER DAY. Oral; Duration: 90 Days Active ARIPiprazole 5 MG Tablet TAKE 1.5 TABLET S (7.5 MG) BY MOUTH ONCE PER DAY. Oral; Duration: 90 Days Active Omeprazole 40 MG Capsule Delayed Release 1 capsule 30 minutes before morning meal Orally Once a day; Duration: 30 day(s) 07/02/2021 Active Zolpidem Tartrate 10 MG Tablet TAKE 1 TABLET BY MOUTH AT BEDTIME NEEDED FOR SLEEP Oral; Duration: 30 Days Active Vitamin D 50 MCG (1999 UT) Tablet 1 tablet Orally Once a day Active Gabapentin 100 MG Capsule Oral; Duration: 30 Active Immunizations Vaccine Route Administration Date Status Comme nts Influenza Unknown 07/29/2020 Administered Influenza Unknown 09/18/2024 Administered Social History Tobacco Use: Social History Observation Description Date Details (start date - stop date) Current Smoker NA - NA Social History Drugs/Alcohol: Social Info Question Answer Notes Alcohol Screen Did you have a drink containing alcohol in the past year? No Points 0 Interpretation Negative Tobacco Use: Social Info Question Answer Notes Tobacco Use/Smoking Patient is a current smoker How often do you smoke cigarettes? every day How many cigarettes a day do you smoke? 11-20 Additional Details Category Social Info Options Details Miscellaneous: Marital status: single Occupation: medical transcription/loan documents closer Problems Problem Type SNOMED Code ICD Code Onset Dates Problem Status W/U Status Risk Notes Problem Screening for malignant neoplasm of colon (765093653) Encounter for screening for malignant neoplasm of colon (Z12.11) Active confirmed Problem Gastroesophageal reflux disease without esophagitis (935442023) Gastroesophageal reflux disease without esophagitis (K21.9) Active confirmed Problem Gastritis (2172222) Gastritis (K29.70) Active c onfirmed Problem Abdominal pain (78413341) Abdominal cramps (R10.9) Active confirmed Problem Gastroesophageal reflux disease (380802917) GERD (gastroesophageal reflux disease) (K21.9) Active confirmed Vital Signs Temperature 98.6 degrees Fahrenheit 05/27/2025 Blood pressure diastolic 01 mm Hg 05/27/2025 Height 63 in 05/27/2025 Blood pressure systolic 001 mm Hg 05/27/2025 Weight 273 lbs 05/27/2025 BMI 48.35 kg/m2 05/27/2025 Encounters Encounter Location Date Provider Diagnosis [facility] Outpatient [address] [place] [id number] 06/18/2025 Dillon Maldonado Jr [facility] [address] [place] [phone] 05/27/2025 Dillon Maldonado Jr Gastroesophageal reflux disease without esophagitis K21.9 ; Encounter for screening for malignant neoplasm of colon Z12.11 and Abdominal cramps R10.9 [facility] [address] [place] [phone] 05/27/2025 Dillon Maldonado Jr [facility] [address] [place] [phone] 06/20/2025 Dillon Maldonado Jr Assessments Encounter Date [...] Start Date Coverage End Date MEDICAID OF [facility] [address] [place] [address] [phone] [id number] JD HESTER Self - patient is the insured [facility] [address] [address] [place], [place] [phone] [id number] JD HESTER Self - patient is the insured Medical (General) History Medical History History ICD Code Hypothyroid asthma anemia Menorrhagia Depression Hyperlipidemia Diabetes mellitus type 2 Opiate dependence EDMUND/CPAP Surgical History Surgery Date(Month/Year) right knee/ 4 pins /plate section 1992,1993,1995,2004 D&C 07/2020
--- OUTSIDE RECORDS SUMMARY | 2025-11-06 23:02 | XMS_ITS | Encounter Summary ---
Author Organization [employer] Address [address] [place] [address] 7 [place] [address] Care Team Providers Care Fur Tinter Name Role Phone Margarita Adams MD Primary Care Provider + [phone] Pearl Galicia PharmD Unavailable [phone] Dillon Maldonado MD Unavailable [phone] Bib Lacey MD Unavailable Reason for Visit * Reason Comments Med Refill Encounter Details Date Type Department Care Team (Late st Contact Info) Description 02/20/2024 Refill [facility] [address] [place] [address] Catalino Bruce FNP Mood disorder (CMS/[facility]) Social History Tobacco Use Types Packs/Day [...] documented as of this encounter Care Teams Fur Tinter Relationship Specialty Start Date End Date Margarita Adams MD [address] [place] [address] PCP - General Family Medicine 11/28/18 Pearl Galicia, PharmD [address] [place] [address] Pharmacist Internal Medicine 03/03/23 Dillon Maldonado MD [address] [place] [address] Gastroenterology 07/10/25 Bib Lacey MD [address] [address] Obstetrics and Gynecology 10/15/25 documented as of this encounter
--- OUTSIDE RECORDS SUMMARY | 2025-11-06 23:02 | XMS_ITS | Clinical Summary ---
Author Organization [facility] Address [address] [place] [address] Care Team Providers Care Pm Head Cook Name Role Margarita Richter MD Primary Care Provider [phone] Surgical History Surgery Date Site/Laterality Comments SECTION PROCEDURE: [place] DELIVERY ONLY KNEE SURGERY PROCEDURE: HISTORICAL KNEE [...] on file Sexual Orientation Not on file Plan of Treatment Health Maintenance Due Date Last Done Comments Breast Cancer Screening 1979 DTaP,Tdap,and Td Vaccines (1 - Tdap) 1998 Hepatitis B Vaccines (1 of 3 - 19+ 3-dose series) 1998 Cervical Cancer Screening: P ap Smear 2000 Depression Screening 11/28/2024 COVID-19 Vaccine (1 - 2024-2 6 season) 2025 Influenza Vaccine (#1) 2025 RSV [...] age to complete this topic Care Teams Pm Head Cook Relationship Specialty Start Date End Date Margarita Adams MD [address] [place] [phone] PCP - General Internal Medicine 08/26/20
--- OUTSIDE RECORDS SUMMARY | 2025-11-06 23:02 | XMS_ITS | Clinical Summary ---
Author Organization [employer] Address [address] [facility] 7t [place] [address] Care Team Providers Care Marble Finisher Name Role Phone Margarita Adams MD Primary Care Provider [phone]- [phone] Pearl Galicia PharmD Unavailable [phone] Dillon Maldonado MD Unavailable [phone] Bib Lacey MD Unavailable Allergies No known [...] complication, without long-term current use of insulin ([facility]) 1 each Once per day. Use to check blood sugar daily 1 kit 03/19/20 25 Active glucose blood (FREESTYLE LITE) test stripIndication s:Type 2 diabetes mellitus without complication, without long-term current use of insulin (HCC) Use to check blood sugar daily. Dx diabetes 30 each 03/19/20 25 Active Lancets miscIndications :Type 2 diabetes mellitus without complication, without long-term current use of insulin ([facility]) Use to check blood sugar daily 30 each 03/19/20 25 Active Alcohol Swabs (Alcohol Prep) padsIndications :Type 2 diabetes mellitus without complication, without long-term current use of insulin ([facility]) Use to clean skin prior to [...] complication, without long-term current use of insulin ([facility]) INJECT 1 MG UNDER THE SKIN [...] area clean and dry. - Referred to content director for toenail care and further management. Avoid pedicures until evaluated by content director. Generalized anxiety disorder 04/17/2025 Assessment & Plan [...] again heavy. She will follow up with [facility] for Mirena. Repeat on 09/18 Hgb 10.8 has f/u with [facility] for menses control. Lab Results Component Value [...] again heavy. She will follow up with [facility] for Mirena. Repeat on 09/18 Hgb 10.8 has f/u with [facility] for menses control. Lab Results Component Value [...] Hx of ventral hernia repair 09/05/2023 Overview (10/31/2025): Repaired 08/2021 without difficulty, recurrance and saw Dr. Ray Cook 10/30/25, plan for repeat surgery Abnormal uterine bleeding 09/05/2023 Overview (03/15/2025): She has a h/o D&C in 07/2020 but continued to bleed. Has IUD. Vitamin D deficiency 09/05/2023 Overview (05/01/2025): 08/31/22 Vitamin D was 15. PTH elevated at 89 (normal 60-77) Lab Results Component Value Date [id number] 14.1 (L) 03/15/2025 -recent labs 03/01/25 significant vitamin D deficiency, will get labs in chart. -start ergocalciferol (Vitamin D2) 1.25 MG (72081 UT) 03/15/25 -changed to 2000 units daily 05/01/25 Assessment & Plan (05/01/2025 9:59 AM EDT): 08/31/22 Vitamin D was 15. PTH elevated at 89 (normal 60-77) Lab Results Component Value Date [id number] 14.1 (L) 03/15/2025 -recent labs 03/01/25 significant vitamin D deficiency, will get labs in chart. -start ergocalciferol (Vitamin D2) 1.25 MG (06944 UT) 03/15/25 -changed to 2000 units daily 05/01/25 Assessment & Plan (03/15/2025 11:11 AM EDT): 08/31/22 Vitamin D was 15. PTH elevated at 89 (normal 60-77) -recent labs 03/01/25 significant vitamin D deficiency, will get labs in chart. -start ergocalciferol (Vitamin D2) 1.25 MG (30502 UT) 03/15/25 Mood disorder 01/03/2023 Overview (03/15/2025): Symptoms have suggested BP 2, rather than unipolar depression. Doing OK, but with increased anxiety and sleep maintenance insomnia. -On Gabapentin 300 mg TID. Increase to Zolpidem 10 mg at bedtime as needed, avoid taking every night to maintain efficacy. -Restart Abilify 5 mg to take 1.5 tablets (7.5 mg) daily. -Referred to [facility] 03/15/25 Assessment & Plan (03/15/2025 11:25 AM EDT): Symptoms have suggested BP 2, rather than unipolar depression. Doing OK, but with increased anxiety and sleep maintenance insomnia. -On Gabapentin 300 mg TID. Increase to Zolpidem 10 mg at bedtime as needed, avoid taking every night to maintain efficacy. -Restart Abilify 5 mg to take 1.5 tablets (7.5 mg) daily. -Referred to [facility] 03/15/25 Assessment & Plan (05/01/2024 12:30 PM [...] medication management. Any issues or concerns contact [facility]. All her questions were answered and [...] depression. Still with anxiety. Given info about [facility] Mindfulness Mondays, and she is interested [...] and she will go to the [facility] in [place] to access services. Continue current medications: Abilify [...] as pharmacomtherapy, [facility] smoking cessation group, and [facility] pharmacy smoking cessation clinic Discussed USPSTF [...] as pharmacomtherapy, [facility] smoking cessation group, and [facility] pharmacy smoking cessation clinic Discussed USPSTF [...] Encounters Date Type Department Care Team Description 10/31/2025 Telephone [facility] MEDICINE [address] [place] [address] Margarita Adams MD Prior Authorization (PA: oJe) 10/26/2025 Refill [facility] WALK-IN [address] [address] Margarita Adams MD Type 2 diabetes mellitus without complication, without long-term current use of insulin ([facility]); Mood disorder ([facility]/HCC) 10/15/2025 Results Follow-Up [address] [address] Margarita Adams MD Bacterial Vaginosis, Chlamydia/N. Gonorrhoeae RNA, TMA, Urogenitial, Hepatitis C Ab, Additional followed-up results: 4 10/14/2025 1:20 PM EST Office Visit [address] [address] Kemi Cerrato MD Tinea pedis of left foot (Primary Dx) 10/14/2025 Orders Only GENERIC EXTERNAL DATA DEPARTMENT Provider, Generic External Data 10/14/2025 Travel 10/05/2025 Orders Only [facility] External Provider, [facility] 09/26/2025 11:30 AM EDT Telemedicine [address] [address] Margarita Adams MD Dyslipidemia (Primary Dx); Tobacco dependence syndrome; Class 3 severe obesity due to excess calories with serious comorbidity and body mass index (BMI) of 45.0 to 49.9 in adult (HCC); Type 2 diabetes mellitus without complication, without long-term current use of insulin ([facility]); Moderate persistent asthma, unspecified whether complicated 09/26/2025 Travel 09/25/2025 Telephone [facility] MEDICINE [address] [place] [address] Margarita Adams MD chart prep 09/16/2025 Refill [facility] MEDICINE [address] [place] [address] Margarita Adams MD Mood disorder ([facility]) 08/18/2025 Refill [facility] MEDICINE [address] [place] [address] Margarita Adams MD Mood disorder ([facility]) 08/13/2025 Refill [facility] MEDICINE [address] [place] [address] Margarita Adams MD Mood disorder ([facility]) from Last 3 Months Immunizations Immunization Administration [...] Help patients manage their type 2 diabetes No Abbey Holland MA Patient has chronic kidney disease Care Plan Patient has chronic kidney disease No Abbey Holland [place] Patient has chronic kidney disease Care Plan Patient has chronic kidney disease No Margarita Adams MD Patient has chronic kidney disease Care Plan Patient has chronic kidney disease No Stephie Lee Patient has chronic kidney disease Care Plan Patient has chronic kidney disease No Jenny Glez Patient has chronic kidney disease Care Plan Patient has chronic kidney disease No Margarita Adams MD Procedures Procedure Name Priority Date/Time Associated Diagnosis [...] complication, without long-term current use of insulin ([facility]) LIPID PANEL, STANDARD Routine 06/18/2025 9:03 [...] 3:11 PM EST) Syphilis Screen Nonreactive Nonreactive [facility] 10/14/2025 3:11 PM EST 10/14/2025 3:11 PM EST Generic External Data Provider LAB BLOOD ORDERAB LES Final Result Performing Organization Address [facility] de Phone Number [facility] [address] [place] [phone] * Hepatitis C Ab (10/14/2025 3:11 PM EST) Hepatitis C Antibody Nonreactive Nonreactive [facility] Comment:Antibodies to HCV no t detected; does not exclude early acuteHCV infection. 10/14/2025 3:11 PM EST 10/14/2025 3:11 PM EST Generic External Data Provider LAB BLOOD ORDERAB LES Final Result Performing Organization Address [facility] Phone Number [facility] [address] [place] [phone] * Hepatitis B surface antigen, EIA (10/14/2025 3:11 PM EST) Pathologist [facility] [place] Hepatitis B Surface Ag Negative Negative [facility] 10/14/2025 3:11 PM EST 10/14/2025 3:11 PM EST Generic External Data Provider LAB BLOOD ORDERAB LES Final Result Performing Organization Address [facility] Phone Number [facility] [address] [place] [phone] * HIV-1/2 Antigen and Antibodies, Fourth Generation, with Reflexes (10/14/2025 3:11 PM EST) Pathologist [facility] [place] HIV AB/AG Nonreactive Nonreactive [facility] Comment:HIV-1 p24 Ag and/or HIV-1/HIV-2 Ab not detected.A test result that is nonreactive does not exclude thepossibility of exposure to or infection with HIV-1 and/orHIV-2. Nonreactive results in this assay for individualswith prior exposure to HIV-1 and/or HIV-2 may be due toantigen and antibody levels that are below the limit ofdetection of this assay.The Mer[employer]ni[employer]od[employer] HIV Ag/Ab Combo assay result andsupplemental assay results should be interpreted inconjunction with the patient's clinical presentation,history and other laboratory results. If the results areinconsistent with clinical evidence, additional testing issuggested to confirm the result. 10/14/2025 3:11 PM EST 10/14/2025 3:11 PM EST Generic External Data Provider LAB BLOOD ORDERAB LES Final Result Performing Organization Address [facility] Co de Phone Number [facility] [address] [place] [phone] * (ABNORMAL) Bacterial Vaginosis (10/14/2025 2:06 PM EST) TRICHOMONAS VAGINALIS DETECTION BY PCR NOT DETECTED Not Detect [facility] BACTERIAL VAGINOSIS DETECTION BY PCR POSITIVE(A) Negative [facility] Comment:The BV organism targ ets [...] DETECTION BY PCR NOT DETECTED Not Detect [facility] Marisol glab krusei PCR NOT DETECTED Not Detect [facility] 10/14/2025 2:06 PM EST 10/14/2025 3:12 PM EST Generic External Data Provider LAB MICROBIOLOGY - GENERAL ORDERABLES Final Result Performing Organization Address [facility] Co de Phone Number [facility] [address] [place] [phone] * Chlamydia/N. Gonorrhoeae RNA, TMA, Urogenitial (10/14/2025 2:06 PM EST) CT PCR NOT DETECTED Not Detect. [facility] Comment:A not detected test result [...] psychologicalconsequences. NG PCR NOT DETECTED Not Detect. [facility] Comment:A not detected test result [...] LAB MICROBIOLOGY - GENERAL ORDERABLES Final Result [facility] [address] [place] [address] [phone] * Culture, Urine, Routine (10/14/2025 2:06 PM EST) Urine Urine specimen obtained by clean catch procedure / Unknown 10/14/2025 2:06 PM EST 10/14/2025 3:12 PM EST Comment:UACC Narrative [facility] - 10/16/2025 7:40 AM EST [...] GENERAL ORDERABLES Final Result Performing Organization Address City/State/[facility] Co de Phone Number [facility] [address] [place] [phone] * CT Abdomen Pelvis w/o Contrast (10/05/2025 8:17 AM EST) Anatomical Region Laterality Modality Body, Pelvis, Abdomen Computed T omography 10/05/2025 8:17 AM EST Narrative 10/07/2025 1:22 PM EST [address] [address] [address] Scan Report Signed Patient: Anabel Silva MR#: [id number] 6 : 1980 Acct:[id number] Age/Sex: 45 / F ADM Date: 10/05/25 Loc: HO.CT Attending Dr: Ray Cook MD Ordering Physician: Ray Cook MD Date of Service: 10/05/25 Procedure(s): CT abdomen pelvis wo IV con Accession Number(s): [id number] cc: Margarita Adams MD; Ray Cook MD Report Number: [id number]: Total DLP = 710.00 mGy-cm Reason for [...] by: Sergo Mercado MD 10/07/2025 01:19 PM EST Dictated By: Sergo Mercado MD Signed By: <Electronically signed by Sergo Mercado MD in OV> 10/07/25 1319 DD/ 0817 TD/TT: 10/05/25 0828 Machine Fitter: Procedure Note Donotuseinterpreter, Image - 10/07/[address] [place] [address] [address] Scan Report Signed Patient: Anabel Silva MMR#: [id number] 6 : 1980Acct:[id number] Age/Sex: 45 / FADM Date: 10/05/25 Loc: HO.CT Attending Dr: Ray Cook MD Ordering Physician: Ray Cook MD Date of Service: 10/05/25 Procedure(s): CT abdomen pelvis wo IV con Accession Number(s): [id number] cc: Margarita Adams MD; Ray Cook MD Report Number: [id number]: Total DLP = 710.00 mGy-cm Reason for [...] by: Sergo Mercado MD 10/07/2025 01:19 PM [facility] Dictated By: Sergo Mercado MD Signed By: <Electronically signed by Sergo Mercado MD in OV> 10/07/25 1319 DD/ 0817 TD/TT: 10/05/25 0828 Machine Fitter: FREDY [facility] External Provider IMG CT PROCEDURES Edited Result - Final * (ABNORMAL) Hemoglobin A1c (06/18/2025 9:03 AM EDT) Hemoglobin A1c 6.9(H) <6.0 % [facility] Comment:Hemoglobin A1C Refer ence Range Adults: 4.8 - 6.0 % Non diabetic: < 6.0 % Goal: < 7.0 %Additional Action Suggested: > 8.0 %Note: Hemoglobin A1c results are invalid for patients with abnormal amounts of HbF. Blood transfusions may impact the HbA1c concentration in the patient sample. Estimated Average Glucose 151 mg/dL [facility] Comment:eAG = Estimated ave rage glucose which is %A1C expressed asaverage glucose, using the formula of the B2Y-UwjbpdiUkwkkzh Glucose study (ADAG), Diabetes Care, Vol.31,#8,Jun. 2007 Blood Venous blood specimen / Unknown 06/18/2025 9:03 AM EDT 06/18/2025 9:03 AM EDT Margarita Adams MD LAB BLOOD ORDERABLES Final Result [facility] [address] [place] [phone] * (ABNORMAL) Lipid Panel, Standard (06/18/2025 9:03 AM EDT) Triglycerides 139 <150 mg/dL [facility] Comment:Desirable Triglyceri de: less than 150 mg/dLBorderline High Triglyceride 150-199 mg/dLHigh Triglyceride: 200-499 mg/dLVery High Triglyceride: greater than or equal to 5OO mg/dL Cholesterol 128 <200 mg/dL [facility] Comment:Desirable Cholestero l: less than 200 mg/dLBorderline High Cholesterol: 200-239 mg/dLHigh Cholesterol: greater than 239 mg/dL LDL Cholesterol Calculated 70 <100 mg/dL [facility] Comment:Desirable LDL: less than 100 mg/dLNear Optimal/Above Optimal LDL: 110- 129 mg/dLBorderline High LDL: 130-159 mg/dLHigh LDL: 160-189 mg/dLVery High LDL: greater than or equal to 190 mg/dL HDL Cholesterol 31(L) >40 mg/dL [facility] Comment:Desirable HDL: great er than 40 mg/dL Note: This HDL assay may give artificially low results in patients with liver disease. Blood Venous blood specimen / Unknown 06/18/2025 9:03 AM EDT 06/18/2025 9:03 AM EDT Margarita Adams MD LAB BLOOD ORDERABLES Final Result [facility] [address] [place] [address] [phone] * (ABNORMAL) Hm Colonoscopy (06/18/2025) Colonoscopy Abnormal( A) Normal Comment:hyperplastic polyp w ith Dr. Maldonado Historical Provider HEALTH MAINTENANCE Final Result * BI Mammogram Screening Tomosynthesis Bilateral (05/07/2025 3:30 PM EDT) Anatomical Region Laterality Modality Breast Bilateral Mammography 05/07/2025 3:30 PM EDT Narrative 05/14/2025 5:57 PM EDT [address] [place] [address] Mammography Report Signed Patient: Anabel Silva MR#: [id number] 6 : 1980 Acct:[id number] Age/Sex: 45 / F ADM Date: 05/07/25 Loc: HO.MAMMO Attending Dr: Margarita Adams MD Ordering Physician: Margarita Adams MD Results: 1N egative Date of Service: 05/07/25 Follow Up: 1 Year From Orig ina Mammogram Procedure(s): MM tomosynthesis screening BI Accession Number(s): [id number] cc: Margarita Adams MD EXAMINATION: MM SCREENING [...] 05/14/25 1754 DD/ 1530 TD/TT: 05/07/25 1548 Machine Fitter: Procedure Note Donotuseinterpreter, Image - [facility] [address] [place] [address] Mammography Report Signed Patient: Anabel Silva MMR#: [id number] 6 : 1980Acct:[id number] Age/Sex: 45 / FADM Date: 05/07/25 Loc: HO.MAMMO Attending Dr: Margarita Adams MD Ordering Physician: Margarita Adams MDResults: 1N egative Date of Service: 05/07/25Follow Up: 1 Year From Orig ina Mammogram Procedure(s): MM tomosynthesis screening BI Accession Number(s): [id number] cc: Margarita Adams MD EXAMINATION: MM SCREENING [...] for their next mammogram. Electronically signed by: Johnan Osuna DO 05/14/2025 05:54 PM EDT Dictated By: Johnna Osuna DO Signed By: <Electronically signed by Johnna Osuna DO in OV> 05/14/25 1754 DD/ 1530 TD/TT: 05/07/25 1548 Machine Fitter: Margarita Adams MD IM BI PROCEDURES Final Re sult * HPV mRNA E6/E7 w/Reflex to HPV Genotypes 16, 18/45 (04/07/2023 12:16 PM EDT) HPV nRNA E6/E7 Not Detected Not Detected [facility] Comment:Methodology: Transcr iption-Mediated AmplificationThis assay detects E6/E7 viral messenger RNA (mRNA) from 14high-risk HPV types (16,18,31,33,35,39,45,51,52,56,58,59,66,68).Cervical sources are required for HPV testing.If a vaginal source from a patient who has had atotal hysterectomy with removal of cervix wassubmitted, please contact the testing laboratoryfor alternative testing options.For additional information, please refer tohttp://[email or web address]/faq/REG952m3(This link if provided for information/educational purposes only.)THIS TEST WAS PERFORMED AT:[employer] [place] [phone] LAKHANI MD HPV mRNA E6/E7 TNP [facility] HPV 16 RNA [facility] HPV 18/45 RNA [facility] 04/07/2023 12:1 6 PM EDT 04/08/2023 9:15 AM EDT us [facility] External Provider LAB CYT OLOGY ORDERABLES Final Result [facility] [address] [place] [phone] * Pap Smear (04/07/2023 12:16 PM EDT) 04/07/2023 12:1 6 PM EDT 04/08/2023 9:15 AM EDT Narrative [facility] - 04/13/2023 3:15 PM EDT ----- ------- Name: Anabel Silva Age/Sex: 42/F : 1980 Unit#: [id number] Attend Dr: Layla Whitlock CNM Re04/07/23 Status: SHWETHA REF Location: HO.LNP Disch: ----- ------- SPEC : [id number] RECD: 04/08/23 STATUS: JOSÉ HAIDER NUM: [id number] LUIS: 04/07/23-[address] [facility] [address]: Layla Whitlock CNM ENTERED: 04/08/23 SP [...] 59, 66, 68) HPV testing performed by [employer], [place], [place]. See reference laboratory pion of the EMR for entire report. Clinical Information LMP: Unknown Previous PAP test: Unknown, WNL Material Received ThinPrep-Cervical Copies To: Margarita Adams MD [address] [place] [address] Frias [address] [place] [phone] ----- ------- Signed (signature on file) MATILDA Adhikari (ASCP) 04/13/23 1515 ----- ------- END OF REPORT [facility] External Provider LAB CYT OLJR ORDERABLES Final Result [facility] [address] [place] [address] [phone] * MICROALBUMIN, RANDOM (07/02/2021 3:00 PM EDT) Creatinine Urine 184.09 mg/dL [facility] Microalbum/Creati nine Ratio Ur 15.2 ug/mg cr [facility] Comment: Albumin/Creatinine Ratio Reference Ranges: Normal: < 30 ug/mg creatinine Microalbuminuria: 30 - 300 ug/mg creatinine Clinical Albuminuria: > 300 ug/mg creatinine Microalbumin Urine 28.0 mg/L [facility] 07/02/2021 3:00 PM EDT us Margarita Adams MD HISTORICAL/NON ORDERABLE L ABS Final Result [facility] [address] from Last 3 Months or Most Recently Relevant to Health Maintenance Additional Health Concerns Active Problems Noted Date Diagnosed Date Help patients manage their type 2 diabetes 10/14 Patient has chronic kidney disease 10/14/2025 Patient has chronic kidney disease 10/15/2025 Patient has chronic kidney disease 10/15/2025 Patient has chronic kidney disease 10/31/2025 Patient has chronic kidney disease 10/31/2025 Insurance OUT OF STATE Advance Directives Documents on File Type Date Recorded Patient Machine Feeder Expl anation Advance Directives and Living Will 03/20/2025 Health Care Proxy 03/15/25 Care Teams Marble Finisher Relationship Specialty Start Date End Date Kamiah, MD Margarita [address] [place] [address] PCP - General Family Medicine 11/28/18 Pearl Galicia PharmD [address] [place] [phone] Pharmacist Internal Medicine 03/03/23 Dillon Maldonado MD [address] [place] [address] Gastroenterology 07/10/25 Bib Lacey MD [address] [place] [phone] Obstetrics and Gynecology 10/15/25
--- OUTSIDE RECORDS SUMMARY | 2025-11-06 23:02 | XMS_ITS | Encounter Summary ---
Author Organization [employer] Address [address] [facility] 7t [place] [address] Care Team Providers Care Talent Management Specialist Name Role Phone Margarita Adams MD Primary Care Provider + [phone] Pearl Galicia PharmD Unavailable [phone] Dillon Maldonado MD Unavailable [phone] Bib Lacey MD Unavailable Encounter Details Date Type Department Care Team (Late st Contact Info) Description 12/14/2022 Abstract [facility]INE [address] [place] [address] Margarita Adams MD [address] [place], [place] [phone] Social History Tobacco Use Types Packs/Day Years [...] on filedocumented in this encounter Care Teams Talent Management Specialist Relationship Specialty Start Date End Date Margarita Adams MD [address] [place] [address] PCP - General Family Medicine 11/28/18 Pearl Galicia, ShirleyD [address] [place] [phone] Pharmacist Internal Medicine 03/03/23 Dillon Maldonado MD [address] [place] [phone] Gastroenterology 07/10/25 Bib Lacey MD [address] [place] [phone] Obstetrics and Gynecology 10/15/25 documented as of this encounter
--- OUTSIDE RECORDS SUMMARY | 2025-11-06 23:02 | XMS_ITS | Encounter Summary ---
Author Organization [employer] Address [address] [facility] 7 [place] [address] Care Team Providers Care Music Professionals Name Role Phone Margarita Adams MD Primary Care Provider + [phone] Pearl Galicia PharmD Unavailable Dillon Maldonado MD Unavailable [phone] Bib Lacey MD Unavailable Reason for Visit * Reason Onset Date Comments Med Refill 06/12/2025 Encounter Details Date Type Department Care Team (Late st Contact Info) Description 06/12/2025 Refill [facility] [address] [place], [place] [phone] Margarita Adams MD [address] [place], [place] [phone] Mood disorder (CMS/HCC) Social History Tobacco Use [...] as of this encounter Care Teams Music Professionals Relationship Specialty Start Date End Date Margarita Adams MD [address] [place] [address] PCP - General Family Medicine 11/28/18 Pearl Galicia, PharmD [address] [place] [address] Pharmacist Internal Medicine 03/03/23 Dillon Maldonado MD [address] [place] [address] Gastroenterology 07/10/25 Bib Lacey MD [address] [address] Obstetrics and Gynecology 10/15/25 documented as of this encounter
--- OUTSIDE RECORDS SUMMARY | 2025-11-06 23:02 | XMS_ITS | Encounter Summary ---
Author Organization [employer] Address [address] [place] [address] [facility] [place] [address] Care Team Providers Care Quality Supervisor Name Role Phone Margarita Adams MD Primary Care Provider + [phone] Pearl Galicia PharmD Unavailable Dillon Maldonado MD Unavailable +[phone] Bib Lacey MD Unavailable Reason for Visit * Reason Onset Date Comments Med Refill 12/31/2024 Encounter Details Date Type Department Care Team (Late st Contact Info) Description 12/31/2024 Refill [facility] MEDICINE 230 [place], [place] [phone] Talia Gonzalez MD 230 [place], [place] [phone] Mood disorder (CMS/HCC) Social History Tobacco Use [...] documented as of this encounter Care Teams Quality Supervisor Relationship Specialty Start Date End Date Margarita Adams MD [address] [place] [address] PCP - General Family Medicine 11/28/18 Pearl Galicia, ShirleyD [address] [place] [address] Pharmacist Internal Medicine 03/03/23 Dillon Maldonado MD [address] [place] [address] Gastroenterology 07/10/25 Bib Lacey MD [address] [place] [address] Obstetrics and Gynecology 10/15/25 documented as of this encounter
--- OUTSIDE RECORDS SUMMARY | 2025-11-06 23:02 | XMS_ITS | Encounter Summary ---
Author Organization [employer] Address [address] [place] [address] [address] [address] Care Team Providers Care Radiation Monitor Name Role Phone VanceMargarita MD Primary Care Provider +- [phone] Pearl Galicia PharmD Unavailable [phone] Dillon Maldonado MD Unavailable +-[phone] Bib Lacey MD Unavailable Reason for Visit * Reason Comments Med Refill Encounter Details Date Type Department Care Team (Late st Contact Info) Description 01/02/2024 Refill [facility] MEDICINE 230 [place] [address] Catalino Bruce FNP Mood disorder (CMS/HCC) Social [...] documented as of this encounter Care Teams Radiation Monitor Relationship Specialty Start Date End Date Margarita Adams MD 230 [place] [address] PCP - General Family Medicine 11/28/18 Pearl Galicia PharmD 230 [place] [address] Pharmacist Internal Medicine 03/03/23 Dillon Maldonado MD [address] [place] [address] Gastroenterology 07/10/25 Bib Lacey MD [address] [address] Obstetrics and Gynecology 10/15/25 documented as of this encounter
--- OUTSIDE RECORDS SUMMARY | 2025-11-06 23:02 | XMS_ITS | Encounter Summary ---
Author Organization [employer] Address 75 [facility] 7 [place] [address] Care Team Providers Care Retail Business Manager Name Role Phone Margarita Adams MD Primary Care Provider +- [phone] Pearl Galicia PharmD Unavailable [phone] Dillon Maldonado MD Unavailable [phone] Bib Lacey MD Unavailable Reason for Visit * Reason Comments Med Refill Encounter Details Date Type Department Care Team (Late st Contact Info) Description 03/18/2023 Refill [facility] MEDICINE [address] [place] [address] Catalino Bruce FNP Mood disorder (CMS/HCC) Social [...] documented as of this encounter Care Teams Retail Business Manager Relationship Specialty Start Date End Date Margarita Adams MD 230 [place] [address] PCP - General Family Medicine 11/28/18 Pearl Galicia, PharmD [address] [place] [address] Pharmacist Internal Medicine 03/03/23 Dillon Maldonado MD [address] [place] [address] Gastroenterology 07/10/25 Bib Lacey MD [address] [address] Obstetrics and Gynecology 10/15/25 documented as of this encounter
== END 2025-11-06 15:15 | disposition home or self-care (01) ==
LOC: HO.HPODS 14:40
PROVIDERS: PCP Family Medicine; Visit Provider Student in an Organized Health Care Education/Training Program
DX: E11.59 Type 2 diabetes mellitus with other circulatory complications (principal); B35.3 Tinea pedis; B35.1 Tinea unguium; I87.8 Other specified disorders of veins; L85.3 Xerosis cutis; M20.41 Other hammer toe(s) (acquired), right foot; M20.42 Other hammer toe(s) (acquired), left foot
CPT/HCPCS: 99204

== ENCOUNTER 2025-11-15 14:27 | Outpatient (AMB) | payer BC, SELFPAY ==
--- OUTSIDE RECORDS SUMMARY | 2024-11-01 10:35 | XMS_ITS ---
Author Organization [facility] Address [address] [place] [phone] Care Team Providers Care Boom Cat Operator Name Role Phone Margarita Adams MD Primary Care Provider Oneyda vailable Dillon Maldonado Jr REASON FOR VISIT Patient presents today for a screening colon Encounters Encounter Location Date Provider Diagnosis [facility] [address] [address] 11/01/2024 Dillon Maldonado Jr Plan Of Treatment No Information Progress Notes * JD HESTER MDOB:1980 (45 yo F)Acc No.[id number]:11/01/2024 Progress Notes Patient: JD SLATER Provider: Kaleb Maldonado MD :1980 A ge:44 Y S ex:Female Date:11/01/2024 Address:[address] [place], [place] [id number] Pcp:Margarita Adams MD Subjective: * Chief Complaints: * P atient presents today for a screening colon * The named appointment provid er may or may not be the originator of this progress note, and it is not deemed complete until electronically signed by the appointment provider. Sign off status: Pending * Provider: Kaleb Maldonado MD Date: 01/02/2024 Generated for Ehi xu/Jagdish/eTransmitting on: 01/16/2025 03:55 PM EST
--- OUTSIDE RECORDS SUMMARY | 2025-06-18 06:00 | XMS_ITS ---
Author Organization [facility] Address [address] [place] [address] Care Team Providers Care Automotive Electrical Helper Name Role Phone Margarita Adams MD Primary Care Provider Oneyda vailable Dillon Maldonado Jr [phone] REASON FOR VISIT screening Encounters Encounter Location Date Provider Diagnosis [facility] [address] [place] [phone] 06/18/2025 Dillon Maldonado Jr Plan Of Treatment No Information Progress Notes * JD HESTER MDOB:1980 (45 yo F)Acc No.[id number]:06/18/2025 COLON WITH MAC Patient: Bea ARANDA JD Mir Provider: Kaleb Maldonado MD :1980 A ge:45 Y S ex:Female Date:06/18/2025 Address:[address] [place] [address] Pcp:Margarita Adams MD Subjective: * Chief Complaints: * S creening Billing Information: * Procedure Codes: * The named appointment provid er may or may not be the originator of this progress note, and it is not deemed complete until electronically signed by the appointment provider. Sign off status: Pending * Provider: Kaleb Maldonado MD Date: 0 06/18/2025 Generated for Printi ng/Faxing/eTransmitting on: 1 01/16/2025 03:55 PM EST
--- NOTE | 2025-11-15 14:30 | MHC.OFFVIS ---
Vital Signs 11/15/25 14:33 Height 5 ft 3 in Weight 257 lb BMI 45.5 Intake Visit Reasons: repeat urine dip Hims Coder Required: No Information Interpreted: non-clinical & clinical Accompanied by: Self / Same As Patient Allergies No Known Allergies Allergy (Verified 11/15/25 14:33) Is last menstrual period known: No (mirena) HPI Comments Details: Presenting for repeat urine dip, last visit urine dip showed microscopic hematuria, urine culture was negative The patient is complaining of a last breast lump that she felt yesterday no other associated symptom PFSH Medical History Recurrent abdominal hernia Hypothyroid Methadone maintenance therapy patient IBS (irritable bowel syndrome) GERD (gastroesophageal reflux disease) Epigastric hernia Smoking COPD (chronic obstructive pulmonary disease) EDMUND (obstructive sleep apnea) Morbid obesity Depression Iron deficiency anemia Asthma Surgical History Hx of hernia repair History of ventral hernia repair Hx of dilation and curettage History of esophagogastroduodenoscopy (EGD) H/O tubal ligation H/O right knee surgery Previous section Family History Mother Breast cancer Diabetes Thyroid condition Maternal Grandmother Hypertension Father No problems noted. Son Asthma Son No problems noted. Daughter No problems noted. Daughter No problems noted. Social History Household Members: Family Housing: Apartment Are you a primary care program resident to a significant other at home: No Do you presently have visiting nurse or other home services: No Alcohol intake: never Patient Tobacco Use Status: Current everyday Tobacco user Tobacco use type: Cigarette Cigarette Packs Per Day: 0.25 Cigarettes Per Day: 5 Years Smoked: 20 Substance Use Type: Marijuana Special yasmeen needs: No Agree to transfusion: No Female Reproductive History Menstrual Age of Menarche: 9 Physical Exam Vital Signs: BMI result Body Mass Index 45.5 Chest Breast/axilla inspection: inspection of breasts abnormal (Rbreast with a normal, L breast @8, 0.3 cm lump, 6 cm from the nipple) Assessment & Plan Assessment & Plan (1) Microscopic hematuria: Code(s): R31.29 - Other microscopic hematuria Category: Medical Plan: Repeat urine dip showed persistent microscopic hematuria. The patient had a recent CT scan, will refer to Urology for further management. (2) Breast lump on left side at 8 o'clock position: Comment: L breast @8, 0.3 cm lump, 6 cm from the nipple Code(s): N63.24 - Unspecified lump in the left breast, lower inner quadrant Category: Medical Plan: Discussed with the patient the finding on Breast exam (breast lump) .The differential diagnosis includes but not limited to lump/cyst/pre cancer/cancer or dense breast tissue. The work up includes breast US and diagnostic mammogram and referred the patient for surgical breast consult. Instructed the patient to call our office back in case a referral appointment is not scheduled, missed or canceled so that we will assist on rescheduling another appointment, the patient verbalized understanding agreed with the plan. Orders: Orders AMB Urinalysis Dipstick Today R31.29 - Other microscopic hematuria MM tomosynthesis diagnostic LT Today N63.24 - Unspecified lump in the left breast, lower inner quadrant US breast LT limited Today N63.24 - Unspecified lump in the left breast, lower inner quadrant Referrals Urology Referral R31.29 - Other microscopic hematuria General Surgery Referral N63.24 - Unspecified lump in the left breast, lower inner quadrant Coding Level of Care Code Est Pt Level 3 (98545) Diagnoses Microscopic hematuria R31.29 Breast lump on left side at 8 o'clock position N63.24
[2025-11-15 14:33] VITALS: BMI 45.5
--- OUTSIDE RECORDS SUMMARY | 2025-11-15 15:55 | XMS_ITS | Encounter Summary ---
Author Organization [employer] Address 75 [facility] 7 [place] [address] Care Team Providers Care Floor Layer Tile Name Role Phone Margarita Adams MD Primary Care Provider + [phone] Pearl Galicia PharmD Unavailable [phone]- [phone] Dillon Maldonado MD Unavailable [phone] Bib Lacey MD Unavailable Reason for Visit * Reason Comments Med Refill Encounter Details Date Type Department Care Team (Late st Contact Info) Description 11/02/2023 Refill [facility] PEDS [address] [place] [address] Catalino Bruce FNP Mood disorder (CMS/HCC) Social [...] documented as of this encounter Care Teams Floor Layer Tile Relationship Specialty Start Date End Date Margarita Adams MD [address] [place] [address] PCP - General Family Medicine 11/28/18 Pearl Galicia, ShirleyD [address] [place] [address] Pharmacist Internal Medicine 03/03/23 Dillon Maldonado MD [address] [place] [address] Gastroenterology 07/10/25 Bib Lacey MD [address] [place] [address] Obstetrics and Gynecology 10/15/25 documented as of this encounter
--- OUTSIDE RECORDS SUMMARY | 2025-11-15 15:55 | XMS_ITS | Encounter Summary ---
Author Organization [employer] Address 75 [facility] 7t [place] [address] Care Team Providers Care Corncob Pipe Manufacturing Supervisor Name Role Phone Margarita Adams MD Primary Care Provider + [phone] Pearl Galicia PharmD Unavailable Dillon Maldonado MD Unavailable [phone] Bib Lacey MD Unavailable Encounter Details Date Type Department Care Team (Late st Contact Info) Description 10/28/2022 Abstract [facility] MED & PEDS [address] [place], [place] [phone] Margarita Adams MD 230 [place], [place] [phone] Social History Tobacco Use Types Packs/Day Years [...] on filedocumented in this encounter Care Teams Corncob Pipe Manufacturing Supervisor Relationship Specialty Start Date End Date Margarita Adams MD 230 [place] [address] PCP - General Family Medicine 11/28/18 Pearl Galicia, ShirleyD [address] [place] [address] Pharmacist Internal Medicine 03/03/23 Dillon Maldonado MD [address] [place] [address] Gastroenterology 07/10/25 Bib Lacey MD [address] [place] [address] Obstetrics and Gynecology 10/15/25 documented as of this encounter
--- OUTSIDE RECORDS SUMMARY | 2025-11-15 15:55 | XMS_ITS | Patient Health Record ---
Author Organization [facility] Address [address] [place] [address] Care Team Providers Care Tool Grinder Name Role Phone Margarita Adams MD Primary Care Provider Oneyda vailable Dillon Maldonado Jr Unavailable [phone] Allergies No Known Allergies Results Component Value Reference Range Flag Notes Pathology Reviewed date:06/20/2025 09:09:05 AM Interpretation: Performing Lab:[facility], [address] [place] [phone] Notes/Report: Glucose, Whole Blood Reviewed date:06/18/2025 02:26:13 PM Interpretation: Performing Lab:[facility], [address] [place] [phone] Notes/Report: Glucose, Whole Blood 130 60-115 mg/dL H TN TER #: [id number] Ur Preg Test Reviewed date:06/18/2025 02:26:21 PM Interpretation: Performing Lab:[facility], [address] [place] [phone] Notes/Report: Urine NEGATIVE NEGATIVE This test was developed to detect early . False negative results may occur after the 5th - 7th week of when using this test method. If clinically indicated, consider a serum hCG. Reason For Referral Referring Provider First Name Margarita Referring Provider Last Name [place] Referring Provider Speciality Family Med icine Referred Organization [facility] Referred Provider Dillon Maldonado Jr Referred Address [address] [facility],[address],[place], [place],[address], Referred Provider Specialty Gastroentero logy General Notes [place], Pau 2024 12:41:57 PM greater thanpt currently has [employer]care and health safety net. I spoke with the patient and asked her to contact [employer] and choose a plan prior to her [...] Priority Routine Reason ventral hernia Referral Organization [facility] Referring Provider First Name Dillon Referring Provider [...] Details Miscellaneous: Marital status: single Occupation: medical clinic manager/field property loss specialist Problems Problem Type SNOMED Code ICD Code Onset Dates Problem Status W/U Status Risk Notes Problem Screening for malignant neoplasm of colon (298584453) Encounter for screening for malignant neoplasm of colon (Z12.11) Active confirmed Problem Gastroesophageal reflux disease without esophagitis (305182850) Gastroesophageal reflux disease without esophagitis (K21.9) Active confirmed Problem Gastritis (4426302) Gastritis (K29.70) Active c onfirmed Problem Abdominal pain (51415693) Abdominal cramps (R10.9) Active confirmed Problem Gastroesophageal reflux disease (090317705) GERD (gastroesophageal reflux disease) (K21.9) Active confirmed Vital Signs Temperature 98.6 degrees Fahrenheit 05/27/2025 Blood pressure diastolic 01 mm Hg 05/27/2025 Height 63 in 05/27/2025 Blood pressure systolic 001 mm Hg 05/27/2025 Weight 273 lbs 05/27/2025 BMI 48.35 kg/m2 05/27/2025 Encounters Encounter Location Date Provider Diagnosis [facility] Outpatient [address] [place] [phone] 06/18/2025 Dillon Maldonado Jr [facility] [address] [place] [phone] 05/27/2025 Dillon Maldonado Jr Gastroesophageal reflux disease without esophagitis K21.9 ; Encounter for screening for malignant neoplasm of colon Z12.11 and Abdominal cramps R10.9 [facility] [address] [facility] [address] [place] [phone] 05/27/2025 Dillon Maldonado Jr [facility] [address] [facility] [address] [place] [phone] 06/20/2025 Dillon Maldonado Jr Assessments Encounter Date [...] Start Date Coverage End Date MEDICAID OF [facility] [address] [place] [address] [phone] [id number] JD HESTER Self - patient is the insured [facility] [address] [address] [place], [place] [phone] [id number] JD HESTER Self - patient is the insured Medical (General) History Medical History History ICD Code Hypothyroid asthma anemia Menorrhagia Depression Hyperlipidemia Diabetes mellitus type 2 Opiate dependence EDMUND/CPAP Surgical History Surgery Date(Month/Year) right knee/ 4 pins /plate section 1992,1993,1995,2004 D&C 07/2020
--- OUTSIDE RECORDS SUMMARY | 2025-11-15 15:55 | XMS_ITS | Encounter Summary ---
Author Organization [employer] Address 75 [facility] 7 [place] [address] Care Team Providers Care Centrifugal Operator Name Role Phone Margarita Adams MD Primary Care Provider + [phone] Pearl Galicia PharmD Unavailable [phone] Dillon Maldonado MD Unavailable [phone] Bib Lacey MD Unavailable Reason for Visit * Reason Onset Date Comments Med Refill 06/12/2025 Encounter Details Date Type Department Care Team (Late st Contact Info) Description 06/12/2025 Refill [facility] MEDICINE 230 [place], [place] [phone] Margarita Adams MD 230 [place], [place] [phone] Mood disorder (CMS/HCC) Social History Tobacco Use [...] documented as of this encounter Care Teams Centrifugal Operator Relationship Specialty Start Date End Date Margarita Adams MD 230 [place] [address] PCP - General Family Medicine 11/28/18 Pearl Galicia, PharmD 230 [place] [address] Pharmacist Internal Medicine 03/03/23 Dillon Maldonado MD 10 [place] [address] Gastroenterology 07/10/25 Bib Lacey MD [address] [address] Obstetrics and Gynecology 10/15/25 documented as of this encounter
--- OUTSIDE RECORDS SUMMARY | 2025-11-15 15:56 | XMS_ITS | Encounter Summary ---
Author Organization [employer] Address 75 [facility] 7t [place] [address] Care Team Providers Care Director Product Management Name Role Phone Margarita Adams MD Primary Care Provider + [phone] Pearl Galicia PharmD Unavailable Dillon Maldonado MD Unavailable +[phone] Bib Lacey MD Unavailable Encounter Details Date Type Department Care Team (Late st Contact Info) Description 12/14/2022 Abstract [facility] MEDICINE 230 [place] [address] Margarita Adams MD 230 [place], [place] [phone] Social History Tobacco Use Types Packs/Day Years [...] on filedocumented in this encounter Care Teams Director Product Management Relationship Specialty Start Date End Date Margarita Adams MD 230 [place] [address] PCP - General Family Medicine 11/28/18 Pearl Galicia, ShirleyD [address] [place] [address] Pharmacist Internal Medicine 03/03/23 Dillon Maldonado MD [address] [place] [address] Gastroenterology 07/10/25 Bib Lacey MD [address] [place] [address] Obstetrics and Gynecology 10/15/25 documented as of this encounter
--- OUTSIDE RECORDS SUMMARY | 2025-11-15 15:56 | XMS_ITS | Encounter Summary ---
Author Organization [employer] Address [address] [place] [address] 7 [place] [address] Care Team Providers Care Bariatric Nurse Name Role Phone Margarita Adams MD Primary Care Provider + [phone] Pearl Galicia PharmD Unavailable [phone] Dillon Maldonado MD Unavailable [phone] Bbi Lacey MD Unavailable Reason for Visit * Reason Comments Med Refill Encounter Details Date Type Department Care Team (Late st Contact Info) Description 02/20/2024 Refill [facility] MED & PEDS [address] [place] [address] Catalino Bruce FNP Mood disorder (CMS/[facility]) Social History Tobacco Use Types Packs/Day [...] documented as of this encounter Care Teams Bariatric Nurse Relationship Specialty Start Date End Date Margarita Adams MD 230 [place] [address] PCP - General Family Medicine 11/28/18 Pearl Galicia, PharmD 230 [place] [address] Pharmacist Internal Medicine 03/03/23 Dillon Maldonado MD [address] [place] [address] Gastroenterology 07/10/25 Bib Lacey MD [address] [address] Obstetrics and Gynecology 10/15/25 documented as of this encounter
--- OUTSIDE RECORDS SUMMARY | 2025-11-15 15:56 | XMS_ITS | Encounter Summary ---
Author Organization [employer] Address 75 [facility] 7 [place] [address] Care Team Providers Care Senior Chemical Process Engineer Name Role Phone Margarita Adams MD Primary Care Provider +- [phone] Pearl Galicia PharmD Unavailable [phone] Dillon Maldonado MD Unavailable [phone] Bib Lacey MD Unavailable Reason for Visit * Reason Comments Med Refill Encounter Details Date Type Department Care Team (Late st Contact Info) Description 03/18/2023 Refill [facility] MEDICINE 230 [place] [address] Catalino Bruce FNP Mood disorder (CMS/HCC) Social [...] documented as of this encounter Care Teams Senior Chemical Process Engineer Relationship Specialty Start Date End Date Margarita Adams MD 230 [place] [address] PCP - General Family Medicine 11/28/18 Pearl Galicia, PharmD 230 [place] [address] Pharmacist Internal Medicine 03/03/23 Dillon Maldonado MD [address] [place] [address] Gastroenterology 07/10/25 Bib Lacey MD [address] [address] Obstetrics and Gynecology 10/15/25 documented as of this encounter
--- OUTSIDE RECORDS SUMMARY | 2025-11-15 15:56 | XMS_ITS | Clinical Summary ---
Author Organization [employer] Address [address] [facility] 7[address] [place] [address] Care Team Providers Care Top Bottom Attaching Machine Operator Name Role Phone Margarita Adams MD Primary Care Provider [phone]- [phone] Pearl Galicia PharmD Unavailable Dillon Maldonado MD Unavailable [phone] Bib Lacey MD Unavailable Allergies No known [...] without long-term current use of insulin (HCC) 1 each Once per day. Use to [...] current use of insulin (HCC) Use to clean skin prior to checking [...] without long-term current use of insulin (HCC) INJECT 1 MG UNDER THE SKIN ONCE [...] 1 (one) time per week. 1 each 11 07/23/ 025 Discontinued(Re order (will not trigger notification to Pharmacy)) gabapentin (Neurontin) 300 MG capsuleIndicati ons:Mood disorder (CMS/HCC) Take 1 capsule (300 mg) by mouth every 6 (six) hours during the day. 90 capsule 09/17/20 25 025 Discontinued(Re order (will not trigger notification to Pharmacy)) zolpidem (Ambien) 10 MG tabletIndicatio ns:Mood disorder (CMS/HCC) TAKE 1 TABLET BY MOUTH AT BEDTIME NEEDED FOR SLEEP 30 tablet 09/17/20 25 025 Discontinued(Re order (will not trigger notification to Pharmacy)) clotrimazole (Lotrimin) 1 % cream Apply topically 2 times daily for 28 days. 30 g 1 10/14/20 25 025 Active Problems Problem Noted Date Diagnosed Date Tinea pedis of left foot 10/14/2025 Assessment & Plan (10/14/2025 1:54 PM EST): - On interdigital area, with ulceration. - Continue cleaning affected area with warm water and baking soda BID. - Apply topical clotrimazole + desitin cream to the lesion twice daily. Maintain area clean and dry. - Referred to dye jig operator for toenail care and further management. Avoid pedicures until evaluated by dye jig operator. Generalized anxiety disorder 04/17/2025 Assessment & Plan [...] and upset stomach. -will trial ozempic again 7/23/25 Assessment & Plan (05/01/2025 10:09 AM EDT): [...] again heavy. She will follow up with OUTSIDE INSTALLATION MACHINIST for Mirena. Repeat on 09/18 Hgb 10.8 has f/u with OUTSIDE INSTALLATION MACHINIST for menses control. Lab Results Component Value [...] again heavy. She will follow up with OUTSIDE INSTALLATION MACHINIST for Mirena. Repeat on 09/18 Hgb 10.8 has f/u with OUTSIDE INSTALLATION MACHINIST for menses control. Lab Results Component Value [...] (normal 60-77) Lab Results Component Value Date [id number] 14.1 (L) 03/15/2025 -recent labs 03/01/25 significant vitamin D deficiency, will get labs in chart. -start ergocalciferol (Vitamin D2) 1.25 MG (52499 UT) 03/15/25 -changed to 2000 units daily 05/01/25 Assessment & Plan (05/01/2025 9:59 AM EDT): 08/31/22 Vitamin D was 15. PTH elevated at 89 (normal 60-77) Lab Results Component Value Date [id number] 14.1 (L) 03/15/2025 -recent labs 03/01/25 significant vitamin D deficiency, will get labs in chart. -start ergocalciferol (Vitamin D2) 1.25 MG (10825 UT) 03/15/25 -changed to 2000 units daily 05/01/25 Assessment & Plan (03/15/2025 11:11 AM EDT): 08/31/22 Vitamin D was 15. PTH elevated at 89 (normal 60-77) -recent labs 03/01/25 significant vitamin D deficiency, will get labs in chart. -start ergocalciferol (Vitamin D2) 1.25 MG (06840 UT) 03/15/25 Mood disorder 01/03/2023 Overview (03/15/2025): Symptoms have suggested BP 2, rather than unipolar depression. Doing OK, but with increased anxiety and sleep maintenance insomnia. -On Gabapentin 300 mg TID. Increase to Zolpidem 10 mg at bedtime as needed, avoid taking every night to maintain efficacy. -Restart Abilify 5 mg to take 1.5 tablets (7.5 mg) daily. -Referred to [facility] 03/15/25 Assessment & Plan (03/15/2025 11:25 AM EDT): Symptoms have suggested BP 2, rather than unipolar depression. Doing OK, but with increased anxiety and sleep maintenance insomnia. -On Gabapentin 300 mg TID. Increase to Zolpidem 10 mg at bedtime as needed, avoid taking every night to maintain efficacy. -Restart Abilify 5 mg to take 1.5 tablets (7.5 mg) daily. -Referred to [facility] 03/15/25 Assessment & Plan (05/01/2024 12:30 PM [...] medication management. Any issues or concerns contact [facility]. All her questions were answered and [...] depression. Still with anxiety. Given info about [facility] Mindfulness Mondays, and she is interested [...] this, and she will go to the [facility] in [place] to access services. Continue current medications: Abilify [...] as pharmacomtherapy, [facility] smoking cessation group, and [facility] pharmacy smoking cessation clinic Discussed USPSTF [...] as pharmacomtherapy, [facility] smoking cessation group, and [facility] pharmacy smoking cessation clinic Discussed USPSTF [...] Encounters Date Type Department Care Team Description 11/06/2025 Orders Only GENERIC EXTERNAL DATA DEPARTMENT Provider, Generic External Data 10/31/2025 Telephone [facility] MEDICINE [address] [place] [phone] Margarita Adams MD Prior Authorization (PA: Joe) 10/26/2025 Refill [facility] WALK-IN [address] [address] Margarita Adams MD Type 2 diabetes mellitus without complication, without long-term current use of insulin ([facility]); Mood disorder ([facility]/HCC) 10/15/2025 Results Follow-Up [address] [address] Margarita Adams MD Bacterial Vaginosis, Chlamydia/N. Gonorrhoeae RNA, TMA, Urogenitial, Hepatitis C Ab, Additional followed-up results: 4 10/14/2025 1:20 PM EST Office Visit [address] [address] Kemi Cerrato MD Tinea pedis of left foot (Primary Dx) 10/14/2025 Orders Only GENERIC EXTERNAL DATA DEPARTMENT Provider, Generic External Data 10/14/2025 Travel 10/05/2025 Orders Only [facility] External Provider, [facility] 09/26/2025 11:30 AM EDT Telemedicine [address] [address] Margarita Adams MD Dyslipidemia (Primary Dx); Tobacco dependence syndrome; Class 3 severe obesity due to excess calories with serious comorbidity and body mass index (BMI) of 45.0 to 49.9 in adult ([facility]); Type 2 diabetes mellitus without complication, without long-term current use of insulin ([facility]); Moderate persistent asthma, unspecified whether complicated 09/26/2025 Travel 09/25/2025 Telephone [facility] MED[facility] [address] [place] [address] Margarita Adams MD chart prep 09/16/2025 Refill [facility] [address] [place] [address] Margarita Adams MD Mood disorder ([facility]) 08/18/2025 Refill [facility] [address] [place] [address] Margarita Adams MD Mood disorder ([facility]) from Last 3 Months Immunizations Immunization Administration [...] Procedure Name Priority Date/Time Associated Diagnosis Comments GROSS AND MICROSCOPIC LEVEL 3 Routine 11/06/2025 3:25 PM EST CULTURE, FUNGAL (SKIN,NAIL,HAIR) Routine 11/06/2025 2:40 PM EST SYPHILIS SCREEN Routine 10/14/2025 3:11 PM EST [...] complication, without long-term current use of insulin ([facility]) LIPID PANEL, STANDARD Routine 06/18/2025 9:03 [...] Recently Relevant to Health Maintenance Results * Gross and Microscopic Level 3 (11/06/2025 3:25 PM EST) 11/06/2025 3:25 PM EST 11/07/2025 10:17 AM EST [facility] - 11/08/2025 1:27 PM EST ----- ------- Name: Anabel Silva Age/Sex: 45/F : 1980 Unit#: [id number] Attend Dr: Godfrey Daniels DPM Re11/06/25 Status: [facility] REF Location: [facility] Disch: ----- ------- SPEC : [id number] RECD: 11/07/25 STATUS: JOSÉ HAIDER NUM: [id number] LUIS: 11/06/25 [facility] DR: Godfrey Daniels DPM ENTERED: 11/07/25 SP TYPE: Surgical OTHR DR: Margarita Adams MD ORDERED: Gross Micro L3, PASF Diagnosis Nails, hallux, excision: Portion of nail matrix with degenerative changes; negative for fungal organisms (PASF). Clinical History Tinea unguium Microscopic Description Microscopic sections reviewed. The special stain for PASF is negative for fungal organisms. Material Received Bilateral hallux nails Gross Description Received fresh is a 1.5 cm crescent shaped portion of nail tissue with purple nail ghanaian, removed with acetone, then softened in sodium hydroxide. The specimen is entirely submitted in cassette A. (JGD) Special stains ordered and performed: PASF on A1. IHC S/NG Disclaimer NOTE: Unless otherwise stated, all tissue is formalin-fixed and paraffin-embedded. Some or all of the immunohistochemical tests reported herein may have been developed and their performance characteristics determined by [facility]. They have not been cleared or approved by the U.S. Food and Drug Administration (FDA). However, the FDA has determined that such clearance or approval is not necessary. This laboratory is certified under the Clinical Laboratory Improvement Amendments of 1988 (CLIA) as qualified to perform high complexity clinical laboratory testing. Copies To: Margarita Adams MD [address] [address] CONTINUED ON NEXT PAGE ----- ------- Name: Anabel Silva Age/Sex: 45/F : 1980 Unit#: [id number] Attend Dr: Godfrey Daniels DPM Re11/06/25 Status: DEP REF Location: [facility] Disch: ----- ------- SPEC : [id number] RECD: 11/07/25-1016 STATUS: JOSÉ HAIDER NUM: [id number] LUIS: 11/06/25-152 [facility] DR: Godfrey Daniels DPM ENTERED: 11/07/25 SP TYPE: Surgical OTHR DR: Margarita Adams MD ORDERED: Gross Micro L3, PASF Copies To: (Continued) Godfrey Daniels [facility] [address] [address] [email or web address] ----- ------- Signed (signature on file) Evita Luciano MD 11/08/25 1327 ----- ------- END OF REPORT Generic External Data Provider LAB CYTOLOGY ORDE RABLES Final Result Performing Organization Address City/[facility]/ZIP Co de Phone Number [facility] [address] [place] [phone] * Syphilis Screen (10/14/2025 3:11 PM EST) Syphilis Screen Nonreactive Nonreactive [facility] 10/14/2025 3:11 PM EST 10/14/2025 3:11 PM EST Generic External Data Provider LAB BLOOD ORDERAB LES Final Result Performing Organization Address [facility]/ZIP Co de Phone Number [facility] [address] [place] [address] [phone] * Hepatitis C Ab (10/14/2025 3:11 PM EST) Pathologist [facility] Hepatitis C Antibody Nonreactive Nonreactive [facility] Comment:Antibodies to HCV no t detected; does not exclude early acuteHCV infection. 10/14/2025 3:11 PM EST 10/14/2025 3:11 PM EST Generic External Data Provider LAB BLOOD ORDERAB LES Final Result Performing Organization Address City/[facility]/ZIP Co de Phone Number [facility] [address] [place] [phone] * Hepatitis B surface antigen, EIA (10/14/2025 3:11 PM EST) Pathologist [facility] Hepatitis B Surface Ag Negative Negative [facility] 10/14/2025 3:11 PM EST 10/14/2025 3:11 PM EST Generic External Data Provider LAB BLOOD ORDERAB LES Final Result Performing Organization Address [facility] Co de Phone Number [facility] [address] [place] [phone] * HIV-1/2 Antigen and Antibodies, Fourth Generation, with Reflexes (10/14/2025 3:11 PM EST) Pathologist [facility] HIV AB/AG Nonreactive Nonreactive [facility] Comment:HIV-1 p24 Ag and/or HIV-1/HIV-2 Ab not detected.A test result that is nonreactive does not exclude thepossibility of exposure to or infection with HIV-1 and/orHIV-2. Nonreactive results in this assay for individualswith prior exposure to HIV-1 and/or HIV-2 may be due toantigen and antibody levels that are below the limit ofdetection of this assay.The [employer] HIV Ag/Ab Combo assay result andsupplemental assay results should be interpreted inconjunction with the patient's clinical presentation,history and other laboratory results. If the results areinconsistent with clinical evidence, additional testing issuggested to confirm the result. 10/14/2025 3:11 PM EST 10/14/2025 3:11 PM EST Generic External Data Provider LAB BLOOD ORDERAB LES Final Result Performing Organization Address [facility] de Phone Number [facility] [address] [place] [address] [phone] * (ABNORMAL) Bacterial Vaginosis (10/14/2025 2:06 PM EST) Pathologist [facility] TRICHOMONAS VAGINALIS DETECTION BY PCR NOT DETECTED Not Detect [facility] BACTERIAL VAGINOSIS DETECTION BY PCR POSITIVE(A) Negative [facility] Comment:The BV organism targ ets of [...] DETECTION BY PCR NOT DETECTED Not Detect [facility] Marisol glab krusei PCR NOT DETECTED Not Detect [facility] 10/14/2025 2:06 PM EST 10/14/2025 3:12 PM EST Generic External Data Provider LAB MICROBIOLOGY - GENERAL ORDERABLES Final Result Performing Organization Address [facility] Co de Phone Number [facility] [address] [place] [phone] [phone] * Chlamydia/N. Gonorrhoeae RNA, TMA, Urogenitial (10/14/2025 2:06 PM EST) Pathologist [facility] CT PCR NOT DETECTED Not Detect. [facility] Comment:A not detected test result does [...] psychologicalconsequences. NG PCR NOT DETECTED Not Detect. [facility] Comment:A not detected test result does [...] GENERAL ORDERABLES Final Result Performing Organization Address City/State/[facility] Co de Phone Number [facility] [address] [place] [phone] * Culture, Urine, Routine (10/14/2025 2:06 PM EST) Urine Urine specimen obtained by clean catch procedure / Unknown 10/14/2025 2:06 PM EST 10/14/2025 3:12 PM EST Comment:[facility] Narrative [facility] - 10/16/2025 7:40 AM EST Escherichia [...] GENERAL ORDERABLES Final Result Performing Organization Address City/State/[facility] Co de Phone Number [facility] [address] [place] [phone] * CT Abdomen Pelvis w/o Contrast (10/05/2025 8:17 AM EST) Anatomical Region Laterality Modality Body, Pelvis, Abdomen Computed T omography 10/05/2025 8:17 AM EST Narrative 10/07/2025 1:22 PM EST [address] [address] [address] Scan Report Signed Patient: Anabel Silva MR#: [id number] 6 : 1980 Acct:[id number] Age/Sex: 45 / F ADM Date: 10/05/25 Loc: HO.CT Attending Dr: Ray Cook MD Ordering Physician: Ray Cook MD Date of Service: 10/05/25 Procedure(s): CT abdomen pelvis wo IV con Accession Number(s): [id number] cc: Margarita Adams MD; Ray Cook MD Report Number: [id number]: Total DLP = 710.00 mGy-cm Reason for [...] by: Sergo Mercado MD 10/07/2025 01:19 PM [facility] Dictated By: Sergo Mercado MD Signed By: <Electronically signed by Sergo Mercado MD in OV> 10/07/25 1319 DD/ TD/TT: 10/05/25 0828 Trouble Clerk: FREDY Procedure Note Donotuseinterpreter, Image - 10/07/[address] [address] [address] Scan Report Signed Patient: Anabel Silva MMR#: [id number] 6 : 1980Acct:[id number] Age/Sex: 45 / FADM Date: 10/05/25 Loc: HO.CT Attending Dr: Ray Cook MD Ordering Physician: Ray Cook MD Date of Service: 10/05/25 Procedure(s): CT abdomen pelvis wo IV con Accession Number(s): [id number] cc: Margarita Adams MD; Ray Cook MD Report Number: [id number]: Total DLP = 710.00 mGy-cm Reason for [...] by: Sergo Mercado MD 10/07/2025 01:19 PM [facility] Dictated By: Sergo Mercado MD Signed By: <Electronically signed by Sergo Mercado MD in OV> 10/07/25 1319 DD/ 0817 TD/TT: 10/05/25 0828 Trouble Clerk: FREDY [facility] External Provider IMG CT PROCEDURES Edited Result - Final * (ABNORMAL) Hemoglobin A1c (06/18/2025 9:03 AM EDT) Hemoglobin A1c 6.9(H) <6.0 % [facility] Comment:Hemoglobin A1C Refer ence Range Adults: 4.8 - 6.0 % Non diabetic: < 6.0 % Goal: < 7.0 %Additional Action Suggested: > 8.0 %Note: Hemoglobin A1c results are invalid for patients with abnormal amounts of HbF. Blood transfusions may impact the HbA1c concentration in the patient sample. Estimated Average Glucose 151 mg/dL [facility] Comment:eAG = Estimated ave rage glucose which is %A1C expressed asaverage glucose, using the formula of the N2O-NnhzwbjCenvrez Glucose study (ADAG), Diabetes Care, Vol.31,#8,Jun. 2007 Blood Venous blood specimen / Unknown 06/18/2025 9:03 AM EDT 06/18/2025 9:03 AM EDT Margarita Adams MD LAB BLOOD ORDERABLES Final Result Performing Organization Address City/[facility]/ZIP Co de Phone Number [facility] [address] [place] [phone] * (ABNORMAL) Lipid Panel, Standard (06/18/2025 9:03 AM EDT) Triglycerides 139 <150 mg/dL [facility] Comment:Desirable Triglyceri de: less than 150 mg/dLBorderline High Triglyceride 150-199 mg/dLHigh Triglyceride: 200-499 mg/dLVery High Triglyceride: greater than or equal to 5OO mg/dL Cholesterol 128 <200 mg/dL [facility] Comment:Desirable Cholestero l: less than 200 mg/dLBorderline High Cholesterol: 200-239 mg/dLHigh Cholesterol: greater than 239 mg/dL LDL Cholesterol Calculated 70 <100 mg/dL [facility] Comment:Desirable LDL: less than 100 mg/dLNear Optimal/Above Optimal LDL: 110- 129 mg/dLBorderline High LDL: 130-159 mg/dLHigh LDL: 160-189 mg/dLVery High LDL: greater than or equal to 190 mg/dL HDL Cholesterol 31(L) >40 mg/dL [facility] Comment:Desirable HDL: great er than 40 mg/dL Note: This HDL assay may give artificially low results in patients with liver disease. Blood Venous blood specimen / Unknown 06/18/2025 9:03 AM EDT 06/18/2025 9:03 AM EDT Margarita Adams MD LAB BLOOD ORDERABLES Final Result [facility] [address] [place] [address] [phone] * (ABNORMAL) Hm Colonoscopy (06/18/2025) Colonoscopy Abnormal( A) Normal Comment:hyperplastic polyp w ith Dr. Maldonado us Historical Provider HEALTH MAINTENANCE Final Result * BI Mammogram Screening Tomosynthesis Bilateral (05/07/2025 3:30 PM EDT) Anatomical Region Laterality Modality Breast Bilateral Mammography 05/07/2025 3:30 PM EDT Narrative 05/14/2025 5:57 PM EDT [address] [place] [address] Mammography Report Signed Patient: Anabel Silva MR#: [id number] 6 : 1980 Acct:[id number] Age/Sex: 45 / F ADM Date: 05/07/25 Loc: HO.MAMMO Attending Dr: Margarita Adams MD Ordering Physician: Margarita Adams MD Results: 1N egative Date of Service: 05/07/25 Follow Up: 1 Year From [facility] Mammogram Procedure(s): MM tomosynthesis screening BI Accession Number(s): [id number] cc: Margarita Adams MD EXAMINATION: MM SCREENING [...] 05/14/25 1754 DD/ 1530 TD/TT: 05/07/25 1548 Trouble Clerk: Procedure Note Donotuseinterpreter, Image - 05/14/2025 [facility] [address] [place], [place] [address] Mammography Report Signed Patient: Anabel Silva MMR#: [id number] 6 : 1980Acct:[id number] Age/Sex: 45 / FADM Date: 05/07/25 Loc: HO.MAMMO Attending Dr: Margarita Adams MD Ordering Physician: Margarita Adams MDResults: 1N egative Date of Service: 05/07/25Follow Up: 1 Year From Orig inal Mammogram Procedure(s): MM tomosynthesis screening BI Accession Number(s): [id number] cc: Margarita Adams MD EXAMINATION: MM SCREENING [...] 05/14/25 1754 DD/ 1530 TD/TT: 05/07/25 1548 Trouble Clerk: Margarita Adams MD IMG BI PROCEDURES Final Re sult * HPV mRNA E6/E7 w/Reflex to HPV Genotypes 16, 18/45 (04/07/2023 12:16 PM EDT) HPV nRNA E6/E7 Not Detected Not Detected [facility] Comment:Methodology: Transcr iption-Mediated AmplificationThis assay detects E6/E7 viral messenger RNA (mRNA) from 14high-risk HPV types (16,18,31,33,35,39,45,51,52,56,58,59,66,68).Cervical sources are required for HPV testing.If a vaginal source from a patient who has had atotal hysterectomy with removal of cervix wassubmitted, please contact the testing laboratoryfor alternative testing options.For additional information, please refer [email or web address]/[email or web address](This link if provided for information/educational purposes only.)THIS TEST WAS PERFORMED AT:[employer] [place] [phone] LAKHANI MD HPV mRNA E6/E7 TNP [facility] HPV 16 RNA [facility] HPV 18/45 RNA [facility] 04/07/2023 12:1 6 PM EDT 04/08/2023 9:15 AM EDT [facility] External Provider LAB CYT OLOGY ORDERABLES Final Result [facility] [address] [place] [address] [phone] * Pap Smear (04/07/2023 12:16 PM EDT) 04/07/2023 12:1 6 PM EDT 04/08/2023 9:15 AM EDT [facility] - 04/13/2023 3:15 PM EDT ----- ------- Name: Anabel Silva Age/Sex: 42/F : 1980 Unit#: [id number] Attend Dr: Layla Whitlock CNM Re04/07/23 Status: DEP REF Location: [facility] Disch: ----- ------- SPEC : [id number] RECD: 04/08/23 STATUS: JOSÉ HAIDER NUM: [id number] LUIS: 04/07/23-6 [facility] DR: Layla Whitlock ENTERED: 04/08/23 SP TYPE: [...] 59, 66, 68) HPV testing performed by [facility], [place], [place]. See reference laboratory pion of the EMR for entire report. Clinical Information LMP: Unknown Previous PAP test: Unknown, WNL Material Received ThinPrep-Cervical Copies To: Margarita Adams MD [address] [place] [address] Layla Whitlock [address] [place] [address] ----- ------- Signed (signature on file) MATILDA Adhikari ([facility]) 04/13/23 1515 ----- ------- END OF REPORT [facility] External Provider LAB CYT OLOGY ORDERABLES Final Result [facility] [address] [place] [address] [phone] * MICROALBUMIN, RANDOM (07/02/2021 3:00 PM EDT) Creatinine Urine 184.09 mg/dL [facility] Microalbum/Creati nine Ratio Ur 15.2 ug/mg cr [facility] Comment: Albumin/Creatinine Ratio Reference Ranges: Normal: < 30 ug/mg creatinine Microalbuminuria: 30 - 300 ug/mg creatinine Clinical Albuminuria: > 300 ug/mg creatinine Microalbumin Urine 28.0 mg/L [facility] 07/02/2021 3:00 PM EDT us Margarita Adams MD HISTORICAL/NON ORDERABLE L ABS Final Result [facility] [address] from Last 3 Months or Most Recently Relevant to Health Maintenance Additional Health Concerns Active Problems Noted Date Diagnosed Date Help patients manage their type 2 diabetes 10/14 Patient has chronic kidney disease 10/14/2025 Patient has chronic kidney disease 10/15/2025 Patient has chronic kidney disease 10/15/2025 Patient has chronic kidney disease 10/31/2025 Patient has chronic kidney disease 10/31/2025 Insurance BCBS OUT OF STATE Advance Directives Documents on File Type Date Recorded Patient Resident Doctor Expl anation Advance Directives and Living Will 03/20/2025 Health Care Proxy 03/15/25 Care Teams Top Bottom Attaching Machine Operator Relationship Specialty Start Date End Date Margarita Adams MD [address] [place] [phone] PCP - General Family Medicine 11/28/18 Pearl Galicia, PharmD [address] [place] [phone] Pharmacist Internal Medicine 03/03/23 Dillon Maldonado MD [address] [place] [phone] Gastroenterology 07/10/25 Bib Lacey MD [address] [place] [id number] Obstetrics and Gynecology 10/15/25
--- OUTSIDE RECORDS SUMMARY | 2025-11-15 15:56 | XMS_ITS | Encounter Summary ---
Author Organization [employer] Address [address] [place] [address] [address] [address] Care Team Providers Care Telecommunicator Name Role Phone WallerMargarita MD Primary Care Provider +- [phone] Pearl Galicia PharmD Unavailable [phone] Dillon Maldonado MD Unavailable +-[phone] Bib Lacey MD Unavailable Reason for Visit * Reason Comments Med Refill Encounter Details Date Type Department Care Team (Late st Contact Info) Description 01/02/2024 Refill [facility] [address] [place] [address] Catalino Bruce FNP Mood disorder (CMS/HCC) Social [...] documented as of this encounter Care Teams Telecommunicator Relationship Specialty Start Date End Date Margarita Adams MD [address] [place] [address] PCP - General Family Medicine 11/28/18 Pearl Galicia PharmD [address] [place] [address] Pharmacist Internal Medicine 03/03/23 Dlilon Maldonado MD [address] [place] [id number] Gastroenterology 07/10/25 Bib Lacey MD [address] [address] Obstetrics and Gynecology 10/15/25 documented as of this encounter
--- OUTSIDE RECORDS SUMMARY | 2025-11-15 15:56 | XMS_ITS | Encounter Summary ---
Author Organization [employer] Address [address] [place] [address] [address] [place] [address] Care Team Providers Care Informatics Consultant Name Role Phone Margarita Adams MD Primary Care Provider + [phone] Pearl Galicia PharmD Unavailable Dillon Maldonado MD Unavailable +[phone] Bib Lacey MD Unavailable Reason for Visit * Reason Onset Date Comments Med Refill 12/31/2024 Encounter Details Date Type Department Care Team (Late st Contact Info) Description 12/31/2024 Refill [facility] [address] [place], [place] [phone] Talia Gonzalez MD [address] [place], [place] [phone] Mood disorder (CMS/HCC) Social History Tobacco Use [...] documented as of this encounter Care Teams Informatics Consultant Relationship Specialty Start Date End Date Margarita Adams MD [address] [place] [address] PCP - General Family Medicine 11/28/18 Pearl Galicia, ShirleyD [address] [place] [phone] Pharmacist Internal Medicine 03/03/23 Dillon Maldonado MD [address] [place] [id number] Gastroenterology 07/10/25 Bib Lacey MD [address] [place] [address] Obstetrics and Gynecology 10/15/25 documented as of this encounter
--- OUTSIDE RECORDS SUMMARY | 2025-11-15 15:56 | XMS_ITS | Clinical Summary ---
Author Organization [facility] Address [address] [place] [address] Care Team Providers Care Stencil Cutter Name Role Margarita Richter MD Primary Care Provider [phone] Surgical History Surgery Date Site/Laterality Comments SECTION PROCEDURE: [place] DELIVERY ONLY KNEE SURGERY PROCEDURE: HISTORICAL KNEE [...] age to complete this topic Care Teams Stencil Cutter Relationship Specialty Start Date End Date Margarita Adams MD [address] [place] [phone] PCP - General Internal Medicine 08/26/20
== END 2025-11-15 14:48 | disposition home or self-care (01) ==
LOC: HO.HWS 14:27
PROVIDERS: PCP Family Medicine; Visit Provider Obstetrics & Gynecology
DX: R31.29 Other microscopic hematuria (principal); N63.24 Unspecified lump in the left breast, lower inner quadrant
CPT/HCPCS: 99213

== ENCOUNTER → 2025-11-15 14:27 | Outpatient (BNVA) | payer BC, SELFPAY | PROVIDERS: PCP Family Medicine; Visit Provider Obstetrics & Gynecology | DX: R31.29 Other microscopic hematuria (principal); N63.24 Unspecified lump in the left breast, lower inner quadrant | CPT/HCPCS: 81002 ==